=== PATIENT | female | born 1965 | race Caucasian/White ===

== ENCOUNTER 2020-10-02 16:16 | Outpatient (REF) | payer OTHER, SELFPAY ==
[2020-10-02 18:07] LABS: Albumin Level 4.3 g/dL (3.5-5.0)
[2020-10-02 18:38] LABS: Free T4 (Free Thyroxine) 1.51 ng/dL (0.71-1.85); Thyroid Stimulating Hormone 0.17 uIU/mL (0.32-4.0)
[2020-10-03 20:22] LABS: Calcium (PTHI) 9.1 mg/dL (8.6-10.4); PTHI 39 pg/mL (14-64)
== END 2020-10-02 16:17 | disposition home or self-care (01) ==
LOC: HO.LAB 16:16
PROVIDERS: PCP Physician Assistant; Visit Provider Internal Medicine
DX: E03.9 Hypothyroidism, unspecified (principal); E21.0 Primary hyperparathyroidism; M85.80 Other specified disorders of bone density and structure, unspecified site; E55.9 Vitamin D deficiency, unspecified
CPT/HCPCS: 82040; 82306; 83970; 84439; 84443

== ENCOUNTER 2020-11-22 15:14 | Outpatient (REF) | payer OTHER, SELFPAY ==
[2020-11-22 16:24] LABS: Free T4 (Free Thyroxine) 1.45 ng/dL (0.71-1.85); Thyroid Stimulating Hormone 0.24 uIU/mL (0.32-4.0)
== END 2020-11-22 15:15 | disposition home or self-care (01) ==
LOC: HO.LAB 15:14
PROVIDERS: PCP Physician Assistant; Visit Provider Internal Medicine
DX: E03.9 Hypothyroidism, unspecified (principal)
CPT/HCPCS: 36415; 84439; 84443

== ENCOUNTER → 2020-11-23 11:42 | Outpatient (BNVA) | payer OTHER, SELFPAY | PROVIDERS: PCP Physician Assistant; Visit Provider Internal Medicine ==

== ENCOUNTER 2021-01-22 14:47 | Outpatient (REF) | payer OTHER, SELFPAY ==
[2021-01-22 15:40] LABS: Albumin Level 4.1 g/dL (3.5-5.0); Calcium 8.8 mg/dL (8.4-10.2)
[2021-01-22 16:12] LABS: Free T4 (Free Thyroxine) 1.14 ng/dL (0.71-1.85); Thyroid Stimulating Hormone 1.31 uIU/mL (0.32-4.0); Vitamin D 25-OH Total 30.4 ng/mL (>30)
[2021-01-23 13:22] LABS: PTHI 40 pg/mL (14-64)
== END 2021-01-22 14:48 | disposition home or self-care (01) ==
LOC: HO.LAB 14:47
PROVIDERS: PCP Physician Assistant; Visit Provider Internal Medicine
DX: E03.9 Hypothyroidism, unspecified (principal); E55.9 Vitamin D deficiency, unspecified
CPT/HCPCS: 36415; 82040; 82306; 82310; 83970; 84439; 84443

== ENCOUNTER 2021-01-23 12:39 | Outpatient (REF) | payer OTHER, SELFPAY ==
--- NOTE | ~2021-01-23 | XR_ITS ---
EXAMINATION: XR CHEST CLINICAL INFORMATION: Cough COMPARISON: Chest radiographs 11/16/2019, 01/30/2017 TECHNIQUE: 2 views of the chest were obtained. FINDINGS: The lungs are clear and there is no vascular congestion, airspace consolidation or groundglass opacity. The costophrenic sulci are clear. The heart is normal in size and the hilar and mediastinal contours are unremarkable. There is no acute bony abnormality. XR/XR chest 2V IMPRESSION: Unremarkable examination.
== END 2021-01-23 12:40 | disposition home or self-care (01) ==
LOC: HO.XRAY 12:39
PROVIDERS: PCP Physician Assistant; Visit Provider Internal Medicine Pulmonary Disease
DX: R05 Cough (principal)
CPT/HCPCS: 71046

== ENCOUNTER 2021-03-27 14:32 | Outpatient (REF) | payer OTHER, SELFPAY ==
[2021-03-27 15:43] LABS: Albumin Level 4.3 g/dL (3.5-5.0); Calcium 9.1 mg/dL (8.4-10.2)
[2021-03-27 16:12] LABS: Free T4 (Free Thyroxine) 1.03 ng/dL (0.71-1.85); Thyroid Stimulating Hormone 3.26 uIU/mL (0.32-4.0); Vitamin D 25-OH Total 27.4 ng/mL (>30)
[2021-03-28 14:27] LABS: Calcium (PTHI) 8.8 mg/dL (8.6-10.4); PTHI 38 pg/mL (14-64)
== END 2021-03-27 14:33 | disposition home or self-care (01) ==
LOC: HO.LAB 14:32
PROVIDERS: PCP Physician Assistant; Visit Provider Internal Medicine
DX: E55.9 Vitamin D deficiency, unspecified (principal); E03.9 Hypothyroidism, unspecified; Z86.39 Personal history of other endocrine, nutritional and metabolic disease
CPT/HCPCS: 36415; 82040; 82306; 82310; 83970; 84439; 84443

== ENCOUNTER → 2021-03-29 11:24 | Outpatient (BNVA) | payer OTHER, SELFPAY | PROVIDERS: PCP Physician Assistant; Visit Provider Internal Medicine | DX: E03.9 Hypothyroidism, unspecified (principal); Z86.39 Personal history of other endocrine, nutritional and metabolic disease; E55.9 Vitamin D deficiency, unspecified ==

== ENCOUNTER 2021-05-21 16:54 | Outpatient (REF) | payer OTHER, SELFPAY ==
[2021-05-21 17:48] LABS: MANUAL DIFF FLAG NO
[2021-05-21 17:59] LABS: Basophils Percent Auto 0.6 % (0-2); Eosinophils Absolute Auto 0.2 X10*3/uL (0.0-0.4); Eosinophils Percent Auto 4.4 % (0-4); Hematocrit 38.7 % (37-47); Hemoglobin 13.5 g/dl (12.0-16.0); Imm Gran Abs Auto 0.02 X10*3/uL (0.00-0.03); Imm Gran Pct Auto 0.4 % (0.0-0.4); Lymphocytes Absolute Auto 1.5 X10*3/uL (1.2-4.9); Lymphocytes Percent Auto 32.6 % (20-40); Mean Corpuscular HGB Conc 34.9 g/dl (31.0-35.0); Mean Corpuscular Hemoglobin 31.3 pg (27.0-33.0); Mean Corpuscular Volume 89.6 fL (80-98); Mean Platelet Volume 9.7 fL (9.4-12.3); Monocytes Absolute Auto 0.5 X10*3/uL (0.1-1.2); Monocytes Percent Auto 9.5 % (2-11); Neutrophils Absolute Auto 2.5 X10*3/uL (2.0-8.3); Neutrophils Percent Auto 52.5 % (45-73); Platelet Count 194 X10*3/uL (160-400); Red Blood Count 4.32 X10*6/uL (4.20-5.50); Red Cell Distribution Width 12.6 % (11.0-16.0); White Blood Count 4.7 X10*3/uL (4.8-10.8)
[2021-05-21 18:19] LABS: Alanine Aminotransferase 23 U/L (0-31); Albumin Level 4.3 g/dL (3.5-5.0); Alkaline Phosphatase 76 U/L (39-117); Anion Gap 11 (12-20); Aspartate Amino Transferase 22 U/L (5-31); Bilirubin Total 0.7 mg/dL (0.0-1.0); Blood Urea Nitrogen 14 mg/dL (9-16); Carbon Dioxide 25 mmol/L (22-29); Chloride 108 mmol/L (96-108); Estimated Glomerular Filt Rate > 60; Glucose Random 87 mg/dL (60-115); Potassium 3.8 mmol/L (3.3-5.1); Sodium 140 mmol/L (135-145)
[2021-05-21 18:39] LABS: Free T4 (Free Thyroxine) 1.26 ng/dL (0.71-1.85); Thyroid Stimulating Hormone 0.99 uIU/mL (0.32-4.0)
[2021-05-22 23:51] LABS: Follicle Stimulating Hormone 57.2 mIU/mL; Lutenizing Hormone 34.5 mIU/mL
[2021-05-23 02:12] LABS: DHEA Sulfate 50 mcg/dL (8-188); Thyroid Peroxidase Antibodies 27 IU/mL (<9)
[2021-05-23 02:16] LABS: Cytomegalovirus Ab IgG <0.60 U/mL; Cytomegalovirus Ab IgM <30.00 AU/mL; EBV-VCA IgG Ab >750.00 U/mL; EBV-VCA IgM Ab <36.00 U/mL
[2021-05-23 18:51] LABS: Thyroglobulin <0.1 ng/mL; Thyroglobulin Antibodies 369 IU/mL (< or = 1)
[2021-05-24 21:32] LABS: Mycoplasma Pneumoniae - IgG <=0.90 (<=0.90); Mycoplasma Pneumoniae - IgM 112 U/mL (<770)
[2021-05-25 00:31] LABS: Magnesium, RBC 5.2 mg/dL (4.0-6.4)
[2021-05-25 02:21] LABS: Testosterone, Total 24 ng/dL (2-45)
[2021-05-26 01:47] LABS: Estradiol Free 0.25 pg/mL; Estradiol, Ultrasensitive 13 pg/mL
[2021-05-26 12:31] LABS: Triiodothyronine T3 Reverse 22 ng/dL (8-25)
[2021-05-26 17:36] LABS: Testosterone, Free 2.4 pg/mL (0.1-6.4); Testosterone, Total 21 ng/dL (2-45)
[2021-05-26 22:52] LABS: Progesterone <0.1 ng/mL
== END 2021-05-21 16:55 | disposition home or self-care (01) ==
LOC: HO.LAB 16:54
PROVIDERS: PCP Physician Assistant; Visit Provider Allergy & Immunology Allergy
DX: R53.83 Other fatigue (principal); N95.8 Other specified menopausal and perimenopausal disorders; E06.3 Autoimmune thyroiditis
CPT/HCPCS: 36415; 80053; 82627; 82670; 82681; 83001; 83002; 83735; 84144; 84402; 84403; 84432; 84439; 84443; 84481; 84482; 85025; 86376; 86644; 86645; 86664; 86665; 86738; 86790; 86800

== ENCOUNTER 2021-08-02 14:52 | Outpatient (REF) | payer OTHER, SELFPAY ==
--- NOTE | ~2021-08-02 | MM_ITS ---
EXAMINATION: BONE DENSITOMETRY CLINICAL INDICATION: Osteopenia. COMPARISON: Baseline BD dated 03/26/2018. TECHNIQUE: Using a [employer] DXA System (software version: 13.1) manufactured by [employer], dual-energy x-ray absorptiometry was performed of the lumbar spine and left hip. The images are of good technical quality. Summary results are attached. FINDINGS: AP SPINE L1-L4: Current: BMD 1.143 g/cm2, Z-score 0.0, T-score -0.3, normal, 0.9% decrease from baseline (<5% change is not significant). Baseline: BMD 1.153 g/cm2. LEFT FEMUR, NECK: Current: BMD 0.793 g/cm2, Z-score -1.1, T-score -1.8, osteopenia. Baseline: BMD 0.813 g/cm2. LEFT FEMUR, TOTAL: Current: BMD 0.819 g/cm2, Z-score -1.2, T-score -1.5, osteopenia, 0.2% decrease from baseline (<5% change is not significant). Baseline: BMD 0.821 g/cm2. IDENTIFIED RISK FACTORS: Secondary osteoporosis, history of fracture (adult), glucocorticoids (chronic), menopause, hysterectomy. HISTORY OF FRACTURE: Extremities. MEDICATIONS: Vitamin D. MM/XR DEXA axial skeleton IMPRESSION: 1. DIAGNOSIS: Osteopenia based on the lowest T-score value of -1.8 in the femoral neck applying World Health Organization criteria. 2. 10-YEAR FRACTURE RISK PREDICTION, FRAX: Major osteoporotic fracture (clinical spine, forearm, hip or shoulder) 20.3%. Hip fracture 2.5%. 3. Treatment Recommendations: NOF guidelines recommend consideration for treatment in postmenopausal women and men age 50 and older presenting with the following: -A hip or vertebral (clinical or morphometric) fracture. -T-score less than or equal to -2.5 at the femoral neck or spine after appropriate evaluation to exclude secondary causes. -Low bone mass at the hip or spine and a 10-year fracture probability by FRAX of greater than or equal to 3% for hip fracture or greater than or equal to 20% for major osteoporotic fracture based on the [place] adapted WHO algorithm. 4. Other Recommendations: All treatment decisions require clinical judgment and consideration of individual patient factors, including patient preferences, comorbidities, previous drug use, risk factors not captured in the FRAX model (e.g. frailty, falls, vitamin D deficiency, increased bone turnover, interval significant decline in bone density) and possible under or overestimation of fracture risk by FRAX. Additional medical evaluation for secondary cause of low bone mineral density may be appropriate. FUTURE SCAN RECOMMENDATION: People with diagnosed cases of osteoporosis or at high risk for fracture should have regular bone mineral density tests. For patients eligible for Medicare, routine testing is allowed once every 2 years. The testing frequency can be increased to one year for patients who have rapidly progressing disease, those who are receiving or discontinuing medical therapy to restore bone mass, or have additional risk factors.
--- NOTE | ~2021-08-02 | MM_ITS ---
EXAMINATION: MM SCREENING DIGITAL BREAST TOMOSYNTHESIS, BILATERAL CLINICAL INFORMATION: Screening. Asymptomatic. The lifetime risk of breast cancer based on the Tyrer-Cuzick Model is 14%. COMPARISON: Mammography: November 16, 2019 and studies dating back to January 05, 2015 TECHNIQUE: Digital breast tomosynthesis is performed in both the craniocaudal and mediolateral oblique views along with computer-aided detection (CAD). Synthesized 2D images are generated from the tomosynthesis. Additional exaggerated craniocaudal view of the left breast performed. FINDINGS: The breasts are heterogeneously dense, which may obscure small masses (ACR BI-RADS breast composition Category c). There are no significant masses, abnormal calcifications, or other abnormalities. MM/MM tomosynthesis screening BI IMPRESSION: There are no significant changes from prior study. ASSESSMENT: BI-RADS 1: Negative RECOMMENDATION: Routine annual mammography screening. This patient's information was entered into a reminder system with a target due date for their next mammogram.
== END 2021-08-02 14:53 | disposition home or self-care (01) ==
LOC: HO.MAMMO 14:52
PROVIDERS: Visit Provider Physician Assistant
DX: Z12.31 Encounter for screening mammogram for malignant neoplasm of breast (principal); Z13.820 Encounter for screening for osteoporosis; M85.80 Other specified disorders of bone density and structure, unspecified site; E27.49 Other adrenocortical insufficiency; Z78.0 Asymptomatic menopausal state; Z79.899 Other long term (current) drug therapy; Z98.890 Other specified postprocedural states
CPT/HCPCS: 77063; 77067; 77080

== ENCOUNTER → 2021-09-11 15:23 | Outpatient (BNV) | payer OTHER, SELFPAY | PROVIDERS: Visit Provider Internal Medicine Medical Oncology | DX: E53.8 Deficiency of other specified B group vitamins (principal); E55.9 Vitamin D deficiency, unspecified | CPT/HCPCS: 99213; 99214 ==

== ENCOUNTER 2022-01-18 15:48 | Outpatient (REF) | payer OTHER, SELFPAY ==
[2022-01-18 16:51] LABS: Free T4 (Free Thyroxine) 1.11 ng/dL (0.71-1.85); Thyroid Stimulating Hormone 2.38 uIU/mL (0.32-4.0)
== END 2022-01-18 15:49 | disposition home or self-care (01) ==
LOC: HO.LAB 15:48
PROVIDERS: PCP Physician Assistant; Visit Provider Allergy & Immunology Allergy
DX: E06.3 Autoimmune thyroiditis (principal)
CPT/HCPCS: 36415; 84439; 84443; 84481

== ENCOUNTER 2022-08-01 16:28 | Outpatient (REF) | payer OTHER, SELFPAY ==
[2022-08-01 16:40] LABS: MANUAL DIFF FLAG NO
[2022-08-01 16:48] LABS: Basophils Percent Auto 0.8 % (0-2); Eosinophils Absolute Auto 0.1 X10*3/uL (0.0-0.4); Eosinophils Percent Auto 2.4 % (0-4); Hematocrit 41.3 % (37.0-47.0); Hemoglobin 14.5 g/dl (12.0-16.0); Imm Gran Abs Auto 0.03 X10*3/uL (0.00-0.03); Imm Gran Pct Auto 0.6 % (0.0-0.4); Lymphocytes Absolute Auto 1.5 X10*3/uL (1.2-4.9); Mean Corpuscular HGB Conc 35.1 g/dl (31.0-35.0); Mean Corpuscular Hemoglobin 31.5 pg (27.0-33.0); Mean Corpuscular Volume 89.6 fL (80.0-98.0); Mean Platelet Volume 9.7 fL (9.4-12.3); Monocytes Absolute Auto 0.5 X10*3/uL (0.1-1.2); Monocytes Percent Auto 9.6 % (2-11); Neutrophils Absolute Auto 2.8 x10*3/uL (2.0-8.3); Neutrophils Percent Auto 56.6 % (45-73); Platelet Count 188 X10*3/uL (160-400); Red Blood Count 4.61 X10*6/uL (4.20-5.50); Red Cell Distribution Width 12.4 % (11.0-16.0)
[2022-08-01 18:04] LABS: Alanine Aminotransferase 29 U/L (0-31); Albumin Level 4.3 g/dL (3.5-5.0); Alkaline Phosphatase 96 U/L (39-117); Anion Gap 15 (12-20); Aspartate Amino Transferase 26 U/L (5-31); Bilirubin Total 0.4 mg/dL (0.0-1.0); Blood Urea Nitrogen 12 mg/dL (9-16); Calcium 9.2 mg/dL (8.4-10.2); Carbon Dioxide 26 mmol/L (22-29); Chloride 105 mmol/L (96-108); Estimated Glomerular Filt Rate > 60; Glucose Random 93 mg/dL (60-115); Iron 79 mcg/dL (30-160); Percent Iron Saturation 25 % (15-50); Potassium 4.3 mmol/L (3.3-5.1); Sodium 142 mmol/L (135-145); Total Iron Binding Capacity 314 mcg/dL (228-428); Total Protein 7.3 g/dL (6.5-8.0); Unsaturated Iron Binding 235 ug/dL
[2022-08-01 18:26] LABS: Ferritin 282 ng/mL (10-250)
[2022-08-01 18:36] LABS: Folate 9.6 ng/mL (> or = 4.0); Vitamin B12 385 pg/mL (200-900)
== END 2022-08-01 16:29 | disposition home or self-care (01) ==
LOC: HO.LAB 16:28
PROVIDERS: Visit Provider Internal Medicine Medical Oncology
DX: E03.9 Hypothyroidism, unspecified (principal); E53.8 Deficiency of other specified B group vitamins
CPT/HCPCS: 36415; 80053; 82607; 82728; 82746; 83540; 85025

== ENCOUNTER 2022-08-30 13:53 | Outpatient (REF) | payer OTHER, SELFPAY ==
[2022-08-30 14:39] LABS: MANUAL DIFF FLAG NO
[2022-08-30 15:55] LABS: Basophils Percent Auto 0.9 % (0-2); Eosinophils Absolute Auto 0.1 X10*3/uL (0.0-0.4); Eosinophils Percent Auto 2.5 % (0-4); Hemoglobin 14.2 g/dl (12.0-16.0); Imm Gran Abs Auto 0.03 X10*3/uL (0.00-0.03); Imm Gran Pct Auto 0.7 % (0.0-0.4); Lymphocytes Absolute Auto 1.2 X10*3/uL (1.2-4.9); Lymphocytes Percent Auto 26.6 % (20-40); Mean Corpuscular HGB Conc 34.6 g/dl (31.0-35.0); Mean Corpuscular Hemoglobin 30.7 pg (27.0-33.0); Mean Corpuscular Volume 88.7 fL (80.0-98.0); Mean Platelet Volume 9.8 fL (9.4-12.3); Monocytes Absolute Auto 0.4 X10*3/uL (0.1-1.2); Monocytes Percent Auto 7.8 % (2-11); Neutrophils Absolute Auto 2.8 x10*3/uL (2.0-8.3); Neutrophils Percent Auto 61.5 % (45-73); Platelet Count 203 X10*3/uL (160-400); Red Blood Count 4.62 X10*6/uL (4.20-5.50); Red Cell Distribution Width 12.5 % (11.0-16.0); White Blood Count 4.5 X10*3/uL (4.8-10.8)
[2022-09-02 14:55] LABS: Immunoglobulin G Subclass 1 776 mg/dL (382-929); Immunoglobulin G Subclass 2 324 mg/dL (241-700); Immunoglobulin G Subclass 3 20 mg/dL (22-178); Immunoglobulin G Subclass 4 35.4 mg/dL (4-86); Immunoglobulin G Total 1283 mg/dL (600-1640)
[2022-09-02 17:32] LABS: Immunoglobulin A 174 mg/dL (47-310); Immunoglobulin M 157 mg/dL (50-300)
[2022-09-02 22:56] LABS: Immunoglobulin E 25 kU/L (<OR=114)
[2022-09-03 13:12] LABS: Triiodothyronine T3 Reverse 16 ng/dL (8-25)
[2022-09-03 16:25] LABS: Iodine, Serum/Plasma 86 mcg/L (52-109)
== END 2022-08-30 13:54 | disposition home or self-care (01) ==
LOC: HO.LAB 13:53
PROVIDERS: PCP Physician Assistant; Visit Provider Allergy & Immunology Allergy
DX: D72.819 Decreased white blood cell count, unspecified (principal); E06.3 Autoimmune thyroiditis
CPT/HCPCS: 82784; 82785; 83789; 84482; 85025

== ENCOUNTER 2022-09-26 15:58 | Outpatient (REF) | payer OTHER, SELFPAY ==
[2022-09-26 16:55] LABS: C Reactive Protein 1.03 mg/dL (< or = 0.50); Rheumatoid Factor < 13.0 IU/mL (<15.0)
[2022-09-26 17:22] LABS: Erythrocyte Sedimentation Rate 7 MM/HR (0-20)
[2022-10-02 16:13] LABS: Anti DNA DS Antibody 3 IU/mL
[2022-10-03 11:58] LABS: Anti Nuclear Antibody Screen POSITIVE (NEGATIVE)
== END 2022-09-26 15:59 | disposition home or self-care (01) ==
LOC: HO.LAB 15:58
PROVIDERS: Visit Provider Allergy & Immunology Allergy
DX: M15.8 Other polyosteoarthritis (principal)
CPT/HCPCS: 36415; 84550; 85652; 86038; 86039; 86140; 86225; 86431

== ENCOUNTER 2022-10-24 14:49 | Outpatient (REF) | payer OTHER, SELFPAY ==
[2022-10-24 15:46] LABS: Free T4 (Free Thyroxine) 2.05 ng/dL (0.71-1.85)
[2022-10-31 14:53] LABS: Triiodothyronine T3 Reverse 19 ng/dL (8-25)
== END 2022-10-24 14:50 | disposition home or self-care (01) ==
LOC: HO.LAB 14:49
PROVIDERS: PCP Physician Assistant; Visit Provider Allergy & Immunology Allergy
DX: E06.3 Autoimmune thyroiditis (principal)
CPT/HCPCS: 36415; 84439; 84481; 84482

== ENCOUNTER 2023-03-18 13:50 | Outpatient (REF) | payer OTHER, SELFPAY ==
[2023-03-18 14:07] LABS: MANUAL DIFF FLAG NO
[2023-03-18 15:34] LABS: Basophils Percent Auto 0.7 % (0-2); Eosinophils Absolute Auto 0.1 X10*3/uL (0.0-0.4); Eosinophils Percent Auto 1.8 % (0-4); Hematocrit 44.1 % (37.0-47.0); Imm Gran Abs Auto 0.03 X10*3/uL (0.00-0.03); Imm Gran Pct Auto 0.5 % (0.0-0.4); Lymphocytes Absolute Auto 1.3 X10*3/uL (1.2-4.9); Lymphocytes Percent Auto 22.7 % (20-40); Mean Corpuscular Hemoglobin 30.5 pg (27.0-33.0); Mean Corpuscular Volume 89.6 fL (80.0-98.0); Mean Platelet Volume 10.5 fL (9.4-12.3); Monocytes Absolute Auto 0.6 X10*3/uL (0.1-1.2); Monocytes Percent Auto 10.1 % (2-11); Neutrophils Absolute Auto 3.6 x10*3/uL (2.0-8.3); Neutrophils Percent Auto 64.2 % (45-73); Platelet Count 154 X10*3/uL (160-400); Red Blood Count 4.92 X10*6/uL (4.20-5.50); Red Cell Distribution Width 12.7 % (11.0-16.0); White Blood Count 5.6 X10*3/uL (4.8-10.8)
[2023-03-18 16:16] LABS: Alanine Aminotransferase 27 U/L (0-31); Albumin Level 4.2 g/dL (3.5-5.0); Alkaline Phosphatase 88 U/L (39-117); Anion Gap 12 (12-20); Aspartate Amino Transferase 28 U/L (5-31); Bilirubin Total 0.8 mg/dL (0.0-1.0); Blood Urea Nitrogen 11 mg/dL (9-16); Calcium 9.1 mg/dL (8.4-10.2); Carbon Dioxide 27 mmol/L (22-29); Chloride 105 mmol/L (96-108); Estimated Glomerular Filt Rate > 60; Glucose Random 99 mg/dL (60-115); Potassium 3.8 mmol/L (3.3-5.1); Sodium 140 mmol/L (135-145); Total Protein 7.8 g/dL (6.5-8.0)
[2023-03-18 16:30] LABS: Thyroid Stimulating Hormone 1.55 uIU/mL (0.32-4.0)
== END 2023-03-18 13:51 | disposition home or self-care (01) ==
LOC: HO.LAB 13:50
PROVIDERS: PCP Physician Assistant; Visit Provider Internal Medicine Medical Oncology
DX: E53.8 Deficiency of other specified B group vitamins (principal); E03.9 Hypothyroidism, unspecified
CPT/HCPCS: 36415; 80053; 84443; 85025

== ENCOUNTER → 2023-04-11 08:31 | Outpatient (BNVA) | payer OTHER, SELFPAY | PROVIDERS: PCP Physician Assistant; Visit Provider Nurse Practitioner Family | DX: R07.89 Other chest pain (principal); R00.2 Palpitations | CPT/HCPCS: 93005 ==

== ENCOUNTER → 2023-05-20 09:43 | Outpatient (REF) | payer OTHER, SELFPAY ==
--- NOTE | 2023-05-20 09:46 | HM_ITS ---
Conclusion: 1. Patient was monitored for total period of 3 days 2. Baseline was normal sinus with average heart of 66 beats per minute 3. No significant pauses noted 4. Frequent PACs noted with total burden of 1.7% with 6 SVT event, longest lasting 5 beats and the fastest 176 beats per minute 5. Patient reported total of 8 symptoms all chest creasing correlating with sinus tachycardia with PACs MTDD
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
== END ==
LOC: HO.CARD 09:43
PROVIDERS: PCP Physician Assistant; Visit Provider Nurse Practitioner Family
DX: R07.89 Other chest pain (principal); R00.2 Palpitations
CPT/HCPCS: 93017; 93242

== ENCOUNTER → 2023-05-20 09:46 | Outpatient (BNV) | payer SELFPAY | PROVIDERS: PCP Physician Assistant; Visit Provider Nurse Practitioner | DX: I47.1 Supraventricular tachycardia (principal) | CPT/HCPCS: 93016; 93018; 93244 ==

== ENCOUNTER → 2023-05-28 15:20 | Outpatient (REF) | payer OTHER, SELFPAY ==
--- NOTE | 2023-05-28 15:23 | CA_ITS ---
Transthoracic Echocardiogram Patient (Last, First, Middle): Xochitl Haque, Gender: Female Date of : 1965 Age: 57 Procedure Date: 05/28/2023 Procedure Type: Transthoracic Echocardiogram Location: OP Height: 160.02 cm Weight: 85.28 kg BSA: 1.88 m2 Heart Rate: bpm BP: 110 / 70 mmHg Coke Drawer Hand: TO Referring MD: Stacey Velasco BIOMETRICS HEAD-C Symptoms: R00.2 - Palpitations Study Quality: Fair Conclusions: - The left ventricular systolic function is normal. The calculated ejection fraction is 63% by biplane method. - There is mild to moderate tricuspid valve regurgitation. Findings Left Ventricle Normal left ventricular cavity size. There is normal left ventricular wall thickness. The left ventricular systolic function is normal. The calculated ejection fraction is 63% by biplane method. There is no evidence of regional wall motion abnormalities. Diastolic function is normal for age. Right Ventricle Normal right ventricular cavity size and systolic function. Atria Both atria are normal in size. Aortic Valve There is a normal trileaflet aortic valve. There is no aortic valve stenosis. There is no aortic valve regurgitation. Mitral Valve The mitral valve appears normal. There is no mitral valve regurgitation. There is no mitral valve stenosis. Pulmonic Valve The pulmonic valve is likely normal. Tricuspid Valve There is mild to moderate tricuspid valve regurgitation. There is no evidence of pulmonary hypertension. Great Vessels The asc aorta is normal in size. Venous The inferior vena cava is normal in size and collapses greater than 50% with inspiration. Pericardium/Pleural There is no evidence of pericardial effusion. Prior Study Comparison No significant change compared to prior study dated: 11/30/2019. Measurements 2D Linear Measurements IVSd: 0.96 0.6-0.9/0.6-1.0 cm LVIDd: 4.52 3.9-5.3/4.2-5.9 cm LVIDd Index: 2.40 2.4-3.2/2.2-3.1 cm/m2 LVIDs: 3.13 2.0-3.6 cm LVPWd: 0.76 0.7-1.1 cm LA Diam: 3.70 2.7-3.8/3.0-4.0 cm LAIDs Index: 1.97 1.5-2.3 cm/m2 LV Mass: 156.04 67-162/88-224 g LV Mass Index: 83.00 43-95/49-115 g/m2 LVOT Diam: 2.10 3.0+(-)1.3 cm 2D Systolic Function EF 4C: 64.40 >55% EF 2C: 59.50 >55% EF BiP: 62.90 >55% Mitral Valve MV Pk E: 0.59 MV PK A: 0.67 MV Decel Time: 200.00 E/A: 0.90 E'Lateral: 8.38 E'Medial: 5.11 E/E' Med: 11.50 E/E' Lat: 7.00 PHT: 59.00 MVA PHT: 3.73 Decel [place]: 2.93 Aortic Valve AoV Pk Alex: 1.29 AoV Mn Alex: 0.87 AoV VTI: 0.27 AoV Pk Grad: 7.00 Aov Mn Grad: 3.00 SHAILESH Cont.VTI: 3.46 LVOT LVOT Pk Alex: 1.10 LVOT Mn Alex: 0.67 LVOT VTI: 0.27 LVOT Pk Grad: 5.00 LVOT Mn Grad: 2.00 LVOT Diam: 2.10 LVOT Area: 3.46 Diastolic Function MV Pk E: 0.59 MV Pk A: 0.67 E/A: 0.90 E'Medial: 5.11 E/E' Med: 11.50 E' Laterial: 8.38 E/E' Lat: 7.00 Right Ventricle TAPSE (mm): 26.30 TVS' Alex: 11.30 Tricuspid Valve TR Pk Alex: 2.48 TR Pk Grad: 25.00 RA Press: 3.00 RVSP: 28.00 Great Vessels Aorta Sinus of Valsalva: 3.40 2.0-3.[address] [place]: 2.44 1.7-3.4 cm Ao Asc: 3.20 2.1-3.4 cm Ao Arch: 3.20 Updated in Other Vendor System with Status of Final Bj Pimentel MD electronically signed on 05/29/2023 5:06:31 PM with status of Final
== END ==
LOC: HO.CARD 15:20
PROVIDERS: PCP Physician Assistant; Visit Provider Nurse Practitioner Family
DX: R07.89 Other chest pain (principal); R00.2 Palpitations
CPT/HCPCS: 93306

== ENCOUNTER → 2023-05-28 15:23 | Outpatient (BNV) | payer OTHER, SELFPAY | PROVIDERS: PCP Physician Assistant; Visit Provider Internal Medicine | DX: R00.2 Palpitations (principal) | CPT/HCPCS: 93306 ==

== ENCOUNTER 2023-06-06 09:51 | Outpatient (REF) | payer OTHER, SELFPAY ==
[2023-06-06 12:43] LABS: Free T4 (Free Thyroxine) 1.21 ng/dL (0.71-1.85); Thyroid Stimulating Hormone 0.74 uIU/mL (0.32-4.0)
[2023-06-08 01:19] LABS: Triiodothyronine T3 Free 3.3 pg/mL (2.3-4.2)
== END 2023-06-06 09:52 | disposition home or self-care (01) ==
LOC: HO.LAB 09:51
PROVIDERS: Absent Provider Allergy & Immunology Allergy; PCP Physician Assistant; Visit Provider Nurse Practitioner Family
DX: E06.3 Autoimmune thyroiditis (principal)
CPT/HCPCS: 36415; 84439; 84443; 84481

== ENCOUNTER 2023-06-06 09:51 | Outpatient (AMB) | payer SELFPAY ==
[2023-06-06 10:01] VITALS: BP 120/82; PULSE 57; BMI 32.9
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
== END 2023-06-06 10:57 | disposition home or self-care (01) ==
LOC: HO.HCS 09:51
PROVIDERS: PCP Physician Assistant; Visit Provider Nurse Practitioner Family
DX: R07.89 Other chest pain (principal); R00.2 Palpitations; R03.0 Elevated blood-pressure reading, without diagnosis of hypertension
CPT/HCPCS: 99213

== ENCOUNTER 2023-10-17 16:11 | Outpatient (REF) | payer OTHER, SELFPAY ==
[2023-10-17 16:20] LABS: MANUAL DIFF FLAG NO
[2023-10-17 17:22] LABS: Basophils Absolute Auto 0.1 X10*3/uL (0.0-0.2); Basophils Percent Auto 0.9 % (0-2); Eosinophils Absolute Auto 0.2 X10*3/uL (0.0-0.4); Hematocrit 40.4 % (37.0-47.0); Hemoglobin 13.8 g/dl (12.0-16.0); Imm Gran Abs Auto 0.02 X10*3/uL (0.00-0.03); Imm Gran Pct Auto 0.3 % (0.0-0.4); Lymphocytes Absolute Auto 1.5 X10*3/uL (1.2-4.9); Lymphocytes Percent Auto 25.6 % (20-40); Mean Corpuscular HGB Conc 34.2 g/dl (31.0-35.0); Mean Corpuscular Hemoglobin 30.9 pg (27.0-33.0); Mean Corpuscular Volume 90.4 fL (80.0-98.0); Mean Platelet Volume 9.7 fL (9.4-12.3); Monocytes Absolute Auto 0.6 X10*3/uL (0.1-1.2); Monocytes Percent Auto 10.4 % (2-11); Neutrophils Absolute Auto 3.4 x10*3/uL (2.0-8.3); Neutrophils Percent Auto 59.8 % (45-73); Platelet Count 177 X10*3/uL (160-400); Red Blood Count 4.47 X10*6/uL (4.20-5.50); Red Cell Distribution Width 12.6 % (11.0-16.0); White Blood Count 5.8 X10*3/uL (4.8-10.8)
[2023-10-17 18:35] LABS: Ferritin 238 ng/mL (10-250); Thyroid Stimulating Hormone 3.11 uIU/mL (0.32-4.0)
[2023-10-17 18:41] LABS: Alanine Aminotransferase 29 U/L (0-31); Alkaline Phosphatase 86 U/L (39-117); Anion Gap 10 (12-20); Aspartate Amino Transferase 27 U/L (5-31); Bilirubin Total 0.4 mg/dL (0.0-1.0); Blood Urea Nitrogen 13 mg/dL (9-16); Carbon Dioxide 27 mmol/L (22-29); Chloride 107 mmol/L (96-108); Estimated Glomerular Filt Rate > 60; Glucose Random 85 mg/dL (60-115); Potassium 3.4 mmol/L (3.3-5.1); Sodium 141 mmol/L (135-145); Total Protein 7.5 g/dL (6.5-8.0)
== END 2023-10-17 16:12 | disposition home or self-care (01) ==
LOC: HO.LAB 16:11
PROVIDERS: Visit Provider Internal Medicine Medical Oncology
DX: E03.9 Hypothyroidism, unspecified (principal); Z86.39 Personal history of other endocrine, nutritional and metabolic disease
CPT/HCPCS: 36415; 80053; 82728; 84443; 85025

== ENCOUNTER 2023-12-11 13:03 | Outpatient (REF) | payer OTHER, SELFPAY ==
[2023-12-11 13:22] LABS: MANUAL DIFF FLAG NO
[2023-12-11 14:27] LABS: Basophils Percent Auto 0.9 % (0-2); Eosinophils Absolute Auto 0.1 X10*3/uL (0.0-0.4); Eosinophils Percent Auto 2.6 % (0-4); Hematocrit 40.6 % (37.0-47.0); Hemoglobin 14.2 g/dl (12.0-16.0); Imm Gran Abs Auto 0.02 X10*3/uL (0.00-0.03); Imm Gran Pct Auto 0.4 % (0.0-0.4); Lymphocytes Absolute Auto 1.3 X10*3/uL (1.2-4.9); Mean Corpuscular Hemoglobin 30.9 pg (27.0-33.0); Mean Corpuscular Volume 88.5 fL (80.0-98.0); Mean Platelet Volume 9.9 fL (9.4-12.3); Monocytes Absolute Auto 0.6 X10*3/uL (0.1-1.2); Monocytes Percent Auto 12.8 % (2-11); Neutrophils Absolute Auto 2.7 x10*3/uL (2.0-8.3); Neutrophils Percent Auto 56.3 % (45-73); Platelet Count 168 X10*3/uL (160-400); Red Blood Count 4.59 X10*6/uL (4.20-5.50); Red Cell Distribution Width 12.2 % (11.0-16.0); White Blood Count 4.7 X10*3/uL (4.8-10.8)
[2023-12-11 15:19] LABS: Free T4 (Free Thyroxine) 1.11 ng/dL (0.71-1.85); Thyroid Stimulating Hormone 2.24 uIU/mL (0.32-4.0)
[2023-12-12 21:14] LABS: Triiodothyronine T3 Free 3.1 pg/mL (2.3-4.2)
[2023-12-13 10:49] LABS: Immunoglobulin E 15 kU/L (<OR=114)
[2023-12-15 07:43] LABS: Immunoglobulin A 160 mg/dL (47-310); Immunoglobulin G 1840 mg/dL (600-1640); Immunoglobulin M 143 mg/dL (50-300)
[2023-12-16 01:58] LABS: Iodine, Random Urine 53 mcg/L (34-523)
[2023-12-17 05:18] LABS: Triiodothyronine T3 Reverse 19 ng/dL (8-25)
== END 2023-12-11 13:04 | disposition home or self-care (01) ==
LOC: HO.LAB 13:03
PROVIDERS: PCP Physician Assistant; Visit Provider Allergy & Immunology Allergy
DX: L20.84 Intrinsic (allergic) eczema (principal); E06.3 Autoimmune thyroiditis
CPT/HCPCS: 36415; 82784; 82785; 83789; 84439; 84443; 84481; 84482; 85025

== ENCOUNTER 2024-06-08 12:58 | Outpatient (AMB) | payer OTHER, SELFPAY ==
[2024-06-08 13:01] VITALS: BP 122/60; PULSE 55; BMI 33.3
--- NOTE | 2024-06-08 13:01 | A.OFFVIS_ITS ---
Vital Signs 06/08/24 13:01 Height 5 ft 2 in Weight 182 lb 1.629 oz BMI 33.3 BP 122/60 Blood Pressure Location Lt brachial Position Sitting Pulse 55 Pulse Source Monitor Intake Visit Reasons: 1 year fu C Architect Required: No Allergies dextran sulfate [DEXTRAN SULFATE] Allergy (Severe, Verified 06/08/24 13:03) BRADYCARDIA mold [MOLD] Allergy (Severe, Verified 06/08/24 13:03) SWELLING doxycycline [DOXYCYCLINE] Allergy (Mild, Verified 06/08/24 13:03) RASH/FACIAL SWELLING acetaminophen [From VICODIN] Allergy (Unknown, Verified 06/08/24 13:03) UNKNOWN bee pollen [BEE STINGS] Allergy (Unknown, Verified 06/08/24 13:03) UNKNOWN coconut Allergy (Unknown, Verified 06/08/24 13:03) UNKNOWN hydromorphone [Dilaudid] Allergy (Unknown, Verified 06/08/24 13:03) Bradycardia penicillin V Allergy (Unknown, Verified 06/08/24 13:03) rash Penicillins [PENICILLINS] Allergy (Unknown, Verified 06/08/24 13:03) UNKNOWN pineapple [PINEAPPLE] Allergy (Unknown, Verified 06/08/24 13:03) UNKNOWN Sulfa (Sulfonamide Antibiotics) [SULFA(SULFONAMIDE ANTIBIOTICS)] Allergy (Unknown, Verified 06/08/24 13:03) SWELLING pepper (genus Capsicum) Allergy (Verified 06/08/24 13:03) Shortness of Breath ciprofloxacin [CIPROFLOXACIN] Adverse Reaction (Severe, Verified 06/08/24 13:03) FELT LIKE BLADDER WAS GONNA BURST OUT garlic [GARLIC] Adverse Reaction (Intermediate, Verified 06/08/24 13:03) FLU SYMPTOMS onion [ONION] Adverse Reaction (Mild, Verified 06/08/24 13:03) GI SYMPTOMS all fluroquinolones Allergy (Unknown, Uncoded 06/08/24 13:03) tendonitis Preeti Allergy (Unknown, Uncoded 06/08/24 13:03) Unknown avacado Allergy (Unknown, Uncoded 06/08/24 13:03) Unknown banana Allergy (Unknown, Uncoded 06/08/24 13:03) Unknown bee Allergy (Unknown, Uncoded 06/08/24 13:03) Unknown Clindamycin HCl Allergy (Unknown, Uncoded 06/08/24 13:03) Unknown coconut Allergy (Unknown, Uncoded 06/08/24 13:03) Unknown coconut pineapple mold Allergy (Unknown, Uncoded 06/08/24 13:03) Unknown Dextran 1 Allergy (Unknown, Uncoded 06/08/24 13:03) Unknown Dextran HM Allergy (Unknown, Uncoded 06/08/24 13:03) Unknown From DILAUDID Allergy (Unknown, Uncoded 06/08/24 13:03) UNKNOWN From VICODIN Allergy (Unknown, Uncoded 06/08/24 13:03) UNKNOWN Garlic onion Allergy (Unknown, Uncoded 06/08/24 13:03) Unknown Peanut butter Allergy (Unknown, Uncoded 06/08/24 13:03) Unknown pinnapple Allergy (Unknown, Uncoded 06/08/24 13:03) Unknown sulfa Allergy (Unknown, Uncoded 06/08/24 13:03) rash sulfite Allergy (Unknown, Uncoded 06/08/24 13:03) Unknown tape Allergy (Unknown, Uncoded 06/08/24 13:03) Unknown Medication List - Last Reconciled 06/08/24 by MADDISON CorreiaC albuterol sulfate 90 mcg/actuation 2 puffs PO QID PRN cyanocobalamin (vitamin B-12) 1,000 mcg IM QMONTH cyanocobalamin (vitamin B-12) 1,000 mcg IM QMONTH epinephrine 0.3 mg IM NEEDED PRN levothyroxine (Tirosint) HARRY, no substitutions. 137.5mcg daily loratadine (Claritin) 10 mg PO DAILY mometasone 50 mcg/actuation 2 sprays intranasal BID PRN HPI HPI 1 year fu: Details: Xochitl is a 58-year-old female with past medical history of hypothyroidism, hype rparathyroidism, heart palpitations/ PACs, chest discomfort with normal ETT who now presents for follow-up. Today she reports she had COVID back in April and was quite ill for over 1 week. She still feels some fatigue, shortness of breath and heart palpitations during physical activity. She does not feel that she has fully recovered as of yet. She has been getting some squeezing discomfort in her left chest region which occurs randomly and with physical activity. She denies PND, orthopnea, lightheadedness, presyncope, syncope, falls.. She does get mild lower leg edema at times. She has been trying to increase her physical activity. Currently tires easy which she feels is residual from COVID. Compliant with meds. [facility] Medical History Osteopenia Vitamin D deficiency History of hyperparathyroidism Hypothyroidism Surgical History History of surgery on arm History of partial hysterectomy History of parathyroid surgery Hx of appendectomy Hx of cholecystectomy Family History Father Atherosclerotic heart disease Paternal Grandmother Atherosclerotic heart disease Mother Asthma COPD (chronic obstructive pulmonary disease) Type 2 diabetes mellitus Fungal infection of lung Aspergillosis Social History Household Members: Family Housing: House Are you a primary career manager to a significant other at home: Yes Do you presently have visiting nurse or other home services: No Patient Tobacco Use Status: Never used Tobacco service: No Current occupational status: unemployed Review of Systems Const All systems reviewed & are unremarkable except as noted in HPI and below ENT Denies dizziness Card Reports chest pain, Reports chest pain at rest, Reports chest pain with activity, Denies rapid heart rate, Denies pedal edema, Denies edema, Denies leg edema, Denies lightheadedness, Denies palpitations, Reports dyspnea, Reports dyspnea on exertion and Denies orthopnea Resp Denies cough, Reports dyspnea and Reports dyspnea on exertion GI Denies hematochezia and Denies change in stool character Musc Denies abnormal gait, Denies limited range of motion, Denies muscle cramps, Denies muscle weakness, Denies numbness, Denies radiating pain into limb, Denies stiffness and Denies tingling Neuro Denies abnormal gait, Denies dizziness, Denies numbness and Denies tingling Endo Denies palpitations Physical Exam Vital Signs: Last Vital Signs Pulse 55 06/08/24 13:01 BP 122/60 06/08/24 13:01 BMI result Body Mass Index 33.3 Const General: cooperative, healthy appearing, comfortable and no acute distress Orientation/consciousness: patient oriented x3 Neck Neck: Yes normal visual inspection and Yes no JVD Resp Effort & Inspection: normal respiratory effort Auscultation: clear to auscultation bilaterally, no crackles, no rales, no rhonc hi and no wheezes Cardio Jugular venous distension: no JVD Rate: regular rate Rhythm: regular rhythm Heart sounds: S1 normal heart sound present, S2 normal heart sound present, no murmurs and no rubs Neuro General: patient oriented x3 Extrem General: Yes normal to inspection and No no pedal edema Psych Appearance: grossly normal Mental Status: mental status grossly normal Speech and movement: Normal speech and movement present Office Procedures EKG Details: Today, read by me, Sinus bradycardia, low voltage QRS, rate 55, QTc 411ms [id number], Complete Assessment & Plan Assessment & Plan (1) Chest discomfort: Code(s): R07.89 - Other chest pain Category: Medical Plan: Prior Reports of intermittent squeezing in her left chest region, nonexertional, mostly occurring at rest lasting a few seconds and resolving. Cardiac risk factor of family history. Echocardiogram was done on 05/28/2023 showing EF 63%, [id number] tricuspid regurgitation, no significant change from echo 11/2019. She does tell me she had a history of rheumatic fever as a child. Exercise stress test done 05/20/2023 showed exercise 7 minutes with no anginal symptoms and no EKG changes of ischemia. At this time she continues to report episodes of squeezing in her left chest region. Has happened with activity such as climbing stairs however has occurred at rest as well. She expresses concern due to her family history of father having fatal LA in his early 60s. Will further evaluate with a exercise nuclear stress test. If she has ongoing fatigue and shortness of breath at the time of the stress test and is unable to exercise then a pharmacological stress test can be done. Will plan on waiting a few weeks at her request. Signs and symptoms of angina reviewed. Emergency care if ever needed for symptoms. Plan to call her with results. Cardiology office visit 1 year, sooner if test warrants. (2) Palpitations: Code(s): R00.2 - Palpitations Category: Medical Plan: Prior reports of heart palpitations, feeling like rapid heartbeat. She reports having history of syncope in the past. Prior Holter a few years ago did show PACs. Patient had ongoing concerns about her palpitations. Holter monitor done 05/20/2023 for 3 days shows sinus rhythm with average heart rate 66, PACs 1.7% of time, 6 brief SVT episodes, longest 5 beats, her symptoms correlated with PACs and sinus tachycardia. At this time she describes having COVID with significant illness. She feels she is still recovering. She is noticing some rapid heartbeats during physical activity. Informed her this is not unusual after illness as her body continues to recover and her activity level improves. Reviewed benefits of good hydration, increasing physical activity as tolerated. (3) Family history of early CAD: Code(s): Z82.49 - Family history of ischemic heart disease and other diseases of the circulatory system Category: Medical Plan: As above Plan Time spent on chart review, documentation, interview and assessment Orders: Orders NM cardiolite stress test Today R00.2 - Palpitations, R07.89 - Other chest pain, Z82.49 - Family history of ischemic heart disease and other diseases of the circulatory system CA stress test 1 Month R07.89 - Other chest pain, Z82.49 - Family history of ischemic heart disease and other diseases of the circulatory system Coding Level of Care Code Est Pt Level 4 (72804) Diagnoses Chest discomfort R07.89 Palpitations R00.2 Family history of early CAD Z82.49 CPT Codes EKG - CPT: [id number], Complete ([id number]) Time Spent (min) 30
== END 2024-06-08 13:38 | disposition home or self-care (01) ==
PROVIDERS: PCP Physician Assistant; Visit Provider Nurse Practitioner Family
DX: R07.89 Other chest pain (principal); R00.2 Palpitations; Z82.49 Family history of ischemic heart disease and other diseases of the circulatory system
CPT/HCPCS: 93010; 99214

== ENCOUNTER → 2024-06-08 12:58 | Outpatient (BNVA) | payer OTHER, SELFPAY | PROVIDERS: PCP Physician Assistant; Visit Provider Nurse Practitioner Family | DX: R07.89 Other chest pain (principal); R00.2 Palpitations; Z82.49 Family history of ischemic heart disease and other diseases of the circulatory system | CPT/HCPCS: 93005 ==

== ENCOUNTER → 2024-07-26 08:20 | Outpatient (REF) | payer OTHER, SELFPAY ==
--- NOTE | ~2024-07-26 | NM_ITS ---
EXERCISE MYOCARDIAL PERFUSION STUDY INDICATION: Chest pain TECHNIQUE: The patient was brought in for an exercise perfusion study on 07/26/2024. Patient performed exercise as per Dylon protocol and was injected 20 mCi of sestamibi once target heart rate was achieved. Images were obtained using the SPECT gamma camera interlaced with the gating device. Images were obtained in supine position. Resting perfusion study was performed on 07/28/2024. Patient was administered 24 mCi of sestamibi intravenously at rest. Images were then obtained in supine position. Total DLP 137 mGy-cm. Images were processed with the software and compared side to side in short axis, horizontal long axis and vertical long axis views. FINDINGS: Raw aquisition reviewed. The stress perfusion study showed decreased tracer uptake in the distal part of the lateral wall and adjacent apex. With CT attenuation correction, there is improvement suggestive of soft tissue attenuation artifact. The gated study shows low normal LV systolic function with calculated LVEF of 53%. LV cavity is normal in size. The gated study shows normal wall thickening and contraction of segments. Resting study shows decreased tracer uptake in the mid to distal part of inferolateral wall. There is improvement with CT attenuation correction suggestive of diaphragmatic attenuation artifact. Gating at rest reveals normal wall motion with ejection fraction at 53%. The findings are consistent with reversible distal lateral/apical defect that could be from soft tissue attenuation artifact. NM/NM cardiolite stress test IMPRESSION: 1. Myocardial perfusion imaging study shows no evidence of ischemia or infarction. Probably normal myocardial perfusion. 2. Gated LVEF is 53% during stress and rest. 3. Transient ischemic dilatation not present. EKG component of the test reported separately. Electronically signed by: Bj Pimentel MD 07/29/2024 12:19 PM EDT
--- NOTE | 2024-07-26 08:23 | CA_ITS ---
Acquisition Time: 2024-07-26 08:29:17 Total Exercise Time: 00:06:00 Test Indications: chest pain Medications: Protocol: MAGGIE Max HR: 139 BPM 86% of Pred: 161 BPM Max BP: 164/064 mmHG Max Work Load: 7.0 METS Exercise stress test wioth exercise 6 min of Maggie protocol, achieving 86% MPHR, without anginal symptoms, with frequent PACs, short atrial runs, longest 4 beats, nonconducted PACs, occassional PVCs, with normotensive response to exercise, without EKG changes meeting criteria for ischemia. Nuclear images pending. Test reviewed with Dr Pimentel Referred By: Stacey Velasco Overread By: STACEY VELASCO
== END ==
LOC: HO.CARD 08:20
PROVIDERS: Visit Provider Nurse Practitioner Family
DX: R07.89 Other chest pain (principal); R00.2 Palpitations; Z82.49 Family history of ischemic heart disease and other diseases of the circulatory system
CPT/HCPCS: 78452; 93017; A9500; J0280; J2785

== ENCOUNTER → 2024-07-26 08:23 | Outpatient (BNV) | payer OTHER, SELFPAY | PROVIDERS: Visit Provider Nurse Practitioner Family | DX: I49.1 Atrial premature depolarization (principal); I49.3 Ventricular premature depolarization | CPT/HCPCS: 78452; 93016; 93018 ==

== ENCOUNTER 2025-04-25 08:30 | Outpatient (AMB) | payer OTHER, SELFPAY ==
--- OUTSIDE RECORDS SUMMARY | 2025-04-25 08:38 | XMS_ITS | Patient Health Record ---
Author Organization [facility] Address [address] [place], [place] [id number] Care Team Providers Care Editor & Co Founder Name Role Phone CiraMani Primary Care Provider Ramin Garcia [phone] Allergies Allergen (clinical drug ingredient) Drug/Non Drug Allergy documented on EMR Reaction Allergy Type Onset Date Status Penicillin (uncoded) rash Allergy Active Substance with sulfonamide structure and antibacterial mechanism of action (substance) Sulfa (uncoded) facial swelling Allergy Active Reason For Referral No Information Medications Medication SIG (Take, Route, Frequency, Duration) Notes Start Date End Date Status EpiPen 0.3 MG/0.3ML (1:1000) as directed Intramuscular PRN Active ProAir HFA 108 (90 Base) MCG/ACT 2 puffs Inhalation As Needed Every 4 Hours; Duration: 30 days Active Synthroid 100 MCG 1 tablet Mon-Sat, 1/ 2 tab Sun. Orally Once a day; Duration: 30 day(s) Active Pulmicort Flexhaler 180 MCG/ACT as directed Inhalation bid 06/21/2010 A ctive Claritin 10 MG 1 tablet Orally Once a day; Duration: 30 day(s) Active Fluticasone Propionate 50 MCG/ACT 2 sprays each nostril Once a day Active Cytomel 5 MCG 1 tablet Orally BID; Duration: 30 day(s) Active Protonix 40 MG 1 tablet Orally PRN 10/06/190010/1900 Active Saline 0.9 % as directed Nasally Once daily and PRN Active BPM Pseudo 6-45 MG 1 tablet as needed O rally every 12 hrs; Duration: 30 days 06/21/2010 Active Problems Problem Type SNOMED Code ICD Code Onset Dates Problem Status W/U Status Risk Notes Problem Hoarseness (33087553) Hoarseness (784.49) Active confirmed Problem Cough (36698602) Cough (786.2) Active confirmed Problem Extrinsic asthma without status asthmaticus (14008902) Extrinsic asthma NOS (493.00) Active confirmed Problem Allergic rhinitis due to unspecified cause (477.9) Active confirmed Plan Of Treatment No Information Insurance Providers Payer Name Payer Address Payer Phone Subscriber Number Group Number Insured Name Patient Relationship to Insured Coverage Start Date Coverage End Date [facility] [id number] [place] [phone] [id number] Xochitl Haque Self - patient is the insured Medical (General) History Medical History History ICD Code Asthma Allergic rhinitis Jamaal's thyroiditis L3/L4/L5/S1 disc herniations (trauma) Tibial plateau fracture Left arm/shoulder fracture Surgical History Surgery Date(Month/Year) s/p Cholecystectomy s/p Appendectomy s/p ORIF Tibial plateau fx repair s/p ORIR arm/shoulder fx repair
--- OUTSIDE RECORDS SUMMARY | 2025-04-25 08:38 | XMS_ITS | Encounter Summary ---
Author Organization [facility] Address [address] [place] [phone] Phone Care Team Providers Care Labor Economist Name Role Phone Eleanor Rolon MD Primary Care Provider Encounter Details Date Type Department Care Team (Late st Contact Info) Description 03/28/2023 Procedure [facility], Ct Scan - [address] [address] Social History Tobacco Use Types Packs/Day Years Used Date Smoking Tobacco: Never Smokeless Tobacco: Never Education Answer Date Recorded Are you interested in more education? Not on lalo e 01/31/2023 Are you concerned about learning? Not on file 01/31/2023 No 01/31/2023 No 01/31/2023 Digital Access Answer Date Recorded No 03/01/2023 No 03/01/2023 No 03/01/2023 Reliable internet access at home? Not on file 03/01/2023 Device with a working camera? Not on file Intimate Partner Violence Answer Date R ecorded Are you denied basic needs s uch as food, clothing, or medical care? No 03/28/2023 In the past 12 months have y ou been in a relationship with a person who hurts, threatens, or tries to control you? No 03/28/2023 Are you denied basic needs s uch as food, clothing, or medical care? No 03/28/2023 In the past 12 months have y ou been in a relationship with a person who hurts, threatens, or tries to control you? No 03/28/2023 Comments Unknown Sex and Gender Information Value Date Recorded Sex Assigned at Female 03/28/2023 11:48 AM EDT Legal Sex Female 9:42 PM EDT Gender Identity Female 03/28/2023 11:48 AM EDT Sexual Orientation Not on file documented as of this encounter Functional Status * Calculated C-SSRS Risk Score (Lifetime/Recent) Answer Date of Assessment Author No Risk Indicated 03/28/2023 11:47 AM EDT Autumn Switf RN * [place] Suicide Severity Rating Scale (Screener/Recent Self-Report) Question Answer Date of Assessment Author 1. Wish to be (Past 1 Month) No 023 11:47 AM EDT Autumn Swift RN 2. Non-Specific Active Suici aisha Thoughts (Past 1 Month) No 03/28/2023 11:47 AM EDT Autumn Swift RN documented as of this encounter Plan of Treatment Not on file documented as of this encounter Visit Diagnoses Not on filedocumented in this encounter Care Teams Labor Economist Relationship Specialty Start Date End Date Eleanor Rolon MD [address] [place] [phone] [email or web address] PCP - General Internal Medicine 12/30/17 documented as of this encounter Additional Source Comments The information contained in this document represents components of the legal health record. It is not the complete legal health record.[facility]
--- OUTSIDE RECORDS SUMMARY | 2025-04-25 08:38 | XMS_ITS | Data Portability ---
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 Nasal mucosa is no longer congested and there is no further purulent drainage. No sign of polyp. As she continues to have some pressure and congestion recommended CT sinus. She also has seasonal allergies but it has been more than 5 years since her last allergy test. Recommended updated testing. If significant allergy could consider immunotherapy. She takes mometasone and Zyrtec as needed. I recommended she take these daily to help relieve symptoms. Otologic exam is unremarkable. Audiometric testing shows stable mild low-frequency sensorineural hearing loss on the right side only. She has borderline candidate for amplification but as she is struggling I have recommended a hearing aid evaluation. Repeat testing every 1 to 2 years or sooner for acute changes in hearing. [email or web address] Not available 10/27/2024 15:56:21 01/18/2025 01/18/2025 59-year-old female presents for reevaluation. On examination she has thick nasal discharge with edema. Symptoms and exam are consistent with an acute sinus infection. She has several antibiotic allergies including sulfa and doxycycline but believes she can take penicillin. Will send amoxicillin for 10 days. She should continue nasal rinses. I do recommend she complete allergy testing as this is likely the root cause of her recurrent sinus infection. There does not seem to be any need for surgical intervention based on CT scan. She will schedule repeat allergy testing once allergy season has calm down and she can be off her antihistamine for an extended period of time. All questions were answered. Requesting updated EpiPen which was sent to pharmacy. [email or web address] Not available 01/18/2025 15:58:40 03/09/2025 03/09/2025 59-year-old female presents for reevaluation. On examination there is no further congestion or purulent discharge. May not need antibiotic given exam and improvement with Navage. Recommended she complete allergy testing as seasonal allergies are likely the root cause for her recurrent sinus infections and nasal congestion. Refill was sent for mometasone. Follow-up after allergy testing for review and further planning. [email or web address] Not available 03/09/2025 15:32:08 Plan of Treatment Reminders Order Date Submit Date Provider Last Modified By Organization Details Last Modified Time Details Appointments Test Results 15 2024 02:15P M TAMAR SARMIENTO PA-C Not available Not available Not available Lab None recorded. Referral None recorded. Procedures allergy testing, skin prick (PROC) 2024 025 [email or web address] Not available 03/31/2025 14:09:00 intraderm al allergy skin testing (PROC) 2024 025 [email or web address] Not available 03/31/2025 14:09:00 pulmonary function test procedure (PROC) 2024 025 [email or web address] Not available 03/31/2025 14:09:00 pulse oximetry (PROC) 2024 025 [email or web address] Not available 03/31/2025 14:09:00 allergy testing, skin prick (PROC) 2024 025 [email or web address] Not available 11/18/2024 08:54:05 intraderm al allergy skin testing (PROC) 2024 025 [email or web address] Not available 11/18/2024 08:54:05 pulmonary function test procedure (PROC) 2024 025 [email or web address] Not available 11/18/2024 08:54:05 pulse oximetry (PROC) 2024 025 [email or web address] Not available 11/18/2024 08:54:05 Surgeries None recorded. Imaging CT, sinuses, w/o contrast 2024 025 [email or web address] [facility], [address], [place], [address], 11/09/2024 16:12:46 Medication Orders amoxicill in 500 mg capsule 2024 025 [facility], [address] [place] [address], [address], 03/09/2025 14:45:37 epinephri ne 0.3 mg/0.3 mL injection , auto-inje ctor 2024 025 [facility], [address] [place] [address], [address], 01/18/2025 15:59:10 Patient TargetsNo targets recorded. Patient Instructions Encounter Date Encounter Id Patient Instructions Last Modified By Organization Details Last Modified Time 12/29/2024 [id number] Nursing Documentation for Allergy Testing: Ordering Provider Dr. Dougherty Weight:lbs: kg: PFT Yes With Bronchodilator no approval needed to proceed with allergy testing? Yes Dr. Oliveira ok'd testing YesHistory of Asthma:Yes Asthma Meds: Last used: yesterday Asthma exacerbated by: allergies,humidity ,heat, cold air, being sick Chance that : N/A Fear of needles: No Regular medications reviewed in Computer: Yes Medication allergies: Reviewed Antihistamine use: No Medications used: Food Allergies: garlic, onions, cocnut, nuts, peppers, pineapple, calamari Any foods make your mouth feeling itchy: Yes If yes: melon family History of severe reaction where had to go to ER? Yes If yes details: pineapple (closed throat) Type of heat in home: Baseboard Pets: Yes If yes: 3 dogs Smoker: Never If former smoker-how much / day for how long When quit years ago Smoking now-how much /day for how long Occupation/Social History: senior cyber security analyst Symptoms having: Congestion If other: post nasal drip, cough Frequency Year Round Spirometry Contraindications: Heart attack in the last 3 months: No Major surgery in last 3 months: No Detached retina(serious eye issues) in last 2 months: No Hospitilization in last month: No Proceed with PFT Yes approval needed: Yes Nursing Notes: Pt tolerated test well Yes Benadryl cream to test sites Yes Patient became syncopal-placed in supine position No Large reactions to MQT, reschedule IDT for a different date No Other: Written by: Traci Bach [email or web address] Not available 12/29/2024 15:42:56 Reason for Referral None Reported. Results Created Date Observation Date Name Description Value Unit Range Abnormal Flag Note LastModifiedBy Organization Detail LastModifiedTime 10/28/19 audio gram No observ ation record ed. BARCODE Not Available 2024 11:14:47 11/16/1911/15/2024 CT, sinus es, w/o contr ast No observ ation record ed. [email or web address] [facility] [address] [address], [place], [address], 11/17/2024 08:52:19 12/30/19 albina metry testi ng* No observ ation record ed. [email or web address] Not Available 2024 15:57:54 Result Notes None recorded. Problems Name Problem SNOMED Code Status Onset Date Resolution Date Notes Provider Name and Address Organization Details Recorded Time Dysfuncti on of eustachia n tube 72021505 Active 2013 Eustachia n tube dysfuncti on; CMS Risk: moderate risk CMS Treatment : new problem (to examiner) : no additiona l workup planned N ote: Date Diagnosed : 4 2:43 PM (381.81) Not Available [facility] 4 03:15:37 Disorder of pharynx 47280401 Active 2013 Vestibuli tis Nasal; CMS Risk: moderate risk CMS Treatment : new problem (to examiner) : no additiona l workup planned N ote: Date Diagnosed : 4 2:43 PM (478.20) Not Available [facility] 4 03:15:38 Cough 19297182 Active 2013 Cough; CMS Risk: moderate risk CMS Treatment : new problem (to examiner) : no additiona l workup planned N ote: Date Diagnosed : 4 2:43 PM (786.2) Not Available [facility] 4 03:15:37 Sensorine ural hearing loss of bilateral ears 120516641 Active 2013 Sensorine ural HL, bilateral ; Note: Date Diagnosed : 4 3:55 PM (389.18) Not Available [facility] 4 03:15:38 Allergic rhinitis 39626465 Active 2014 Allergic rhinitis: Due to other allergen; Note: Date Diagnosed : 11/08/2014 3:59 PM (477.8) Not Available [facility] 4 03:15:37 Bilateral tinnitus 08349687924 02 Active 2018 Tinnitus, bilateral ; Note: Date Diagnosed : 03/16/2019 4:28 PM (H93.13) Not Available [facility] 4 03:15:37 Sensorine ural hearing loss 04268966 Active 2018 Sensorine ural hearing loss, unilatera l, right ear, with unrestric christian hearing on the contralat eral side; Note: Date Diagnosed : 03/16/2019 4:28 PM (H90.41) Not Available [facility] 4 03:15:37 Localized eruption of skin 103192064 Active 2018 Rash and other nonspecif ic skin eruption; Note: Date Diagnosed : 03/16/2019 4:28 PM (R21) Not Available [facility] 4 03:15:38 Chronic sinusitis 78323553 Active 2023 DREW BARCENAS PA-C 100 [facility],[address], [place], [address] , [facility] 4 14:17:12 Nasal congestio n 82979127 Active 2024 DREW BARCENAS PA-C [facility],[address], [place], [address] , [facility] - [facility] 5 15:56:25 Acute sinusitis 72500385 Active 2024 DREW BARCENAS PA-C 100 [facility],[address] [place] [address], [facility] [place], [address] , [facility] - [facility] 15:56:29 Non-aller gic rhinitis 73043964962 1 Active 2024 DREW BARCENAS PA-C 100 [facility],[place] [address], [facility] [place], [address] , [facility] [place] 15:56:35 Seasonal allergic rhinitis 872676695 Active 2024 DREW BARCENAS PA-C [address] [place] [address],[address] [place] [address], [place], [address] , [facility] [place] 15:56:35 Problem Notes None recorded. Procedures Surgical History Date Name Laterality Status Provider Name and Address Organization Details Recorded Time 03/31/20 25 Allergy Testing-Full completed LULI ARCE [address] [place] [address],[address], [address], [facility] 03/31/2025 15:25:04 12/30/19 25 Allergy Testing Modified- Quantitative Testing (MQT) Only completed LULI ARCE [address] [place] [address],[address], [address], [facility] 12/29/2024 16:00:17 10/27/19 25 Comp Audio with Tymps - 82992 & 21136 completed LATESHA WILSON [address] [place] [address],[address], [address], [facility] 10/27/2024 15:46:42 Imaging Results None recorded. Procedure Notes None recorded. Medical Equipment None Reported. Allergies Allergen ID Allergen Name Allergen Category Reaction Reaction Severity Criticality Documentation Date Start Date Code Code System Note Provider Name and Address Organization Details Recorded Time 042686 Substance with sulfonami de structure and antibacte rial mechanism of action (substanc e) medicatio n other Not available Not available 02/17/2024 44293 9757 SNOMED React ion: unkno wn, unspe cifie d;; Not Available [facility] 4 01:25:06 141819 Product containin g penicilli n (product) medicatio n other Not available Not available 02/17/2024 41692 8001 SNOMED React ion: unkno wn, unspe cifie d;; Not Available [facility] 4 01:25:07 126960 ciproflox acin medicatio n Not available Not available Not available 10/27/2024 2551 RxNorm Lien nolan, [place] - [facility] 5 15:00:00 952618 oxycodone medicatio n vomiting mild Not available 12/29/2024 7804 RxNorm TRACI BACH, [address], [address] [place] [address] [facility] 5 15:43:42 Medications Name Sig Start Date Stop Date Status Note LastModified by Organization Details LastModified Time cyclobenz aprine 10 mg tablet TAKE 1 TABLET BY MOUTH AT BEDTIME NEEDED FOR MUSCLE SPASM 12/29 completed Not Available Not Available Not Available amoxicill in 500 mg capsule TAKE 1 CAPSULE BY MOUTH EVERY 8 HOURS FOR 10 DAYS 03/09 completed Not Available Not Available Not Available doxycycli ne hyclate 100 mg capsule TAKE 1 CAPSULE BY MOUTH TWICE DAILY FOR 10 DAYS 10/27 completed Not Available Not Available Not Available azithromy teofilo 250 mg tablet TAKE 2 TABLETS BY MOUTH ON DAY 1, AND THEN TAKE 1 TABLET BY MOUTH ONCE A DAY ON DAY 2 THROUGH DAY 5 12/29 completed Not Available Not Available Not Available Claritin 10 mg tablet 1 tablet every day by oral route. 2014 active Not Available Not Available Not Avai lable prednison e 20 mg tablet 09/27 completed Medicati on ID: [id number] Re ason: () Brand Name: predniso ne Send Method: E-Prescr ibed Sub s Allowed: subs OK Speci al Instruct ion: Take 3 tablets by mouth for 6 days, then 2 tablets for 2 days, then 1 table for 2 days Med icationG enericNa me: predniso ne Not Available Not Available Not Available prednison e 5 mg tablet TAKE 1 TABLET BY MOUTH ONCE DAILY FOR 7 DAYS 12/29 completed Not Available Not Available Not Available ciproflox acin 500 mg tablet 09/27 completed Medicati on ID: [id number] Re ason: () Brand Name: ciproflo xacin HCl Send Method: E-Prescr ibed Sub s Allowed: subs OK Speci al Instruct ion: take one PO bid X 10 days Med icationG enericNa me: ciproflo xacin HCl Not Available Not Available Not Available doxycycli ne monohydra te 100 mg tablet TAKE 1 TABLET BY MOUTH TWICE DAILY WITH FOOD 10/27 completed Not Available Not Available Not Available Cytomel 5 mcg tablet 09/24 completed Medicati on ID: [id number] Br and Name: Cytomel Send Method: E-Prescr ibed Sub s Allowed: subs OK Medic ationGen ericName : Cytomel Not Available Not Available Not Available Aleve 220 mg tablet 1 tablet every day by oral route. 2021 active Not Available Not Available Not Avai lable cyanocoba sunny (vit B-12) 1,000 mcg/mL injection solution INJECT 1 ML (CC) INTRAMUS CULARLY ONCE EVERY MONTH active Not Available Not Available No t Available mometason e 50 mcg/actua tion nasal spray USE 2 SPRAY(S) IN EACH NOSTRIL TWICE DAILY NEEDED FOR ALLERGY SYMPTOMS active Not Available Not Available No t Available Synthroid 112 mcg tablet 09/24 completed Medicati on ID: [id number] Br and Name: Synthroi d Send Method: E-Prescr ibed Sub s Allowed: subs OK Medic ationGen ericName : Synthroi d Not Available Not Available Not Available epinephri ne 0.3 mg/0.3 mL injection , auto-inje ctor INJECT CONTENTS OF 1 PEN NEEDED FOR ALLERGIC REACTION active Not Available Not Available No t Available albuterol sulfate HFA 90 mcg/actua tion aerosol inhaler INHALE 2 PUFFS BY MOUTH 4 TIMES DAILY NEEDED FOR SHORTNES S OF BREATH FOR WHEEZING active Not Available Not Available No t Available Bactroban Nasal 2 % ointment 1 a small amount into both nostrils 12/29 completed Medicati on ID: [id number] Du ration Value: 10 Prescri bed By Name: Carlyn Ramirez nd Name: Bactroba n Nasal Se nd Method: E-Prescr ibed Sub s Allowed: subs OK Medic ationGen ericName : Bactroba n Nasal Not Available Not Available Not Available Multivita min 50 Plus tablet Take by oral route. active Not Available Not Available No t Available Flovent HFA 110 mcg/actua tion aerosol inhaler 2 puff 09/24 completed Medicati on ID: [id number] Du ration Value: 90 Prescri bed By Name: Carlyn Ramirez nd Name: Flovent HFA Send Method: E-Prescr ibed Sub s Allowed: subs OK Medic ationGen ericName : Flovent HFA Not Available Not Available Not Available Tirosint 125 mcg capsule TAKE 1 CAPSULE BY MOUTH ONCE DAILY active Not Available Not Available No t Available Breo Ellipta 200 mcg-25 mcg/dose powder for inhalatio n INHALE 1 PUFF BY MOUTH ONCE DAILY active Not Available Not Available No t Available BinaxNOW COVID-19 Ag Self Test kit TEST DIRECTED TODAY 12/29 completed Not Available Not Available Not Available Paxlovid 300 mg (150 mg x 2)-100 mg tablets in a dose pack TAKE 3 TABLETS TOGETHER (TWO 150 MG NIRMATRE LVIR TABLETS AND ONE 100 MG RITONAVI R TABLET) BY MOUTH TWICE DAILY FOR 5 DAYS. 10/27 completed Not Available Not Available Not Available Vitals Date Recorded Body height Body weight Provider Name and Address Organization Details Last Updated DateTime 10/27/2024 157.48 cm 79435 g Lien Alvarez [place] [facility] 10/27/2024 14:59:55 Date Recorded Body height Oxygen saturation Oxygen saturation in Arterial blood by Pulse oximetry Heart rate Body mass index (BMI) Body weight Systolic And Diastolic Provider Name and Address Organization Details Last Updated DateTime 157.48 cm 98 % 98 % 59 /min 33.7 kg/m2 11593 g 125/81 mm[Hg] TRACI BACH, [facility] [address] [place], [address] [place]EE [place] - [facility] 14:44:46 Date Recorded Body height Body mass index (BMI) Body weight Provider Name and Address Organization Details Last Updated DateTime 01/18/2025 157.48 cm 33.7 kg/m2 48967 g Patricia Enio [facility] 01/18/2025 15:00:46 Date Recorded Body height Body mass index (BMI) Body weight Provider Name and Address Organization Details Last Updated DateTime 03/09/2025 158.75 cm 33.3 kg/m2 93696.59 g Daijamin Michael [facility] 03/09/2025 14:31:42 Social History None recorded. Functional Status None recorded. Mental Status None recorded. Family History Nothing Reported. Medical History Condition Response Allergies/Hayfever Y Heart Problems Y Anxiety N Tonsil Infections N Emphysema N Migraines N Thyroid Problems Y Glaucoma N Depression N COPD N Developmental Delay N Nasal or Sinus Problems Y Anemia Y Immune System Disorder N Anesthesia Complications Y Heart Attack (DC) N Other Skin Condition Y Diabetes N Rhinitis Y Bleeding Disorder N Food Allergy Y Arthritis Y Hearing Loss Y Hyperlipidemia N Cancer N Stroke N Dementia N Nasal polyps N Asthma Y Sleep Disorder N GERD/Reflux N High Cholesterol N Liver Disease N Headaches Y Fibromyalgia N Hypertension N Speech Delay N Kidney Disease N Gynecological HistoryNo gynecological history recorded. Obstetrics History GPAL:G 0 P 0 0 0 0 Past Encounters Encounter ID Performer Location Encounter Start Date Encounter Closed Date Diagnosis/Indication Diagnosis SNOMED-CT Code Diagnosis ICD10 Code Diagnosis Note [id number] DREW BARCENAS PA-C [facility] [address] [address] 09/27/2024 13:43:57 09/27/2024 14:12:26 Chronic sinusitis 13909299 J32.9 [id number] DREW BARCENAS PA-C [facility] [address] [address] 10/27/2024 14:53:54 10/27/2024 15:54:30 Sensorineural hearing loss 86723962 H90.41 Audiologic al evaluation results: Right ear: Mild low frequency SNHL rising to normal hearing with excellent word recognitio n. Left ear: Normal hearing with excellent word recognitio n. Tympanomet ry: Right Ear:Type A Left Ear:Type A Nasal congestion 8272355 0 R09.81 Acute sinusitis 58336365 J01.90 Allergic rhinitis 378628 04 J30.9 [id number] TRACI BACH [facility] 100 [facility] 100 [place] [address] 12/29/2024 14:30:27 12/29/2024 16:11:39 Allergic rhinitis 94295631 J30.9 [id number] DREW BARCENAS PA-C [facility] 100 [facility] [place] [address] 01/18/2025 14:45:11 01/18/2025 15:30:35 Allergic rhinitis 60154896 J30.9 Acute sinusitis 48488579 J01.90 [id number] DREW BARCENAS PA-C [facility] 100 [facility] [place] [address] 03/09/2025 14:28:05 03/09/2025 14:58:35 Allergic rhinitis 33553953 J30.9 [id number] LULI ARCE [facility] 100 [facility] 100 [place] [address] 03/31/2025 13:02:26 03/31/2025 15:26:31 Allergic rhinitis 41517811 J30.9 Health Concerns Section Related Observation LastModified by Organization Detai ls LastModified Time None Recorded Concern Status LastModified by Organization Details LastModified Time None Recorded Advance Directives Directive None Recorded Payers Insurance Date Sequence Insurance Name Policy Number Policy Jansen Covered Member ID Jansen Member ID Guarantor Name 03/31/2025 1 [facility] [place] [id number] Daren Diaz [id number] Xochitl Diaz Notes Date Note Type Note Provider Name and Address Organization Details Recorded Time 10/27/2024 text/html 59-year-old ronal johnson presents for reevaluation of sinus infection. She was prescribed doxycycline which she feels relieved the bulk of her symptoms. She does still have some congestion and runny nose but no longer has facial pain or pressure and the mucus has thinned out. Separately, she has a history of asymmetric hearing loss, right greater than left. MRI of the IAC was negative for retrocochlear pathology in 2019. She is struggling more with her hearing particularly watching the TV and speaking with her . DREW BARCENAS PA-C 100 [facility],[address], [address], [facility] 10/27/2024 15:57:32 01/18/2025 text/html 59-year-old ronal johnson presents for reevaluation. Previously evaluated for recurrent sinus infection. Currently believes she has a sinus infection. She has had facial pain and pressure with thick nasal discharge. Has also had increased congestion and low-grade fever. Symptoms have been present for more than 10 days. Previously had a CT scan of the sinus with mucosal thickening but patent OMU. Allergy testing was ordered but could not complete due to significant reaction. Continues to take antihistamine and montelukast daily. DREW BARCENAS PA-C 100 [facility],[address], [address], [facility] 01/18/2025 16:00:13 03/09/2025 text/html 59-year-old ronal johnson presents for reevaluation. Recently evaluated for sinusitis. CT scan was consistent with ethmoid sinusitis and some frothy secretions in the sphenoid sinus. She has several antibiotic allergies but was prescribed penicillin. She did not end up taking the penicillin as she was fearful of allergic reaction. She is however feeling somewhat better. She is using Navage and no longer having purulent discharge. Continues to have nasal congestion. Was using mometasone but ran out of refills. Was sent for allergy testing but testing could not be completed. She is interested in rescheduling. MAURICE GUERRIER MD 100 [facility],[place] [address], [place], [address], [facility] 03/10/2025 08:39:14 OBGyn Episode No OBEpisode recorded.
[2025-04-25 08:43] VITALS: BP 114/62; PULSE 56; BMI 33.9
--- NOTE | 2025-04-25 08:43 | MHC.OFFVIS ---
Vital Signs 04/25/25 08:43 Height 5 ft 2 in Weight 185 lb 10.067 oz BMI 33.9 BP 114/62 Blood Pressure Location Rt brachial Position Sitting Pulse 56 Pulse Source Monitor Intake Visit Reasons: Chest discomfort [place] Director Required: No Allergies dextran sulfate (DEXTRAN SULFATE) Allergy (Severe, Verified 04/25/25 08:46) BRADYCARDIA mold (MOLD) Allergy (Severe, Verified 04/25/25 08:46) SWELLING doxycycline (DOXYCYCLINE) Allergy (Mild, Verified 04/25/25 08:46) RASH/FACIAL SWELLING acetaminophen (From VICODIN) Allergy (Unknown, Verified 04/25/25 08:46) UNKNOWN bee pollen (BEE STINGS) Allergy (Unknown, Verified 04/25/25 08:46) UNKNOWN coconut Allergy (Unknown, Verified 04/25/25 08:46) UNKNOWN hydromorphone (Dilaudid) Allergy (Unknown, Verified 04/25/25 08:46) Bradycardia penicillin V Allergy (Unknown, Verified 04/25/25 08:46) rash Penicillins (PENICILLINS) Allergy (Unknown, Verified 04/25/25 08:46) UNKNOWN pineapple (PINEAPPLE) Allergy (Unknown, Verified 04/25/25 08:46) UNKNOWN Sulfa (Sulfonamide Antibiotics) (SULFA(SULFONAMIDE ANTIBIOTICS)) Allergy (Unknown, Verified 04/25/25 08:46) SWELLING pepper (genus Capsicum) Allergy (Verified 04/25/25 08:46) Shortness of Breath ciprofloxacin (CIPROFLOXACIN) Adverse Reaction (Severe, Verified 04/25/25 08:46) FELT LIKE BLADDER WAS GONNA BURST OUT garlic (GARLIC) Adverse Reaction (Intermediate, Verified 04/25/25 08:46) FLU SYMPTOMS onion (ONION) Adverse Reaction (Mild, Verified 04/25/25 08:46) GI SYMPTOMS all fluroquinolones Allergy (Unknown, Uncoded 04/25/25 08:46) tendonitis Preeti Allergy (Unknown, Uncoded 04/25/25 08:46) Unknown avacado Allergy (Unknown, Uncoded 04/25/25 08:46) Unknown banana Allergy (Unknown, Uncoded 04/25/25 08:46) Unknown bee Allergy (Unknown, Uncoded 04/25/25 08:46) Unknown Clindamycin HCl Allergy (Unknown, Uncoded 04/25/25 08:46) Unknown coconut Allergy (Unknown, Uncoded 04/25/25 08:46) Unknown coconut pineapple mold Allergy (Unknown, Uncoded 04/25/25 08:46) Unknown Dextran 1 Allergy (Unknown, Uncoded 04/25/25 08:46) Unknown Dextran HM Allergy (Unknown, Uncoded 04/25/25 08:46) Unknown From DILAUDID Allergy (Unknown, Uncoded 04/25/25 08:46) UNKNOWN From VICODIN Allergy (Unknown, Uncoded 04/25/25 08:46) UNKNOWN Garlic onion Allergy (Unknown, Uncoded 04/25/25 08:46) Unknown Peanut butter Allergy (Unknown, Uncoded 04/25/25 08:46) Unknown pinnapple Allergy (Unknown, Uncoded 04/25/25 08:46) Unknown sulfa Allergy (Unknown, Uncoded 04/25/25 08:46) rash sulfite Allergy (Unknown, Uncoded 04/25/25 08:46) Unknown tape Allergy (Unknown, Uncoded 04/25/25 08:46) Unknown Medication List - Last Reconciled 04/25/25 by Stacey Velasco [employer]-C albuterol sulfate 90 mcg/actuation 2 puffs PO QID PRN cyanocobalamin (vitamin B-12) 1,000 mcg IM QMONTH cyanocobalamin (vitamin B-12) 1,000 mcg IM QMONTH epinephrine 0.3 mg IM NEEDED PRN fluticasone furoate-vilanterol 50-25 mcg/dose (Breo Ellipta) inhalation levothyroxine (Tirosint) HARRY, no substitutions. 137.5mcg daily loratadine (Claritin) 10 mg PO DAILY mometasone 50 mcg/actuation 2 sprays intranasal BID PRN HPI HPI Chest discomfort: Details: Xochitl is a 59-year-old female with past medical history of hypothyroidism, hyperparathyroidism, heart palpitations/ PACs, chest discomfort with normal nuclear stress test who now presents for follow-up. Today she reports that she has been experiencing symptoms including increased shortness of breath that she does not feel is related to her asthma. She will get squeezing in her chest that can occur randomly at rest and with physical activity. When she lays down she feels squeezing in her throat. She has generalized weakness and malaise. She is concerned about her parathyroids and thyroid. She had a recent thyroid test which she tells me was elevated. 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 She still gets intermittent heart palpitations, no presyncope, syncope, falls. No PND, orthopnea or edema. She has remained physically active but tells me she is not sleeping well. [facility] Medical History Osteopenia Vitamin D deficiency History of hyperparathyroidism Hypothyroidism Surgical History History of surgery on arm History of partial hysterectomy History of parathyroid surgery Hx of appendectomy Hx of cholecystectomy Family History Father Atherosclerotic heart disease Paternal Grandmother Atherosclerotic heart disease Mother Asthma COPD (chronic obstructive pulmonary disease) Type 2 diabetes mellitus Fungal infection of lung Aspergillosis Social History Household Members: Family Housing: House Are you a primary intensive care unit nurse to a significant other at home: Yes Do you presently have visiting nurse or other home services: No Patient Tobacco Use Status: Never used Tobacco service: No Current occupational status: unemployed Review of Systems Const All systems reviewed & are unremarkable except as noted in HPI and below Reports malaise ENT Denies dizziness Card Reports chest pain, Reports chest pain at rest, Reports chest pain with activity, Denies rapid heart rate, Denies pedal edema, Denies edema, Denies leg edema, Denies lightheadedness, Denies palpitations, Reports dyspnea, Reports dyspnea on exertion and Denies orthopnea Resp Denies cough, Reports dyspnea and Reports dyspnea on exertion GI Denies hematochezia and Denies change in stool character Musc Denies abnormal gait, Denies limited range of motion, Denies muscle cramps, Denies muscle weakness, Denies numbness, Denies radiating pain into limb, Denies stiffness and Denies tingling Neuro Denies abnormal gait, Denies dizziness, Denies numbness and Denies tingling Endo Denies palpitations Physical Exam Vital Signs: Last Vital Signs Pulse 56 04/25/25 08:43 BP 114/62 04/25/25 08:43 BMI result Body Mass Index 33.9 Const General: cooperative, healthy appearing, comfortable and no acute distress Orientation/consciousness: patient oriented x3 Neck Neck: Yes normal visual inspection and Yes no JVD Resp Effort & Inspection: normal respiratory effort Auscultation: clear to auscultation bilaterally, no crackles, no rales, no rhonchi and no wheezes Cardio Jugular venous distension: no JVD Rate: regular rate Rhythm: regular rhythm Heart sounds: S1 normal heart sound present, S2 normal heart sound present, no murmurs and no rubs Neuro General: patient oriented x3 Extrem General: Yes normal to inspection and No no pedal edema Psych Appearance: grossly normal Mental Status: mental status grossly normal Speech and movement: Normal speech and movement present Office Procedures EKG Details: Today, read by me, sinus bradycardia, rate 56, Qtc 424ms [id number], Complete Assessment & Plan Assessment & Plan (1) Chest discomfort: Code(s): R07.89 - Other chest pain Category: Medical Plan: Prior Reports of intermittent squeezing in her left chest region, nonexertional. Cardiac risk factor of family history. Echocardiogram was done on 05/28/2023 showing EF 63%, [id number] tricuspid regurgitation, no significant change from echo 11/2019. Exercise stress test done 05/20/2023 showed exercise 7 minutes with no anginal symptoms and no EKG changes of ischemia. Nuclear stress test 07/26/2024 for ongoing symptom showed no infarct or ischemia. She is now reporting increasing shortness of breath and malaise recently. She continues to have squeezing in her chest that occurs randomly and squeezing in her throat when she lays down. She is concerned about cardiac involvement. EKG today showing normal sinus bradycardia, rate 56. Will check CTA of the coronary arteries to further evaluate for CAD. Signs and symptoms of angina reviewed with her. Cardiology follow-up 3 months, sooner if needed. (2) Palpitations: Code(s): R00.2 - Palpitations Category: Medical Plan: Prior reports of intermittent heart palpitations. Holter monitor done 05/20/2023 for 3 days shows sinus rhythm with average heart rate 66, PACs 1.7% of time, 6 brief SVT episodes, longest 5 beats, her symptoms correlated with PACs and sinus tachycardia. Currently reporting intermittent heart palpitations unchanged from prior. Will update her calcium and TSH due to concerns about parathyroid and thyroid disease. Reviewed benefits of good hydration, avoidance of caffeine, increasing physical activity as tolerated. (3) Family history of early CAD: Code(s): Z82.49 - Family history of ischemic heart disease and other diseases of the circulatory system Category: Medical Plan: As above Plan I discussed with the patient the need for a coronary CT scan to evaluate her coronary arteries, given her symptoms and previous normal stress tests. We talked about the importance of checking kidney function and calcium levels before the scan. I advised repeating the thyroid panel to monitor her thyroid function. We also reviewed her asthma management and the need to avoid triggers, as well as the importance of staying hydrate and avoiding excess caffiene Orders: Orders CT Cardiac Coronary Angio Today R00.2 - Palpitations, R07.89 - Other chest pain, Z82.49 - Family history of ischemic heart disease and other diseases of the circulatory system Basic Metabolic Panel Today R07.89 - Other chest pain Calcium Today R00.2 - Palpitations TSH reflex Free T4 Today R00.2 - Palpitations Patient Instructions: - Schedule a coronary CT scan as advised. - Complete blood work to check kidney function and calcium levels before the CT scan. - Repeat thyroid panel as discussed. - Continue asthma management with current medications and avoid known triggers. - Maintain hydration and avoid caffeine - Monitor blood pressure regularly. Patient was informed and verbally consented to the use of an ambient scribe for clinic note documentation during this visit. Visit time spent on chart review, interview, assessment, orders, documentation. Coding Level of Care Code Est Pt Level 4 (47932) Complex EM visit Add On G2211 Diagnoses Chest discomfort R07.89 Palpitations R00.2 Family history of early CAD Z82.49 CPT Codes EKG - CPT: 19294-[id number], Complete ([id number]) Time Spent (min) 30
== END 2025-04-25 09:33 | disposition home or self-care (01) ==
LOC: HO.HCS 08:30
PROVIDERS: Visit Provider Nurse Practitioner Family
DX: R07.89 Other chest pain (principal); R00.2 Palpitations; Z82.49 Family history of ischemic heart disease and other diseases of the circulatory system
CPT/HCPCS: 93010; 99214; G2211

== ENCOUNTER → 2025-04-25 08:30 | Outpatient (BNVA) | payer OTHER, SELFPAY | PROVIDERS: Visit Provider Nurse Practitioner Family | DX: R00.2 Palpitations (principal) | CPT/HCPCS: 93005 ==

== ENCOUNTER 2025-06-16 13:21 | Outpatient (AMB) | payer OTHER, SELFPAY ==
[2025-06-16 13:23] VITALS: BP 120/78; PULSE 61; O2SAT 97; BMI 34.4
--- NOTE | 2025-06-16 13:23 | A.OFFPC_ITS ---
Vital Signs 06/16/25 13:23 Height 5 ft 2 in Weight 188 lb BMI 34.4 BP 120/78 Blood Pressure Location Lt brachial Position Sitting Pulse 61 Pulse Oximetry (%) 97 Oxygen Delivery Method Room Air Intake Visit Reasons: establish care/ Request PE Pedicurist Required: No Accompanied by: Self / Same As Patient Allergies dextran sulfate (DEXTRAN SULFATE) Allergy (Severe, Verified 06/16/25 13:52) BRADYCARDIA mold (MOLD) Allergy (Severe, Verified 06/16/25 13:52) SWELLING doxycycline (DOXYCYCLINE) Allergy (Mild, Verified 06/16/25 13:52) RASH/FACIAL SWELLING acetaminophen (From VICODIN) Allergy (Unknown, Verified 06/16/25 13:52) UNKNOWN bee pollen (BEE STINGS) Allergy (Unknown, Verified 06/16/25 13:52) UNKNOWN coconut Allergy (Unknown, Verified 06/16/25 13:52) UNKNOWN hydromorphone (Dilaudid) Allergy (Unknown, Verified 06/16/25 13:52) Bradycardia penicillin V Allergy (Unknown, Verified 06/16/25 13:52) rash Penicillins (PENICILLINS) Allergy (Unknown, Verified 06/16/25 13:52) UNKNOWN pineapple (PINEAPPLE) Allergy (Unknown, Verified 06/16/25 13:52) UNKNOWN Sulfa (Sulfonamide Antibiotics) (SULFA(SULFONAMIDE ANTIBIOTICS)) Allergy (Unknown, Verified 06/16/25 13:52) SWELLING pepper (genus Capsicum) Allergy (Verified 06/16/25 13:52) Shortness of Breath ciprofloxacin (CIPROFLOXACIN) Adverse Reaction (Severe, Verified 06/16/25 13:52) FELT LIKE BLADDER WAS GONNA BURST OUT garlic (GARLIC) Adverse Reaction (Intermediate, Verified 06/16/25 13:52) FLU SYMPTOMS onion (ONION) Adverse Reaction (Mild, Verified 06/16/25 13:52) GI SYMPTOMS all fluroquinolones Allergy (Unknown, Uncoded 06/16/25 13:52) tendonitis Preeti Allergy (Unknown, Uncoded 06/16/25 13:52) Unknown avacado Allergy (Unknown, Uncoded 06/16/25 13:52) Unknown banana Allergy (Unknown, Uncoded 06/16/25 13:52) Unknown bee Allergy (Unknown, Uncoded 06/16/25 13:52) Unknown Clindamycin HCl Allergy (Unknown, Uncoded 06/16/25 13:52) Unknown coconut Allergy (Unknown, Uncoded 06/16/25 13:52) Unknown coconut pineapple mold Allergy (Unknown, Uncoded 06/16/25 13:52) Unknown Dextran 1 Allergy (Unknown, Uncoded 06/16/25 13:52) Unknown Dextran HM Allergy (Unknown, Uncoded 06/16/25 13:52) Unknown From DILAUDID Allergy (Unknown, Uncoded 06/16/25 13:52) UNKNOWN From VICODIN Allergy (Unknown, Uncoded 06/16/25 13:52) UNKNOWN Garlic onion Allergy (Unknown, Uncoded 06/16/25 13:52) Unknown Peanut butter Allergy (Unknown, Uncoded 06/16/25 13:52) Unknown pinnapple Allergy (Unknown, Uncoded 06/16/25 13:52) Unknown sulfa Allergy (Unknown, Uncoded 06/16/25 13:52) rash sulfite Allergy (Unknown, Uncoded 06/16/25 13:52) Unknown tape Allergy (Unknown, Uncoded 06/16/25 13:52) Unknown Medication List - Last Reconciled 06/16/25 by Zaida Mai PA-C albuterol sulfate 90 mcg/actuation 2 puffs PO QID PRN cyanocobalamin (vitamin B-12) 1,000 mcg IM QMONTH cyanocobalamin (vitamin B-12) 1,000 mcg IM QMONTH epinephrine 0.3 mg IM NEEDED PRN fluticasone furoate-vilanterol 50-25 mcg/dose (Breo Ellipta) inhalation levothyroxine (Tirosint) HARRY, no substitutions. 137.5mcg daily loratadine (Claritin) 10 mg PO DAILY mometasone 50 mcg/actuation 2 sprays intranasal BID PRN Tobacco use date assessed: 06/16/25 Dental Screening Dental Screen Date: 06/16/25 Did you have a dental visit in the last 12 months?: No Did you have a dental problem in the last 6 months where you did not have access to dental care?: No Was dental information given to patient?: Yes HPI establish care/ Request PE HPI Details 59-year-old female with past medical his tory of hypothyroidism, hyperparathyroidism, heart palpitations coming to the office with the 1st time. In review of the notes, patient was seen by Cardiology 04/2025 CTA was ordered and plan to follow up in 3 months. Patient tells us today she has been dealing with left facial swelling. She was seen by ear nose and throat and given a Z-Antoine and returned a week later with worsening swelling of the face. Determined to have salivary gland inflammation with stone in his scheduled for a CAT scan. She also has a CTA scheduled with Cardiology for 06/30/2025. She has no other concerns today. [facility] Medical History Osteopenia Vitamin D deficiency History of hyperparathyroidism Hypothyroidism Surgical History History of surgery on arm History of partial hysterectomy History of parathyroid surgery Hx of appendectomy Hx of cholecystectomy Family History Father Atherosclerotic heart disease Paternal Grandmother Atherosclerotic heart disease Mother Asthma COPD (chronic obstructive pulmonary disease) Type 2 diabetes mellitus Fungal infection of lung Aspergillosis Social History Household Members: Family Housing: House Are you a primary critical care unit nurse to a significant other at home: Yes Do you presently have visiting nurse or other home services: No Alcohol intake: never Patient Tobacco Use Status: Never used Tobacco e-Cigarette/Vaping Use: Never Used service: No Current occupational status: unemployed Hearing needs: No Vision needs: No Questionnaire PHQ-9 Over the last 2 weeks, how often have you been bothered by any of the following problems? 1. Little interest or pleasure in doing things: not at all 2. Feeling down, depressed, or hopeless: not at all 3. Trouble falling or staying asleep, or sleeping too much: not at all 4. Feeling tired or having little energy: several days 5. Poor appetite or overeating: not at all 6. Feeling bad about yourself - or that you are a failure or have let yourself or your family down: not at all 7. Trouble concentrating on things, such as reading the newspaper or watching television: not at all 8. Moving or speaking so slowly that other people could have noticed. Or the opposite - being so fidgety or restless that you have been moving around a lot more than usual: not at all 9. Thoughts that you would be better off or of hurting yourself in some way: not at all Total score: 1 Depression Screening Interpretation: Negative Depression Screening Done: Yes 79542 - PHQ-9 Billing: Yes Source: Developed by Drs. Raúl Sarkar, Xochitl Sosa, Eber Butt and colleagues, with an educational diann from [employer]. Thrive Questionnaire Date Thrive assessed: 06/09/25 I am a: Patient What is your living situation today?: I have a steady place to live Within the past 12 months, did the food you bought not last and you didn't have the money to get more?: Never true Within the past 12 months, did you worry whether your food would run out before you got money to buy more?: Never true Do you have trouble paying for medicines?: No Do you have trouble getting transportation to medical appointments?: No Do you have trouble paying your heating and electricity bill?: Yes Do you have trouble taking care of your child, family member or friend?: No Do you have trouble with day-to-day activities such as bathing, preparing meals, shopping, managing finances, etc.?: No Are you currently unemployed and looking for a job?: No Are you interested in more education?: No Please select the resources that you would like help with: Utilities and Care for elder or disabled Currently or been in a relationship where the following occur: No concerns reported THRIVE Score: 1 AUDIT C Alcohol Use Questionnaire (AUDIT-C) 1. How often do you have a drink containing alcohol?: Never 3. How often do you have six or more drinks on one occasion?: Never Total Score: 0 MORGAN-7 AMB Questionnaire MORGAN-7 Date MORGAN - 7 assessed: 06/16/25 Feeling nervous, anxious, or on edge: 0 = Not at all Not being able to stop or control worryin = Not at all Worrying too much about different things: 0 = Not at all Trouble relaxin = Not at all Being so restless that it is hard to sit still: 0 = Not at all Becoming easily annoyed or irritable: 0 = Not at all Feeling afraid as if something awful might happen: 0 = Not at all Total MORGAN-7 score (0-4 normal; 5-9 mild; 10-14 moderate; 15-21 severe): 0 Source: Developed by Drs. Raúl Sarkar, Xochitl Sosa, Eber Butt and colleagues, with an educational diann from [employer]. MORGAN-7 Assessment Billing MORGAN-7 Assessment Tool: MORGAN-7 Assessment 25393 Review of Systems Const Denies body aches, Denies chills, Denies fever(s), Denies headache(s) and Denies poor appetite Eyes Reports no additional complaints ENT Denies dizziness and Denies headache(s) Card Denies chest pain, Denies edema, Denies lightheadedness and Denies dyspnea Resp Denies dyspnea GI Denies abdominal pain, Denies nausea and Denies vomiting Reports no additional complaints Musc Reports no additional complaints and Denies abnormal gait Skin/Breast Reports system reviewed and no additional complaints, except as documented Neuro Denies abnormal gait, Denies dizziness and Denies headache(s) Psych Reports no additional complaints Physical exam (Primary Care) Vital Signs: Last Vital Signs Pulse 61 06/16/25 13:23 BP 120/78 06/16/25 13:23 Pulse Ox 97 06/16/25 13:23 Oxygen Delivery Method Room Air 06/16/25 13:23 BMI result Body Mass Index 34.4 Tobacco/Smoking Status: Tobacco use Status Tobacco use date assessed 06/16/25 06/16/25 13:36 Patient Tobacco Use Status Never used Tobacco 06/16/25 13:36 e-Cigarette/Vaping Use Never Used 06/16/25 13:34 PHQ-9: PHQ-9 Score PHQ-9: Total score 1 06/16/25 14:27 Depression Screening Interpretation: Negative Thrive Assessment: Date of Thrive Assessment Date Thrive assessed 06/09/25 06/16/25 13:36 Currently or been in a relationship where the following occur: No concerns reported Const General: cooperative, healthy appearing, comfortable and no acute distress Orientation/consciousness: patient oriented x3 HENMT Other: No facial swelling on exam today Head: Yes normocephalic Ears: hearing grossly normal bilaterally General nose exam: Normal external nose present Eyes General: appearance normal, both eyes and all related structures Conjunctivae: conjunctivae normal Neck Neck: Yes full ROM and Yes no lymphadenopathy Resp Effort & Inspection: normal respiratory effort Auscultation: clear to auscultation bilaterally, no crackles, no rales, no rhonchi and no wheezes Cardio Rate: regular rate Rhythm: regular rhythm Skin General skin exam: no rashes or lesions noted Neuro General: patient oriented x3 Gait exam (Neuro): Normal gait present Extrem General: Yes normal to inspection, Yes full ROM and No edema Psych Affect: normal affect Attitude: cooperative Insight: Good insight present (Psych) Judgement: Good judgement present (Psych) Coding Level of Care Code New Pt Level 3 (38930) Diagnoses Elevated blood pressure reading without diagnosis of hypertension R03.0 Palpitations R00.2 Hypothyroidism, unspecified type E03.9 Hypothyroidism type: unspecified History of hyperparathyroidism Z86.39 Cyanocobalamin deficiency E53.8 Osteopenia, unspecified location M85.80 Osteopenia location: unspecified Vitamin D deficiency E55.9 Additional Codes MORGAN-7 Assessment Billing - MORGAN-7 Assessment Tool: MORGAN-7 Assessment 36696 ([id number]) PHQ-9 - 90744 - PHQ-9 Billing: Yes ([id number]) Assessment & Plan Assessment & Plan (1) Elevated blood pressure reading without diagnosis of hypertension: Code(s): R03.0 - Elevated blood-pressure reading, without diagnosis of hypertension Category: Medical Plan: Avoid salt intake and encourage healthy diet and regular exercise. (2) Palpitations: Code(s): R00.2 - Palpitations Category: Medical Plan: She is currently following with Cardiology at this time and is scheduled for a CTA for further evaluation. (3) Hypothyroidism: Code(s): E03.9 - Hypothyroidism, unspecified Category: Medical Qualifiers: Hypothyroidism type: unspecified Qualified Code(s): E03.9 - Hypothyroidism, unspecified Plan: We will continue to monitor blood work and I did order for repeat thyroid labs. She will continue on Tirosint name brand of this of medication as it is a hypoallergenic tablet and she has multiple allergies. (4) History of hyperparathyroidism: Code(s): Z86.39 - Personal history of other endocrine, nutritional and metabolic disease Category: Medical Plan: Plan for ultrasound of the parathyroid and thyroid gland for yearly surveillance as advised by her last PCP. (5) Cyanocobalamin deficiency: Code(s): E53.8 - Deficiency of other specified B group vitamins Category: Medical Plan: Continue to follow with Dr. Gilmore at this time for supplementation. (6) Osteopenia: Code(s): M85.80 - Other specified disorders of bone density and structure, unspecified site Category: Medical Qualifiers: Osteopenia location: unspecified Qualified Code(s): M85.80 - Other specified disorders of bone density and structure, unspecified site Plan: Ordered for repeat bone density screening (7) Vitamin D deficiency: Code(s): E55.9 - Vitamin D deficiency, unspecified Category: Medical Plan: Ordered for repeat blood work and not currently on supplementation. Plan This note was constructed using voice recognition software. While every effort has been made to ensure accuracy and deckhand engineer, still areas may have been included sometimes these areas may affect the content or meeting of the given symptoms. Total time spent caring for the patient today was 30 minutes. This includes time spent before the visit reviewing the chart, time spent during the visit, and time spent after the visit and documentation. Orders: Orders Vitamin B12 and Folate Today E53.8 - Deficiency of other specified B group vitamins, Z13.21 - Encounter for screening for nutritional disorder US thyroid Today E03.9 - Hypothyroidism, unspecified, Z86.39 - Personal history of other endocrine, nutritional and metabolic disease MM tomosynthesis screening BI Today Z12.31 - Encounter for screening mammogram for malignant neoplasm of breast Comprehensive Met. Panel Today Z00.00 - Encounter for general adult medical examination without abnormal findings, Z13.1 - Encounter for screening for diabetes mellitus Free T4 (Free Thyroxine) Today E03.9 - Hypothyroidism, unspecified, Z00.00 - Encounter for general adult medical examination without abnormal findings XR DEXA axial skeleton Today M85.80 - Other specified disorders of bone density and structure, unspecified site, Z78.0 - Asymptomatic menopausal state Hemoglobin A1c Today Z13.1 - Encounter for screening for diabetes mellitus Lipid Panel Today Z13.220 - Encounter for screening for lipoid disorders Referrals Gastroenterology Referral Z12.11 - Encounter for screening for malignant neoplasm of colon Medications: Changed From levothyroxine (Tirosint) HARRY, no substitutions. 137.5mcg daily To Tirosint (levothyroxine) 125 mcg PO DAILY 90 caps 0RF NS
--- OUTSIDE RECORDS SUMMARY | 2025-06-16 17:20 | XMS_ITS | Clinical Summary ---
Author Organization [facility] Address [address] [place] [address] [place] [phone] Phone Care Team Providers Care Mushroom Growth Media Mixer Name Role Phone Eleanor Rolon MD Primary Care Provider Allergies Active Allergy Reactions Criticality Noted Date Comments Ciprofloxacin Other (See Comments) High 12/29/2017 Tendons feeling they were about to burst Dextran 1 Anaphylaxis High 12/29/2017 Hydromorphone Nausea and/or Vomiting High 12/29/2017 Also effects breathing Iodinated Contrast Media Hives,Rash Medium 01/24/2018 Pt suffered congestion, and filling of ears and sinuses. Omeprazole Musculoskeletal Pain Medium 12/29/2017 Penicillins Rash Low 12/29/2017 Sulfa (Sulfonamide Antibiotics) Hives 12/29/2017 Medications levothyroxine (TIROSINT) 88 mcg Cap 88 mcg daily. Active liothyronine (CYTOMEL) 5 MCG tablet Take 5 mcg by mouth 2 (two) times a day. Active loratadine (CLARITIN) 10 mg tablet Take 10 mg by mouth daily. Active lidocaine (LIDODERM) 5 % Place 1 patch onto the skin as needed. Remove & Discard patch within 12 hours or as directed by MD Active albuterol 90 mcg/actuation inhaler Inhale 2 puffs into the lungs every 6 (six) hours as needed for wheezing. Active albuterol (ACCUNEB) 0.63 mg/3 mL nebulizer solution Take 1 ampule by nebulization every 6 (six) hours as needed for wheezing. Active cholecalciferol 400 unit/drop oral dropsIndication s:hypoparathyro idism,vitamin D deficiency Take 5,000 Int'l Units by mouth. Indications: hypoparathyroidi sm, Vitamin D Deficiency Active cyanocobalamin (VIT B-12) 1000 MCG tabletIndicatio ns:Dr. Gilmore at [facility] Inject 100 mcg into the muscle every 30 (thirty) days. Indications: Dr. Gilmore at [facility] Active Social History Tobacco Use Types Packs/Day Years [...] AM EDT Sexual Orientation Not on file Last Filed Vital Signs Vital Sign Reading Time Taken Comments Blood Pressure 129/68 03/28/2023 11:47 AM EDT Pulse 75 03/28/2023 11:47 AM EDT Temperature 35.9 C (96.6 F) 03/28/2023 11:47 AM EDT Respiratory Rate 16 03/28/2023 11:47 AM EDT Oxygen Saturation 97% 03/28/2023 11:47 AM EDT Inhaled Oxygen Concentration - - Weight 81.6 kg (180 lb) 03/28/2023 11:47 AM EDT Height 157.5 cm (5' 2 ) 03/28/2023 11:47 AM EDT Body Mass Index 32.92 03/28/2023 11:47 AM EDT Plan of Treatment Health Maintenance Due Date Last Done Comments TSH LEVEL 1964 DEPRESSION SCREENING 1976 HEPATITIS C SCREENING 1982 HIV ONE-TIME SCREENING (18-65 YEARS) 1982 PAP SMEAR 1985 MAMMOGRAM 2004 COLOGUARD 2009 COLONOSCOPY 2009 COLORECTAL CANCER SCREENING 2009 FIT TEST 2009 FOBT 2009 SIGMOIDOSCOPY 2009 VIRTUAL COLONOSCOPY 2009 ZOSTER VACCINES (1 of 2) 2014 PNEUMOCOCCAL VACCINES (50+ years) (2 of 2 - PCV) 06/18/2017 06/18/2016 Adult Td,Tdap Booster 08/01/2022 08/01/2012 INFLUENZA VACCINE (#1) 2025 07/21/2018, 2015 COVID-19 VACCINE ( season) 2025 11/01/2021, 01/20/2021, 12/27/2020, Additional history exists SCREENING FOR DIABETES 02/06/2027 02/07/2024 LIPID PANEL 02/06/2029 02/07/2024 RSV VACCINE (1 - 1-dose 75+ series) 2039 SMOKING STATUS SCREENING (Once After 26 Yrs) Completed 12/29/2017 HEPATITIS A VACCINES Aged Out No long er eligible based on patient's age to complete this topic HIB VACCINES Aged Out No longer eligi ble based on patient's age to complete this topic MENINGOCOCCAL VACCINES (ACWY) Aged Out No longer eligible based on patient's age to complete this topic MENINGOCOCCAL VACCINES (B) Aged Out N o longer eligible based on patient's age to complete this topic Medical Devices Not on file Procedures Procedure Name Priority Date/Time Associated Diagnosis Comments LIPID PANEL Routine 02/07/2024 11:58 AM EDT Hypothyroidism, unspecified type from Last 3 Months or Most Recently Relevant to Health Maintenance Results * Lipid panel (02/07/2024 11:58 AM EDT) HDL 43 mg/dL [facility] Comment: Interpretation <40 mg/dL: Low HDL cholesterol (major risk factor for CHD) Greater than or equal to 60 mg/dL: High HDL cholesterol ( negative risk factor for CHD) HDL - cholesterol is affected by a number of factors, e.g. smoking, excerise, hormones, sex and age. CHOLESTEROL 154 0 - 240 mg/dL [facility] TRIGLYCERIDES 94 30 - 160 mg/dL [facility] LDL 92 50 - 129 mg/dL [facility] Comment: LDL levels in terms of risk for coronary heart disease: <100 mg/dL: Optimal 100-129 mg/dL: Near or above optimal 130-159 mg/dL: Borderline high 160-189 mg/dL: High >190 mg/dL: Very High CARDIAC RISK RATIO 3.6 3.3 - 4.4 C [facility] Blood 02/07/2024 11:5 8 AM EDT 02/07/2024 12:06 PM EDT us Brittney ANAND LAB BLOOD ORDERABLES Final Resu lt [facility] [address] [place] [address] from Last 3 Months or Most Recently Relevant to Health Maintenance [place] [address] HMO O O O HMO O INSURANCE Care Teams Mushroom Growth Media Mixer Relationship Specialty Start Date End Date Eleanor Rolon MD [address] [place] [address] [email or web address] PCP - General Internal Medicine 12/30/17 Additional Source Comments The information contained in this document represents components of the legal health record. It is not the complete legal health record.[facility]
--- OUTSIDE RECORDS SUMMARY | 2025-06-16 17:20 | XMS_ITS | Encounter Summary ---
Author Organization [facility] Address [address] [facility] [address] [place] [phone] Phone Care Team Providers Care Ballpoint Pen Assembly Machine Operator Name Role Phone Eleanor Rolon MD Primary Care Provider [phone] Encounter Details Date Type Department Care Team (Latest Contact Info) Description 06/18/2021 Transcribe Orders Virtual Department [address] [place] [address] Brittney James PA [address] [place] [address] [email or web address] Fever, unspecified fever cause (Primary Dx); Muscle ache Social History Tobacco Use Types Packs/Day Years Used Date Smoking Tobacco: Never Smokeless Tobacco: Never Comments Unknown Sex and Gender Information Value Date Recorded Sex Assigned at Female 03/28/2023 11:48 AM EDT Legal Sex Female 9:42 PM EDT Gender Identity Female 03/28/2023 11:48 AM EDT Sexual Orientation Not on file documented as of this encounter Plan of Treatment Not on file documented as of this encounter Results * COVID-19 PCR Order (06/20/2021 5:00 PM EDT) COVID Testing Status Specimen received in analyzing lab. Results should be available within 24 to 48 hrs. [facility] Symptomatic? YES [facility] Other (Nasal swab) 06/20/2021 5:00 PM EDT 06/20/2021 8:26 PM EDT us Brittney ANAND BODY FLUIDS AND STOOLS ORDERABL ES Final Result [address] [id number] [facility] [address] [place] [id number] documented in this encounter Visit Diagnoses Diagnosis Fever, unspecified fever cause- Primary Muscle ache Unspecified myalgia and myositis documented in this encounter Additional Health Concerns Infection Onset Date Last Indicated Resolved Time CoV-Risk 06/18/2021 06/20/2021 06/28/2021 1:23 AM EDT CoV-Exposed Comment:Recent close contact documented in the COVID-19 PCR/PRO order 01/31/2022 01/31/2022 02/11/2022 1:24 AM E DT CoV-Risk Comment:Per Ambulatory Triage Form 02/01/2022 02/01/202202/12 1:23 AM EDT documented as of this encounter Care Teams Ballpoint Pen Assembly Machine Operator Relationship Specialty Start Date End Date Eleanor Rolon MD [address] [place] [id number] PCP - General Internal Medicine 12/30/17 documented as of this encounter Additional Source Comments The information contained in this document represents components of the legal health record. It is not the complete legal health record.[facility]
--- OUTSIDE RECORDS SUMMARY | 2025-06-16 17:20 | XMS_ITS | Encounter Summary ---
Author Organization [facility] Address [address] [facility] [address] [place] [address] Phone Care Team Providers Care Paper Cup Handle Machine Operator Name Role Phone Eleanor Rolon MD Primary Care Provider Encounter Details Date Type Department Care Team (Late st Contact Info) Description 05/20/2019 Ancillary Orders [facility], X-Ray - [address] [address] Brittney James PA [address] [place] [address] [email or web address] Social History Tobacco Use Types Packs/Day Years [...] documented as of this encounter Results * XR LUMBOSACRAL SPINE 4 OR MORE VIEWS (05/20/2019 4:19 PM EDT) Anatomical Region Laterality Modality L-spine Radiographic Cramen ging 05/20/2019 5:59 PM EDT Impressions 05/20/2019 6:01 PM EDT Reactive bony changes from degenerative disc disease at L3-L4 and L5-S1. Normal alignment. POS - [id number] Narrative 05/20/2019 6:01 PM EDT XR LUMBOSACRAL SPINE 4 OR MORE VIEWS HISTORY: left buttocks pain, lbp left leg radiculopathy TECHNIQUE: 5 views lumbar spine: AP, lateral, lateral L5-S1 Spot, bilateral oblique views lumbar spine. COMPARISON: none FINDINGS: Lumbar vertebrae are normal in height and alignment. No compression fracture deformities. There is moderate degenerative disc space narrowing at L5-S1 with minimal endplate osteophytes. Mild disc space narrowing at L3-L4 with mild marginal osteophytes. Intervertebral disc spaces are preserved at the other levels. There are no pars defects. Facet joints within normal limits. As described on the hip study, sclerosis along the iliac aspects of both sacroiliac joints. Procedure Note Hanna Heaton MD - 05/20/2019 XR LUMBOSACRAL SPINE 4 OR MORE VIEWS HISTORY: left buttocks pain, lbp left leg radiculopathy TECHNIQUE: 5 views lumbar spine: AP, lateral, lateral L5-S1 Spot,bilateral oblique views lumbar spine. COMPARISON: none FINDINGS: Lumbar vertebrae are normal in height and alignment. No compressionfracture deformities. There is moderate degenerative disc space narrowing at L5-S1 with minimalendplate osteophytes. Mild disc space narrowing at L3-L4 with mildmarginal osteophytes. Intervertebral disc spaces are preserved at the other levels. There are no pars defects. Facet joints within normal limits. As described on the hip study, sclerosis along the iliac aspects of bothsacroiliac joints. IMPRESSION: Reactive bony changes from degenerative disc disease at L3-L4 and L5-S1.Normal alignment. POS - [id number] us Brittney ANAND IMG XR SPINE Final Result * XR HIP 2 VW LEFT PLUS PELVIS (05/20/2019 4:18 PM EDT) Anatomical Region Laterality Modality Hip Left Radiographic Carmen ging 05/20/2019 5:56 PM EDT Impressions 05/20/2019 5:59 PM EDT Mild hip degenerative arthrosis. Sclerotic changes along the iliac sides of the sacroiliac joints, unchanged compared with 12/30/2012. POS - [id number] Narrative 05/20/2019 5:59 PM EDT EXAM: XR HIP 2 VW LEFT PLUS PELVIS HISTORY: left buttocks pain, lbp left leg radiculopathy TECHNIQUE: AP view pelvis, 2 views Left hip. COMPARISON: 12/30/2012 KUB. FINDINGS: There is no acute fracture or dislocation. Normal alignment of the bones. There is mild hip degenerative joint space narrowing, with degenerative subchondral cyst in the acetabulum. No soft tissue abnormality. There is sclerosis along the iliac aspects of the sacroiliac joints, unchanged compared with 12/30/2012 KUB. Procedure Note Hanna Heaton MD - 05/20/2019 EXAM: XR HIP 2 VW LEFT PLUS PELVIS HISTORY: left buttocks pain, lbp left leg radiculopathy TECHNIQUE: AP view pelvis, 2 views Left hip. COMPARISON: 12/30/2012 KUB. FINDINGS: There is no acute fracture or dislocation. Normal alignment of thebones. There is mild hip degenerative joint space narrowing, with degenerativesubchondral cyst in the acetabulum. No soft tissue abnormality. There is sclerosis along the iliac aspects ofthe sacroiliac joints, unchanged compared with 12/30/2012 KUB. IMPRESSION: Mild hip degenerative arthrosis. Sclerotic changes along the iliac sides of the sacroiliac joints,unchanged compared with 12/30/2012. POS - [id number] Brittney ANAND IMRonald XR PELVIS Final Result documented in this encounter Visit Diagnoses Diagnosis Pain Generalized pain Pain Generalized pain Pain Generalized pain documented in this encounter Additional Health Concerns Infection Onset Date Last Indicated Resolved Time CoV-Risk 12/25/2020 12/26/2020 01/04/2021 1:24 AM EDT CoV-Risk 06/18/2021 06/20/2021 06/28/2021 1:23 AM EDT CoV-Exposed Comment:Recent close contact documented in the COVID-19 PCR/PRO order 01/31/2022 01/31/2022 02/11/2022 1:24 AM E DT CoV-Risk Comment:Per Ambulatory Triage Form 02/01/2022 02/01/202202/12 1:23 AM EDT documented as of this encounter Care Teams Paper Cup Handle Machine Operator Relationship Specialty Start Date End Date Eleanor Rolon MD [address] [place] [email or web address] PCP - General Internal Medicine 12/30/17 documented as of this encounter Additional Source Comments The information contained in this document represents components of the legal health record. It is not the complete legal health record.[facility]
--- OUTSIDE RECORDS SUMMARY | 2025-06-16 17:20 | XMS_ITS | Encounter Summary ---
Author Organization [facility] Address [address] [facility] [address] [place] [address] Phone Care Team Providers Care Product Safety Administrator Name Role Phone Eleanor Rolon MD Primary Care Provider Encounter Details Date Type Department Care Team (Latest Contact Info) Description 03/30/2019 Transcribe Orders Virtual Department [address] [place] [address] Joy Rodríguez PA-C [address], [address] [place] [address] [email or web address] Fatty liver (Primary Dx); Liver cyst Social History Tobacco Use Types Packs/Day Years [...] documented as of this encounter Visit Diagnoses Diagnosis Fatty liver- Primary Other chronic nonalcoholic liver disease Liver cyst Other specified disorders of liver documented in this encounter Additional Health Concerns Infection Onset Date Last Indicated Resolved Time CoV-Risk 12/25/2020 12/26/2020 01/04/2021 1:24 AM EDT CoV-Risk 06/18/2021 06/20/2021 06/28/2021 1:23 AM EDT CoV-Exposed Comment:Recent close contact documented in the COVID-19 PCR/PRO order 01/31/2022 01/31/2022 02/11/2022 1:24 AM E DT CoV-Risk Comment:Per Ambulatory Triage Form 02/01/2022 02/01/202202/12 1:23 AM EDT documented as of this encounter Care Teams Product Safety Administrator Relationship Specialty Start Date End Date Eleanor Rolon MD [address] [place] [address] [email or web address] PCP - General Internal Medicine 12/30/17 documented as of this encounter Additional Source Comments The information contained in this document represents components of the legal health record. It is not the complete legal health record.[facility]
--- OUTSIDE RECORDS SUMMARY | 2025-06-16 17:20 | XMS_ITS | Encounter Summary ---
Author Organization [facility] Address [address] [facility] [address] [place] [address] Phone Care Team Providers Care Slash Trimmer Name Role Phone Eleanor Rolon MD Primary Care Provider Encounter Details Date Type Department Care Team (Late st Contact Info) Description 12/30/2017 Procedure Pass [facility], Ct Scan - [address] [address] Social History Tobacco Use Types Packs/Day Years [...] Diagnoses Not on filedocumented in this encounter Additional Health Concerns Infection Onset Date Last Indicated Resolved Time CoV-Risk 12/25/2020 12/26/2020 01/04/2021 1:24 AM EDT CoV-Risk 06/18/2021 06/20/2021 06/28/2021 1:23 AM EDT CoV-Exposed Comment:Recent close contact documented in the COVID-19 PCR/PRO order 01/31/2022 01/31/2022 02/11/2022 1:24 AM E DT CoV-Risk Comment:Per Ambulatory Triage Form 02/01/2022 02/01/202202/12 1:23 AM EDT documented as of this encounter Care Teams Slash Trimmer Relationship Specialty Start Date End Date Eleanor Rolon MD [address] [place] [phone] [email or web address] PCP - General Internal Medicine 12/30/17 documented as of this encounter Additional Source Comments The information contained in this document represents components of the legal health record. It is not the complete legal health record.[facility]
--- OUTSIDE RECORDS SUMMARY | 2025-06-16 17:20 | XMS_ITS | Encounter Summary ---
Author Organization [facility] Address [address] [facility] [address] [place] [address] Phone Care Team Providers Care It Account Manager Name Role Phone Eleanor Rolon MD Primary Care Provider Encounter Details Date Type Department Care Team (Late st Contact Info) Description 01/31/2022 Transcribe Orders Virtual Department [address] [place] [address] Eleanor Rolon MD [address] [place] [address] [email or web address] Encounter for laboratory testing for COVID-19 virus (Primary Dx) Social History Tobacco Use Types Packs/Day Years [...] this encounter Results * COVID-19 PCR Order (02/01/2022 2:24 PM EDT) COVID Testing Status Specimen received in analyzing lab. Results should be available within 24 to 48 hrs. [facility] Symptomatic? NO [facility] Other 02/01/2022 2:24 PM EDT 02/01/2022 5:42 PM EDT Eleanor Rolon MD BODY FLUIDS AND STOOLS JACOB AMBROCIO Final Result [facility] [address] [place] [address] [facility] [address] [place] [phone] documented in this encounter Visit Diagnoses Diagnosis Encounter for laboratory testing for COVID-19 virus- Primary documented in this encounter Additional Health Concerns Infection Onset Date Last Indicated Resolved Time CoV-Exposed Comment:Recent close contact documented in the COVID-19 PCR/PRO order 01/31/2022 01/31/2022 02/11/2022 1:24 AM E DT CoV-Risk Comment:Per Ambulatory Triage Form 02/01/2022 02/01/202202/12 1:23 AM EDT documented as of this encounter Care Teams It Account Manager Relationship Specialty Start Date End Date Eleanor Rolon MD [address] [place] [address] [email or web address] PCP - General Internal Medicine 12/30/17 documented as of this encounter Additional Source Comments The information contained in this document represents components of the legal health record. It is not the complete legal health record.[facility]
--- OUTSIDE RECORDS SUMMARY | 2025-06-16 17:20 | XMS_ITS | Encounter Summary ---
Author Organization [facility] Address [address] [facility] [address] [place] [address] Phone Care Team Providers Care Pasting Machine Offbearer Name Role Phone Eleanor Rolon MD Primary Care Provider Encounter Details Date Type Department Care Team (Late st Contact Info) Description 06/16/2018 Procedure Pass [facility] Endoscopy Admitting Dept Virtual Department [address] [place] [address] Social History Tobacco Use Types Packs/Day Years [...] documented as of this encounter Care Teams Pasting Machine Offbearer Relationship Specialty Start Date End Date Eleanor Rolon MD [address] [place] [address] [email or web address] PCP - General Internal Medicine 12/30/17 documented as of this encounter Additional Source Comments The information contained in this document represents components of the legal health record. It is not the complete legal health record.[facility]
--- OUTSIDE RECORDS SUMMARY | 2025-06-16 17:20 | XMS_ITS | Encounter Summary ---
Author Organization [facility] Address [address] [facility] [address] [place] [address] Phone Care Team Providers Care Network Operations Lead Name Role Phone Eleanor Rolon MD Primary Care Provider [phone] Reason for Referral * MRI/CAT Scan - Closed Specialty Diagnoses / Procedures Referred By Contac t Referred To Contact Radiology Diagnoses Lesion of left lobe of liver Abnormal findings on imaging test Procedures MRI Abdomen MRI PELVIS (GI/) Brittney James PA Phone: tel: fax: [email or web address] Referral ID Status Reason Start Date Expiration Date Visits Re quested Visits Authorized [id number] Closed 01/12/2018 04/12/2018 1 1 Encounter Details Date Type Department Care Team (Late st Contact Info) Description 01/14/2018 Ancillary Orders [facility] External Provider Virtual Department [address] [place] [address] Brittney James PA [address] [place] [address] [email or web address] Lesion of left lobe of liver; Abnormal findings on imaging test Social History Tobacco Use Types Packs/Day Years [...] documented as of this encounter Results * MRI ABDOMEN (LIVER) WITH AND WITHOUT CONTRAST (01/24/2018 10:16 AM EDT) Anatomical Region Laterality Modality Abdomen Magnetic Resonan ce 01/24/2018 5:06 PM EDT Impressions 01/24/2018 7:29 PM EDT 1. The lesion described on CT in the medial left lobe of the liver appears to be a focal area of fatty sparing on a background of steatosis. Unless there is very strong clinical suspicion of malignancy I do not believe this warrants any further investigation. 2. The lesion in the lateral left lobe is a simple cyst. 3. No evidence of mass, hernia or other explanation of right flank palpable abnormality. 4. No significant upper abdominal pathology is apparent. POS [id number] Edited by: Brandie Mao on 01/24/2018 6:05 PM Narrative 01/24/2018 7:29 PM EDT TECHNIQUE: 1.5 Carlyn high-field MRI scanner. Axial T1 in and out of phase, T2, extended TE T2, multi-phase DWI, and T1 with fat suppression; coronal T2; followed by post-gadolinium multi-phase axial T1 FS series sequences were obtained through the liver. Compare to CT 01/09/2018. FINDINGS: The lesion described in the medial segment of the left lobe of the liver on the recent CT has not changed appreciably in size or shape. It measures about 2.1 x 2.3 cm axially on MRI. The lesion is slightly hyperintense to the rest of the liver on T1 FS pre- injection and becomes nearly isointense following gadolinium administration. The degree of enhancement parallels the enhancement of the rest of the liver and all phases such that this is almost certainly an island of normal liver due to focal fatty sparing. Focal fatty sparing is further supported by mild T2 hyperintensity compared to the rest of the liver on the [id number] chemical shift sequence. Finally, there is no abnormal diffusion compared to the rest of the liver. The 7 mm lesion in the anterior lateral segment of the left lobe of the liver is a simple cyst. No other liver lesions are identified. Spleen, pancreas, adrenals and kidneys all unremarkable. Cholecystectomy. No biliary dilatation. No obvious choledocholithiasis. No adenopathy, ascites or pleural effusion. No masses or hernia are apparent in the abdominal wall. Procedure Note Joao Upton MD - 01/24/2018 TECHNIQUE: 1.5 Carlyn high-field MRI scanner. Axial T1 in and out of phase, T2, extended TE T2, multi-phase DWI, and T1with fat suppression; coronal T2; followed by post-gadolinium multi-phaseaxial T1 FS series sequences were obtained through the liver. Compare to CT 01/09/2018. FINDINGS: The lesion described in the medial segment of the left lobe of the liveron the recent CT has not changed appreciably in size or shape. Itmeasures about 2.1 x 2.3 cm axially on MRI. The lesion is slightly hyperintense to the rest of the liver on T1 FSpre- injection and becomes nearly isointense following gadoliniumadministration. The degree of enhancement parallels the enhancement ofthe rest of the liver and all phases such that this is almost certainly anisland of normal liver due to focal fatty sparing. Focal fatty sparing is further supported by mild T2 hyperintensitycompared to the rest of the liver on the [id number] chemical shiftsequence. Finally, there is no abnormal diffusion compared to the rest of theliver. The 7 mm lesion in the anterior lateral segment of the left lobe of theliver is a simple cyst. No other liver lesions are identified. Spleen, pancreas, adrenals and kidneys all unremarkable. Cholecystectomy. No biliary dilatation. No obviouscholedocholithiasis. No adenopathy, ascites or pleural effusion. No masses or hernia are apparent in the abdominal wall. IMPRESSION: 1. The lesion described on CT in the medial left lobe of the liver appearsto be a focal area of fatty sparing on a background of steatosis. Unlessthere is very strong clinical suspicion of malignancy I do not believethis warrants any further investigation. 2. The lesion in the lateral left lobe is a simple cyst. 3. No evidence of mass, hernia or other explanation of right flankpalpable abnormality. 4. No significant upper abdominal pathology is apparent. POS [id number] Edited by: Brandie Mao on 01/24/2018 6:05 PM Brittney ANAND IMG MR ABDOMEN Final Result documented in this encounter Visit Diagnoses Diagnosis Lesion of left lobe of liver Other specified disorders of liver Abnormal findings on imaging test Other nonspecific (abnormal) findings on radiological and other examinations of body structure Lesion of left lobe of liver Other specified disorders of liver Abnormal findings on imaging test Other nonspecific (abnormal) findings on radiological and other examinations of body structure documented in this encounter Additional Health Concerns Infection Onset Date Last Indicated Resolved Time CoV-Risk 12/25/2020 12/26/2020 01/04/2021 1:24 AM EDT CoV-Risk 06/18/2021 06/20/2021 06/28/2021 1:23 AM EDT CoV-Exposed Comment:Recent close contact documented in the COVID-19 PCR/PRO order 01/31/2022 01/31/2022 02/11/2022 1:24 AM E DT CoV-Risk Comment:Per Ambulatory Triage Form 02/01/2022 02/01/202202/12 1:23 AM EDT documented as of this encounter Care Teams Network Operations Lead Relationship Specialty Start Date End Date Eleanor Rolon MD [address] [place] [address] [email or web address] PCP - General Internal Medicine 12/30/17 documented as of this encounter Additional Source Comments The information contained in this document represents components of the legal health record. It is not the complete legal health record.[facility]
--- OUTSIDE RECORDS SUMMARY | 2025-06-16 17:20 | XMS_ITS | Encounter Summary ---
Author Organization [facility] Address [address] [facility] [address] [place] [address] Phone Care Team Providers Care Retort Load Expediter Name Role Phone Eleanor Rolon MD Primary Care Provider Encounter Details Date Type Department Care Team (Late st Contact Info) Description 03/28/2023 Procedure Pass [facility], Ct Scan - [address] [address] Social History Tobacco Use Types Packs/Day Years [...] Risk Indicated 03/28/2023 11:47 AM EDT Autumn Swift RN * [place] Suicide Severity Rating Scale (Screener/Recent Self-Report) Question [...] on filedocumented in this encounter Care Teams Retort Load Expediter Relationship Specialty Start Date End Date Eleanor Rolon MD [address] [place] [address] [email or web address] PCP - General Internal Medicine 12/30/17 documented as of this encounter Additional Source Comments The information contained in this document represents components of the legal health record. It is not the complete legal health record.[facility]
--- OUTSIDE RECORDS SUMMARY | 2025-06-16 17:20 | XMS_ITS | Patient Health Record ---
Author Organization [facility] Address [address] [place], [place] [address] Care Team Providers Care Upholstery Mechanic Name Role Phone CiraMani Primary Care Provider Ramin Garcia [phone] Allergies Allergen (clinical drug ingredient) Drug/Non Drug [...] Status W/U Status Risk Notes Problem Hoarseness (67899496) Hoarseness (784.49) Active confirmed Problem Cough (79813217) Cough (786.2) Active confirmed Problem Extrinsic asthma without status asthmaticus (97924836) Extrinsic asthma NOS (493.00) Active confirmed Problem Allergic rhinitis (51757718) Allergic rhinitis due to unspecified cause (477.9) Active confirmed Plan Of Treatment No Information Insurance Providers Payer Name Payer Address Payer Phone Subscriber Number Group Number Insured Name Patient Relationship to Insured Coverage Start Date Coverage End Date [facility] [address] [place] [phone] [id number] Xochitl Haque Self - patient is the insured Medical (General) History Medical History History ICD Code Asthma Allergic rhinitis Jamaal's thyroiditis L3/L4/L5/S1 disc herniations (trauma) Tibial plateau fracture Left arm/shoulder fracture Surgical History Surgery Date(Month/Year) s/p Cholecystectomy s/p Appendectomy s/p ORIF Tibial plateau fx repair s/p ORIR arm/shoulder fx repair
--- OUTSIDE RECORDS SUMMARY | 2025-06-16 17:20 | XMS_ITS | Encounter Summary ---
Author Organization [facility] Address [address] [facility] [address] [place] [phone] Phone Care Team Providers Care Electrical Lineman Name Role Phone Eleanor Rolon MD Primary Care Provider Encounter Details Date Type Department Care Team (Latest Contact Info) Description 04/16/2018 Transcribe Orders [facility] Laboratory [address] [address] Joy Rodríguez PA-C [address] [place] [address] [email or web address] Fatty liver (Primary Dx) Social History Tobacco Use Types [...] documented as of this encounter Results * (ABNORMAL) Comprehensive metabolic panel (04/16/2018 10:18 AM EDT) SODIUM 139 133 - 146 mmol/L [facility] POTASSIUM 4.2 3.3 - 5.1 mmol/L [facility] CHLORIDE 99 96 - 108 mmol/L [facility] CO2 27 21 - 35 mmol/L [facility] BUN 12 6 - 19 mg/dL [facility] CREATININE 0.60 0.5 - 1.5 mg/dL [facility] GLUCOSE 106(H) 70 - 99 mg/dL [facility] ALBUMIN 4.3 3.9 - 4.8 g/dL [facility] TOTAL PROTEIN 7.6 6.5 - 8.0 g/dL [facility] CALCIUM 9.6 8.4 - 10.3 mg/dL [facility] ALKALINE PHOSPHATASE 83 39 - 117 U/L [facility] TOTAL BILIRUBIN 0.6 0.0 - 1.2 mg/dL [facility] AST 21 0 - 37 U/L [facility] ALT 23 0 - 40 U/L [facility] GLOBULIN 3.3 1 - 4.8 g/dL [facility] EGFR 104 >59 mL/min/1.7 3m2 [facility] Comment:If patient is black, multiply result by 1.159. Estimated glomerular filtration rate calculated using the CKD-EPI equation. ANION GAP 17 10 - 20 mmol/L [facility] Blood 04/16/2018 10:1 8 AM EDT 04/16/2018 10:48 AM EDT us Joy Rodríguez PA-C LAB BLOOD ORDERABLES Final Resu lt Performing Organization Address City/State/[facility] Co de Phone Number [facility] [address] [place] [address] * (ABNORMAL) CBC (04/16/2018 10:18 AM EDT) WBC 7.60 3.40 - 11.20 K/uL [facility] RBC 4.88(H) 3.80 - 4.80 M/uL [facility] HGB 15.0 12.0 - 15.0 g/dL [facility] HCT 43.1 36.0 - 46.0 % [facility] PLT 258 130 - 400 K/uL [facility] MCV 88.3 79.0 - 98.0 fL [facility] MCH 30.7 27.0 - 34.8 pg [facility] MCHC 34.8 31.5 - 36.0 g/dL [facility] RDW 12.1 10.8 - 14.6 % [facility] MPV 10.0 9.4 - 12.4 fl [facility] NRBC 0.00 /100 WBCs [facility] ABSOLUTE NRBC 0.00 K/uL [facility] Blood 04/16/2018 10:1 8 AM EDT 04/16/2018 10:48 AM EDT us Joy Rodríguez PA-C LAB BLOOD ORDERABLES Final Resu lt [facility] [address] [place] [address] documented in this encounter Visit Diagnoses Diagnosis Fatty liver- Primary Other chronic nonalcoholic liver disease documented in this encounter Additional Health Concerns Infection Onset Date Last Indicated Resolved Time CoV-Risk 12/25/2020 12/26/2020 01/04/2021 1:24 AM EDT CoV-Risk 06/18/2021 06/20/2021 06/28/2021 1:23 AM EDT CoV-Exposed Comment:Recent close contact documented in the COVID-19 PCR/PRO order 01/31/2022 01/31/2022 02/11/2022 1:24 AM E DT CoV-Risk Comment:Per Ambulatory Triage Form 02/01/2022 02/01/202202/12 1:23 AM EDT documented as of this encounter Care Teams Electrical Lineman Relationship Specialty Start Date End Date Eleanor Rolon MD [address] [place] [phone] [email or web address] PCP - General Internal Medicine 12/30/17 documented as of this encounter Additional Source Comments The information contained in this document represents components of the legal health record. It is not the complete legal health record.[facility]
--- OUTSIDE RECORDS SUMMARY | 2025-06-16 17:20 | XMS_ITS | Encounter Summary ---
Author Organization [facility] Address [address] [facility] [address] [place] [address] Phone Care Team Providers Care Maintenance Chief Name Role Phone Eleanor Rolon MD Primary Care Provider Encounter Details Date Type Department Care Team (Latest Contact Info) Description 06/13/2021 Transcribe Orders Virtual Department [address] [place] [address] Brittney Jmaes PA [address] [place] [address] [email or web address] Right flank pain (Primary Dx); Leg mass, left Social History Tobacco Use Types Packs/Day Years [...] as of this encounter Visit Diagnoses Diagnosis Right flank pain- Primary Abdominal pain, unspecified site Leg mass, left documented in this encounter Additional Health Concerns Infection Onset Date Last Indicated Resolved Time CoV-Risk 06/18/2021 06/20/2021 06/28/2021 1:23 AM EDT CoV-Exposed Comment:Recent close contact documented in the COVID-19 PCR/PRO order 01/31/2022 01/31/2022 02/11/2022 1:24 AM E DT CoV-Risk Comment:Per Ambulatory Triage Form 02/01/2022 02/01/202202/12 1:23 AM EDT documented as of this encounter Care Teams Maintenance Chief Relationship Specialty Start Date End Date Eleanor Rolon MD [address] [place] [phone] [email or web address] PCP - General Internal Medicine 12/30/17 documented as of this encounter Additional Source Comments The information contained in this document represents components of the legal health record. It is not the complete legal health record.[facility]
--- OUTSIDE RECORDS SUMMARY | 2025-06-16 17:20 | XMS_ITS | Encounter Summary ---
Author Organization [facility] Address [address] [facility] [address] [place] [phone] Phone Care Team Providers Care Textile Machine Operator Name Role Phone Eleanor Rolon MD Primary Care Provider Encounter Details Date Type Department Care Team (Late st Contact Info) Description 01/14/2018 Procedure Pass [facility], [address] [address] Social History Tobacco Use Types Packs/Day Years [...] documented as of this encounter Care Teams Textile Machine Operator Relationship Specialty Start Date End Date Eleanor Rolon MD [address] [place] [phone] [email or web address] PCP - General Internal Medicine 12/30/17 documented as of this encounter Additional Source Comments The information contained in this document represents components of the legal health record. It is not the complete legal health record.[facility]
--- OUTSIDE RECORDS SUMMARY | 2025-06-16 17:20 | XMS_ITS | Encounter Summary ---
Author Organization [facility] Address [address] [facility] [address] [place] [address] Phone Care Team Providers Care Electric Deicer Assembler Name Role Phone Eleanor Rolon MD Primary Care Provider Encounter Details Date Type Department Care Team (Latest Contact Info) Description 02/18/2022 Transcribe Orders Virtual Department 30 [place] [address] Brittney James PA [address] [place] [address] [email or web address] Low back pain, unspecified back pain laterality, unspecified chronicity, unspecified whether sciatica present (Primary Dx) Social History Tobacco Use Types [...] XR LUMBOSACRAL SPINE 4 OR MORE VIEWS (02/21/2022 12:30 PM EDT) Anatomical Region Laterality Modality L-spine Computed Radiogr aphy 02/21/2022 12:3 5 PM EDT Impressions 02/21/2022 12:38 PM EDT Chronic findings as above overall stable from 2019 when allowing for minimal progression of degenerative disc disease at the lumbosacral junction. POS - [id number] Narrative 02/21/2022 12:38 PM EDT COMPARISON: 05/20/2019 FINDINGS: Frontal, lateral, coned lateral, and oblique views were obtained revealing minimal progression of chronic advanced degenerative disc changes at the lumbosacral junction with stable degenerative disc change present at the L3-4 level. Remaining discs are unchanged in height. No fracture, subluxation, or other acute bony abnormality identified. There is stable mild lower lumbar degenerative facet arthropathy. No spondylolysis. Stable prominent chronic chronic sclerosis again seen along the iliac aspects of both sacroiliac joints without discrete marginal erosions or progressive spurring noted. Procedure Note Franklin Lares MD - 02/21/2022 COMPARISON: 05/20/2019 FINDINGS: Frontal, lateral, coned lateral, and oblique views were obtained revealingminimal progression of chronic advanced degenerative disc changes at thelumbosacral junction with stable degenerative disc change present at theL3-4 level. Remaining discs are unchanged in height. No fracture,subluxation, or other acute bony abnormality identified. There is stablemild lower lumbar degenerative facet arthropathy. No spondylolysis. Stableprominent chronic chronic sclerosis again seen along the iliac aspects ofboth sacroiliac joints without discrete marginal erosions or progressivespurring noted. IMPRESSION: Chronic findings as above overall stable from 2019 when allowing forminimal progression of degenerative disc disease at the lumbosacraljunction. POS - [id number] Brittney ANAND IMG XR SPINE Final Result documented in this encounter Visit Diagnoses Diagnosis Low back pain, unspecified back pain laterality, unspecified chronicity, unspecified whether sciatica present- Primary Low back pain, unspecified back pain laterality, unspecified chronicity, unspecified whether sciatica present documented in this encounter Care Teams Electric Deicer Assembler Relationship Specialty Start Date End Date Eleanor Rolon MD [address] [place] [phone] [email or web address] PCP - General Internal Medicine 12/30/17 documented as of this encounter Additional Source Comments The information contained in this document represents components of the legal health record. It is not the complete legal health record.[facility]
--- OUTSIDE RECORDS SUMMARY | 2025-06-16 17:21 | XMS_ITS | Encounter Summary ---
Author Organization [facility] Address [address] [facility] [address] [place] [address] Phone Care Team Providers Care Thermostat Machine Tender Name Role Phone Eleanor Rolon MD Primary Care Provider Encounter Details Date Type Department Care Team (Late st Contact Info) Description 07/30/2019 Ancillary Orders [facility], X-Ray - [address] [address] Brittney James PA [address] [place] [address] [email or web address] Cough Social History Tobacco Use Types Packs/Day Years [...] as of this encounter Results * XR CHEST PA AND LATERAL 2 VIEWS (07/30/2019 1:10 PM EDT) Anatomical Region Laterality Modality Chest Radiographic Carmen ging 07/30/2019 1:13 PM EDT Impressions 07/30/2019 1:15 PM EDT No acute pulmonary process or explanation for cough is seen. S/S: R/O PNEUMONIA. Cough POS - [id number] Narrative 07/30/2019 1:15 PM EDT COMPARISON: None FINDINGS: PA and lateral imaging of the chest is obtained. The heart size is normal. The lung pino are clear. No pneumothorax or pleural fluid is evident. The aortic contour is unremarkable. There are minimal degenerative changes in the thoracic spine. The patient has had prior left humerus surgery. Procedure Note Praneeth Moeller MD - 07/30/2019 COMPARISON: None FINDINGS: PA and lateral imaging of the chest is obtained. The heart size is normal. The lung pino are clear. No pneumothorax or pleural fluid is evident. The aortic contour is unremarkable. There are minimal degenerative changes in the thoracic spine. The patient has had prior left humerus surgery. IMPRESSION: No acute pulmonary process or explanation for cough is seen. S/S: R/O PNEUMONIA. Cough POS - [id number] Brittney ANAND IMG XR CHEST Final Result documented in this encounter Visit Diagnoses Diagnosis Cough Cough documented in this encounter Additional Health Concerns Infection Onset Date Last Indicated Resolved Time CoV-Risk 12/25/2020 12/26/2020 01/04/2021 1:24 AM EDT CoV-Risk 06/18/2021 06/20/2021 06/28/2021 1:23 AM EDT CoV-Exposed Comment:Recent close contact documented in the COVID-19 PCR/PRO order 01/31/2022 01/31/2022 02/11/2022 1:24 AM E DT CoV-Risk Comment:Per Ambulatory Triage Form 02/01/2022 02/01/202202/12 1:23 AM EDT documented as of this encounter Care Teams Thermostat Machine Tender Relationship Specialty Start Date End Date Eleanor Rolon MD [address] [place] [phone] [email or web address] PCP - General Internal Medicine 12/30/17 documented as of this encounter Additional Source Comments The information contained in this document represents components of the legal health record. It is not the complete legal health record.[facility]
--- OUTSIDE RECORDS SUMMARY | 2025-06-16 17:21 | XMS_ITS | Encounter Summary ---
Author Organization [facility] Address [address] [facility] [address] [place] [address] Phone Care Team Providers Care Riveting Machine Operator Automatic Name Role Phone Eleanor Rolon MD Primary Care Provider Encounter Details Date Type Department Care Team (Latest Contact Info) Description 05/31/2020 Transcribe Orders Virtual Department [address] [place] [address] Brittney James PA [address] [place] [address] [email or web address] Mass on back (Primary Dx) Social History Tobacco Use Types [...] documented as of this encounter Results * US Upper Back (06/08/2020 5:41 PM EDT) Anatomical Region Laterality Modality Chest Ultrasound 06/08/2020 5:48 PM EDT Impressions 06/08/2020 5:51 PM EDT No sonographic correlate to the palpable abnormality as delineated by the patient. If there is clinical suspicion of a sonographically occult lipoma and imaging documentation is felt to be clinically warranted follow-up CT or MR could be considered. POS - [id number] Narrative 06/08/2020 5:51 PM EDT COMPARISON: None FINDINGS: Sonographic evaluation of the palpable abnormality as delineated by the patient in the right medial back was performed. No discrete mass, cyst, or abnormal acoustic shadowing were identified. No distortion of fascial planes detected. Comparison evaluation on the left reveals no significant asymmetry. Procedure Note Franklin Lares MD - 06/08/2020 COMPARISON: None FINDINGS: Sonographic evaluation of the palpable abnormality as delineated by thepatient in the right medial back was performed. No discrete mass, cyst, orabnormal acoustic shadowing were identified. No distortion of fascialplanes detected. Comparison evaluation on the left reveals no significantasymmetry. IMPRESSION: No sonographic correlate to the palpable abnormality as delineated by thepatient. If there is clinical suspicion of a sonographically occult lipomaand imaging documentation is felt to be clinically warranted follow-up CTor MR could be considered. POS - [id number] us Brittney ANAND IMG US CHEST Final Result documented in this encounter Visit Diagnoses Diagnosis Mass on back- Primary Localized superficial swelling, mass, or lump Mass on back Localized superficial swelling, mass, or lump documented in this encounter Additional Health Concerns Infection Onset Date Last Indicated Resolved Time CoV-Risk 12/25/2020 12/26/2020 01/04/2021 1:24 AM EDT CoV-Risk 06/18/2021 06/20/2021 06/28/2021 1:23 AM EDT CoV-Exposed Comment:Recent close contact documented in the COVID-19 PCR/PRO order 01/31/2022 01/31/2022 02/11/2022 1:24 AM E DT CoV-Risk Comment:Per Ambulatory Triage Form 02/01/2022 02/01/202202/12 1:23 AM EDT documented as of this encounter Care Teams Riveting Machine Operator Automatic Relationship Specialty Start Date End Date Eleanor Rolon MD [address] [place], [place] [phone] [email or web address] PCP - General Internal Medicine 12/30/17 documented as of this encounter Additional Source Comments The information contained in this document represents components of the legal health record. It is not the complete legal health record.[facility]
--- OUTSIDE RECORDS SUMMARY | 2025-06-16 17:21 | XMS_ITS | Encounter Summary ---
Author Organization [facility] Address [address] [employer] [facility] [address] [place] [phone] Phone Care Team Providers Care Train Planner Name Role Phone Eleanor Rolon MD Primary Care Provider Encounter Details Date Type Department Care Team (Latest Contact Info) Description 12/25/2020 Transcribe Orders Virtual Department [address] [place] [address] Brittney James PA [address] [place] [address] [email or web address] Fever, unspecified fever cause (Primary Dx); SOB (shortness of breath) Social History Tobacco Use Types Packs/Day Years [...] this encounter Results * COVID-19 PCR Order (12/26/2020 7:40 AM EDT) COVID Testing Status Specimen received in analyzing lab. Results should be available within 24 to 48 hrs. [facility] Symptomatic? YES [facility] 12/26/2020 7:40 AM EDT 12/26/2020 7:07 PM EDT us Brittney ANAND BODY FLUIDS AND STOOLS ORDERABL ES Final Result [address] [address] [facility] [address] [place] [phone] documented in this encounter Visit Diagnoses Diagnosis Fever, unspecified fever cause- Primary SOB (shortness of breath) Shortness of breath documented in this encounter Additional Health Concerns Infection Onset Date Last Indicated Resolved Time CoV-Risk 12/25/2020 12/26/2020 01/04/2021 1:24 AM EDT CoV-Risk 06/18/2021 06/20/2021 06/28/2021 1:23 AM EDT CoV-Exposed Comment:Recent close contact documented in the COVID-19 PCR/PRO order 01/31/2022 01/31/2022 02/11/2022 1:24 AM E DT CoV-Risk Comment:Per Ambulatory Triage Form 02/01/2022 02/01/202202/12 1:23 AM EDT documented as of this encounter Care Teams Train Planner Relationship Specialty Start Date End Date Eleanor Rolon MD [address] [place] [phone] [email or web address] PCP - General Internal Medicine 12/30/17 documented as of this encounter Additional Source Comments The information contained in this document represents components of the legal health record. It is not the complete legal health record.[facility]
== END 2025-06-16 14:36 | disposition home or self-care (01) ==
LOC: HO.HMCH 13:22
DX: R03.0 Elevated blood-pressure reading, without diagnosis of hypertension (principal); R00.2 Palpitations; E03.9 Hypothyroidism, unspecified; Z86.39 Personal history of other endocrine, nutritional and metabolic disease; E53.8 Deficiency of other specified B group vitamins; M85.80 Other specified disorders of bone density and structure, unspecified site; E55.9 Vitamin D deficiency, unspecified

== ENCOUNTER → 2025-06-16 13:21 | Outpatient (BNVA) | payer OTHER, SELFPAY | DX: R03.0 Elevated blood-pressure reading, without diagnosis of hypertension (principal); R00.2 Palpitations; E03.9 Hypothyroidism, unspecified; E53.8 Deficiency of other specified B group vitamins; M85.80 Other specified disorders of bone density and structure, unspecified site; E55.9 Vitamin D deficiency, unspecified; Z86.39 Personal history of other endocrine, nutritional and metabolic disease; Z13.31 Encounter for screening for depression; Z13.39 Encounter for screening examination for other mental health and behavioral disorders | CPT/HCPCS: 96127 ==

== ENCOUNTER 2025-07-26 08:37 | Outpatient (AMB) | payer OTHER, SELFPAY ==
[2025-07-26 08:52] VITALS: BP 124/62; PULSE 65; BMI 34.4
--- NOTE | 2025-07-26 08:52 | MHC.OFFVIS ---
Vital Signs 07/26/25 08:52 Height 5 ft 2 in Weight 188 lb 4.396 oz BMI 34.4 BP 124/62 Blood Pressure Location Lt brachial Position Sitting Pulse 65 Pulse Source Pulse Oximeter Intake Visit Reasons: 3 mth f/up cta Sales Developer Required: No Allergies dextran sulfate (DEXTRAN SULFATE) Allergy (Severe, Verified 07/26/25 08:56) BRADYCARDIA mold (MOLD) Allergy (Severe, Verified 07/26/25 08:56) SWELLING clove Allergy (Intermediate, Verified 07/26/25 08:57) Swelling doxycycline (DOXYCYCLINE) Allergy (Mild, Verified 07/26/25 08:56) RASH/FACIAL SWELLING acetaminophen (From VICODIN) Allergy (Unknown, Verified 07/26/25 08:56) UNKNOWN bee pollen (BEE STINGS) Allergy (Unknown, Verified 07/26/25 08:56) UNKNOWN coconut Allergy (Unknown, Verified 07/26/25 08:56) UNKNOWN hydromorphone (Dilaudid) Allergy (Unknown, Verified 07/26/25 08:56) Bradycardia penicillin V Allergy (Unknown, Verified 07/26/25 08:56) rash Penicillins (PENICILLINS) Allergy (Unknown, Verified 07/26/25 08:56) UNKNOWN pineapple (PINEAPPLE) Allergy (Unknown, Verified 07/26/25 08:56) UNKNOWN Sulfa (Sulfonamide Antibiotics) (SULFA(SULFONAMIDE ANTIBIOTICS)) Allergy (Unknown, Verified 07/26/25 08:56) SWELLING pepper (genus Capsicum) Allergy (Verified 07/26/25 08:56) Shortness of Breath ciprofloxacin (CIPROFLOXACIN) Adverse Reaction (Severe, Verified 07/26/25 08:56) FELT LIKE BLADDER WAS GONNA BURST OUT garlic (GARLIC) Adverse Reaction (Intermediate, Verified 07/26/25 08:56) FLU SYMPTOMS onion (ONION) Adverse Reaction (Mild, Verified 07/26/25 08:56) GI SYMPTOMS all fluroquinolones Allergy (Unknown, Uncoded 07/26/25 08:56) tendonitis Preeti Allergy (Unknown, Uncoded 07/26/25 08:56) Unknown avacado Allergy (Unknown, Uncoded 07/26/25 08:56) Unknown banana Allergy (Unknown, Uncoded 07/26/25 08:56) Unknown bee Allergy (Unknown, Uncoded 07/26/25 08:56) Unknown Clindamycin HCl Allergy (Unknown, Uncoded 07/26/25 08:56) Unknown coconut Allergy (Unknown, Uncoded 07/26/25 08:56) Unknown coconut pineapple mold Allergy (Unknown, Uncoded 07/26/25 08:56) Unknown Dextran 1 Allergy (Unknown, Uncoded 07/26/25 08:56) Unknown Dextran HM Allergy (Unknown, Uncoded 07/26/25 08:56) Unknown From DILAUDID Allergy (Unknown, Uncoded 07/26/25 08:56) UNKNOWN From VICODIN Allergy (Unknown, Uncoded 07/26/25 08:56) UNKNOWN Garlic onion Allergy (Unknown, Uncoded 07/26/25 08:56) Unknown Peanut butter Allergy (Unknown, Uncoded 07/26/25 08:56) Unknown pinnapple Allergy (Unknown, Uncoded 07/26/25 08:56) Unknown sulfa Allergy (Unknown, Uncoded 07/26/25 08:56) rash sulfite Allergy (Unknown, Uncoded 07/26/25 08:56) Unknown tape Allergy (Unknown, Uncoded 07/26/25 08:56) Unknown HPI HPI 3 mth f/up cta: Details: Xochitl is a 59-year-old female with past medical history of hypothyroidism, hyperparathyroidism, heart palpitations/ PACs, chest discomfort with normal nuclear stress test who recently had a CTA of the coronary arteries and now presents for follow-up. Today she reports that she still gets shortness of breath with exertion that she does not feel is her asthma. She believes that her asthma is controlled however still still has issues with nasal congestion and head stuffiness. She will get squeezing in her chest that can occur randomly at rest and with physical activity which is not new or changing. At times when she lays down she feels squeezing in her throat. She has issues with generalized weakness and malaise. She still gets occasional intermittent heart palpitations, no presyncope, syncope, falls. No PND, orthopnea or edema. She tries to remain physically active. Takes meds as directed. [facility] Medical History Osteopenia Vitamin D deficiency History of hyperparathyroidism Hypothyroidism Surgical History History of surgery on arm History of partial hysterectomy History of parathyroid surgery Hx of appendectomy Hx of cholecystectomy Family History Father Atherosclerotic heart disease Paternal Grandmother Atherosclerotic heart disease Mother Asthma COPD (chronic obstructive pulmonary disease) Type 2 diabetes mellitus Fungal infection of lung Aspergillosis Social History Household Members: Family Housing: House Are you a primary acute care clinical nurse specialist to a significant other at home: Yes Do you presently have visiting nurse or other home services: No Alcohol intake: never Patient Tobacco Use Status: Never used Tobacco e-Cigarette/Vaping Use: Never Used service: No Current occupational status: unemployed Hearing needs: No Vision needs: No Review of Systems Const All systems reviewed & are unremarkable except as noted in HPI and below ENT Denies dizziness Card Denies chest pain, Denies chest pain at rest, Denies chest pain with activity, Reports rapid heart rate, Denies pedal edema, Denies edema, Denies leg edema, Denies lightheadedness, Denies palpitations, Denies dyspnea, Reports dyspnea on exertion and Denies orthopnea Resp Denies cough, Denies dyspnea and Reports dyspnea on exertion GI Denies hematochezia and Denies change in stool character Musc Denies abnormal gait, Denies limited range of motion, Denies muscle cramps, Denies muscle weakness, Denies numbness, Denies radiating pain into limb, Denies stiffness and Denies tingling Neuro Denies abnormal gait, Denies dizziness, Denies numbness and Denies tingling Endo Denies palpitations Physical Exam Vital Signs: Last Vital Signs Pulse 65 07/26/25 08:52 BP 124/62 07/26/25 08:52 BMI result Body Mass Index 34.4 Const General: cooperative, healthy appearing, comfortable and no acute distress Orientation/consciousness: patient oriented x3 Neck Neck: Yes normal visual inspection and Yes no JVD Resp Effort & Inspection: normal respiratory effort Auscultation: clear to auscultation bilaterally, no crackles, no rales, no rhonchi and no wheezes Cardio Jugular venous distension: no JVD Rate: regular rate Rhythm: regular rhythm Heart sounds: S1 normal heart sound present, S2 normal heart sound present, no murmurs and no rubs Neuro General: patient oriented x3 Extrem General: Yes normal to inspection and No no pedal edema Psych Appearance: grossly normal Mental Status: mental status grossly normal Speech and movement: Normal speech and movement present Assessment & Plan Assessment & Plan (1) Chest discomfort: Code(s): R07.89 - Other chest pain Category: Medical Plan: Reports of intermittent squeezing in her left chest region, nonexertional. Cardiac risk factor of family history. Echocardiogram was done on 05/28/2023 showing EF 63%, [id number] tricuspid regurgitation, no significant change from echo 11/2019. Exercise stress test done 05/20/2023 showed exercise 7 minutes with no anginal symptoms and no EKG changes of ischemia. Nuclear stress test 07/26/2024 for ongoing symptom showed no infarct or ischemia. On last visit she reported increasing shortness of breath and malaise. A CTA of the coronary arteries was done on 06/30/2025 showing no significant coronary artery disease. Copy of the results given to her. Informed her that her symptoms are noncardiac in nature. (2) Palpitations: Code(s): R00.2 - Palpitations Category: Medical Plan: Reports of brief intermittent heart palpitations. Holter monitor done 05/20/2023 for 3 days shows sinus rhythm with average heart rate 66, PACs 1.7% of time, 6 brief SVT episodes, longest 5 beats, her symptoms correlated with PACs and sinus tachycardia. Not requiring med management. Thyroid levels normal. Reviewed benefits of good hydration, avoidance of caffeine, increasing physical activity as tolerated. Cardiology follow-up 1 year, sooner if needed. (3) Family history of early CAD: Code(s): Z82.49 - Family history of ischemic heart disease and other diseases of the circulatory system Category: Medical Plan: As above Plan I discussed with the patient that her chest discomfort is non-cardiac, as confirmed by the cardiac CT scan showing no coronary artery disease. We talked about managing her heart palpitations by avoiding caffeine and staying physically active. For her asthma, I recommended continuing her current medication regimen and consulting with an religious activities director for further management. Patient Instructions: - Continue physical activity and monitor chest discomfort. - Avoid caffeine to manage heart palpitations. - Use asthma medications as prescribed Patient was informed and verbally consented to the use of an ambient scribe for clinic note documentation during this visit. Visit time spent on chart review, interview, assessment, orders, documentation. Coding Level of Care Code Est Pt Level 3 (43476) Complex EM visit Add On G2211 Diagnoses Chest discomfort R07.89 Palpitations R00.2 Family history of early CAD Z82.49 Time Spent (min) 24
--- OUTSIDE RECORDS SUMMARY | 2025-07-26 08:56 | XMS_ITS | Clinical Summary ---
Author Organization [facility] Address [address] [employer] [facility] [address] [place] [address] Phone Care Team Providers Care Solid Waste Division Supervisor Name Role Phone Eleanor Rolon MD Primary [...] B-12) 1000 MCG tabletIndicatio ns:Dr. Gilmore at [facility] Inject 100 mcg into the muscle every 30 (thirty) days. Indications: Dr. Gilmore at [facility] Active Social History Tobacco Use Types Packs/Day [...] (02/07/2024 11:58 AM EDT) HDL 43 mg/dL [facility] Comment: Interpretation <40 mg/dL: Low HDL cholesterol (major risk factor for CHD) Greater than or equal to 60 mg/dL: High HDL cholesterol ( negative risk factor for CHD) HDL - cholesterol is affected by a number of factors, e.g. smoking, excerise, hormones, sex and age. CHOLESTEROL 154 0 - 240 mg/dL [facility] TRIGLYCERIDES 94 30 - 160 mg/dL [facility] LDL 92 50 - 129 mg/dL [facility] Comment: LDL levels in terms of risk for coronary heart disease: <100 mg/dL: Optimal 100-129 mg/dL: Near or above optimal 130-159 mg/dL: Borderline high 160-189 mg/dL: High >190 mg/dL: Very High CARDIAC RISK RATIO 3.6 3.3 - 4.4 [facility] Blood 02/07/2024 11:5 8 AM EDT 02/07/2024 12:06 PM EDT us Brittney ANAND LAB BLOOD ORDERABLES Final Resu lt [facility] [address] [place] [address] from Last 3 Months or Most Recently Relevant to Health Maintenance Insurance [place] [address] HMO O O O HMO O INSURANCE Care Teams Solid Waste Division Supervisor Relationship Specialty Start Date End Date Eleanor Rolon MD [address] [place] [address] [email or web address] PCP - General Internal Medicine 12/30/17 Additional Source Comments The information contained in this document represents components of the legal health record. It is not the complete legal health record.[facility]
--- OUTSIDE RECORDS SUMMARY | 2025-07-26 08:56 | XMS_ITS | Encounter Summary ---
Author Organization [facility] Address [address] [facility] [address] [place] [address] Phone Care Team Providers Care Regional Engagement Consultant Name Role Phone Eleanor Rolon MD Primary Care Provider [phone] Encounter Details Date Type Department Care Team (Late st Contact Info) Description 06/16/2018 Procedure Pass [facility] Endoscopy Admitting Dept Virtual Department [address] [place] [address] Social History Tobacco Use Types Packs/Day Years [...] documented as of this encounter Care Teams Regional Engagement Consultant Relationship Specialty Start Date End Date Eleanor Rolon MD [address] [place] [address] [email or web address] PCP - General Internal Medicine 12/30/17 documented as of this encounter Additional Source Comments The information contained in this document represents components of the legal health record. It is not the complete legal health record.[facility]
--- OUTSIDE RECORDS SUMMARY | 2025-07-26 08:56 | XMS_ITS | Encounter Summary ---
Author Organization [facility] Address [address] [facility] [address] [place] [address] Phone Care Team Providers Care Social Worker Health Services Name Role Phone Eleanor Rolon MD Primary Care Provider [phone] Encounter Details Date Type Department Care Team (Latest Contact Info) Description 03/30/2019 Transcribe Orders Virtual Department [address] [place] [address] Joy Rodríguez PA-C [address], [address] [place] [address] [email or web address] Fatty liver (Primary Dx); Liver cyst Social [...] documented as of this encounter Care Teams Social Worker Health Services Relationship Specialty Start Date End Date Eleanor Rolon MD [address] [place] [address] [email or web address] PCP - General Internal Medicine 12/30/17 documented as of this encounter Additional Source Comments The information contained in this document represents components of the legal health record. It is not the complete legal health record.[facility]
--- OUTSIDE RECORDS SUMMARY | 2025-07-26 08:56 | XMS_ITS | Encounter Summary ---
Author Organization [facility] Address [address] [facility] [address] [place] [address] Phone Care Team Providers Care Community Health Specialist Name Role Phone Eleanor Rolon MD Primary Care Provider Encounter Details Date Type Department Care Team (Latest Contact Info) Description 06/18/2021 Transcribe Orders Virtual Department [address] [place] [address] Brittney James PA [address] [place] [address] [email or web address] Fever, unspecified fever cause (Primary Dx); Muscle [...] be available within 24 to 48 hrs. [facility] Symptomatic? YES [facility] Other (Nasal swab) 06/20/2021 5:00 PM EDT 06/20/2021 8:26 PM EDT us Brittney ANAND BODY FLUIDS AND STOOLS ORDERABL ES Final Result [address] [address] [facility] [address] [place] [phone] documented in this encounter Visit Diagnoses Diagnosis [...] documented as of this encounter Care Teams Community Health Specialist Relationship Specialty Start Date End Date Eleanor Rolon MD [address] [place] [address] [email or web address] PCP - General Internal Medicine 12/30/17 documented as of this encounter Additional Source Comments The information contained in this document represents components of the legal health record. It is not the complete legal health record.[facility]
--- OUTSIDE RECORDS SUMMARY | 2025-07-26 08:56 | XMS_ITS | Encounter Summary ---
Author Organization [facility] Address [address] [facility] [address] [place] [address] Phone Care Team Providers Care Corporate Tax Manager Name Role Phone Eleanor Rolon MD Primary Care Provider [phone] Encounter Details Date Type Department Care Team (Latest Contact Info) Description 06/13/2021 Transcribe Orders Virtual Department [address] [place] [address] Brittney James PA [address] [place] [address] [email or web address] Right flank pain (Primary Dx); Leg mass, [...] documented as of this encounter Care Teams Corporate Tax Manager Relationship Specialty Start Date End Date Eleanor Rolon MD [address] [place] [address] [email or web address] PCP - General Internal Medicine 12/30/17 documented as of this encounter Additional Source Comments The information contained in this document represents components of the legal health record. It is not the complete legal health record.[facility]
--- OUTSIDE RECORDS SUMMARY | 2025-07-26 08:56 | XMS_ITS | Encounter Summary ---
Author Organization [facility] Address [address] [facility] [address] [place] [address] Phone Care Team Providers Care Clay Roaster Name Role Phone Eleanor Rolon MD Primary Care Provider [phone] Encounter Details Date Type Department Care Team (Late st Contact Info) Description 05/20/2019 Ancillary Orders [facility], X-Ray - [address] [address] Brittnye James PA [address] [place] [address] [email or web address] Social History Tobacco Use Types Packs/Day [...] EDT) Anatomical Region Laterality Modality L-spine Radiographic Carmen ging 05/20/2019 5:59 PM EDT Impressions 05/20/2019 6:01 PM EDT Reactive bony changes from degenerative disc disease at L3-L4 and L5-S1. Normal alignment. POS - [id number] Narrative 05/20/2019 6:01 PM EDT XR LUMBOSACRAL [...] at L3-L4 and L5-S1.Normal alignment. POS - [id number] us Brittney ANAND IMG XR SPINE Final Result * XR HIP 2 VW LEFT PLUS PELVIS (05/20/2019 4:18 PM EDT) Anatomical Region Laterality Modality Hip Left Radiographic Carmen ging 05/20/2019 5:56 PM EDT Impressions 05/20/2019 5:59 PM EDT Mild hip degenerative arthrosis. Sclerotic changes along the iliac sides of the sacroiliac joints, unchanged compared with 12/30/2012. POS - [id number] Narrative 05/20/2019 5:59 PM EDT EXAM: XR [...] sacroiliac joints,unchanged compared with 12/30/2012. POS - [id number] Brittney ANAND IMRonald XR PELVIS Final Result [...] documented as of this encounter Care Teams Clay Roaster Relationship Specialty Start Date End Date Eleanor Rolon MD [address] [place] [address] [email or web address] PCP - General Internal Medicine 12/30/17 documented as of this encounter Additional Source Comments The information contained in this document represents components of the legal health record. It is not the complete legal health record.[facility]
--- OUTSIDE RECORDS SUMMARY | 2025-07-26 08:56 | XMS_ITS | Encounter Summary ---
Author Organization [facility] Address [address] [facility] [address] [place] [address] Phone Care Team Providers Care School Psychological Examiner Name Role Phone Eleanor Rolon MD Primary Care Provider Encounter Details Date Type Department Care Team (Latest Contact Info) Description 02/18/2022 Transcribe Orders Virtual Department [address] [place] [address] Brittney James PA [address] [place] [address] [email or web address] Low back pain, unspecified back pain laterality, [...] disease at the lumbosacral junction. POS - [id number] Narrative 02/21/2022 12:38 PM EDT COMPARISON: 05/20/2019 [...] disc disease at the lumbosacraljunction. POS - [id number] Brittney ANAND IMG XR SPINE Final Result documented in this encounter Visit Diagnoses Diagnosis Low back pain, unspecified back pain laterality, unspecified chronicity, unspecified whether sciatica present- Primary Low back pain, unspecified back pain laterality, unspecified chronicity, unspecified whether sciatica present documented in this encounter Care Teams School Psychological Examiner Relationship Specialty Start Date End Date Eleanor Rolon MD [address] [place] [address] [email or web address] PCP - General Internal Medicine 12/30/17 documented as of this encounter Additional Source Comments The information contained in this document represents components of the legal health record. It is not the complete legal health record.[facility]
--- OUTSIDE RECORDS SUMMARY | 2025-07-26 08:56 | XMS_ITS | Encounter Summary ---
Author Organization [facility] Address [address] [facility] [address] [place] [address] Phone Care Team Providers Care Catering Cook Name Role Phone Eleanor Rolon MD Primary Care Provider Encounter Details Date Type Department Care Team (Late st Contact Info) Description 01/14/2018 Procedure Pass [facility], [address] [address] Social History Tobacco Use Types Packs/Day Years [...] documented as of this encounter Care Teams Catering Cook Relationship Specialty Start Date End Date Eleanor Rolon MD [address] [place] [address] [email or web address] PCP - General Internal Medicine 12/30/17 documented as of this encounter Additional Source Comments The information contained in this document represents components of the legal health record. It is not the complete legal health record.[facility]
--- OUTSIDE RECORDS SUMMARY | 2025-07-26 08:56 | XMS_ITS | Encounter Summary ---
Author Organization [facility] Address [address] [facility] [address] [place] [address] Phone Care Team Providers Care Banking Specialist Name Role Phone Eleanor Rolon MD Primary Care Provider Encounter Details Date Type Department Care Team (Late st Contact Info) Description 12/30/2017 Procedure Pass [facility], Ct Scan - [address] [address] Social History Tobacco Use Types Packs/Day Years [...] documented as of this encounter Care Teams Banking Specialist Relationship Specialty Start Date End Date Eleanor Rolon MD [address] [place] [phone] [email or web address] PCP - General Internal Medicine 12/30/17 documented as of this encounter Additional Source Comments The information contained in this document represents components of the legal health record. It is not the complete legal health record.[facility]
--- OUTSIDE RECORDS SUMMARY | 2025-07-26 08:56 | XMS_ITS | Encounter Summary ---
Author Organization [facility] Address [address] [facility] [address] [place] [address] Phone Care Team Providers Care Offset Pressman Name Role Phone Eleanor Rolon MD Primary Care Provider Encounter Details Date Type Department Care Team (Latest Contact Info) Description 04/16/2018 Transcribe Orders [facility] Laboratory [address] [address] Joy Rodríguez PA-C [address] [place] [address] [email or web address] Fatty liver (Primary Dx) [...] EDT) SODIUM 139 133 - 146 mmol/L [facility] POTASSIUM 4.2 3.3 - 5.1 mmol/L [facility] CHLORIDE 99 96 - 108 mmol/L [facility] CO2 27 21 - 35 mmol/L [facility] BUN 12 6 - 19 mg/dL [facility] CREATININE 0.60 0.5 - 1.5 mg/dL [facility] GLUCOSE 106(H) 70 - 99 mg/dL [facility] ALBUMIN 4.3 3.9 - 4.8 g/dL [facility] TOTAL PROTEIN 7.6 6.5 - 8.0 g/dL [facility] CALCIUM 9.6 8.4 - 10.3 mg/dL [facility] ALKALINE PHOSPHATASE 83 39 - 117 U/L [facility] TOTAL BILIRUBIN 0.6 0.0 - 1.2 mg/dL [facility] AST 21 0 - 37 U/L [facility] ALT 23 0 - 40 U/L [facility] GLOBULIN 3.3 1 - 4.8 g/dL [facility] EGFR 104 >59 mL/min/1.7 3m2 [facility] Comment:If patient is black, multiply result by 1.159. Estimated glomerular filtration rate calculated using the CKD-EPI equation. ANION GAP 17 10 - 20 mmol/L [facility] Blood 04/16/2018 10:1 8 AM EDT 04/16/2018 10:48 AM EDT us Joy Rodríguez PA-C LAB BLOOD ORDERABLES Final Resu lt Performing Organization Address City/State/[facility] Co de Phone Number [facility] [address] [place] [address] * (ABNORMAL) CBC (04/16/2018 10:18 AM EDT) WBC 7.60 3.40 - 11.20 K/uL [facility] RBC 4.88(H) 3.80 - 4.80 M/uL [facility] HGB 15.0 12.0 - 15.0 g/dL [facility] HCT 43.1 36.0 - 46.0 % [facility] PLT 258 130 - 400 K/uL [facility] MCV 88.3 79.0 - 98.0 fL [facility] MCH 30.7 27.0 - 34.8 pg [facility] MCHC 34.8 31.5 - 36.0 g/dL [facility] RDW 12.1 10.8 - 14.6 % [facility] MPV 10.0 9.4 - 12.4 fl [facility] NRBC 0.00 /100 WBCs [facility] ABSOLUTE NRBC 0.00 K/uL [facility] Blood 04/16/2018 10:1 8 AM EDT 04/16/2018 10:48 AM EDT us Joy Rodríguez PA-C LAB BLOOD ORDERABLES Final Resu lt [facility] [address] [place] [address] documented in this encounter Visit Diagnoses Diagnosis [...] documented as of this encounter Care Teams Offset Pressman Relationship Specialty Start Date End Date Eleanor Rolon MD [address] [place] [address] [email or web address] PCP - General Internal Medicine 12/30/17 documented as of this encounter Additional Source Comments The information contained in this document represents components of the legal health record. It is not the complete legal health record.[facility]
--- OUTSIDE RECORDS SUMMARY | 2025-07-26 08:56 | XMS_ITS | Patient Health Record ---
Author Organization [facility] Address [address] [place], [place] [id number] Care Team Providers Care Housekeeping Lead Name Role Phone Cira Mani Primary Care Provider Ramin Garcia [phone] Allergies Allergen (clinical drug ingredient) Drug/Non Drug Allergy documented on EMR Reaction Allergy Type Onset Date Status Penicillin (uncoded) rash Allergy Active Substance with sulfonamide structure and antibacterial mechanism of action (substance) Sulfa (uncoded) facial swelling Allergy Active Reason For Referral No Information Medications Medication SIG (Take, Route, Frequency, Duration) Notes Start Date End Date Status EpiPen 0.3 MG/0.3ML (1:1000) Device as directed Intramuscular PRN Active ProAir HFA 108 (90 Base) MCG/ACT Aerosol Solution 2 puffs Inhalation As Needed Every 4 Hours; Duration: 30 days Active Synthroid 100 MCG Tablet 1 tablet , 1/2 tab Sun. Orally Once a day; Duration: 30 day(s) Active Pulmicort Flexhaler 180 MCG/ACT Aerosol Powder Breath Activated as directed Inhalation bid 06/21/2010 Active Claritin 10 MG Tablet 1 tablet Orally On ce a day; Duration: 30 day(s) Active Fluticasone Propionate 50 MCG/ACT Suspension 2 sprays each nostril Once a day Active Cytomel 5 MCG Tablet 1 tablet Orally BID ; Duration: 30 day(s) Active Protonix 40 MG Tablet Delayed Release 1 tablet Orally PRN Activ e Saline 0.9 % Solution as directed Nasall y Once daily and PRN Active BPM Pseudo 6-45 MG Tablet Extended Release 12 Hour 1 tablet as needed Orally every 12 hrs; Duration: 30 days 06/21/2010 Active Social History Social History Additional Details Category Social Info Options Details Social History 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 exposure: None Alcohol: Rare Recreational drug use: None Exercise: No structured ex ercise regimen Marital status Children None Problems Problem Type SNOMED Code ICD Code Onset Dates Problem Status W/U Status Risk Notes Problem Hoarseness (69179135) Hoarseness (784.49) Active confirmed Problem Cough (40815362) Cough (786.2) Active confirmed Problem Extrinsic asthma without status asthmaticus (18437955) Extrinsic asthma NOS (493.00) Active confirmed Problem Allergic rhinitis (02307486) Allergic rhinitis due to unspecified cause (477.9) Active confirmed Plan Of Treatment No Information Insurance Providers Payer Name Payer Address Payer Phone Subscriber Number Group Number Insured Name Patient Relationship to Insured Coverage Start Date Coverage End Date [facility] [address] [place] [phone] [id number] Xochitl Haque Self - patient is the insured Medical (General) History Medical History History ICD Code Asthma Allergic rhinitis Jamaal's thyroiditis L3/L4/L5/S1 disc herniations (trauma) Tibial plateau fracture Left arm/shoulder fracture Surgical History Surgery Date(Month/Year) s/p Cholecystectomy s/p Appendectomy s/p ORIF Tibial plateau fx repair s/p ORIR arm/shoulder fx repair
--- OUTSIDE RECORDS SUMMARY | 2025-07-26 08:56 | XMS_ITS | Encounter Summary ---
Author Organization [facility] Address [address] [facility] [address] [place] [address] Phone Care Team Providers Care Store Merchandiser Name Role Phone Eleanor Rolon MD Primary Care Provider Encounter Details Date Type Department Care Team (Late st Contact Info) Description 07/30/2019 Ancillary Orders [facility], X-Ray - [address] [address] Brittney James PA [address] [place] [address] [email or web address] Cough Social History Tobacco Use Types Packs/Day [...] documented as of this encounter Care Teams Store Merchandiser Relationship Specialty Start Date End Date Eleanor Rolon MD [address] [place] [phone] [email or web address] PCP - General Internal Medicine 12/30/17 documented as of this encounter Additional Source Comments The information contained in this document represents components of the legal health record. It is not the complete legal health record.[facility]
--- OUTSIDE RECORDS SUMMARY | 2025-07-26 08:56 | XMS_ITS | Encounter Summary ---
Author Organization [facility] Address [address] [facility] [address] [place] [address] Phone Care Team Providers Care Watch Case Polisher Name Role Phone Eleanor Rolon MD Primary Care Provider [phone] Encounter Details Date Type Department Care Team (Late st Contact Info) Description 01/31/2022 Transcribe Orders Virtual Department [address] [place] [address] Eleanor Rolon MD [address] [place] [address] [email or web address] Encounter for laboratory testing for COVID-19 virus [...] be available within 24 to 48 hrs. [facility] Symptomatic? NO [facility] Other 02/01/2022 2:24 PM EDT 02/01/2022 5:42 PM EDT Eleanor Rolon MD BODY FLUIDS AND STOOLS JACOB AMBROCIO Final Result [facility] [address] [place] [address] [facility] [address] [place] [address] documented in this encounter Visit Diagnoses Diagnosis Encounter for laboratory testing for COVID-19 virus- Primary documented in this encounter Additional Health Concerns Infection Onset Date Last Indicated Resolved Time CoV-Exposed Comment:Recent close contact documented in the COVID-19 PCR/PRO order 01/31/2022 01/31/2022 02/11/2022 1:24 AM E DT CoV-Risk Comment:Per Ambulatory Triage Form 02/01/2022 02/01/202202/12 1:23 AM EDT documented as of this encounter Care Teams Watch Case Polisher Relationship Specialty Start Date End Date Eleanor Rolon MD [address] [place] [address] [email or web address] PCP - General Internal Medicine 12/30/17 documented as of this encounter Additional Source Comments The information contained in this document represents components of the legal health record. It is not the complete legal health record.[facility]
--- OUTSIDE RECORDS SUMMARY | 2025-07-26 08:56 | XMS_ITS | Encounter Summary ---
Author Organization [facility] Address [address] [facility] [address] [place] [address] Phone Care Team Providers Care Metal Pickling Equipment Operator Name Role Phone Eleanor Rolon MD Primary Care Provider Encounter Details Date Type Department Care Team (Late st Contact Info) Description 03/28/2023 Procedure Pass [facility], Ct Scan - [address] [address] Social History Tobacco Use Types Packs/Day Years [...] 11:47 AM EDT Autumn Swift RN * [place] Suicide Severity Rating Scale (Screener/Recent Self-Report) Question [...] on filedocumented in this encounter Care Teams Metal Pickling Equipment Operator Relationship Specialty Start Date End Date Eleanor Rolon MD [address] [place] [phone] [email or web address] PCP - General Internal Medicine 12/30/17 documented as of this encounter Additional Source Comments The information contained in this document represents components of the legal health record. It is not the complete legal health record.[facility]
--- OUTSIDE RECORDS SUMMARY | 2025-07-26 08:57 | XMS_ITS | Encounter Summary ---
Author Organization [facility] Address [address] [facility] [address] [place] [address] Phone Care Team Providers Care Continuous Improvement Intern Name Role Phone Eleanor Rolon MD Primary Care Provider Encounter Details Date Type Department Care Team (Latest Contact Info) Description 05/31/2020 Transcribe Orders Virtual Department [address] [place] [address] Brittney James PA [address] [place] [address] [email or web address] back (Primary Dx) Social History [...] documented as of this encounter Care Teams Continuous Improvement Intern Relationship Specialty Start Date End Date Eleanor Rolon MD [address] [place], [place] [phone] [email or web address] PCP - General Internal Medicine 12/30/17 documented as of this encounter Additional Source Comments The information contained in this document represents components of the legal health record. It is not the complete legal health record.[facility]
--- OUTSIDE RECORDS SUMMARY | 2025-07-26 08:57 | XMS_ITS | Encounter Summary ---
Author Organization [facility] Address [address] [facility] [address] [place] [address] Phone Care Team Providers Care Medical Office Worker Name Role Phone Eleanor Rolon MD Primary Care Provider [phone] Encounter Details Date Type Department Care Team (Latest Contact Info) Description 12/25/2020 Transcribe Orders Virtual Department [address] [place] [address] Brittney James PA [address] [place] [address] [email or web address] Fever, unspecified fever cause (Primary Dx); SOB [...] be available within 24 to 48 hrs. [facility] Symptomatic? YES [facility] 12/26/2020 7:40 AM EDT 12/26/2020 7:07 PM EDT us Brittney ANAND BODY FLUIDS AND STOOLS ORDERABL ES Final Result [address] [address] [facility] [address] [place] [address] documented in this encounter Visit Diagnoses Diagnosis [...] documented as of this encounter Care Teams Medical Office Worker Relationship Specialty Start Date End Date Eleanor Rolon MD [address] [place] [address] [email or web address] PCP - General Internal Medicine 12/30/17 documented as of this encounter Additional Source Comments The information contained in this document represents components of the legal health record. It is not the complete legal health record.[facility]
== END 2025-07-26 09:28 | disposition home or self-care (01) ==
PROVIDERS: Visit Provider Nurse Practitioner Family
DX: R07.89 Other chest pain (principal); R00.2 Palpitations; Z82.49 Family history of ischemic heart disease and other diseases of the circulatory system
CPT/HCPCS: 99213; G2211

== ENCOUNTER 2025-08-11 08:33 | Outpatient (REF) | payer OTHER, SELFPAY ==
--- NOTE | ~2025-08-11 | US_ITS ---
EXAMINATION: US THYROID HISTORY: E03.9 - Hypothyroidism, unspecified TECHNIQUE: Real-time grayscale ultrasound imaging was performed and images were reviewed. COMPARISON: Comparison is made with the prior examination dated 02/08/2019. FINDINGS: SIZE: The right thyroid lobe measures 2.7 x 0.8 x 0.9 cm. The left thyroid lobe measures 1.8 x 1.0 x 0.5 cm. The isthmus measures 1 mm. FLOW: Flow to the gland is normal. ECHOGENICITY: The echotexture of the gland is heterogeneous. NODULES: No nodules are identified. US/US thyroid IMPRESSION: Atrophic heterogeneous thyroid gland without evidence of nodules. ACR TI-RADS Guidelines TR1 (0 points): Benign. No follow-up or biopsy required TR2 (2 points): Not Suspicious. No biopsy or follow up indicated TR3 (3 points): Mildly Suspicious. FNA if >= 2.5 cm, Follow if >= 1.5 cm TR4 (4-6 points): Moderately Suspicious. FNA if >= 1.5 cm, Follow if >= 1.0 cm TR5 (>=7 points): Highly Suspicious. FNA if >= 1.0 cm, Follow if >= 0.5 cm Electronically signed by: Raúl Joshi MD 08/11/2025 09:34 AM [facility]
--- OUTSIDE RECORDS SUMMARY | 2025-08-11 09:00 | XMS_ITS | Encounter Summary ---
Author Organization [facility] Address [address] [facility] [address] [place] [address] Phone Care Team Providers Care Bake Room Worker Name Role Phone Eleanor Rolon MD Primary Care Provider Encounter Details Date Type Department Care Team (Late st Contact Info) Description 03/28/2023 Procedure Pass [facility], Ct Scan - [address] [address] Social History Tobacco Use Types Packs/Day Years [...] 11:47 AM EDT Autumn Swift RN * [place] Suicide Severity Rating Scale (Screener/Recent Self-Report) Question [...] on filedocumented in this encounter Care Teams Bake Room Worker Relationship Specialty Start Date End Date Eleanor Rolon MD [address] [place] [address] [email or web address] PCP - General Internal Medicine 12/30/17 documented as of this encounter Additional Source Comments The information contained in this document represents components of the legal health record. It is not the complete legal health record.[facility]
--- OUTSIDE RECORDS SUMMARY | 2025-08-11 09:00 | XMS_ITS | Encounter Summary ---
Author Organization [facility] Address [address] [facility] [address] [place] [address] Phone Care Team Providers Care R D Internship Name Role Phone Eleanor Rolon MD Primary Care Provider [phone] Encounter Details Date Type Department Care Team (Late st Contact Info) Description 01/14/2018 Procedure Pass [facility], [address] [address] Social History Tobacco Use Types Packs/Day Years [...] documented as of this encounter Care Teams R D Internship Relationship Specialty Start Date End Date Eleanor Rolon MD [address] [place] [phone] [email or web address] PCP - General Internal Medicine 12/30/17 documented as of this encounter Additional Source Comments The information contained in this document represents components of the legal health record. It is not the complete legal health record.[facility]
--- OUTSIDE RECORDS SUMMARY | 2025-08-11 09:00 | XMS_ITS | Data Portability ---
Author Organization [place] - [facility] [address] Address [address] [place] [address] Assessment No assessment recorded. Plan of Treatment Reminders Order Date Submit Date Provider Last Modified By Organization Details Last Modified Time Details Appointments None recorded. Lab None recorded. Referral None recorded. Procedures None recorded. Surgeries None recorded. Imaging None recorded. Medication Orders doxycycline hyclate 100 mg capsule 2023 024 [facility], [address] [place] [address], [address], 18:11:46 Patient TargetsNo targets recorded. Patient Instructions Encounter Date Encounter Id Patient Instructions Last Modified By Organization Details Last Modified Time 04/03/2024 [id number] Acute Sinusitis: Care Instructions Not available 04/03/2024 18:11:38 Acute Sinusitis: Care Instructions Not available 04/03/2024 18:11:38 Reason for Referral None Reported. 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 Medical Equipment None Reported. Allergies Allergen ID Allergen Name Allergen Category Reaction Reaction Severity Criticality Documentation Date Start Date Code Code System Note Provider Name and Address Organization Details Recorded Time 058417 dextran sulfate Not available anaphylax is Not available Not available 04/03/2024 34046 RxNorm Cecy Marietta null, [place] - [facility] 17:49:32 883623 ciproflox acin medicatio n Not available Not available Not available 04/03/2024 2551 RxNorm Cecy Marietta null, [place] - [facility] 4 17:50:04 888134 Augmentin medicatio n Not available Not available Not available 04/03/2024 53157 2 RxNorm Cecy Marietta null, [place] - [facility] 4 17:50:21 969294 Substance with sulfonami de structure and antibacte rial mechanism of action (substanc e) medicatio n Not available Not available Not available 04/03/2024 69494 8003 SNOMED Cecy Marietta null, [place] - [facility] 4 17:50:30 222705 tree nut food Not available Not available Not available 04/03/2024 Cecy Marietta null, [place] - [facility] 4 17:50:46 948736 pepper extract Not available Not available Not available Not available 04/03/2024 49118 85 RxNorm Cecy Marietta null, [place] - [facility] 4 17:50:54 220187 coconut extract food,medi cation Not available Not available Not available 04/03/2024 11931 48 RxNorm Cecy Marietta null, [place] - [facility] 4 17:51:04 101130 pineapple extract food Not available Not available Not available 04/03/2024 60450 74 RxNorm Cecy Marietta null, [place] - [facility] 17:51:17 Medications Name Sig Start Date Stop Date Status Note LastModified by Organization Details LastModified Time cyclobenzap rine 10 mg tablet TAKE 1 TABLET BY MOUTH AT BEDTIME NEEDED FOR MUSCLE SPASM active Not Available Not Available No t Available doxycycline hyclate 100 mg capsule Take 1 capsule twice a day by oral route for 10 days. active Not Available Not Available No t Available doxycycline monohydrate 100 mg tablet TAKE 1 TABLET BY MOUTH TWICE DAILY WITH FOOD 04/03 completed Not Available Not Available Not Available oxycodone-a cetaminophe n 5 mg-325 mg tablet TAKE 1 TABLET BY MOUTH EVERY 6 HOURS NEEDED FOR PAIN 04/03 completed Not Available Not Available Not Available cyanocobala min (vit B-12) 1,000 mcg/mL injection solution INJECT 1 ML (CC) INTRAMUSC ULARLY ONCE EVERY MONTH active Not Available Not Available No t Available mometasone 50 mcg/actuati on nasal spray USE 2 SPRAY(S) IN EACH NOSTRIL TWICE DAILY NEEDED ALLERGY SYMPTOMS active Not Available Not Available No t Available albuterol sulfate HFA 90 mcg/actuati on aerosol inhaler INHALE 2 PUFFS BY MOUTH 4 TIMES DAILY NEEDED FOR SHORTNESS OF BREATH OR WHEEZING active Not Available Not Available No t Available Aleve active Not Available Not Availa ble Not Available Claritin active Not Available Not Avai lable Not Available Tirosint 125 mcg capsule TAKE 1 CAPSULE BY MOUTH ONCE DAILY active Not Available Not Available No t Available Breo Ellipta 100 mcg-25 mcg/dose powder for inhalation Inhale 1 puff every day by inhalatio n route. active Not Available Not Available No t Available fluticasone furoate 200 mcg-vilante rol 25 mcg/dose inhalation powder INHALE 1 PUFF BY MOUTH ONCE DAILY 04/03 completed Not Available Not Available Not Available BinaxNOW COVID-19 Ag Self Test kit TEST DIRECTED TODAY active Not Available Not Available No t Available Vitals Date Recorded Body height Body mass index (BMI) Body weight Oxygen saturation Oxygen saturation in Arterial blood by Pulse oximetry Heart rate Respiratory rate Body temperature Systolic And Diastolic Provider Name and Address Organization Details Last Updated DateTime 4 158.75 cm 33.3 kg/m2 05949.5 9 g 97 % 97 % 66 /min 16 /min 97.5 [degF] 117/75 mm[Hg] Cecy Marietta [place] - [facility] 17:55:31 Social History Question Answer Notes LastModified by Organizat ion Details LastModified Time Tobacco Smoking Status Never Smoker Cecy Marietta null, [place] - [facility] 04/03/2024 17:55:08 Have You Had A Flu Shot This Season? Yes Information not available 04/03/2024 Have You Recently Traveled Abroad? No Information not available 04/03/2024 Sex: Unknown Functional Status Question Answer Note LastModified by Organization D etails LastModified Time What is your level of alcohol consumption? None Information not available 04/03/2024 Mental Status None recorded. Family History Relationship Description Onset Age of this Age Resolved Age Notes LastModified by Organization Details LastModified Time Father No current problems or disability Not available 04/03 17:53:38 Mother No current problems or disability Not available 04/03 17:53:38 Medical History No medical history recorded. Gynecological HistoryNo gynecological history recorded. Obstetrics History GPAL:G 0 P 0 0 0 0 Past Encounters Encounter ID Performer Location Encounter Start Date Encounter Closed Date Diagnosis/Indication Diagnosis SNOMED-CT Code Diagnosis ICD10 Code Diagnosis IMO Codes Diagnosis Note [id number] [address] [facility] [place] [address] 02/17/2018 15:29:20 02/17/2018 17:26:23 [id number] [address] [place] [address] 01/07/2019 10:00:52 01/07/2019 11:08:49 [id number] [address] [address] [address] [facility] [place] [address] 05/04/2019 14:56:12 05/04/2019 15:48:39 [id number] [address] [facility] [place] [address] 11/15/2017 17:00:46 11/15/2017 17:39:08 [id number] [address] [facility] [place] [address] 10/20/2017 18:10:20 10/20/2017 19:40:27 [id number] [address] [place] [address] 10/19/2018 11:43:32 10/19/2018 13:42:47 [id number] [address] [place] [address] 08/02/2018 16:56:23 08/02/2018 19:22:54 [id number] [address] [facility] [address] 10/15/2018 11:20:05 10/15/2018 13:20:36 [id number] [address] [facility] [place] [address] 12/02/2018 14:38:35 12/02/2018 16:50:42 [id number] [address] [facility] [place] [address] 03/17/2019 19:07:09 03/17/2019 19:27:44 [id number] [address] [facility] [place] [address] 07/14/2019 13:40:32 07/14/2019 14:46:52 [id number] [address] [facility] [place] [address] 11/28/2019 19:37:16 11/29/2019 08:24:40 [id number] [place] [address] [place] [address] 04/03/2024 17:09:21 04/03/2024 18:13:50 Acute sinusitis 80894735 J01.90 Health Concerns Section Related Observation LastModified by Organization Detai ls LastModified Time None Recorded Concern Status LastModified by Organization Details LastModified Time None Recorded Advance Directives Directive None Recorded Payers Insurance Date Sequence Insurance Name Policy Number Policy Jansen Covered Member ID Jansen Member ID Guarantor Name 04/03/2024 1 [facility] [id number] 1 Xochitl Diaz [id number] Xochitl Noe Notes Date Note Type Note Provider Name and Address Organization Details Recorded Time 04/03/2024 text/html Sinus Complaints UCReported by PatientHPIFor location, patient reportspain behind the eyes __,facial pain, andsinus pressure. For associated symptoms, patient reportsnasal discharge from __ nostrils,post nasal drip, andear fullness. Lani Hanna MD [address] [place], [address], [place] - [facility] 04/03/2024 18:12:47 OBGyn Episode No OBEpisode recorded.
--- OUTSIDE RECORDS SUMMARY | 2025-08-11 09:00 | XMS_ITS | Encounter Summary ---
Author Organization [facility] Address [address] [facility] [address] [place] [address] Phone Care Team Providers Care Crime Lab Technician Name Role Phone Eleanor Rolon MD Primary Care Provider Encounter Details Date Type Department Care Team (Latest Contact Info) Description 06/18/2021 Transcribe Orders Virtual Department [address] [place] [address] Brittney James PA [address] [place] [address] [email or web address] Fever, unspecified fever cause (Primary Dx); [...] be available within 24 to 48 hrs. [facility] Symptomatic? YES [facility] Other (Nasal swab) 06/20/2021 5:00 PM EDT 06/20/2021 8:26 PM EDT us Brittney [facility] GENERAL ORDERABLES Final Re sult [facility] [address] [place] [address] [facility] [address] [place] [phone] documented in this encounter Visit Diagnoses Diagnosis [...] documented as of this encounter Care Teams Crime Lab Technician Relationship Specialty Start Date End Date Eleanor Rolon MD [address] [place] [address] [email or web address] PCP - General Internal Medicine 12/30/17 documented as of this encounter Additional Source Comments The information contained in this document represents components of the legal health record. It is not the complete legal health record.[facility]
--- OUTSIDE RECORDS SUMMARY | 2025-08-11 09:00 | XMS_ITS | Continuity of Care Document ---
Author Organization [place] - [facility], [facility] Address [address] [place] [address] Care Team Providers Care Events Administrative Assistant Name Role Phone DARIELA MCCANN Primary Care Provider Assessment Encounter Date Assessment Date Assessment LastModified by Organization Details LastModified Time 06/15/2025 06/15/2025 59-year-old female presents for reevaluation of parotitis. On examination there is slight swelling over the left parotid gland but no significant erythema. Clear saliva expressed from Stensen's duct. As she continues to have slight fever recommended another course of azithromycin. Reviewed that this is not the first-line choice for parotitis but she has several antibiotic sensitivities including Augmentin and clindamycin. She will call for reevaluation if anything worsens. Recommended a CT scan of the neck to evaluate for stone. All questions were answered. [email or web address] Not available 06/15/2025 15:56:48 Plan of Treatment Reminders Order Date Submit Date Provider Last Modified By Organization Details Last Modified Time Details Appointments None recorded. Lab None recorded. Referral None recorded. Procedures None recorded. Surgeries None recorded. Imaging CT, neck, soft tissue, w/ contrast 2024 025 [email or web address] [facility] [place], [address] [facility] [address], [place], [address], 10:53:04 Medication Orders azithromyci n 250 mg tablet 2024 025 [facility], [address] [place], [address], 5 15:58:28 Patient TargetsNo targets recorded. Patient InstructionsNo instructions recorded. Reason for Referral None Reported. Problems Name Problem SNOMED Code Status Onset Date Resolution Date Notes Provider Name and Address Organization Details Recorded Time Dysfuncti on of eustachia n tube 32243991 Active 2013 Eustachia n tube dysfuncti on; CMS Risk: moderate risk CMS Treatment : new problem (to examiner) : no additiona l workup planned N ote: Date Diagnosed : 4 2:43 PM (381.81) Not Available [facility] 4 03:15:37 Disorder of pharynx 01760697 Active 2013 Vestibuli tis Nasal; CMS Risk: moderate risk CMS Treatment : new problem (to examiner) : no additiona l workup planned N ote: Date Diagnosed : 4 2:43 PM (478.20) Not Available [facility] 4 03:15:38 Cough 36027532 Active 2013 Cough; CMS Risk: moderate risk CMS Treatment : new problem (to examiner) : no additiona l workup planned N ote: Date Diagnosed : 4 2:43 PM (786.2) Not Available [facility] 4 03:15:37 Sensorine ural hearing loss of bilateral ears 978403348 Active 2013 Sensorine ural HL, bilateral ; Note: Date Diagnosed : 4 3:55 PM (389.18) Not Available [facility] 4 03:15:38 Allergic rhinitis 88435935 Active 2014 Allergic rhinitis: Due to other allergen; Note: Date Diagnosed : 11/08/2014 3:59 PM (477.8) Not Available [facility] 4 03:15:37 Bilateral tinnitus 77593241366 02 Active 2018 Tinnitus, bilateral ; Note: Date Diagnosed : 03/16/2019 4:28 PM (H93.13) Not Available [facility] 4 03:15:37 Sensorine ural hearing loss 05160479 Active 2018 Sensorine ural hearing loss, unilatera l, right ear, with unrestric christian hearing on the contralat eral side; Note: Date Diagnosed : 03/16/2019 4:28 PM (H90.41) Not Available [facility] 4 03:15:37 Localized eruption of skin 679459531 Active 2018 Rash and other nonspecif ic skin eruption; Note: Date Diagnosed : 03/16/2019 4:28 PM (R21) Not Available [facility] 4 03:15:38 Chronic sinusitis 13583639 Active 2023 DREW BARCENAS PA-C [address], [place], [place], [address] , [place] - [facility] 4 14:17:12 Nasal congestio n 99279816 Active 2024 DREW BARCENAS PA-C [address], [place], [place], [address] , [place] - [facility] 5 15:56:25 Acute sinusitis 65188609 Active 2024 DREW BARCENAS PA-C [address], [place], [place], [address] , [place] - [facility] 5 15:56:29 Non-aller gic rhinitis 28395586521 1 Active 2024 DREW BARCENAS PA-C [address], [place], [place], [address] , [place] - [facility] 5 15:56:35 Seasonal allergic rhinitis 837498381 Active 2024 DREW BARCENAS PA-C [address], [place], [place], [address] , [place] - [facility] 5 15:56:35 Acute sialoaden itis 864726794 Active 2024 TAMAR SARMIENTO PA-C [address], [place], [address] , [place] - [facility] 5 14:07:04 Problem Notes None recorded. Procedures Surgical History Date Name Laterality Status Provider Name and Address Organization Details Recorded Time 03/31/20 Allergy Testing-Full completed LULI ARCE [address] [facility],[address], [address], [facility] 03/31/2025 15:25:04 12/30/19 25 Allergy Testing Modified- Quantitative Testing (MQT) Only completed [facility]AN [facility] [address] [facility],[address], [address], [facility] 12/29/2024 16:00:17 10/27/19 25 Comp Audio with Tymps - 19583 & 51421 completed SHIMA [facility] [address] [facility],[address], [address], [facility] 10/27/2024 15:46:42 Imaging Results None recorded. Procedure Notes None recorded. Medical Equipment None Reported. Allergies Allergen ID Allergen Name Allergen Category Reaction Reaction Severity Criticality Documentation Date Start Date Code Code System Note Provider Name and Address Organization Details Recorded Time 161802 Substance with sulfonami de structure and antibacte rial mechanism of action (substanc e) medicatio n other Not available Not available 02/17/2024 90993 8003 SNOMED React ion: unkno wn, unspe cifie d;; Not Available [facility] 4 01:25:06 616243 Product containin g penicilli n (product) medicatio n other Not available Not available 02/17/2024 78430 8001 SNOMED React ion: unkno wn, unspe cifie d;; Not Available [facility] 4 01:25:07 437985 ciproflox acin medicatio n Not available Not available Not available 10/27/2024 2551 [facility] 5 15:00:00 086306 oxycodone medicatio n vomiting mild Not available 12/29/2024 7804 RxNorm LULI ARCE [address] [facility] [place],[facility] [address], [place], [address], [place] - [facility] 5 15:43:42 403883 peanut allergeni c extract food,medi cation Not available Not available Not available 06/15/2025 86830 8 RxNorm Patricia Steen null, [place] - [facility] 15:41:44 822123 garlic preparati on food,medi cation vomiting severe Not available 06/15/2025 36981 7 RxNorm Patricia Steen null, [place] - [facility] 15:41:44 648247 onion extract food,medi cation nausea moderate Not available 06/15/2025 84416 69 RxNorm Patricia Steen null, [place] - [facility] 15:41:44 097066 pineapple extract food vomiting moderate Not available 06/15/2025 17502 74 RxNorm Patricia Steen null[place] - [facility] 15:41:44 427512 clove preparati on food Not available Not available Not available 06/15/2025 15438 95 RxNorm Patricia Steen null, [place] - [facility] 15:41:44 600130 black pepper preparati on food Not available Not available Not available 06/15/2025 98267 4 RxNorm Patricia Steen null, [place] - [facility] 5 15:41:44 091701 james pepper food Not available Not available Not available 06/15/2025 Patricia Steen null, [place] - [facility] 5 15:41:44 587768 cayenne pepper fruits food Not available Not available Not available 06/15/2025 Patricia Steen null, [place] - [facility] 5 15:41:44 468861 pepper extract Not available Not available Not available Not available 06/15/2025 71202 85 RxNorm Patricia Steen null, [place] - [facility] 5 15:41:44 359903 nut - unspecifi ed food Not available Not available Not available 06/15/2025 Patricia Steen null, [place] - [facility] 15:41:44 797379 coconut extract food,medi cation facial swelling moderate Not available 06/15/2025 85709 48 RxNorm Patricia Wileyliam nolan [place] - [facility] 15:41:44 616276 iron-dext ran complex medicatio n anaphylax is severe Not available 06/15/2025 5992 RxNorm Patriciaalexandr nolan [place] - [facility] 15:42:15 376375 peanut oil food,medi cation respirato ry distress moderate Not available 06/15/2025 05347 RxNorm Patricia nolan [place] - [facility] 15:42:15 Medications Name Sig Start Date Stop Date Status Note LastModified by Organization Details LastModified Time cyclobenz aprine 10 mg tablet active Not Available Not Available No t Available amoxicill in 500 mg capsule TAKE 1 CAPSULE BY MOUTH EVERY 8 HOURS FOR 10 DAYS 03/09 completed Not Available Not Available Not Available doxycycli ne hyclate 100 mg capsule TAKE 1 CAPSULE BY MOUTH TWICE DAILY FOR 10 DAYS 10/27 completed Not Available Not Available Not Available azithromy teofilo 250 mg tablet TAKE 2 TABLETS (500 MG) BY ORAL ROUTE ONCE DAILY FOR 1 DAY THEN 1 TABLET (250 MG) BY ORAL ROUTE ONCE DAILY FOR 4 DAYS 2024 active Not Available Not Available Not Avai lable Claritin 10 mg tablet 1 tablet every day by oral route. 2014 active Not Available Not Available Not Avai lable prednison e 20 mg tablet 09/27 completed Medicati on ID: [id number] Re ason: () Brand Name: predniso ne [...] mg tablet 09/27 completed Medicati on ID: [id number] Re ason: () Brand Name: ciproflo xacin [...] Available Not Available Cytomel 5 mcg tablet 10/23 completed Not Available Not Available Not Available Aleve [...] No t Available Synthroid 112 mcg tablet 10/23 completed Not Available Not Available Not Available albuterol sulfate HFA 90 mcg/actua tion aerosol inhaler INHALE 2 PUFFS BY MOUTH 4 TIMES DAILY NEEDED FOR SHORTNES S OF BREATH FOR WHEEZING active Not Available Not Available No t Available Bactroban Nasal 2 % ointment 1 a small amount into both nostrils 12/29 completed Medicati on ID: [id number] Du ration Value: 10 Prescri bed By Name: Carlyn Ramirez nd Name: Bactroba n Nasal Se nd Method: E-Prescr ibed Sub s Allowed: subs OK Medic ationGen ericName : Bactroba n Nasal Not Available Not Available Not Available Multivita min 50 Plus tablet Take by oral route. active Not Available Not Available No t Available Flovent HFA 110 mcg/actua tion aerosol inhaler 10/23 completed Not Available Not Available Not Available Tirosint 125 mcg capsule TAKE 1 CAPSULE BY MOUTH ONCE DAILY active Not Available Not Available No t Available EpiPen 2-Antoine 0.3 mg/0.3 mL injection , auto-inje ctor Take 1 auto as needed by injectio n route for 1 day, for anaphyla xis. 06/11 completed Not Available Not Available Not Available Breo Ellipta 200 mcg-25 mcg/dose powder for inhalatio n INHALE 1 PUFF BY MOUTH ONCE DAILY active Not Available Not Available No t Available BinaxNOW COVID-19 Ag Self Test kit active Not Available Not Available Not Available Paxlovid [...] and Address Organization Details Last Updated DateTime 06/15/2025 158.75 cm 33.3 kg/m2 89194.59 g Patricia Steen [place] - [facility] 06/15/2025 15:41:22 Social History None recorded. Functional Status None recorded. Mental Status None recorded. Family History Nothing Reported. Medical History Condition Response Allergies/Hayfever Y Heart Problems Y Anxiety N Tonsil Infections N Emphysema N Migraines N Thyroid Problems Y Developmental Delay N COPD N Depression N Glaucoma N Nasal or Sinus Problems Y Anemia Y Immune System Disorder N Anesthesia Complications Y Heart Attack (SD) N Other Skin Condition Y Diabetes N Rhinitis Y Bleeding Disorder N Food Allergy Y Arthritis Y Hearing Loss Y Hyperlipidemia N Cancer N Eczema Y Stroke N Dementia N Nasal polyps N [...] ICD10 Code Diagnosis IMO Codes Diagnosis Note [id number] TAMAR SARMIENTO PA-C [facility] [address] [address] 06/03/2025 14:17:08 06/03/2025 15:05:46 Allergic rhinitis 81313304 J30.89 [id number] TAMAR SARMIENTO PA-C [facility] of [address] [place] [address] 06/08/2025 13:37:04 06/08/2025 13:58:35 Acute sialoadenitis 063259169 K11.21 3740145 [id number] DREW BARCENAS PA-C [facility] [address] [place] [address] 06/15/2025 15:35:03 06/15/2025 15:53:47 Acute sialoadenitis 118468358 K11.21 [id number] Health Concerns Section Related Observation LastModified by Organization Detai ls LastModified Time None Recorded Concern Status LastModified by Organization Details LastModified Time None Recorded Payers Encounter Date Sequence Insurance Name Policy Number Policy Jansen Covered Member ID Jansen Member ID Guarantor Name 06/15/2025 1 [facility] [id number] Daren Diaz [id number] Xochitl Diaz Notes Date Note Type Note Provider Name and Address Organization Details Recorded Time 06/15/2025 text/html ROS as noted in the HPI 59-year-old female presents for reevaluation of parotitis. She did better after azithromycin but states she had return of symptoms yesterday with fever and facial swelling. She employed massage and warm compress and has been using sour candies. During massage she had a andres of foul and bloody tasting discharge within her mouth and has been doing better since then. THOMAS MARK MD [address] [place] [address], [place], [address], [facility] - [facility] 06/15/2025 17:37:37 OBGyn Episode No OBEpisode recorded.
--- OUTSIDE RECORDS SUMMARY | 2025-08-11 09:00 | XMS_ITS | Encounter Summary ---
Author Organization [facility] Address [address] [facility] [address] [place] [phone] Phone Care Team Providers Care Corrections Unit Supervisor Name Role Phone Eleanor Rolon MD Primary Care Provider Encounter Details Date Type Department Care Team (Latest Contact Info) Description 06/13/2021 Transcribe Orders Virtual Department [address] [place] [address] Brittney James PA [address] [place] [address] [email or web address] Right flank pain (Primary Dx); Leg mass, [...] documented as of this encounter Care Teams Corrections Unit Supervisor Relationship Specialty Start Date End Date Eleanor Rolon MD [address] [place] [phone] [email or web address] PCP - General Internal Medicine 12/30/17 documented as of this encounter Additional Source Comments The information contained in this document represents components of the legal health record. It is not the complete legal health record.[facility]
--- OUTSIDE RECORDS SUMMARY | 2025-08-11 09:00 | XMS_ITS | Encounter Summary ---
Author Organization [facility] Address [address] [facility] [address] [place] [address] Phone Care Team Providers Care Street Engineer Name Role Phone Eleanor Rolon MD Primary Care Provider [phone] Encounter Details Date Type Department Care Team (Late st Contact Info) Description 01/31/2022 Transcribe Orders Virtual Department [address] [place] [phone] Eleanro Rolon MD [address] [place] [address] [email or web address] Encounter for laboratory testing for COVID-19 virus [...] be available within 24 to 48 hrs. [facility] Symptomatic? NO [facility] Other 02/01/2022 2:24 PM EDT 02/01/2022 5:42 PM EDT us Eleanor Rolon MD LAB GENERAL ORDERABLES Kimmy [email or web address] Result [facility] [address] [place] [address] [facility] [address] [place] [phone] documented in this encounter Visit Diagnoses Diagnosis Encounter for laboratory testing for COVID-19 virus- Primary documented in this encounter Additional Health Concerns Infection Onset Date Last Indicated Resolved Time CoV-Exposed Comment:Recent close contact documented in the COVID-19 PCR/PRO order 01/31/2022 01/31/2022 02/11/2022 1:24 AM E DT CoV-Risk Comment:Per Ambulatory Triage Form 02/01/2022 02/01/202202/12 1:23 AM EDT documented as of this encounter Care Teams Street Engineer Relationship Specialty Start Date End Date Eleanor Rolon MD [address] [place] [address] [email or web address] PCP - General Internal Medicine 12/30/17 documented as of this encounter Additional Source Comments The information contained in this document represents components of the legal health record. It is not the complete legal health record.[facility]
--- OUTSIDE RECORDS SUMMARY | 2025-08-11 09:00 | XMS_ITS | Data Portability ---
Author Organization [place] [facility], Allergy Address [address] [address] Care Team Providers Care Workers Compensation Coordinator Name Role Phone DARIELA MCCANN Primary Care Provider Assessment Encounter Date Assessment Date Assessment LastModified by Organization Details LastModified Time 03/09/2025 03/09/2025 59-year-old female presents for reevaluation. [...] further planning. [email or web address] Not available 03/09/2025 15:32:08 06/03/2025 06/03/2025 The patient has significant allergies. We discussed lifestyle modifications, medical therapy versus immunotherapy. The patient is an excellent candidate for immunotherapy with either SCIT vs SLIT. This is at least a 3-5 year commitment and symptoms are not expected to improve quickly. Partial treatment will not result in success of therapy. They will need to followup every 6 months to determine their compliance and success. They are interested in proceeding with immunotherapy and will contact our office to schedule. I have prescribed an epi pen and instructed them to bring it with them the first day of their therapy to be certain that they are comfortable with its use. While they are in therapy they may continue to use antihistamine allergy medications as well as topical nasal sprays to help manage their symptoms. mat Not available 06/03/2025 15:02:57 06/08/2025 06/08/2025 59-year-old female with allergic rhinitis and Davidson's presents for evaluation of left-sided facial swelling for one day. Exam reveals mildly enlarged left parotid gland. Oral mucosa with adequate salivary flow. No obvious salivary duct stone. No history of sjogrens disease or immunodeficiency . Recommend good oral hydration, avoidance of alcohol-based mouthwashes, use of sour sialogogues, and warm compresses 10-15 minutes TID followed by firm fddg-cv-rklrd palpation to increase salivary production. Recommend alternating between tylenol and ibuprofen for pain management. Patient will contact me via the portal with lack of improvement or development of new or worsening symptoms. [email or web address] Not available 06/08/2025 16:40:08 06/15/2025 06/15/2025 59-year-old female presents for reevaluation [...] evaluate for stone. All questions were answered. [email or web address] Not available 06/15/2025 15:56:48 Plan of Treatment Reminders Order Date Submit Date Provider Last Modified By Organization Details Last Modified Time Details Appointments None recorded. Lab None recorded. Referral None recorded. Procedures allergen immunothera py; multiple injections (PROC) 2024 025 [email or web address] Not available 5 08:39:02 allergy testing, skin prick (PROC) 2024 025 [email or web address] Not available 5 14:09:00 intradermal allergy skin testing (PROC) 2024 025 skorzec Not available 5 14:09:00 pulmonary function test procedure (PROC) 2024 025 sk[facility]ec Not available 5 14:09:00 pulse oximetry (PROC) 2024 025 skorzec Not available 5 14:09:00 Surgeries None recorded. Imaging CT, neck, soft tissue, w/ contrast 2024 025 [id number] [facility], [address] [facility] [address], [place], [address], 5 10:53:04 Medication Orders azithromyci n 250 mg tablet 2024 025 [facility], [address] [place] [address], [address], 5 15:58:28 EpiPen 2-Antoine 0.3 mg/0.3 mL injection, auto-inject or 2024 025 [facility], [address] [place] [address], [address], 5 05:01:42 Patient TargetsNo targets recorded. Patient InstructionsNo instructions recorded. Reason for Referral None Reported. Problems Name Problem SNOMED Code Status Onset Date Resolution Date Notes Provider Name and Address Organization Details Recorded Time Dysfuncti on of eustachia n tube 97935384 Active 2013 Eustachia n tube dysfuncti on; CMS Risk: moderate risk CMS Treatment : new problem (to examiner) : no additiona l workup planned N ote: Date Diagnosed : 4 2:43 PM (381.81) Not Available [facility] 4 03:15:37 Disorder of pharynx 32279942 Active 2013 Vestibuli tis Nasal; CMS Risk: moderate risk CMS Treatment : new problem (to examiner) : no additiona l workup planned N ote: Date Diagnosed : 4 2:43 PM (478.20) Not Available [facility] 4 03:15:38 Cough 14352494 Active 2013 Cough; CMS Risk: moderate risk CMS Treatment : new problem (to examiner) : no additiona l workup planned N ote: Date Diagnosed : 4 2:43 PM (786.2) Not Available [facility] 4 03:15:37 Sensorine ural hearing loss of bilateral ears 867466482 Active 2013 Sensorine ural HL, bilateral ; Note: Date Diagnosed : 4 3:55 PM (389.18) Not Available [facility] 4 03:15:38 Allergic rhinitis 26621517 Active 2014 Allergic rhinitis: Due to other allergen; Note: Date Diagnosed : 11/08/2014 3:59 PM (477.8) Not Available [facility] 4 03:15:37 Bilateral tinnitus 18535297214 02 Active 2018 Tinnitus, bilateral ; Note: Date Diagnosed : 03/16/2019 4:28 PM (H93.13) Not Available [facility] 4 03:15:37 Sensorine ural hearing loss 46453708 Active 2018 Sensorine ural hearing loss, unilatera l, right ear, with unrestric christian hearing on the contralat eral side; Note: Date Diagnosed : 03/16/2019 4:28 PM (H90.41) Not Available [facility] 4 03:15:37 Localized eruption of skin 553721669 Active 2018 Rash and other nonspecif ic skin eruption; Note: Date Diagnosed : 03/16/2019 4:28 PM (R21) Not Available [facility] 4 03:15:38 Chronic sinusitis 46552629 Active 2023 DREW BARCENAS PA-C [address] [facility],[place] [address], [place], [address] , [facility] - [facility] 4 14:17:12 Nasal congestio n 37083763 Active 2024 DREW BARCENAS PA-C [facility] [place], [place], [address] , [place] [facility] 5 15:56:25 Acute sinusitis 73965662 Active 2024 DREW BARCENAS PA-C [address] [facility], [place], [address] , [facility] - [facility] 5 15:56:29 Non-aller gic rhinitis 23362290959 1 Active 2024 DREW BARCENAS PA-C [address] [facility],[place] [address], [place], [address] , [facility] 15:56:35 Seasonal allergic rhinitis 198283114 Active 2024 DREW BARCENAS PA-C [address] [facility],[place] [address], [facility] [place], [address] , [facility] 15:56:35 Acute sialoaden itis 034039477 Active 2024 TAMAR SARMIENTO PA-C [address] [place] [address],[place] [address], [place], [address] , [facility] [place] 14:07:04 Problem Notes None recorded. Procedures Surgical History Date Name Laterality Status Provider Name and Address Organization Details Recorded Time 03/31/20 25 Allergy Testing-Full completed LULI ARCE [address] [place] [address],[address], [address], [facility] 03/31/2025 15:25:04 12/30/19 25 Allergy Testing Modified- Quantitative Testing (MQT) Only completed LULI ARCE [address] [place] [address],[address], [address], [facility] 12/29/2024 16:00:17 10/27/19 25 Comp Audio with Tymps - 74204 & 08736 completed LATESHA WILSON [address] [facility],[place] [address], [place], [address], [facility] 10/27/2024 15:46:42 Imaging Results None recorded. Procedure Notes None recorded. Medical Equipment None Reported. Allergies Allergen ID Allergen Name Allergen Category Reaction Reaction Severity Criticality Documentation Date Start Date Code Code System Note Provider Name and Address Organization Details Recorded Time 168434 Substance with sulfonami de structure and antibacte rial mechanism of action (substanc e) medicatio n other Not available Not available 02/17/2024 19625 1833 SNOMED React ion: unkno wn, unspe cifie d;; Not Available [facility] 4 01:25:06 330964 Product containin g penicilli n (product) medicatio n other Not available Not available 02/17/2024 98868 8001 SNOMED React ion: unkno wn, unspe cifie d;; Not Available [facility] 4 01:25:07 774934 ciproflox acin medicatio n Not available Not available Not available 10/27/2024 2551 RxNorm Lien Alvarez null, [place] - [facility] [place] 5 15:00:00 815622 oxycodone medicatio n vomiting mild Not available 12/29/2024 7804 RxNorm TUAN BACH, [place] [address], [place], [address] [place] [address] - [facility] [place] 5 15:43:42 926660 peanut allergeni c extract food,medi cation Not available Not available Not available 06/15/2025 15780 8 RxNorm Patricia Steen null, [place] - [facility] [place] 15:41:44 294616 garlic preparati on food,medi cation vomiting severe Not available 06/15/2025 08785 7 RxNorm Patricia Steen null, [place] [facility] [place] 5 15:41:44 405470 onion extract food,medi cation nausea moderate Not available 06/15/2025 51890 69 RxNorm Patricia Steen null, [place] [facility] [place] 5 15:41:44 120156 pineapple extract food vomiting moderate Not available 06/15/2025 44926 74 RxNorm Patricia Steen null, [place] [facility] [place] 5 15:41:44 601726 clove preparati on food Not available Not available Not available 06/15/2025 64031 95 RxNorm Patricia Steen null, [place] - [facility] [place] 5 15:41:44 956671 black pepper preparati on food Not available Not available Not available 06/15/2025 94640 4 RxNorm Patricia Steen null, [place] - [facility] [place] 15:41:44 228937 james pepper food Not available Not available Not available 06/15/2025 Patricia nolan, [place] - [facility] [place] 15:41:44 846534 cayenne pepper fruits food Not available Not available Not available 06/15/2025 Patricia nolan, [place] - [facility] [place] 15:41:44 921858 pepper extract Not available Not available Not available Not available 06/15/2025 15289 85 RxNorm Patricia nolan, [place] - [facility] [place] 15:41:44 113431 nut - unspecifi ed food Not available Not available Not available 06/15/2025 Patricia nolan, [place] - [facility] [place] 15:41:44 468771 coconut extract food,medi cation facial swelling moderate Not available 06/15/2025 76670 48 RxNorm Patricia nolan, [place] - [facility] [place] 15:41:44 468482 iron-dext ran complex medicatio n anaphylax is severe Not available 06/15/2025 5992 RxNorm Patricia nolan, [place] - [facility] [place] 15:42:15 336191 peanut oil food,medi cation respirato ry distress moderate Not available 06/15/2025 99280 RxNorm Patricia nolan, [place] - [facility] [place] 15:42:15 Medications Name Sig Start Date Stop [...] mg tablet 09/27 completed Medicati on ID: [id number] Re ason: () Brand Name: predniso ne [...] mg tablet 09/27 completed Medicati on ID: [id number] Re ason: () Brand Name: ciproflo xacin [...] both nostrils 12/29 completed Medicati on ID: [id number] Du ration Value: 10 Prescri bed By Name: Adrián Garcia M.D. Bra [place] Name: Guillermo n Nasal Se nd Method: E-Prescr ibed [...] Updated DateTime 03/09/2025 158.75 cm 33.3 kg/m2 25315.59 g Daija Michael [place] [facility] 03/09/2025 14:31:42 Date Recorded Body height Body mass index (BMI) Body weight Provider Name and Address Organization Details Last Updated DateTime 06/03/2025 158.75 cm 33.3 kg/m2 30219.59 g Patricia Steen [facility] 06/03/2025 14:47:43 Date Recorded Body height Body mass index (BMI) Body weight Provider Name and Address Organization Details Last Updated DateTime 06/08/2025 158.75 cm 33.3 kg/m2 98580.59 g Suzy Ovallevaldez [facility] 06/08/2025 13:42:38 Date Recorded Body height Body mass index (BMI) Body weight Provider Name and Address Organization Details Last Updated DateTime 06/15/2025 158.75 cm 33.3 kg/m2 85118.59 g Patriciaalexandr Steen [facility] 06/15/2025 15:41:22 Social History None recorded. Functional [...] Disorder N Anesthesia Complications Y Heart Attack (CT) N Other Skin Condition Y Diabetes N [...] ICD10 Code Diagnosis IMO Codes Diagnosis Note [id number] DREW BARCENAS PA-C [facility] [address] [address] 09/27/2024 13:43:57 09/27/2024 14:12:26 Chronic sinusitis 63573656 J32.9 [id number] DREW BARCENAS PA-C [facility] [address] [address] 10/27/2024 14:53:54 10/27/2024 15:54:30 Sensorineural hearing loss 84132735 H90.41 Audiologic al evaluation results: Right ear: Mild low frequency SNHL rising to normal hearing with excellent word recognitio n. Left ear: Normal hearing with excellent word recognitio n. Tympanomet ry: Right Ear:Type A Left Ear:Type A Nasal congestion 8146912 0 R09.81 Acute sinusitis 41602176 J01.90 Allergic rhinitis 317491 04 J30.9 [id number] TUAN BACH [facility] [address] [place] [address] 12/29/2024 14:30:27 12/29/2024 16:11:39 Allergic rhinitis 44089019 J30.9 [id number] DREW BARCENAS PA-C [facility] [address] [facility] [place] [address] 01/18/2025 14:45:11 01/18/2025 15:30:35 Allergic rhinitis 03938963 J30.9 Acute sinusitis 85189239 J01.90 [id number] DREW BARCENAS PA-C [facility] 100 [facility] [place] [address] 03/09/2025 14:28:05 03/09/2025 14:58:35 Allergic rhinitis 39090101 J30.9 [id number] TUAN BACH [facility] [address] [place] [address], [place] [address] 03/31/2025 13:02:26 03/31/2025 15:26:31 Allergic rhinitis 10401139 J30.9 [id number] TAMAR SARMIENTO PA-C [facility] [address] [place] [address] 06/03/2025 14:17:08 06/03/2025 15:05:46 Allergic rhinitis 91855433 J30.89 [id number] TAMAR SARMIENTO PA-C [facility] 100 [facility] [place] [address] 06/08/2025 13:37:04 06/08/2025 13:58:35 Acute sialoadenitis 911278631 K11.21 9376466 [id number] DREW BARCENAS PA-C [facility] [address] [facility] [place] [address] 06/15/2025 15:35:03 06/15/2025 15:53:47 Acute sialoadenitis 994683934 K11.21 [id number] Health Concerns Section Related Observation LastModified by Organization Detai ls LastModified Time None Recorded Concern Status LastModified by Organization Details LastModified Time None Recorded Advance Directives Directive None Recorded Payers Insurance Date Sequence Insurance Name Policy Number Policy Jansen Covered Member ID Jansen Member ID Guarantor Name 07/06/2025 1 [facility] [place] [id number] Daren Diaz [id number] Xochitl Olivares Graciakayce Joe Notes Date Note Type Note Provider Name and Address Organization Details Recorded Time 03/09/2025 text/html 59-year-old female presents for reevaluation. Recently evaluated for sinusitis. [...] is interested in rescheduling. MAURICE GUERRIER MD [address] [place] [address],[address], [address], [facility] - [facility] 03/10/2025 08:39:14 06/03/2025 text/html ROS as noted in the [facility] 59yo female presents for allergy testing results. Patient with moderate sensitivities to weeds, molds, grasses, and dog. She reports chronic nasal congestion despite daily Claritin. She uses saline lavage as needed. history of recurrent sinusitis, complicated by antibiotic sensitivities. She is followed by pulmonology for asthma, which she reports is well-controlled. History of parathyroid tumor, davidson's THOMAS MARK MD [address] [facility],[place] [address], [place], [address], [facility] 06/05/2025 10:12:17 06/08/2025 text/html ROS as noted in the HPI 59-year-old female with allergic rhinitis presents for evaluation of left-sided facial swelling. This started overnight, with associated pain. No history of salivary duct stones or infections. Feels she may be coming down with a cold, although this is her baseline. Patient endorses allergies to penicillins, sulfa, doxycycline, and clindamycin. She azithromycin in the past. History of parathyroid tumor, davidson's LYDIA SINGH MD [address] [place] [address],[address], [address], [facility] - [facility] 06/08/2025 17:14:55 06/15/2025 text/html ROS as noted in the [...] doing better since then. THOMAS MARK MD [address] [place] [address],[address], [address], [facility] - [facility] 06/15/2025 17:37:37 OBGyn Episode No OBEpisode recorded.
--- OUTSIDE RECORDS SUMMARY | 2025-08-11 09:00 | XMS_ITS | Patient Health Record ---
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) Extrinsic asthma NOS (493.00) Active confirmed Problem Allergic rhinitis (64509534) Allergic rhinitis due to unspecified cause (477.9) Active confirmed Plan Of Treatment No Information Insurance Providers Payer Name Payer Address Payer Phone Subscriber Number Group Number Insured Name Patient Relationship to Insured Coverage Start Date Coverage End Date [facility] [address] [place] [address] [id number] Xochitl Haque Self - patient is the insured Medical (General) History Medical History History ICD Code Asthma Allergic rhinitis Jamaal's thyroiditis L3/L4/L5/S1 disc herniations (trauma) Tibial plateau fracture Left arm/shoulder fracture Surgical History Surgery Date(Month/Year) s/p Cholecystectomy s/p Appendectomy s/p ORIF Tibial plateau fx repair s/p ORIR arm/shoulder fx repair
--- OUTSIDE RECORDS SUMMARY | 2025-08-11 09:00 | XMS_ITS | Encounter Summary ---
Author Organization [facility] Address [address] [facility] [address] [place] [address] Phone Care Team Providers Care Clarification Operator Name Role Phone Eleanor Rolon MD Primary Care Provider Encounter Details Date Type Department Care Team (Late st Contact Info) Description 12/30/2017 Procedure Pass [facility] [place], Ct Scan - [address] [address] Social History Tobacco Use Types Packs/Day Years [...] documented as of this encounter Care Teams Clarification Operator Relationship Specialty Start Date End Date Elaenor Rolon MD [address] [place] [address] [email or web address] PCP - General Internal Medicine 12/30/17 documented as of this encounter Additional Source Comments The information contained in this document represents components of the legal health record. It is not the complete legal health record.[facility]
--- OUTSIDE RECORDS SUMMARY | 2025-08-11 09:00 | XMS_ITS | Clinical Summary ---
Author Organization [facility] Address [address] [facility] [address] [place] [address] Phone Care Team Providers Care Freight And Passenger Agent Name Role Phone Eleanor Rolon MD Primary [...] B-12) 1000 MCG tabletIndicatio ns:[place] [facility] [place]ject 100 mcg into the muscle every 30 (thirty) days. Indications: [place] [facility] [place] [facility] [place] Active Social History Tobacco Use Types Packs/Day [...] (02/07/2024 11:58 AM EDT) HDL 43 mg/dL [facility] Comment: Interpretation <40 mg/dL: Low HDL cholesterol (major risk factor for CHD) Greater than or equal to 60 mg/dL: High HDL cholesterol ( negative risk factor for CHD) HDL - cholesterol is affected by a number of factors, e.g. smoking, excerise, hormones, sex and age. CHOLESTEROL 154 0 - 240 mg/dL [facility] TRIGLYCERIDES 94 30 - 160 mg/dL [facility] LDL 92 50 - 129 mg/dL [facility] Comment: LDL levels in terms of risk for coronary heart disease: <100 mg/dL: Optimal 100-129 mg/dL: Near or above optimal 130-159 mg/dL: Borderline high 160-189 mg/dL: High >190 mg/dL: Very High CARDIAC RISK RATIO 3.6 3.3 - 4.4 [facility] Blood 02/07/2024 11:5 8 AM EDT 02/07/2024 12:06 PM EDT us Brittney ANAND LAB BLOOD BKR ORDERABLES Final Result [facility] [address] [place], [place] [phone] from Last 3 Months or Most Recently Relevant to Health Maintenance [place] [address] [place] [address] HMO O O O HMO O INSURANCE Care Teams Freight And Passenger Agent Relationship Specialty Start Date End Date Eleanor Rolon MD [address] [place] [address] [email or web address] PCP - General Internal Medicine 12/30/17 Additional Source Comments The information contained in this document represents components of the legal health record. It is not the complete legal health record.[facility]
--- OUTSIDE RECORDS SUMMARY | 2025-08-11 09:00 | XMS_ITS | Encounter Summary ---
Author Organization [facility] Address [address] [address] Phone Care Team Providers Care Privacy Compliance Manager Name Role Phone Eleanor Rolon MD Primary Care Provider [phone] Reason for Referral * MRI/CAT Scan - Closed Specialty Diagnoses / Procedures Referred By Contac t Referred To Contact Radiology Diagnoses Lesion of left lobe of liver Abnormal findings on imaging test Procedures MRI Abdomen MRI PELVIS (GI/) Brittney James PA Phone: tel: fax: [email or web address] Referral ID Status Reason Start Date Expiration Date Visits Re quested Visits Authorized [id number] Closed 01/12/2018 04/12/2018 1 1 Encounter Details Date Type Department Care Team (Late st Contact Info) Description 01/14/2018 Ancillary Orders [facility] External Provider Virtual Department [address] [place] [address] Brittney James PA [address] [place] [address] [email or web address] Lesion of left lobe of liver; Abnormal [...] significant upper abdominal pathology is apparent. POS [id number] Edited by: Brandie Mao on 01/24/2018 6:05 [...] the rest of the liver on the lqf-hz-erbow chemical shift sequence. Finally, there is no [...] the rest of the liver on the dlz-rg-dwipd chemical shiftsequence. Finally, there is no abnormal [...] significant upper abdominal pathology is apparent. POS [id number] Edited by: Brandie Mao on 01/24/2018 6:05 [...] documented as of this encounter Care Teams Privacy Compliance Manager Relationship Specialty Start Date End Date Eleanor Rolon MD [address] [place] [address] [email or web address] PCP - General Internal Medicine 12/30/17 documented as of this encounter Additional Source Comments The information contained in this document represents components of the legal health record. It is not the complete legal health record.[facility]
--- OUTSIDE RECORDS SUMMARY | 2025-08-11 09:00 | XMS_ITS | Encounter Summary ---
Author Organization [facility] Address 399 [facility] [address] [place] [address] Phone Care Team Providers Care Keeler Polygraph Operator Name Role Phone Eleanor Rolon MD Primary Care Provider Encounter Details Date Type Department Care Team (Latest Contact Info) Description 04/16/2018 Transcribe Orders [facility] Phleb Jazmín [address] [place] [address] Joy Rodríguez PA-C [address] [place] [address] [email or web address] Fatty liver (Primary Dx) Social History Tobacco [...] EDT) SODIUM 139 133 - 146 mmol/L [facility] POTASSIUM 4.2 3.3 - 5.1 mmol/L [facility] CHLORIDE 99 96 - 108 mmol/L [facility] CO2 27 21 - 35 mmol/L [facility] BUN 12 6 - 19 mg/dL [facility] CREATININE 0.60 0.5 - 1.5 mg/dL [facility] GLUCOSE 106(H) 70 - 99 mg/dL [facility] ALBUMIN 4.3 3.9 - 4.8 g/dL [facility] TOTAL PROTEIN 7.6 6.5 - 8.0 g/dL [facility] CALCIUM 9.6 8.4 - 10.3 mg/dL [facility] ALKALINE PHOSPHATASE 83 39 - 117 U/L [facility] TOTAL BILIRUBIN 0.6 0.0 - 1.2 mg/dL [facility] AST 21 0 - 37 U/L [facility] ALT 23 0 - 40 U/L [facility] GLOBULIN 3.3 1 - 4.8 g/dL [facility] EGFR 104 >59 mL/min/1.7 3m2 [facility] Comment:If patient is black, multiply result by 1.159. Estimated glomerular filtration rate calculated using the CKD-EPI equation. ANION GAP 17 10 - 20 mmol/L [facility] Blood 04/16/2018 10:1 8 AM EDT 04/16/2018 10:48 AM EDT us Joy Rodríguez PA-C LAB BLOOD BKR ORDERABLES Final Result [address] [address] * (ABNORMAL) CBC (04/16/2018 10:18 AM EDT) WBC 7.60 3.40 - 11.20 K/uL [facility] RBC 4.88(H) 3.80 - 4.80 M/uL [facility] HGB 15.0 12.0 - 15.0 g/dL [facility] HCT 43.1 36.0 - 46.0 % [facility] PLT 258 130 - 400 K/uL [facility] MCV 88.3 79.0 - 98.0 fL [facility] MCH 30.7 27.0 - 34.8 pg [facility] MCHC 34.8 31.5 - 36.0 g/dL [facility] RDW 12.1 10.8 - 14.6 % [facility] MPV 10.0 9.4 - 12.4 fl [facility] NRBC 0.00 /100 WBCs [facility] ABSOLUTE NRBC 0.00 K/uL [facility] Blood 04/16/2018 10:1 8 AM EDT 04/16/2018 10:48 AM EDT us Joy Rodríguez PA-C LAB BLOOD BKR ORDERABLES Final Result [facility] [address] [place] [address] documented in this encounter Visit Diagnoses Diagnosis [...] documented as of this encounter Care Teams Keeler Polygraph Operator Relationship Specialty Start Date End Date Eleanor Rolon MD [address] [place] [address] [email or web address] PCP - General Internal Medicine 12/30/17 documented as of this encounter Additional Source Comments The information contained in this document represents components of the legal health record. It is not the complete legal health record.[facility]
--- OUTSIDE RECORDS SUMMARY | 2025-08-11 09:01 | XMS_ITS | Encounter Summary ---
Author Organization [facility] Address 399 [employer] [facility] [address] [place] [address] Phone Care Team Providers Care High School Director Name Role Phone Eleanor Rolon MD Primary Care Provider Encounter Details Date Type Department Care Team (Latest Contact Info) Description 03/30/2019 Transcribe Orders Virtual Department [address] [place] [address] Joy Rodríguez PA-C [address], [address] [place] [address] [email or web address] Fatty liver (Primary Dx); Liver cyst Social [...] documented as of this encounter Care Teams High School Director Relationship Specialty Start Date End Date Eleanor Rolon MD [address] [place] [address] [email or web address] PCP - General Internal Medicine 12/30/17 documented as of this encounter Additional Source Comments The information contained in this document represents components of the legal health record. It is not the complete legal health record.[facility]
--- OUTSIDE RECORDS SUMMARY | 2025-08-11 09:01 | XMS_ITS | Continuity of Care Document ---
Author Organization [place] [facility], [facility] Address [address] [place] [address] Care Team Providers Care Crew Boat Operator Name Role Phone DARIELA MCCANN Primary Care Provider Assessment Encounter Date Assessment Date Assessment LastModified by Organization Details LastModified Time 06/08/2025 06/08/2025 59-year-old female with allergic rhinitis and Davidson's presents for evaluation of left-sided facial swelling for one day. Exam reveals mildly enlarged left parotid gland. Oral mucosa with adequate salivary flow. No obvious salivary duct stone. No history of sjogrens disease or immunodeficien cy. Recommend good oral hydration, avoidance of alcohol-based mouthwashes, use of sour sialogogues, and warm compresses 10-15 minutes TID followed by firm pwwn-cm-qqmbf palpation to increase salivary production. Recommend alternating between tylenol and ibuprofen for pain management. Patient will contact me via the portal with lack of improvement or development of new or worsening symptoms. [email or web address] Not available 06/08/2025 16:40:08 Plan of Treatment Reminders Order Date Submit Date Provider Last Modified By Organization Details Last Modified Time Details Appointments None record ed. Lab None record ed. Referral None record ed. Procedures None record ed. Surgeries None record ed. Imaging None record ed. Medication Orders None record ed. Patient TargetsNo targets recorded. Patient InstructionsNo instructions recorded. Reason for Referral None Reported. Problems Name Problem SNOMED Code Status Onset Date Resolution Date Notes Provider Name and Address Organization Details Recorded Time Dysfuncti on of eustachia n tube 58560191 Active 2013 Eustachia n tube dysfuncti on; CMS Risk: moderate risk CMS Treatment : new problem (to examiner) : no additiona l workup planned N ote: Date Diagnosed : 4 2:43 PM (381.81) Not Available [facility] 4 03:15:37 Disorder of pharynx 36174056 Active 2013 Vestibuli tis Nasal; CMS Risk: moderate risk CMS Treatment : new problem (to examiner) : no additiona l workup planned N ote: Date Diagnosed : 4 2:43 PM (478.20) Not Available [facility] 4 03:15:38 Cough 93795069 Active 2013 Cough; CMS Risk: moderate risk CMS Treatment : new problem (to examiner) : no additiona l workup planned N ote: Date Diagnosed : 4 2:43 PM (786.2) Not Available [facility] 4 03:15:37 Sensorine ural hearing loss of bilateral ears 878358256 Active 2013 Sensorine ural HL, bilateral ; Note: Date Diagnosed : 4 3:55 PM (389.18) Not Available [facility] 4 03:15:38 Allergic rhinitis 76725167 Active 2014 Allergic rhinitis: Due to other allergen; Note: Date Diagnosed : 11/08/2014 3:59 PM (477.8) Not Available [facility] 4 03:15:37 Bilateral tinnitus 55550253306 02 Active 2018 Tinnitus, bilateral ; Note: Date Diagnosed : 03/16/2019 4:28 PM (H93.13) Not Available [facility] 4 03:15:37 Sensorine ural hearing loss 62664920 Active 2018 Sensorine ural hearing loss, unilatera l, right ear, with unrestric christian hearing on the contralat eral side; Note: Date Diagnosed : 03/16/2019 4:28 PM (H90.41) Not Available [facility] 4 03:15:37 Localized eruption of skin 959792192 Active 2018 Rash and other nonspecif ic skin eruption; Note: Date Diagnosed : 03/16/2019 4:28 PM (R21) Not Available [facility] 4 03:15:38 Chronic sinusitis 27436718 Active 2023 DREW BARCENAS PA-C [address] [facility], [place], [address] , [facility] 4 14:17:12 Nasal congestio n 36057110 Active 2024 DREW BARCENAS PA-C [address], [place], [address] , [facility] - [facility] 5 15:56:25 Acute sinusitis 84615734 Active 2024 DREW BARCENAS PA-C [address],[place] [facility], [place], [address] , [facility] - [facility] 5 15:56:29 Non-aller gic rhinitis 45362224763 1 Active 2024 DREW BARCENAS PA-C [address],[place] [facility], [facility] [place], [address] , [facility] - [facility] 5 15:56:35 Seasonal allergic rhinitis 109774706 Active 2024 DREW BARCENAS PA-C [address],[place] [facility], [facility] [place], [address] , [facility] - [facility] 5 15:56:35 Acute sialoaden itis 050944629 Active 2024 TAMAR SARMIENTO PA-C [address],[place] [facility], [place], [address] , [facility] - [facility] 5 14:07:04 Problem Notes None recorded. Procedures Surgical History Date Name Laterality Status Provider Name and Address Organization Details Recorded Time 03/31/20 25 Allergy Testing-Full completed LULI ARCE [address], [place], [address], [facility] - [facility] 03/31/2025 15:25:04 12/30/19 25 Allergy Testing Modified- Quantitative Testing (MQT) Only completed LULI ARCE 100 [facility] [address], [place], [address], [facility] - [facility] 12/29/2024 16:00:17 10/27/19 25 Comp Audio with Tymps - 11103 & 28948 completed SHIMAKATHIE JULIEN [facility] 100 [facility], [place], [address], [facility] - [facility] 10/27/2024 15:46:42 Imaging Results None recorded. Procedure Notes None recorded. Medical Equipment None Reported. Allergies Allergen ID Allergen Name Allergen Category Reaction Reaction Severity Criticality Documentation Date Start Date Code Code System Note Provider Name and Address Organization Details Recorded Time 014302 Substance with sulfonami de structure and antibacte rial mechanism of action (substanc e) medicatio n other Not available Not available 02/17/2024 54740 8003 SNOMED React ion: unkno wn, unspe cifie d;; Not Available [facility] 4 01:25:06 049766 Product containin g penicilli n (product) medicatio n other Not available Not available 02/17/2024 36593 8001 SNOMED React ion: unkno wn, unspe cifie d;; Not Available [facility] 4 01:25:07 247059 ciproflox acin medicatio n Not available Not available Not available 10/27/2024 2551 RxNorm Lien nolan [place] - [facility] 5 15:00:00 393229 oxycodone medicatio n vomiting mild Not available 12/29/2024 7804 RxNorm TUAN BACH, [facility] [address] [facility], [address], [place], [address], [facility] - [facility] 5 15:43:42 364320 peanut allergeni c extract food,medi cation Not available Not available Not available 06/15/2025 40538 8 RxNorm Patricia nolan [place] - [facility] 5 15:41:44 740670 garlic preparati on food,medi cation vomiting severe Not available 06/15/2025 22946 7 RxNorm Patricia Steen null, [place] - [facility] 5 15:41:44 211866 onion extract food,medi cation nausea moderate Not available 06/15/2025 69780 69 RxNorm Patricia Steen null, [place] - [facility] 5 15:41:44 481600 pineapple extract food vomiting moderate Not available 06/15/2025 38643 74 RxNorm Patricia Steen null, [place] - [facility] 15:41:44 864000 clove preparati on food Not available Not available Not available 06/15/2025 55289 95 RxNorm Patricia Steen null, [place] - [facility] 15:41:44 320730 black pepper preparati on food Not available Not available Not available 06/15/2025 42402 4 RxNorm Patricia Steen null, [place] - [facility] 5 15:41:44 668893 james pepper food Not available Not available Not available 06/15/2025 Patricia Steen null, [place] - [facility] 5 15:41:44 520440 cayenne pepper fruits food Not available Not available Not available 06/15/2025 Patricia Steen null, [place] - [facility] 5 15:41:44 384021 pepper extract Not available Not available Not available Not available 06/15/2025 42141 85 RxNorm Patricia Steen null, [place] - [facility] 5 15:41:44 544412 nut - unspecifi ed food Not available Not available Not available 06/15/2025 Patricia Steen null, [place] - [facility] 5 15:41:44 529375 coconut extract food,medi cation facial swelling moderate Not available 06/15/2025 17741 48 RxNorm Patricia Steen null, [place] - [facility] 5 15:41:44 793846 iron-dext ran complex medicatio n anaphylax is severe Not available 06/15/2025 5992 RxNorm Patricia Steen ZEE nolan - [facility] 15:42:15 837413 peanut oil food,medi cation respirato ry distress moderate Not available 06/15/2025 09654 RxNorm Patricia nolanEZE - [facility] 15:42:15 Medications Name Sig Start Date Stop [...] mg tablet 09/27 completed Medicati on ID: [id number] Re ason: () Brand Name: predniso ne [...] mg tablet 09/27 completed Medicati on ID: 88457 Re ason: () Brand Name: ciproflo xacin [...] both nostrils 12/29 completed Medicati on ID: 02200 Du ration Value: 10 Prescri bed By [...] Updated DateTime 06/08/2025 158.75 cm 33.3 kg/m2 92687.59 g Suzy Pedroza [facility] 06/08/2025 13:42:38 Social History None recorded. Functional Status None recorded. Mental Status None recorded. Family History Nothing Reported. Medical History Condition Response Allergies/Hayfever Y Heart Problems Y Anxiety N Tonsil Infections N Emphysema N Migraines N Thyroid Problems Y Developmental Delay N COPD N Depression N Glaucoma N Nasal or Sinus Problems Y Anemia Y Immune System Disorder N Anesthesia Complications Y Heart Attack ([place]) N Other Skin Condition Y Diabetes N [...] ICD10 Code Diagnosis IMO Codes Diagnosis Note [id number] TAMAR SARMIENTO PA-C [facility] [address] [place] [address] 06/03/2025 14:17:08 06/03/2025 15:05:46 Allergic rhinitis 57444778 J30.89 [id number] TAMAR SARMIENTO PA-C [facility] [address] [place] [address] 06/08/2025 13:37:04 06/08/2025 13:58:35 Acute sialoadenitis 440575753 K11.21 6386459 Health Concerns Section Related Observation LastModified by Organization Detai ls LastModified Time None Recorded Concern Status LastModified by Organization Details LastModified Time None Recorded Payers Encounter Date Sequence Insurance Name Policy Number Policy Jansen Covered Member ID Jansen Member ID Guarantor Name 06/08/2025 1 [facility] ([facility] [place]) [id number] 1 Daren Cramer Joe [id number] Xochitl Diaz Notes Date Note Type Note Provider Name and Address Organization Details Recorded Time 06/08/2025 text/html ROS as noted in the [...] of parathyroid tumor, davidson's LYDIA SINGH MD [address] [place] [address], [phone], [facility] - [facility] 06/08/2025 17:14:55 OBGyn Episode No OBEpisode recorded.
--- OUTSIDE RECORDS SUMMARY | 2025-08-11 09:01 | XMS_ITS | Encounter Summary ---
Author Organization [facility] Address 399 [facility] [address] [place] [address] Phone Care Team Providers Care Concrete Polisher Name Role Phone Eleanor Rolon MD Primary Care Provider Encounter Details Date Type Department Care Team (Latest Contact Info) Description 02/18/2022 Transcribe Orders Virtual Department 30 [place] [address] Brittney James PA [address] [place] [address] [email or web address] Low back pain, unspecified back pain laterality, [...] disease at the lumbosacral junction. POS - [id number] Narrative 02/21/2022 12:38 PM EDT COMPARISON: 05/20/2019 [...] disc disease at the lumbosacraljunction. POS - [id number] Brittney ANAND IMG XR SPINE Final Result documented in this encounter Visit Diagnoses Diagnosis Low back pain, unspecified back pain laterality, unspecified chronicity, unspecified whether sciatica present- Primary Low back pain, unspecified back pain laterality, unspecified chronicity, unspecified whether sciatica present documented in this encounter Care Teams Concrete Polisher Relationship Specialty Start Date End Date Eleanor Rolon MD [address] [place] [address] (work) [email or web address] PCP - General Internal Medicine 12/30/17 documented as of this encounter Additional Source Comments The information contained in this document represents components of the legal health record. It is not the complete legal health record.[facility]
--- OUTSIDE RECORDS SUMMARY | 2025-08-11 09:01 | XMS_ITS | Encounter Summary ---
Author Organization [facility] Address [address] [facility] [address] [place] [address] Phone Care Team Providers Care Solar Designer/Installer Name Role Phone Eleanor Rolon MD Primary Care Provider Encounter Details Date Type Department Care Team (Late st Contact Info) Description 07/30/2019 Ancillary Orders [facility], X-Ray - [address] [address] Brittney James PA [address] [place] [address] [email or web address] Social History Tobacco Use Types Packs/Day [...] documented as of this encounter Care Teams Solar Designer/Installer Relationship Specialty Start Date End Date Eleanor Rolon MD [address] [place] [email or web address] PCP - General Internal Medicine 12/30/17 documented as of this encounter Additional Source Comments The information contained in this document represents components of the legal health record. It is not the complete legal health record.[facility]
--- OUTSIDE RECORDS SUMMARY | 2025-08-11 09:01 | XMS_ITS | Encounter Summary ---
Author Organization [facility] Address 399 [facility] [address] [place] [address] Phone Care Team Providers Care Tooth Cutter Spur Name Role Phone Eleanor Rolon MD Primary Care Provider Encounter Details Date Type Department Care Team (Latest Contact Info) Description 05/31/2020 Transcribe Orders Virtual Department 30 [place] [address] Brittney James PA [address] [place] [address] [email or web address] [place] on back (Primary Dx) Social History [...] documented as of this encounter Care Teams Tooth Cutter Spur Relationship Specialty Start Date End Date Eleanor Rolon MD [address] [place] [address] [email or web address] PCP - General Internal Medicine 12/30/17 documented as of this encounter Additional Source Comments The information contained in this document represents components of the legal health record. It is not the complete legal health record.[facility]
--- OUTSIDE RECORDS SUMMARY | 2025-08-11 09:01 | XMS_ITS | Encounter Summary ---
Author Organization [facility] Address 399 [facility] [address] [place] [address] Phone Care Team Providers Care Facility Administrator Name Role Phone Eleanor Rolon MD Primary Care Provider Encounter Details Date Type Department Care Team (Late st Contact Info) Description 06/16/2018 Procedure Pass [facility] Endoscopy Admitting Dept Virtual Department 30 [place] [address] Social History Tobacco Use Types Packs/Day Years [...] documented as of this encounter Care Teams Facility Administrator Relationship Specialty Start Date End Date Eleanor Rolon MD [address] [place] [phone] [email or web address] PCP - General Internal Medicine 12/30/17 documented as of this encounter Additional Source Comments The information contained in this document represents components of the legal health record. It is not the complete legal health record.[facility]
--- OUTSIDE RECORDS SUMMARY | 2025-08-11 09:01 | XMS_ITS | Continuity of Care Document ---
Author Organization [place] - [facility], [facility] Address [address] [place] [address] Care Team Providers Care Buckle Inspector Name Role Phone DARIELA MCCANN Primary Care Provider Assessment Encounter Date Assessment Date Assessment LastModified by Organization Details LastModified Time 06/03/2025 06/03/2025 The patient has significant allergies. [...] nasal sprays to help manage their symptoms. [email or web address] Not available 06/03/2025 15:02:57 Plan of Treatment Reminders Order Date Submit Date Provider Last Modified By Organization Details Last Modified Time Details Appointments None recorded. Lab None recorded. Referral None recorded. Procedures allergen immunothera py; multiple injections (PROC) 2024 025 [email or web address] Not available 08:39:02 Surgeries None recorded. Imaging None recorded. Medication Orders EpiPen 2-Antoine 0.3 mg/0.3 mL injection, auto-inject or 2024 025 [facility], [address] [place] [address], [address], 5 05:01:42 Patient TargetsNo targets recorded. Patient InstructionsNo instructions recorded. Reason for Referral None Reported. Problems Name Problem SNOMED Code Status Onset Date Resolution Date Notes Provider Name and Address Organization Details Recorded Time Dysfuncti on of eustachia n tube 78151237 Active 2013 Eustachia n tube dysfuncti on; CMS Risk: moderate risk CMS Treatment : new problem (to examiner) : no additiona l workup planned N ote: Date Diagnosed : 4 2:43 PM (381.81) Not Available [facility] 4 03:15:37 Disorder of pharynx 81445958 Active 2013 Vestibuli tis Nasal; CMS Risk: moderate risk CMS Treatment : new problem (to examiner) : no additiona l workup planned N ote: Date Diagnosed : 4 2:43 PM (478.20) Not Available [facility] 4 03:15:38 Cough 11685569 Active 2013 Cough; CMS Risk: moderate risk CMS Treatment : new problem (to examiner) : no additiona l workup planned N ote: Date Diagnosed : 4 2:43 PM (786.2) Not Available [facility] 4 03:15:37 Sensorine ural hearing loss of bilateral ears 778727847 Active 2013 Sensorine ural HL, bilateral ; Note: Date Diagnosed : 4 3:55 PM (389.18) Not Available [facility] 4 03:15:38 Allergic rhinitis 51559922 Active 2014 Allergic rhinitis: Due to other allergen; Note: Date Diagnosed : 11/08/2014 3:59 PM (477.8) Not Available [facility] 4 03:15:37 Bilateral tinnitus 59795082183 02 Active 2018 Tinnitus, bilateral ; Note: Date Diagnosed : 03/16/2019 4:28 PM (H93.13) Not Available [facility] 4 03:15:37 Sensorine ural hearing loss 67802944 Active 2018 Sensorine ural hearing loss, unilatera l, right ear, with unrestric christian hearing on the contralat eral side; Note: Date Diagnosed : 03/16/2019 4:28 PM (H90.41) Not Available [facility] 4 03:15:37 Localized eruption of skin 149413435 Active 2018 Rash and other nonspecif ic skin eruption; Note: Date Diagnosed : 03/16/2019 4:28 PM (R21) Not Available [facility] 4 03:15:38 Chronic sinusitis 20347598 Active 2023 DREW BARCENAS PA-C [address], [place], [address] , [facility] - [facility] 4 14:17:12 Nasal congestio n 64244181 Active 2024 DREW BARCENAS PA-C [address] [employer] [place],[address] [facility], [place], [address] , [facility] - [facility] [place] 5 15:56:25 Acute sinusitis 77701309 Active 2024 RDEW BARCENAS PA-C [address] [employer] [place],[address] [facility], [place], [address] , [facility] - [facility] [place] 5 15:56:29 Non-aller gic rhinitis 84190294952 1 Active 2024 DREW ABRCENAS PA-C [address] [employer] [place],[address] [facility], [place], [address] , [facility] - [facility] [place] 5 15:56:35 Seasonal allergic rhinitis 853589949 Active 2024 DREW BARCENAS PA-C [address], [place], [address] , [facility] - [facility] [place] 5 15:56:35 Acute sialoaden itis 720445017 Active 2024 TAMAR SARMIENTO PA-C [address] [employer] [place],[address], [place], [address] , [place] - [facility] [place] 5 14:07:04 Problem Notes None recorded. Procedures Surgical History Date Name Laterality Status Provider Name and Address Organization Details Recorded Time 03/31/20 25 Allergy Testing-Full completed [facility]I [facility]CE [address] [facility] [place],[address], [address], [facility] 03/31/2025 15:25:04 12/30/19 25 Allergy Testing Modified- Quantitative Testing (MQT) Only completed LULI ARCE 100 [facility],[address], [address], [facility] - [facility] 12/29/2024 16:00:17 10/27/19 25 Comp Audio with Tymps - 46214 & 58639 completed SHIMA JULIEN, [facility] [address] [facility],[place] [address], [place], [address], [facility] 10/27/2024 15:46:42 Imaging Results None recorded. Procedure Notes None recorded. Medical Equipment None Reported. Allergies Allergen ID Allergen Name Allergen Category Reaction Reaction Severity Criticality Documentation Date Start Date Code Code System Note Provider Name and Address Organization Details Recorded Time 815942 Substance with sulfonami de structure and antibacte rial mechanism of action (substanc e) medicatio n other Not available Not available 02/17/2024 54005 8003 SNOMED React ion: unkno wn, unspe cifie d;; Not Available [facility] 4 01:25:06 377342 Product containin g penicilli n (product) medicatio n other Not available Not available 02/17/2024 88262 8001 SNOMED React ion: unkno wn, unspe cifie d;; Not Available [facility] 4 01:25:07 213666 ciproflox acin medicatio n Not available Not available Not available 10/27/2024 2551 RxNorm Lien nolan, [facility] 5 15:00:00 014578 oxycodone medicatio n vomiting mild Not available 12/29/2024 7804 RxNorm LULI ARCE [facility] [address], [place], [address], [place] - [facility] [place] 5 15:43:42 152111 peanut allergeni c extract food,medi cation Not available Not available Not available 06/15/2025 64006 8 RxNorm Patricia Steen null, [place] - [facility] [place] 15:41:44 157229 garlic preparati on food,medi cation vomiting severe Not available 06/15/2025 70549 7 RxNorm Patricia Steen null, [place] - [facility] [place] 15:41:44 870699 onion extract food,medi cation nausea moderate Not available 06/15/2025 14219 69 RxNorm Patricia Steen null, [place] - [facility] [place] 15:41:44 051498 pineapple extract food vomiting moderate Not available 06/15/2025 82809 74 RxNorm Patricia Steen null, [place] - [facility] [place] 15:41:44 225332 clove preparati on food Not available Not available Not available 06/15/2025 61661 95 RxNorm Patricia Steen null, [place] - [facility] [place] 15:41:44 809160 black pepper preparati on food Not available Not available Not available 06/15/2025 00549 4 RxNorm Patricia Steen null, [place] - [facility] [place] 15:41:44 866566 james pepper food Not available Not available Not available 06/15/2025 Patricia Steen null, [place] - [facility] [place] 5 15:41:44 002797 cayenne pepper fruits food Not available Not available Not available 06/15/2025 Patricia Steen null, [place] - [facility] [place] 5 15:41:44 190214 pepper extract Not available Not available Not available Not available 06/15/2025 83814 85 RxNorm Patricia Steen null, [place] - [facility] [place] 5 15:41:44 183143 nut - unspecifi ed food Not available Not available Not available 06/15/2025 Patricia nolan, [place] - [facility] [place] 15:41:44 400833 coconut extract food,medi cation facial swelling moderate Not available 06/15/2025 18304 48 RxNorm Patricia nolan, [place] - [facility] [place] 15:41:44 279809 iron-dext ran complex medicatio n anaphylax is severe Not available 06/15/2025 5992 RxNorm Patricia Steen null, [place] - [facility] [place] 15:42:15 883825 peanut oil food,medi cation respirato ry distress moderate Not available 06/15/2025 70305 RxNorm Patricia nolan, [place] - [facility] [place] 15:42:15 Medications Name Sig Start Date Stop [...] mg tablet 09/27 completed Medicati on ID: [id number] Re ason: () Brand Name: predniso ne [...] mg tablet 09/27 completed Medicati on ID: [id number] Re ason: () Brand Name: ciproflo xacin [...] both nostrils 12/29 completed Medicati on ID: [id number] Du ration Value: 10 Prescri bed By [...] Updated DateTime 06/03/2025 158.75 cm 33.3 kg/m2 21616.59 g Patricia Steen [place] - [facility] 06/03/2025 14:47:43 Social History None recorded. Functional Status None recorded. Mental Status None recorded. Family History Nothing Reported. Medical History Condition Response Allergies/Hayfever Y Heart Problems Y Anxiety N Tonsil Infections N Emphysema N Migraines N Thyroid Problems Y Glaucoma N Depression N COPD N Developmental Delay N Nasal or Sinus Problems Y Anemia Y Immune System Disorder N Anesthesia Complications Y Heart Attack (CA) N Other Skin Condition Y Diabetes N Rhinitis Y Bleeding Disorder N Food Allergy Y Arthritis Y Hearing Loss Y Hyperlipidemia N Cancer N Eczema Y Stroke N Dementia N Nasal polyps N Asthma Y High Cholesterol N Sleep Disorder N GERD/Reflux N Liver Disease N Headaches Y Fibromyalgia N Hypertension N Speech Delay N Kidney Disease N Gynecological HistoryNo gynecological history recorded. Obstetrics History GPAL:G 0 P 0 0 0 0 Past Encounters Encounter ID Performer Location Encounter Start Date Encounter Closed Date Diagnosis/Indication Diagnosis SNOMED-CT Code Diagnosis ICD10 Code Diagnosis IMO Codes Diagnosis Note [id number] TAMAR SARMIENTO PA-C [facility] [address] [address] 06/03/2025 14:17:08 06/03/2025 15:05:46 Allergic rhinitis [id number] J30.89 Health Concerns Section Related Observation LastModified by Organization Detai ls LastModified Time None Recorded Concern Status LastModified by Organization Details LastModified Time None Recorded Payers Encounter Date Sequence Insurance Name Policy Number Policy Jansen Covered Member ID Jansen Member ID Guarantor Name 06/03/2025 1 [facility] [id number] 1 Daren Diaz [id number] Xochitl Olivares Yfniman Leyvabes Notes Date Note Type Note Provider Name and Address Organization Details Recorded Time 06/03/2025 text/html ROS as noted in the HPI 59yo female presents for allergy testing results. Patient with moderate sensitivities to weeds, molds, grasses, and dog. She reports chronic nasal congestion despite daily Claritin. She uses saline lavage as needed. history of recurrent sinusitis, complicated by antibiotic sensitivities. She is followed by pulmonology for asthma, which she reports is well-controlled. History of parathyroid tumor, davidson's THOMAS MARK MD [address] [place] [address], [phone], [facility] - [facility] 06/05/2025 10:12:17 OBGyn Episode No OBEpisode recorded.
--- OUTSIDE RECORDS SUMMARY | 2025-08-11 09:01 | XMS_ITS | Encounter Summary ---
Author Organization [facility] Address [address] [facility] [address] [place] [address] Phone Care Team Providers Care Instructor Of Nursing Name Role Phone Eleanor Rolon MD Primary Care Provider Encounter Details Date Type Department Care Team (Late st Contact Info) Description 05/20/2019 Ancillary Orders [facility], X-Ray - [address] [address] Brittney James PA [address] [place] [address] [email or web address] Social History Tobacco Use Types Packs/Day [...] L3-L4 and L5-S1. Normal alignment. POS - [id number] Narrative 05/20/2019 6:01 PM EDT XR LUMBOSACRAL [...] at L3-L4 and L5-S1.Normal alignment. POS - [id number] us Brittney ANAND IMG XR SPINE Final Result * XR HIP 2 VW LEFT PLUS PELVIS (05/20/2019 4:18 PM EDT) Anatomical Region Laterality Modality Hip Left Radiographic Carmen ging 05/20/2019 5:56 PM EDT Impressions 05/20/2019 5:59 PM EDT Mild hip degenerative arthrosis. Sclerotic changes along the iliac sides of the sacroiliac joints, unchanged compared with 12/30/2012. POS - [id number] Narrative 05/20/2019 5:59 PM EDT EXAM: XR [...] sacroiliac joints,unchanged compared with 12/30/2012. POS - [id number] Brittney ANAND IMG XR PELVIS Final Result documented in this [...] documented as of this encounter Care Teams Instructor Of Nursing Relationship Specialty Start Date End Date Eleanor Rolon MD [address] [place] [address] [email or web address] PCP - General Internal Medicine 12/30/17 documented as of this encounter Additional Source Comments The information contained in this document represents components of the legal health record. It is not the complete legal health record.[facility]
--- OUTSIDE RECORDS SUMMARY | 2025-08-11 09:02 | XMS_ITS | Encounter Summary ---
Author Organization [facility] Address [address] [facility] [address] [place] [address] Phone Care Team Providers Care Air Analysis Technician Name Role Phone Eleanor Rolon MD Primary Care Provider Encounter Details Date Type Department Care Team (Latest Contact Info) Description 12/25/2020 Transcribe Orders Virtual Department [address] [place] [address] Brittney James PA [address] [place] [address] [email or web address] Fever, unspecified fever cause (Primary Dx); SOB [...] be available within 24 to 48 hrs. [facility] Symptomatic? YES [facility] 12/26/2020 7:40 AM EDT 12/26/2020 7:07 PM EDT us Brittney ANAND LAB GENERAL ORDERABLES Final Re sult [facility] [address] [place] [address] [facility] [address] [place] [phone] documented in this encounter Visit Diagnoses Diagnosis [...] documented as of this encounter Care Teams Air Analysis Technician Relationship Specialty Start Date End Date Eleanor Rolon MD [address] [place] [address] [email or web address] PCP - General Internal Medicine 12/30/17 documented as of this encounter Additional Source Comments The information contained in this document represents components of the legal health record. It is not the complete legal health record.[facility]
[2025-08-11 10:33] LABS: Alanine Aminotransferase 46 U/L (0-31); Albumin Level 4.3 g/dL (3.5-5.0); Alkaline Phosphatase 83 U/L (39-117); Anion Gap 9 (12-20); Aspartate Amino Transferase 43 U/L (5-31); Blood Urea Nitrogen 14 mg/dL (9-16); Calcium 9.1 mg/dL (8.4-10.2); Carbon Dioxide 27 mmol/L (22-29); Chloride 107 mmol/L (96-108); Estimated Glomerular Filt Rate > 60; Potassium 3.9 mmol/L (3.3-5.1); Sodium 139 mmol/L (135-145); Total Protein 8.1 g/dL (6.5-8.0)
[2025-08-11 10:52] LABS: Free T4 (Free Thyroxine) 1.18 ng/dL (0.71-1.85)
[2025-08-11 11:09] LABS: Folate 10.2 ng/mL (> or = 4.0); Vitamin B12 1460 pg/mL (200-900)
== END 2025-08-11 08:34 | disposition home or self-care (01) ==
LOC: HO.US 08:33
DX: E03.9 Hypothyroidism, unspecified (principal); Z86.39 Personal history of other endocrine, nutritional and metabolic disease; E53.8 Deficiency of other specified B group vitamins; Z13.21 Encounter for screening for nutritional disorder; Z13.1 Encounter for screening for diabetes mellitus; Z00.00 Encounter for general adult medical examination without abnormal findings
CPT/HCPCS: 36415; 76536; 80053; 82607; 82746; 83036; 84439

== ENCOUNTER → 2025-08-11 08:36 | Outpatient (BNV) | payer OTHER, SELFPAY | PROVIDERS: Visit Provider Radiology Diagnostic Radiology | DX: E03.9 Hypothyroidism, unspecified (principal) | CPT/HCPCS: 76536 ==

== ENCOUNTER 2025-08-30 08:26 | Outpatient (REF) | payer OTHER, SELFPAY ==
--- NOTE | ~2025-08-30 | MM_ITS ---
EXAMINATION: MM SCREENING DIGITAL BREAST TOMOSYNTHESIS, BILATERAL CLINICAL INFORMATION: Screening. Asymptomatic. COMPARISON: Comparison made to multiple prior, most recent August 02, 2021, and most remote January 05, 2015. TECHNIQUE: Digital breast tomosynthesis is performed in mediolateral oblique and craniocaudal views along with computer-aided detection (CAD). Synthesized 2D images are generated from the tomosynthesis. FINDINGS: BREAST COMPOSITION: The breasts are heterogeneously dense, which may obscure small masses. BILATERAL BREASTS: No significant masses, suspicious calcifications or other abnormalities are seen in either breast. MM/MM tomosynthesis screening BI IMPRESSION: BILATERAL BREASTS: Negative, no mammographic evidence of malignancy. Normal interval follow-up is recommended in 12 months. ASSESSMENT: BI-RADS: Category 1: Negative RECOMMENDATION: Routine annual mammography screening. FOLLOW-UP: 1 year F/U This examination should not preclude the clinical evaluation of a suspicious palpable abnormality. This patient's information was entered into a reminder system with a target due date for their next mammogram. Electronically signed by: Erica Tang MD 08/30/2025 06:57 PM EST
--- NOTE | ~2025-08-30 | MM_ITS ---
EXAMINATION: DXA BONE DENSITY AXIAL HISTORY: Z78.0 - Asymptomatic menopausal state TECHNIQUE: [place] Dual energy absorptiometry (DEXA) of the lumbar spine, total left hip, and femoral neck was performed. COMPARISON: Comparison is made with the prior examination dated 08/02/2021. FINDINGS: The bone mineral density of the lumbar spine is 1.160 g/cm2, corresponding to a T-score of -0.2, and a Z-score of 0.5. This is indicative of normal bone mineral density. This represents a BMD change of 1.5% compared to the prior exam. This is not statistically significant. The bone mineral density of the left total hip is 0.840 g/cm2, corresponding to a T-score of -1.3, and a Z-score of -0.8. This is indicative of osteopenia. This represents a BMD change of 2.6% compared to the prior exam. This is not statistically significant. The bone mineral density of the left femoral neck is 0.851 g/cm2, corresponding to a T-score of -1.3, and a Z-score of -0.5. This is indicative of osteopenia. This represents a BMD change of 7.3% compared to the prior exam. FRACTURE RISK: The FRAX index suggests a ten year probability of major osteoporotic fracture of 19.8%, and of hip fracture 1.8%. MM/XR DEXA axial skeleton IMPRESSION: Based on bone mineral density, and according to World Health Organization (WHO) criteria, the diagnosis is consistent with osteopenia. Statistically, 68% of repeat scans fall within 1 SD (+/- 0.010 g/cm2 for AP spine L1-L4) and 1 SD (+/- 0.012 g/cm2 for femur total) FRAX is a trademark of the [employer] Met[employer], a World Health Organization (WHO) Collaborating Center. Electronically signed by: Raúl Joshi MD 08/30/2025 09:40 AM [facility] [place]
--- OUTSIDE RECORDS SUMMARY | 2025-08-30 08:43 | XMS_ITS | Encounter Summary ---
Author Organization [facility] Address [address] [facility] [address] [place] [phone] Phone Care Team Providers Care Landscape Painter Name Role Phone Eleanor Rolon MD Primary Care Provider Encounter Details Date Type Department Care Team (Latest Contact Info) Description 04/16/2018 Transcribe Orders [facility] [address] [place] [address] Joy Rodríguez PA-C [address] [place] [address] [email or web address] Fatty liver (Primary Dx) Social History Tobacco [...] EDT) SODIUM 139 133 - 146 mmol/L [facility] POTASSIUM 4.2 3.3 - 5.1 mmol/L [facility] CHLORIDE 99 96 - 108 mmol/L [facility] CO2 27 21 - 35 mmol/L [facility] BUN 12 6 - 19 mg/dL [facility] CREATININE 0.60 0.5 - 1.5 mg/dL [facility] GLUCOSE 106(H) 70 - 99 mg/dL [facility] ALBUMIN 4.3 3.9 - 4.8 g/dL [facility] TOTAL PROTEIN 7.6 6.5 - 8.0 g/dL [facility] CALCIUM 9.6 8.4 - 10.3 mg/dL [facility] ALKALINE PHOSPHATASE 83 39 - 117 U/L [facility] TOTAL BILIRUBIN 0.6 0.0 - 1.2 mg/dL [facility] AST 21 0 - 37 U/L [facility] ALT 23 0 - 40 U/L [facility] GLOBULIN 3.3 1 - 4.8 g/dL [facility] EGFR 104 >59 mL/min/1.7 3m2 [facility] Comment:If patient is black, multiply result by 1.159. Estimated glomerular filtration rate calculated using the CKD-EPI equation. ANION GAP 17 10 - 20 mmol/L [facility] Blood 04/16/2018 10:1 8 AM EDT 04/16/2018 10:48 AM EDT us Joy Rodríguez PA-C LAB BLOOD BKR ORDERABLES Final Result [address] [address] * (ABNORMAL) CBC (04/16/2018 10:18 AM EDT) WBC 7.60 3.40 - 11.20 K/uL [facility] RBC 4.88(H) 3.80 - 4.80 M/uL [facility] HGB 15.0 12.0 - 15.0 g/dL [facility] HCT 43.1 36.0 - 46.0 % [facility] PLT 258 130 - 400 K/uL [facility] MCV 88.3 79.0 - 98.0 fL [facility] MCH 30.7 27.0 - 34.8 pg [facility] MCHC 34.8 31.5 - 36.0 g/dL [facility] RDW 12.1 10.8 - 14.6 % [facility] MPV 10.0 9.4 - 12.4 fl [facility] NRBC 0.00 /100 WBCs [facility] ABSOLUTE NRBC 0.00 K/uL [facility] Blood 04/16/2018 10:1 8 AM EDT 04/16/2018 10:48 AM EDT us Joy Rodríguez PA-C LAB BLOOD BKR ORDERABLES Final Result [facility] [address] [place] [address] documented in this encounter Visit Diagnoses Diagnosis [...] documented as of this encounter Care Teams Landscape Painter Relationship Specialty Start Date End Date Eleanor Rolon MD [address] [place] [address] [email or web address] PCP - General Internal Medicine 12/30/17 documented as of this encounter Additional Source Comments The information contained in this document represents components of the legal health record. It is not the complete legal health record.[facility]
--- OUTSIDE RECORDS SUMMARY | 2025-08-30 08:43 | XMS_ITS | Encounter Summary ---
Author Organization [facility] Address [address] [facility] [address] [place] [address] Phone Care Team Providers Care Finish Repair Worker Name Role Phone Eleanor Rolon MD Primary Care Provider [phone] Encounter Details Date Type Department Care Team (Latest Contact Info) Description 02/18/2022 Transcribe Orders Virtual Department [address] [place] [address] Brittney James PA [address] [place] [address] [email or web address] Low back pain, unspecified back pain laterality, [...] disease at the lumbosacral junction. POS - [id number] Narrative 02/21/2022 12:38 PM EDT COMPARISON: 05/20/2019 [...] disc disease at the lumbosacraljunction. POS - [id number] Brittney ANAND IMG XR SPINE Final Result documented in this encounter Visit Diagnoses Diagnosis Low back pain, unspecified back pain laterality, unspecified chronicity, unspecified whether sciatica present- Primary Low back pain, unspecified back pain laterality, unspecified chronicity, unspecified whether sciatica present documented in this encounter Care Teams Finish Repair Worker Relationship Specialty Start Date End Date Eleanor Rolon MD [address] [place] [phone] [email or web address] PCP - General Internal Medicine 12/30/17 documented as of this encounter Additional Source Comments The information contained in this document represents components of the legal health record. It is not the complete legal health record.[facility]
--- OUTSIDE RECORDS SUMMARY | 2025-08-30 08:43 | XMS_ITS | Continuity of Care Document ---
Author Organization [place] - [facility], [facility] Address [address] [place] [address] Care Team Providers Care Shoe Patternmaker Name Role Phone DARIELA MCCANN Primary Care Provider [phone] Assessment Encounter Date Assessment Date Assessment LastModified [...] compresses 10-15 minutes TID followed by firm eoaw-cu-osnnn palpation to increase salivary production. Recommend alternating between tylenol and ibuprofen for pain management. Patient will contact me via the portal with lack of improvement or development of new or worsening symptoms. [email or web address] Not available 06/08/2025 16:40:08 Plan of Treatment Reminders Order Date Submit Date Provider Last Modified By Organization Details Last Modified Time Details Appointments Establish ed 15 2024 02:15P M DREW BARCENAS PA-C Not available Not available Not available Lab None recorded. Referral None recorded. Procedures None recorded. Surgeries None recorded. Imaging None recorded. Medication Orders None recorded. Patient TargetsNo targets recorded. Patient InstructionsNo instructions recorded. Reason for Referral None Reported. Problems Name Problem SNOMED Code Status Onset Date Resolution Date Notes Provider Name and Address Organization Details Recorded Time Dysfuncti on of eustachia n tube 20033577 Active 2013 Eustachia n tube dysfuncti on; CMS Risk: moderate risk CMS Treatment : new problem (to examiner) : no additiona l workup planned N ote: Date Diagnosed : 4 2:43 PM (381.81) Not Available [facility] 4 03:15:37 Disorder of pharynx 70420844 Active 2013 Vestibuli tis Nasal; CMS Risk: moderate risk CMS Treatment : new problem (to examiner) : no additiona l workup planned N ote: Date Diagnosed : 4 2:43 PM (478.20) Not Available [facility] 4 03:15:38 Cough 17906493 Active 2013 Cough; CMS Risk: moderate risk CMS Treatment : new problem (to examiner) : no additiona l workup planned N ote: Date Diagnosed : 4 2:43 PM (786.2) Not Available [facility] 4 03:15:37 Sensorine ural hearing loss of bilateral ears 960074680 Active 2013 Sensorine ural HL, bilateral ; Note: Date Diagnosed : 4 3:55 PM (389.18) Not Available [facility] 4 03:15:38 Allergic rhinitis 66477014 Active 2014 Allergic rhinitis: Due to other allergen; Note: Date Diagnosed : 11/08/2014 3:59 PM (477.8) Not Available [facility] 4 03:15:37 Bilateral tinnitus 69833158596 02 Active 2018 Tinnitus, bilateral ; Note: Date Diagnosed : 03/16/2019 4:28 PM (H93.13) Not Available [facility] 4 03:15:37 Sensorine ural hearing loss 00078981 Active 2018 Sensorine ural hearing loss, unilatera l, right ear, with unrestric christian hearing on the contralat eral side; Note: Date Diagnosed : 03/16/2019 4:28 PM (H90.41) Not Available [facility] 4 03:15:37 Localized eruption of skin 838237292 Active 2018 Rash and other nonspecif ic skin eruption; Note: Date Diagnosed : 03/16/2019 4:28 PM (R21) Not Available [facility] 4 03:15:38 Chronic sinusitis 89267479 Active 2023 DREW BARCENAS PA-C [address], [place], [address] , [facility] - [facility] 4 14:17:12 Nasal congestio n 07468411 Active 2024 DREW BARCENAS PA-C [address], [place], [address] , [facility] - [facility] 5 15:56:25 Acute sinusitis 87354315 Active 2024 DREW BARCENAS PA-C [address], [place], [address] , [place] - [facility] 5 15:56:29 Non-aller gic rhinitis 36231737285 1 Active 2024 DREW BARCENAS PA-C [address], [facility] [place], [address] , [place] - [facility] 5 15:56:35 Seasonal allergic rhinitis 180604471 Active 2024 DREW BARCENAS PA-C [address], [place], [address] , [facility] - [facility] 5 15:56:35 Acute sialoaden itis 303082134 Active 2024 TAMAR SARMIENTO PA-C [address], [place], [address] , [facility] - [facility] 5 14:07:04 Problem Notes None recorded. Procedures Surgical History Date Name Laterality Status Provider Name and Address Organization Details Recorded Time 03/31/20 Allergy Testing-Full completed LULI ARCE [address], [place], [address], [facility] - [facility] 03/31/2025 15:25:04 03/26/20 25 Allergy Testing Modified- Quantitative Testing (MQT) Only completed TUAN BACH, RMA [address] [facility] [address], [place], [address], [facility] - [facility] 12/29/2024 16:00:17 10/27/19 25 Comp Audio with Tymps - 32162 & 21336 completed SHIMA JULIEN [facility] [address] [facility] [address], [place], [address], [facility] - [facility] 10/27/2024 15:46:42 Imaging Results None recorded. Procedure Notes None recorded. Medical Equipment None Reported. Allergies Allergen ID Allergen Name Allergen Category Reaction Reaction Severity Criticality Documentation Date Start Date Code Code System Note Provider Name and Address Organization Details Recorded Time 406759 Substance with sulfonami de structure and antibacte rial mechanism of action (substanc e) medicatio n other Not available Not available 02/17/2024 33205 8003 SNOMED React ion: unkno wn, unspe cifie d;; Not Available [facility] 4 01:25:06 965513 Product containin g penicilli n (product) medicatio n other Not available Not available 02/17/2024 40273 8001 SNOMED React ion: unkno wn, unspe cifie d;; Not Available [facility] 4 01:25:07 265577 ciproflox acin medicatio n Not available Not available Not available 10/27/2024 2551 RxNorm Lien nolan [place] - [facility] 5 15:00:00 124847 oxycodone medicatio n vomiting mild Not available 12/29/2024 7804 RxNorm TUAN BACH RMA [address] [facility] [place] [address], [place], [address], [facility] - [facility] 5 15:43:42 733099 peanut allergeni c extract food,medi cation Not available Not available Not available 06/15/2025 15793 8 RxNorm Patricia nolan [place] - [facility] 5 15:41:44 190649 garlic preparati on food,medi cation vomiting severe Not available 06/15/2025 73729 7 RxNorm Patricia Steen null, [place] - [facility] 5 15:41:44 829648 onion extract food,medi cation nausea moderate Not available 06/15/2025 72281 69 RxNorm Patricia Steen null, [place] - [facility] 15:41:44 655569 pineapple extract food vomiting moderate Not available 06/15/2025 56160 74 RxNorm Patricia Steen null, [place] - [facility] 15:41:44 296288 clove preparati on food Not available Not available Not available 06/15/2025 60418 95 RxNorm Patricia Steen null, [place] - [facility] 15:41:44 735621 black pepper preparati on food Not available Not available Not available 06/15/2025 52285 4 RxNorm Patricia Steen null, [place] - [facility] 5 15:41:44 844679 james pepper food Not available Not available Not available 06/15/2025 Patricia Steen null, [place] - [facility] 5 15:41:44 374834 cayenne pepper fruits food Not available Not available Not available 06/15/2025 Patricia Steen null, [place] - [facility] 5 15:41:44 383648 pepper extract Not available Not available Not available Not available 06/15/2025 45954 85 RxNorm Patricia Steen null, [place] - [facility] 5 15:41:44 459849 nut - unspecifi ed food Not available Not available Not available 06/15/2025 Patricia Steen null, [place] - [facility] 5 15:41:44 276539 coconut extract food,medi cation facial swelling moderate Not available 06/15/2025 34024 48 RxNorm Patricia Steen null, [place] - [facility] 5 15:41:44 456355 iron-dext ran complex medicatio n anaphylax is severe Not available 06/15/2025 5992 RxNorm Patricia Steen ZEE nolan - [facility] 5 15:42:15 363842 peanut oil food,medi cation respirato ry distress moderate Not available 06/15/2025 31574 RxNorm Patricia Wileyliam nolan, [place] - [facility] 5 15:42:15 341399 Dextran (substanc e) medicatio n Not available Not available Not available 08/24/2025 40267 0007 SNOMED Not Available valerie - External Data Service - prod 5 17:33:20 542452 hydromorp meredith medicatio n Not available Not available Not available 08/24/2025 3423 RxNorm Not Available [facility] [employer] - prod 5 17:33:20 724726 fexofenad ine medicatio n Not available Not available Not available 08/24/2025 28892 RxNorm Not Available valerie - External Data Service - prod 5 17:33:20 818390 acetamino phen / hydrocodo ne medicatio n Not available Not available Not available 08/24/2025 45989 2 RxNorm Not Available valerie - External Data [employer] - prod 5 17:33:20 542681 esomepraz ole Not available Not available Not available unabletoasse ss 08/24/2025 11113 2 RxNorm Not Available valerie - External Data Service - prod 5 17:33:20 675985 dextran sulfate Not available anaphylax is Not available Not available 08/24/2025 48548 RxNorm Not Available valerie - External Data [employer] - prod 5 17:35:15 739948 Augmentin medicatio n Not available Not available Not available 08/24/2025 33612 2 RxNorm Not Available [facility] [employer] - prod 5 17:35:15 276526 dextran 1 medicatio n anaphylax is Not available [facility] 08/24/20252017 43014 5 RxNorm Not Available valerie - External Data Service - prod 17:40:04 465165 Iodinated contrast media (substanc e) medicatio n hives rash Not available Not available [facility] 08/24/20252017 57778 2004 SNOMED Pt suffe red conge stion , and filli ng of ears and sinus es. Not Available [facility] External Data Service - prod 17:40:04 195344 omeprazol e medicatio n Not available Not available [facility] 08/24/20252017 7646 RxNorm unrec ogniz ed react ion (text : Corrina carreno letal Pain, code: [id number]) (from exter nal sourc e) Not Available [facility] External Data Service - [facility] 17:40:04 Medications Name Sig Start Date Stop Date [...] mg tablet 09/27 completed Medicati on ID: [id number] Re ason: () Brand Name: predniso ne [...] mg tablet 09/27 [place]: [id number] Re ason: () Brand Name: ciproflo xacin [...] both nostrils 12/29 completed Medicati on ID: [id number] Du ration Value: 10 Prescri bed By [...] Updated DateTime 06/08/2025 158.75 cm 33.3 kg/m2 70950.59 g Suzy Pedroza [place] - [facility] 06/08/2025 13:42:38 Social History None recorded. Functional Status None recorded. Mental Status None recorded. Family History Nothing Reported. Medical History Condition Response Allergies/Hayfever Y Heart Problems Y Anxiety N Tonsil Infections N Emphysema N Migraines N Thyroid Problems Y Depression N COPD N Developmental Delay N Glaucoma N Nasal or Sinus Problems Y Anemia Y Immune System Disorder N Anesthesia Complications Y Heart Attack (NH) N Other Skin Condition Y Diabetes N Rhinitis Y Bleeding Disorder N Food Allergy Y Hearing Loss Y Arthritis Y Hyperlipidemia N Eczema Y Cancer N Stroke N Dementia N Nasal polyps N Asthma Y Sleep Disorder N High Cholesterol N GERD/Reflux N Liver Disease N Headaches Y Fibromyalgia N Hypertension N Speech Delay N Kidney Disease N Gynecological HistoryNo gynecological history recorded. Obstetrics History GPAL:G 0 P 0 0 0 0 Past Encounters Encounter ID Performer Location Encounter Start Date Encounter Closed Date Diagnosis/Indication Diagnosis SNOMED-CT Code Diagnosis ICD10 Code Diagnosis IMO Codes Diagnosis Note [id number] TAMAR SARMIENTO PA-C [facility] [address] [address] 06/03/2025 14:17:08 06/03/2025 15:05:46 Allergic rhinitis 44907927 J30.89 [id number] TAMAR SARMIENTO PA-C [facility] [address] [place] [address] 06/08/2025 13:37:04 06/08/2025 13:58:35 Acute sialoadenitis 092858692 K11.21 6055588 Health Concerns Section Related Observation LastModified by Organization Detai ls LastModified Time None Recorded Concern Status LastModified by Organization Details LastModified Time None Recorded Payers Encounter Date Sequence Insurance Name Policy Number Policy Jansen Covered Member ID Jansen Member ID Guarantor Name 06/08/2025 1 [facility] [id number] 1 Daren Cramer Joe [id number] Xochitl Diaz Notes Date Note Type Note [...] of parathyroid tumor, davidson's LYDIA SINGH MD [address], [address], [facility] - [facility] 06/08/2025 17:14:55 OBGyn Episode No OBEpisode recorded.
--- OUTSIDE RECORDS SUMMARY | 2025-08-30 08:43 | XMS_ITS | Encounter Summary ---
Author Organization [facility] Address [address] [facility] [address] [place] [address] Phone Care Team Providers Care Development Architect Name Role Phone Eleanor Rolon MD Primary Care Provider Encounter Details Date Type Department Care Team (Latest Contact Info) Description 03/30/2019 Transcribe Orders Virtual Department [address] [place] [address] Joy Rodríguez PA-C [address], [address] [place] [address] [email or web address] Fatty liver (Primary Dx); Liver cyst Social [...] documented as of this encounter Care Teams Development Architect Relationship Specialty Start Date End Date Eleanor Rolon MD [address] [place] [address] [email or web address] PCP - General Internal Medicine 12/30/17 documented as of this encounter Additional Source Comments The information contained in this document represents components of the legal health record. It is not the complete legal health record.[facility]
--- OUTSIDE RECORDS SUMMARY | 2025-08-30 08:43 | XMS_ITS | Continuity of Care Document ---
Author Organization [place] - [facility], [facility] Address [address] [place] [address] Care Team Providers Care On Call Pharmacy Technician Name Role Phone DARIELA MCCANN Primary Care [...] evaluate for stone. All questions were answered. [email or web address] Not available 06/15/2025 15:56:48 Plan of Treatment Reminders Order Date Submit Date Provider Last Modified By Organization Details Last Modified Time Details Appointments Establish ed 15 2024 02:15P Carlitos BARCENAS PA-C Not available Not available Not available Lab None recorded. Referral None recorded. Procedures None recorded. Surgeries None recorded. Imaging CT, neck, soft tissue, w/ contrast 2024 025 [email or web address] [facility], [address] [facility], [address], [place], [address], 07/14/2025 10:53:04 Medication Orders azithromy teofilo 250 mg tablet [address] [place] [address] Pharm[address] 2[facility], [address] [place] [address], [address], 06/15/2025 15:58:28 Patient TargetsNo targets recorded. Patient InstructionsNo instructions recorded. Reason for Referral None Reported. Problems Name Problem SNOMED Code Status Onset Date Resolution Date Notes Provider Name and Address Organization Details Recorded Time Dysfuncti on of eustachia n tube 54744820 Active 2013 Eustachia n tube dysfuncti on; CMS Risk: moderate risk CMS Treatment : new problem (to examiner) : no additiona l workup planned N ote: Date Diagnosed : 4 2:43 PM (381.81) Not Available [facility] 4 03:15:37 Disorder of pharynx 23454373 Active 2013 Vestibuli tis Nasal; CMS Risk: moderate risk CMS Treatment : new problem (to examiner) : no additiona l workup planned N ote: Date Diagnosed : 4 2:43 PM (478.20) Not Available [facility] 4 03:15:38 Cough 29229285 Active 2013 Cough; CMS Risk: moderate risk CMS Treatment : new problem (to examiner) : no additiona l workup planned N ote: Date Diagnosed : 4 2:43 PM (786.2) Not Available [facility] 4 03:15:37 Sensorine ural hearing loss of bilateral ears 220624095 Active 2013 Sensorine ural HL, bilateral ; Note: Date Diagnosed : 4 3:55 PM (389.18) Not Available [facility] 4 03:15:38 Allergic rhinitis 68078657 Active 2014 Allergic rhinitis: Due to other allergen; Note: Date Diagnosed : 11/08/2014 3:59 PM (477.8) Not Available [facility] 4 03:15:37 Bilateral tinnitus 00679596969 02 Active 2018 Tinnitus, bilateral ; Note: Date Diagnosed : 03/16/2019 4:28 PM (H93.13) Not Available [facility] 4 03:15:37 Sensorine ural hearing loss 92379642 Active 2018 Sensorine ural hearing loss, unilatera l, right ear, with unrestric christian hearing on the contralat eral side; Note: Date Diagnosed : 03/16/2019 4:28 PM (H90.41) Not Available [facility] 4 03:15:37 Localized eruption of skin 744546997 Active 2018 Rash and other nonspecif ic skin eruption; Note: Date Diagnosed : 03/16/2019 4:28 PM (R21) Not Available [facility] 4 03:15:38 Chronic sinusitis 38454308 Active 2023 DREW BARCENAS PA-C [address], [place], [address] , [facility] - [facility] 4 14:17:12 Nasal congestio n 97834510 Active 2024 DREW BARCENAS PA-C [address] [place],[address] [facility], [place], [address] , [facility] - [facility] [place] 5 15:56:25 Acute sinusitis 30652937 Active 2024 DREW BARCENAS PA-C [address] [place],[address] [facility], [place], [address] , [facility] - [facility] [place] 5 15:56:29 Non-aller gic rhinitis 47024526600 1 Active 2024 DREW BARCENAS PA-C [address] [facility] [place],[address], [place], [address] , [facility] - [facility] [place] 5 15:56:35 Seasonal allergic rhinitis 982261214 Active 2024 DREW BARCENAS PA-C [address], [place], [address] , [facility] - [facility] [place] 5 15:56:35 Acute sialoaden itis 879920346 Active 2024 TAMAR SARMIENTO PA-C [address], [place], [address] , [place] [facility] 5 14:07:04 Problem Notes None recorded. Procedures Surgical History Date Name Laterality Status Provider Name and Address Organization Details Recorded Time 03/31/20 25 Allergy Testing-Full completed LULI ARCE [address] [facility] [place],[address], [address], [facility] - [facility] 03/31/2025 15:25:04 12/30/19 25 Allergy Testing Modified- Quantitative Testing (MQT) Only completed LULI ARCE [address] [facility],[address], [place], [address], [facility] - [facility] 12/29/2024 16:00:17 10/27/19 25 Comp Audio with Tymps - 80019 & 57046 completed SHIMA JULIEN [facility] [address] [facility],[address] [address], [place], [address], [facility] 10/27/2024 15:46:42 Imaging Results None recorded. Procedure Notes None recorded. Medical Equipment None Reported. Allergies Allergen ID Allergen Name Allergen Category Reaction Reaction Severity Criticality Documentation Date Start Date Code Code System Note Provider Name and Address Organization Details Recorded Time 620012 Substance with sulfonami de structure and antibacte rial mechanism of action (substanc e) medicatio n other Not available Not available 02/17/2024 87658 8003 SNOMED React ion: unkno wn, unspe cifie d;; Not Available [facility] 4 01:25:06 112861 Product containin g penicilli n (product) medicatio n other Not available Not available 02/17/2024 76447 8001 SNOMED React ion: unkno wn, unspe cifie d;; Not Available [facility] 4 01:25:07 641906 ciproflox acin medicatio n Not available Not available Not available 10/27/2024 2551 RxNorm Lien nolan, [facility] 5 15:00:00 153508 oxycodone medicatio n vomiting mild Not available 12/29/2024 7804 RxNorm LULI ARCE [address] [place] [address], [address] , [place] - [facility] [place] 5 15:43:42 316653 peanut allergeni c extract food,medi cation Not available Not available Not available 06/15/2025 09944 8 RxNorm Patricia Steen null, [place] - [facility] [place] 15:41:44 739691 garlic preparati on food,medi cation vomiting severe Not available 06/15/2025 16726 7 RxNorm Patricia Steen null, [place] [facility] [place] 15:41:44 847147 onion extract food,medi cation nausea moderate Not available 06/15/2025 21212 69 RxNorm Patricia Steen null, [place] [facility] [place] 15:41:44 454138 pineapple extract food vomiting moderate Not available 06/15/2025 07643 74 RxNorm Patricia Steen null, [place] [facility] [place] 15:41:44 307567 clove preparati on food Not available Not available Not available 06/15/2025 82385 95 RxNorm Patricia Steen null, [place] [facility] [place] 15:41:44 640066 black pepper preparati on food Not available Not available Not available 06/15/2025 52048 4 RxNorm Patricia Steen null, [place] [facility] [place] 5 15:41:44 966080 james pepper food Not available Not available Not available 06/15/2025 Patricia Steen null, [place] [facility] [place] 5 15:41:44 286902 cayenne pepper fruits food Not available Not available Not available 06/15/2025 Patricia Steen null, [place] [facility] [place] 5 15:41:44 726815 pepper extract Not available Not available Not available Not available 06/15/2025 90705 85 RxNorm Patricia Steen null, [place] [facility] [place] 5 15:41:44 730000 nut - unspecifi ed food Not available Not available Not available 06/15/2025 Patricia Steen null, [place] [facility] [place] 5 15:41:44 606675 coconut extract food,medi cation facial swelling moderate Not available 06/15/2025 91107 48 RxNorm Patricia Steen null, [place] [facility] [place] 15:41:44 826721 iron-dext ran complex medicatio n anaphylax is severe Not available 06/15/2025 5992 RxNorm Patricia Wileyos null, [place] [facility] [place] 5 15:42:15 972182 peanut oil food,medi cation respirato ry distress moderate Not available 06/15/2025 34941 RxNorm Patricia Steen null, [place] [facility] 5 15:42:15 395082 Dextran (substanc e) medicatio n Not available Not available Not available 08/24/2025 48870 0007 SNOMED Not Available valerie - External Data Service - prod 5 17:33:20 707108 hydromorp meredith medicatio n Not available Not available Not available 08/24/2025 3423 RxNorm Not Available valerie - External Data Service - prod 5 17:33:20 471432 fexofenad ine medicatio n Not available Not available Not available 08/24/2025 15649 RxNorm Not Available valerie - External Data Service - prod 5 17:33:20 619993 acetamino phen / hydrocodo ne medicatio n Not available Not available Not available 08/24/2025 29207 2 RxNorm Not Available valerie - External Data Service - prod 5 17:33:20 273206 esomepraz ole Not available Not available Not available unabletoasse ss 08/24/2025 14887 2 RxNorm Not Available valerie - External Data Service - prod 5 17:33:20 400968 dextran sulfate Not available anaphylax is Not available Not available 08/24/2025 72056 RxNorm Not Available valerie - External Data Service - prod 17:35:15 309398 Augmentin medicatio n Not available Not available Not available 08/24/2025 29089 2 RxNorm Not Available valerie - External Data Service - prod 17:35:15 707458 dextran 1 medicatio n anaphylax is Not available [facility] 08/24/20252017 03904 5 RxNorm Not Available valerie - External Data Service - prod 17:40:04 378117 Iodinated contrast media (substanc e) medicatio n hives rash Not available Not available [facility] 08/24/20252017 36662 2004 SNOMED Pt suffe red conge stion , and filli ng of ears and sinus es. Not Available valerie - External Data Service - prod 17:40:04 120671 omeprazol e medicatio n Not available Not available [facility] 08/24/20252017 7646 RxNorm unrec ogniz ed react ion (text : Laurau jovannike letal Pain, code: 85124 9000) (from exter nal sourc e) Not Available [facility] External Data Service - [facility] 17:40:04 Medications Name Sig Start Date [...] mg tablet 09/27 completed Medicati on ID: [id number] Re ason: () Brand Name: predniso ne [...] mg tablet 09/27 completed Medicati on ID: 88377 Re ason: () Brand Name: ciproflo xacin [...] both nostrils 12/29 completed Medicati on ID: 06280 Du ration Value: 10 Prescri bed By [...] Updated DateTime 06/15/2025 158.75 cm 33.3 kg/m2 19694.59 g Patricia Steen [place] - [facility] 06/15/2025 15:41:22 Social History None recorded. [...] Disorder N Anesthesia Complications Y Heart Attack (OK) N Other Skin Condition Y Diabetes N [...] ICD10 Code Diagnosis IMO Codes Diagnosis Note [id number] TAMAR SARMIENTO PA-C [facility] [address] [place] [address] 06/03/2025 14:17:08 06/03/2025 15:05:46 Allergic rhinitis 87455779 J30.89 63328 TAMAR SARMIENTO PA-C [facility] [address] [place] [address] 06/08/2025 13:37:04 06/08/2025 13:58:35 Acute sialoadenitis 457587240 K11.21 2622197 34990 DREW BARCENAS PA-C [facility] [address] [place] [address] 06/15/2025 15:35:03 06/15/2025 15:53:47 Acute sialoadenitis 549553331 K11.21 7065241 Health Concerns Section Related Observation LastModified by Organization Detai ls LastModified Time None Recorded Concern Status LastModified by Organization Details LastModified Time None Recorded Payers Encounter Date Sequence Insurance Name Policy Number Policy Jansen Covered Member ID Jansen Member ID Guarantor Name 06/15/2025 1 [facility] [id number] 1 Daren Diaz [id number] Xochitl Diaz Notes Date Note Type Note [...] doing better since then. THOMAS MARK MD [address] [place] [address], [place], [address], [facility] - [facility] 06/15/2025 17:37:37 OBGyn Episode No OBEpisode recorded.
--- OUTSIDE RECORDS SUMMARY | 2025-08-30 08:43 | XMS_ITS | Encounter Summary ---
Author Organization [facility] Address [address] [facility] [address] [place] [address] Phone Care Team Providers Care Batch Analyst Name Role Phone Eleanor Rolon MD Primary Care Provider Encounter Details Date Type Department Care Team (Late st Contact Info) Description 06/16/2018 Procedure Pass [facility] Endoscopy Admitting Dept Virtual Department [address] [place] [address] Social History Tobacco Use Types Packs/Day Years [...] documented as of this encounter Care Teams Batch Analyst Relationship Specialty Start Date End Date Eleanor Rolon MD [address] [place] [address] [email or web address] PCP - General Internal Medicine 12/30/17 documented as of this encounter Additional Source Comments The information contained in this document represents components of the legal health record. It is not the complete legal health record.[facility]
--- OUTSIDE RECORDS SUMMARY | 2025-08-30 08:43 | XMS_ITS | Encounter Summary ---
Author Organization [facility] Address [address] [facility] [address] [place] [address] Phone Care Team Providers Care Director Of Planning Name Role Phone Eleanor Rolon MD Primary Care Provider Encounter Details Date Type Department Care Team (Late st Contact Info) Description 01/14/2018 Procedure Pass [facility], [address] [address] Social History Tobacco Use Types Packs/Day Years [...] documented as of this encounter Care Teams Director Of Planning Relationship Specialty Start Date End Date Eleanor Rolon MD [address] [place] [address] [email or web address] PCP - General Internal Medicine 12/30/17 documented as of this encounter Additional Source Comments The information contained in this document represents components of the legal health record. It is not the complete legal health record.[facility]
--- OUTSIDE RECORDS SUMMARY | 2025-08-30 08:43 | XMS_ITS | Encounter Summary ---
Author Organization [facility] Address [address] [facility] [address] [place] [address] Phone Care Team Providers Care Steel Molder Name Role Phone Eleanor Rolon MD Primary Care Provider Encounter Details Date Type Department Care Team (Late st Contact Info) Description 01/31/2022 Transcribe Orders Virtual Department [address] [place] [address] Eleanor Rolon MD [address] [place] [phone] [email or web address] Encounter for laboratory testing for COVID-19 virus [...] [facility] Symptomatic? NO [facility] Other 02/01/2022 2:24 PM EDT 02/01/2022 5:42 PM EDT us Eleanor Rolon MD LAB GENERAL ORDERABLES Kimmy [email or web address] Result [facility] [address] [place] [address] [facility] [address] [place] [address] documented in this encounter Visit Diagnoses Diagnosis Encounter for laboratory testing for COVID-19 virus- Primary documented in this encounter Additional Health Concerns Infection Onset Date Last Indicated Resolved Time CoV-Exposed Comment:Recent close contact documented in the COVID-19 PCR/PRO order 01/31/2022 01/31/2022 02/11/2022 1:24 AM E DT CoV-Risk Comment:Per Ambulatory Triage Form 02/01/2022 02/01/202202/12 1:23 AM EDT documented as of this encounter Care Teams Steel Molder Relationship Specialty Start Date End Date Eleanor Rolon MD [address] [place] [address] [email or web address] PCP - General Internal Medicine 12/30/17 documented as of this encounter Additional Source Comments The information contained in this document represents components of the legal health record. It is not the complete legal health record.[facility]
--- OUTSIDE RECORDS SUMMARY | 2025-08-30 08:43 | XMS_ITS | Encounter Summary ---
Author Organization [facility] Address [address] [facility] [address] [place] [address] Phone Care Team Providers Care Server Systems Administrator Name Role Phone Eleanor Rolon MD Primary Care Provider Encounter Details Date Type Department Care Team (Late st Contact Info) Description 03/28/2023 Procedure Pass [facility], Ct Scan - [address] [address] Social History Tobacco Use Types Packs/Day Years [...] 11:47 AM EDT Autumn Swift RN * Lambert Suicide Severity Rating Scale (Screener/Recent Self-Report) Question [...] on filedocumented in this encounter Care Teams Server Systems Administrator Relationship Specialty Start Date End Date Eleanor Rolon MD [address] [place] [phone] [email or web address] PCP - General Internal Medicine 12/30/17 documented as of this encounter Additional Source Comments The information contained in this document represents components of the legal health record. It is not the complete legal health record.[facility]
--- OUTSIDE RECORDS SUMMARY | 2025-08-30 08:43 | XMS_ITS | Encounter Summary ---
Author Organization [facility] Address [address] [facility] [address] [place] [address] Phone Care Team Providers Care Technical Services Coordinator Name Role Phone Eleanor Rolon MD Primary Care Provider [phone] Reason for Referral * MRI/CAT Scan - Closed Specialty Diagnoses / Procedures Referred By Contac t Referred To Contact Radiology Diagnoses Lesion of left lobe of liver Abnormal findings on imaging test Procedures MRI Abdomen MRI PELVIS (GI/) Brittney James PA Phone: tel: fax: [email or web address] Referral ID Status Reason Start Date Expiration Date Visits Re quested Visits Authorized [id number] Closed 01/12/2018 04/12/2018 1 1 Encounter Details Date Type Department Care Team (Late st Contact Info) Description 01/14/2018 Ancillary Orders [facility] External Provider Virtual Department [address] [place] [address] Brittney James PA [address] [place] [address] [email or web address] Lesion of left lobe of liver; Abnormal [...] significant upper abdominal pathology is apparent. POS [id number] Edited by: Brandie Mao on 01/24/2018 6:05 [...] the rest of the liver on the kdl-kc-jfpar chemical shift sequence. Finally, there is no [...] the rest of the liver on the uto-se-sstoz chemical shiftsequence. Finally, there is no abnormal [...] significant upper abdominal pathology is apparent. POS [id number] Edited by: Brandie Mao on 01/24/2018 6:05 [...] documented as of this encounter Care Teams Technical Services Coordinator Relationship Specialty Start Date End Date Eleanor Rolon MD [address] [place] [phone] [email or web address] PCP - General Internal Medicine 12/30/17 documented as of this encounter Additional Source Comments The information contained in this document represents components of the legal health record. It is not the complete legal health record.[facility]
--- OUTSIDE RECORDS SUMMARY | 2025-08-30 08:43 | XMS_ITS | Data Portability ---
Author Organization [place] - [facility] [address] Address [address] [place] [address] Assessment No assessment recorded. Plan of Treatment Reminders Order Date Submit Date Provider Last Modified By Organization Details Last Modified Time Details Appointments None recorded. Lab None recorded. Referral None recorded. Procedures None recorded. Surgeries None recorded. Imaging None recorded. Medication Orders doxycycline hyclate 100 mg capsule [address] [facility], [address] [place] [address], [address], 18:11:46 Patient TargetsNo targets recorded. Patient Instructions Encounter Date Encounter Id Patient Instructions Last Modified By Organization Details Last Modified Time 04/03/2024 [id number] Acute Sinusitis: Care Instructions Not available 04/03/2024 18:11:38 Acute Sinusitis: Care Instructions Not available 04/03/2024 18:11:38 Reason for Referral None Reported. 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 Medical Equipment None Reported. Allergies Allergen ID Allergen Name Allergen Category Reaction Reaction Severity Criticality Documentation Date Start Date Code Code System Note Provider Name and Address Organization Details Recorded Time 254831 dextran sulfate Not available anaphylax is Not available Not available 04/03/2024 65487 RxNorm Cecy [place] null, [place] - [facility] 17:49:32 354851 ciproflox acin medicatio n Not available Not available Not available 04/03/2024 2551 RxNorm Cecy [place] null, [place] - [facility] 4 17:50:04 778402 Augmentin medicatio n Not available Not available Not available 04/03/2024 81347 2 RxNorm Cecy [place] null, [place] - [facility] 4 17:50:21 670266 Substance with sulfonami de structure and antibacte rial mechanism of action (substanc e) medicatio n Not available Not available Not available 04/03/2024 85046 8003 SNOMED Cecy [place] null, [place] - [facility] 4 17:50:30 237880 tree nut food Not available Not available Not available 04/03/2024 Cecy [place] null, [place] - [facility] 4 17:50:46 043133 pepper extract Not available Not available Not available Not available 04/03/2024 52684 85 RxNorm Cecy [place] null, [place] - [facility] 4 17:50:54 022073 coconut extract food,medi cation Not available Not available Not available 04/03/2024 90343 48 RxNorm Cecy [place] null, [place] - [facility] 4 17:51:04 070338 pineapple extract food Not available Not available Not available 04/03/2024 52743 74 RxNorm Cecy [place] null, [place] - [facility] 4 17:51:17 [...] mass index (BMI) Body weight Oxygen saturation Heart rate Respiratory rate Body temperature Systolic And Diastolic Provider Name and Address Organization Details Last Updated DateTime 4 158.75 cm 33.3 kg/m2 78464.5 9 g 97 % 66 /min 16 /min 97.5 [degF] 117/75 mm[Hg] Cecy [place] - [facility] 4 17:55:31 Social History Question Answer Notes LastModified by Organizat ion Details LastModified Time Tobacco Smoking Status Never Smoker Cecy [place] null, [place] - [facility] 04/03/2024 17:55:08 [...] ICD10 Code Diagnosis IMO Codes Diagnosis Note [id number] [address] [place] [address] 02/17/2018 15:29:20 02/17/2018 17:26:23 [id number] [address] [place] [address] 01/07/2019 10:00:52 01/07/2019 11:08:49 [id number] [address] [address] [address] [place] [address] 05/04/2019 14:56:12 05/04/2019 15:48:39 [id number] [address] [place] [address] 11/15/2017 17:00:46 11/15/2017 17:39:08 [id number] [address] [place] [address] 10/20/2017 18:10:20 10/20/2017 19:40:27 [id number] [address] [place] [address] 10/19/2018 11:43:32 10/19/2018 13:42:47 [id number] [address] [place] [address] 08/02/2018 16:56:23 08/02/2018 19:22:54 [id number] [address] [place] [address] 10/15/2018 11:20:05 10/15/2018 13:20:36 [id number] [address] [place] [address] 12/02/2018 14:38:35 12/02/2018 16:50:42 [id number] [address] [place] [address] 03/17/2019 19:07:09 03/17/2019 19:27:44 [id number] [address] [place] [address] 07/14/2019 13:40:32 07/14/2019 14:46:52 [id number] [address] [place] [address] 11/28/2019 19:37:16 11/29/2019 08:24:40 [id number] [place] [address] [place] [address] 04/03/2024 17:09:21 04/03/2024 18:13:50 Acute sinusitis 71101779 J01.90 Health Concerns Section Related Observation LastModified by Organization Detai ls LastModified Time None Recorded Concern Status LastModified by Organization Details LastModified Time None Recorded Advance Directives Directive None Recorded Payers Insurance Date Sequence Insurance Name Policy Number Policy Jansen Covered Member ID Jansen Member ID Guarantor Name 04/03/[address] [place] [address] [id number] Xochitl Diaz [id number] Xochitl Noe Notes Date Note Type Note Provider Name and Address Organization Details Recorded Time 04/03/2024 text/html Sinus Complaints UCReported by PatientHPIFor location, patient reportspain behind the eyes __,facial pain, andsinus pressure. For associated symptoms, patient reportsnasal discharge from __ nostrils,post nasal drip, andear fullness. Lani Hanna MD [address] [facility] [place], [address], [place] - [facility] 04/03/2024 18:12:47 OBGyn Episode No OBEpisode recorded.
--- OUTSIDE RECORDS SUMMARY | 2025-08-30 08:43 | XMS_ITS | Encounter Summary ---
Author Organization [facility] Address [address] [facility] [address] [place] [address] Phone Care Team Providers Care Operations Representative Name Role Phone Eleanor Rolon MD Primary Care Provider [phone] Encounter Details Date Type Department Care Team (Late st Contact Info) Description 07/30/2019 Ancillary Orders [facility], X-Ray - [address] [address] Brittney James PA [address] [place] [address] [email or web address] Social History Tobacco Use Types Packs/Day [...] documented as of this encounter Care Teams Operations Representative Relationship Specialty Start Date End Date Eleanor Rolon MD [address] [place] [address] [email or web address] PCP - General Internal Medicine 12/30/17 documented as of this encounter Additional Source Comments The information contained in this document represents components of the legal health record. It is not the complete legal health record.[facility]
--- OUTSIDE RECORDS SUMMARY | 2025-08-30 08:43 | XMS_ITS | Continuity of Care Document ---
Author Organization [place] - [facility], [facility] Address [address] [place] [address] Care Team Providers Care Prompt Care Rn Name Role Phone DARIELA MCCANN Primary Care Provider [phone] Assessment Encounter Date Assessment Date Assessment LastModified [...] None recorded. Referral None recorded. Procedures allergen immunothe rapy; multiple injection s (PROC) 2024 025 [email or web address] Not available 06/17/2025 08:39:02 Surgeries None recorded. Imaging None recorded. Medication Orders EpiPen 2-Antoine 0.3 mg/0.3 mL injection , auto-inje ctor 2024 025 [facility], [address] [place] [address], [place], [address], 06/11/2025 05:01:42 Patient TargetsNo targets recorded. Patient InstructionsNo instructions recorded. Reason for Referral None Reported. Problems Name Problem SNOMED Code Status Onset Date Resolution Date Notes Provider Name and Address Organization Details Recorded Time Dysfuncti on of eustachia n tube 75623230 Active 2013 Eustachia n tube dysfuncti on; CMS Risk: moderate risk CMS Treatment : new problem (to examiner) : no additiona l workup planned N ote: Date Diagnosed : 4 2:43 PM (381.81) Not Available [facility] 4 03:15:37 Disorder of pharynx 54452384 Active 2013 Vestibuli tis Nasal; CMS Risk: moderate risk CMS Treatment : new problem (to examiner) : no additiona l workup planned N ote: Date Diagnosed : 4 2:43 PM (478.20) Not Available [facility] 4 03:15:38 Cough 19499906 Active 2013 Cough; CMS Risk: moderate risk CMS Treatment : new problem (to examiner) : no additiona l workup planned N ote: Date Diagnosed : 4 2:43 PM (786.2) Not Available [facility] 4 03:15:37 Sensorine ural hearing loss of bilateral ears 007338922 Active 2013 Sensorine ural HL, bilateral ; Note: Date Diagnosed : 4 3:55 PM (389.18) Not Available [facility] 4 03:15:38 Allergic rhinitis 56903833 Active 2014 Allergic rhinitis: Due to other allergen; Note: Date Diagnosed : 11/08/2014 3:59 PM (477.8) Not Available [facility] 4 03:15:37 Bilateral tinnitus 01382542914 02 Active 2018 Tinnitus, bilateral ; Note: Date Diagnosed : 03/16/2019 4:28 PM (H93.13) Not Available [facility] 4 03:15:37 Sensorine ural hearing loss 76027741 Active 2018 Sensorine ural hearing loss, unilatera l, right ear, with unrestric christian hearing on the contralat eral side; Note: Date Diagnosed : 03/16/2019 4:28 PM (H90.41) Not Available [facility] 4 03:15:37 Localized eruption of skin 605327141 Active 2018 Rash and other nonspecif ic skin eruption; Note: Date Diagnosed : 03/16/2019 4:28 PM (R21) Not Available [facility] 4 03:15:38 Chronic sinusitis 03765569 Active 2023 DREW BARCENAS PA-C [address] [facility] [place],[address], [place], [address] , [facility] - [facility] 4 14:17:12 Nasal congestio n 78532549 Active 2024 DREW BARCENAS PA-C [address] [facility],[address], [place], [address] , [facility] - [facility] 5 15:56:25 Acute sinusitis 88684607 Active 2024 DREW BARCENAS PA-C [address] [facility],[address] [facility], [place], [address] , [facility] - [facility] 5 15:56:29 Non-aller gic rhinitis 80657842407 1 Active 2024 DREW BARCENAS PA-C [address] [facility],[address], [place], [address] , [facility] - [facility] 5 15:56:35 Seasonal allergic rhinitis 912465613 Active 2024 DREW BARCENAS PA-C [address] [facility],[address], [place], [address] , [facility] - [facility] 5 15:56:35 Acute sialoaden itis 334965292 Active 2024 TAMAR SARMIENTO PA-C [address] [facility],[place] [address], [place], [address] , [facility] 14:07:04 Problem Notes None recorded. Procedures Surgical History Date Name Laterality Status Provider Name and Address Organization Details Recorded Time 03/31/20 Allergy Testing-Full completed TUAN BACH [facility] [address] [facility],[place] [address], [place], [address], [facility] 03/31/2025 15:25:04 12/30/19 25 Allergy Testing Modified- Quantitative Testing (MQT) Only completed TUAN BACH [facility] [address] [facility],[place] [address], [place], [address], [facility] 12/29/2024 16:00:17 10/27/19 25 Comp Audio with Tymps - 46831 & 35518 completed SHIMA JULIEN [facility] [address] [facility],[place] [address], [place], [address], [facility] 10/27/2024 15:46:42 Imaging Results None recorded. Procedure Notes None recorded. Medical Equipment None Reported. Allergies Allergen ID Allergen Name Allergen Category Reaction Reaction Severity Criticality Documentation Date Start Date Code Code System Note Provider Name and Address Organization Details Recorded Time 476678 Substance with sulfonami de structure and antibacte rial mechanism of action (substanc e) medicatio n other Not available Not available 02/17/2024 60306 8003 SNOMED React ion: unkno wn, unspe cifie d;; Not Available [facility] 4 01:25:06 234166 Product containin g penicilli n (product) medicatio n other Not available Not available 02/17/2024 22972 8001 SNOMED React ion: unkno wn, unspe cifie d;; Not Available [facility] 4 01:25:07 624992 ciproflox acin medicatio n Not available Not available Not available 10/27/2024 2551 [facility] 5 15:00:00 805620 oxycodone medicatio n vomiting mild Not available 12/29/2024 7804 RxNorm TUAN BACH, A [address] [facility],[place] [address], [place], [address] [facility] [place] - [facility] 15:43:42 420616 peanut allergeni c extract food,medi cation Not available Not available Not available 06/15/2025 66512 8 RxNorm Patricia Steen null, [place] - [facility] 15:41:44 163960 garlic preparati on food,medi cation vomiting severe Not available 06/15/2025 27865 7 RxNorm Patricia Ste[place] null, [place] - [facility] 15:41:44 749233 onion extract food,medi cation nausea moderate Not available 06/15/2025 33990 69 RxNorm Patricia Ste[place] null, [place] - [facility] 15:41:44 165338 pineapple extract food vomiting moderate Not available 06/15/2025 69646 74 RxNorm Patricia Ste[place] null, [place] - [facility] 15:41:44 484288 clove preparati on food Not available Not available Not available 06/15/2025 39758 95 RxNorm Patricia Steen null, [place] - [facility] 15:41:44 806455 black pepper preparati on food Not available Not available Not available 06/15/2025 79592 4 RxNorm Patricia Steen null, [place] - [facility] 15:41:44 274622 james pepper food Not available Not available Not available 06/15/2025 Patricia Steen null, [place] - [facility] 15:41:44 693214 cayenne pepper fruits food Not available Not available Not available 06/15/2025 Patricia Steen null, [place] - [facility] 5 15:41:44 607473 pepper extract Not available Not available Not available Not available 06/15/2025 35500 85 RxNorm Patricia Steen null, [place] - [facility] 5 15:41:44 445834 nut - unspecifi ed food Not available Not available Not available 06/15/2025 Patricia nolan, [place] - [facility] 5 15:41:44 079086 coconut extract food,medi cation facial swelling moderate Not available 06/15/2025 50800 48 RxNorm Patricia nolan, [place] - [facility] 15:41:44 733051 iron-dext ran complex medicatio n anaphylax is severe Not available 06/15/2025 5992 RxNorm Patricia nolan, [place] - [facility] 15:42:15 926815 peanut oil food,medi cation respirato ry distress moderate Not available 06/15/2025 32188 RxNorm Patricia nolan, [place] - [facility] 5 15:42:15 062307 Dextran (substanc e) medicatio n Not available Not available Not available 08/24/2025 27790 0007 SNOMED Not Available valerie - External Data [employer] - prod 5 17:33:20 698193 hydromorp meredith medicatio n Not available Not available Not available 08/24/2025 3423 RxNorm Not Available valerie - [employer] Data [employer] - prod 5 17:33:20 754059 fexofenad ine medicatio n Not available Not available Not available 08/24/2025 30413 RxNorm Not Available valerie - [employer] - prod 5 17:33:20 525738 acetamino phen / hydrocodo ne medicatio n Not available Not available Not available 08/24/2025 88877 2 RxNorm Not Available valerie - [employer] - prod 5 17:33:20 809345 esomepraz ole Not available Not available Not available unabletoasse ss 08/24/2025 67470 2 RxNorm Not Available valerie - [employer] - prod 5 17:33:20 916255 dextran sulfate Not available anaphylax is Not available Not available 08/24/2025 34319 RxNorm Not Available valerie - [employer] - prod 5 17:35:15 400996 Augmentin medicatio n Not available Not available Not available 08/24/2025 69247 2 RxNorm Not Available [facility] External Data Service - prod 17:35:15 326577 dextran 1 medicatio n anaphylax is Not available [facility] 08/24/20252017 74779 5 RxNorm Not Available valerie - External Data Service - [facility] 17:40:04 750889 Iodinated contrast media (substanc e) medicatio n hives rash Not available Not available [facility] 08/24/20252017 10179 2004 SNOMED Pt suffe red conge stion , and filli ng of ears and sinus es. Not Available valerie - External Data [facility] - [facility] 17:40:04 763021 omeprazol e medicatio n Not available Not available [facility] 08/24/20252017 7646 RxNorm unrec ogniz ed react ion (text : Corrina carreno letal Pain, code: [id number]) (from exter nal sourc e) Not Available [facility] External Data Service - [facility] 17:40:04 Medications Name Sig Start Date [...] mg tablet 09/27 completed Medicati on ID: [id number] Re ason: () Brand Name: predniso ne [...] mg tablet 09/27 [place]: [id number] Re ason: () Brand Name: ciproflo xacin [...] both nostrils 12/29 completed Medicati on ID: [id number] Du ration Value: 10 Prescri bed By [...] Updated DateTime 06/03/2025 158.75 cm 33.3 kg/m2 07588.59 g Patricia Steen [place] - [facility] 06/03/2025 14:47:43 Social History None recorded. Functional Status None recorded. Mental Status None recorded. Family History Nothing Reported. Medical History Condition Response Allergies/Hayfever Y Heart Problems Y Anxiety N Tonsil Infections N Emphysema N Migraines N Thyroid Problems Y Glaucoma N Developmental Delay N Depression N COPD N Nasal or Sinus Problems Y Anemia Y Immune System Disorder N Anesthesia Complications Y Heart Attack ([place]) N Other Skin Condition Y Diabetes N [...] ICD10 Code Diagnosis IMO Codes Diagnosis Note [id number] TAMAR SARMIENTO PA-C [facility] [address] [place] [address] 06/03/2025 14:17:08 06/03/2025 15:05:46 Allergic rhinitis 63237284 J30.89 Health Concerns Section Related Observation LastModified by Organization Detai ls LastModified Time None Recorded Concern Status LastModified by Organization Details LastModified Time None Recorded Payers Encounter Date Sequence Insurance Name Policy Number Policy Jansen Covered Member ID Jansen Member ID Guarantor Name 06/03/2025 1 [facility] [id number] 1 Daren Diaz [id number] Xochitl Diaz Notes Date Note Type Note [...] parathyroid tumor, [facility] THOMAS MARK MD [address], [address], [facility] - [facility] 06/05/2025 10:12:17 OBGyn Episode No OBEpisode recorded.
--- OUTSIDE RECORDS SUMMARY | 2025-08-30 08:43 | XMS_ITS | Clinical Summary ---
Author Organization [facility] Address [address] [facility] [address] [place] [address] Phone Care Team Providers Care Tire Repairer Name Role Phone Eleanor Rolon MD Primary Care Provider [phone] Allergies Active Allergy Reactions Criticality Noted Date [...] B-12) 1000 MCG tabletIndicatio ns:Dr. Gilmore at [facility] Inject 100 mcg into the muscle every 30 (thirty) days. Indications: Dr. Gilmore at [facility] [place] Active Social History Tobacco [...] 11:58 AM EDT) HDL 43 mg/dL [facility] Comment: Interpretation <40 mg/dL: Low HDL cholesterol (major risk factor for CHD) Greater than or equal to 60 mg/dL: High HDL cholesterol ( negative risk factor for CHD) HDL - cholesterol is affected by a number of factors, e.g. smoking, excerise, hormones, sex and age. CHOLESTEROL 154 0 - 240 mg/dL [facility] TRIGLYCERIDES 94 30 - 160 mg/dL [facility] LDL 92 50 - 129 mg/dL [facility] Comment: LDL levels in terms of risk for coronary heart disease: <100 mg/dL: Optimal 100-129 mg/dL: Near or above optimal 130-159 mg/dL: Borderline high 160-189 mg/dL: High >190 mg/dL: Very High CARDIAC RISK RATIO 3.6 3.3 - 4.4 C [facility] Blood 02/07/2024 11:5 8 AM EDT 02/07/2024 12:06 PM EDT us Brittney ANAND LAB BLOOD BKR ORDERABLES Final Result [facility] [address] [place], [place] [id number] from Last 3 Months or Most Recently Relevant to Health Maintenance [place] [address] [place] [address] HMO O O O HMO O INSURANCE Care Teams Tire Repairer Relationship Specialty Start Date End Date Eleanor Rolon MD [address] [place] [address] [email or web address] PCP - General Internal Medicine 12/30/17 Additional Source Comments The information contained in this document represents components of the legal health record. It is not the complete legal health record.[facility]
--- OUTSIDE RECORDS SUMMARY | 2025-08-30 08:43 | XMS_ITS | Encounter Summary ---
Author Organization [facility] Address [address] [facility] [address] [place] [address] Phone Care Team Providers Care Lighting Director Name Role Phone Eleanor Rolon MD Primary Care Provider Encounter Details Date Type Department Care Team (Late st Contact Info) Description 12/30/2017 Procedure [facility], Ct Scan - [address] [address] Social History Tobacco Use Types Packs/Day Years [...] documented as of this encounter Care Teams Lighting Director Relationship Specialty Start Date End Date Eleanor Rolon MD [address] [place] [address] [email or web address] PCP - General Internal Medicine 12/30/17 documented as of this encounter Additional Source Comments The information contained in this document represents components of the legal health record. It is not the complete legal health record.[facility]
--- OUTSIDE RECORDS SUMMARY | 2025-08-30 08:43 | XMS_ITS | Data Portability ---
Author Organization [place] - [facility], Allergy Address [address] [address] Care Team Providers Care Application Design Engineer Name Role Phone DARIELA MCCANN Primary Care [...] compresses 10-15 minutes TID followed by firm enbf-fr-kjixy palpation to increase salivary production. Recommend alternating [...] evaluate for stone. All questions were answered. Not available 06/15/2025 15:56:48 Plan of Treatment Reminders Order Date Submit Date Provider Last Modified By Organization Details Last Modified Time Details Appointments Establish ed 15 2024 02:15P Carlitos BARCENAS PA-C Not available Not available Not available Lab None recorded. Referral None recorded. Procedures allergen immunothe rapy; multiple injection s (PROC) 2024 025 [email or web address] Not available 06/17/2025 08:39:02 allergy testing, skin prick (PROC) 2024 025 [email or web address] Not available 03/31/2025 14:09:00 intraderm al allergy skin testing (PROC) 2024 025 [email or web address] Not available 03/31/2025 14:09:00 pulmonary function test procedure (PROC) 2024 025 [email or web address] Not available 03/31/2025 14:09:00 pulse oximetry (PROC) 2024 025 [email or web address] Not available 03/31/2025 14:09:00 Surgeries None recorded. Imaging CT, neck, soft tissue, w/ contrast 2024 025 [email or web address] [facility], [address], [address], [place], [address], 07/14/2025 10:53:04 Medication Orders azithromy teofilo 250 mg tablet 2024 025 [facility], [address] [place] [address], [address], 06/15/2025 15:58:28 EpiPen 2-Antoine 0.3 mg/0.3 mL injection , auto-inje ctor 2024 025 [facility], [address] [place] [address], [id number], 06/11/2025 05:01:42 Patient TargetsNo targets recorded. Patient InstructionsNo instructions recorded. Reason for Referral None Reported. Problems Name Problem SNOMED Code Status Onset Date Resolution Date Notes Provider Name and Address Organization Details Recorded Time Dysfuncti on of eustachia n tube 02746812 Active 2013 Eustachia n tube dysfuncti on; CMS Risk: moderate risk CMS Treatment : new problem (to examiner) : no additiona l workup planned N ote: Date Diagnosed : 4 2:43 PM (381.81) Not Available [facility] 4 03:15:37 Disorder of pharynx 23139993 Active 2013 Vestibuli tis Nasal; CMS Risk: moderate risk CMS Treatment : new problem (to examiner) : no additiona l workup planned N ote: Date Diagnosed : 4 2:43 PM (478.20) Not Available [facility] 4 03:15:38 Cough 01250872 Active 2013 Cough; CMS Risk: moderate risk CMS Treatment : new problem (to examiner) : no additiona l workup planned N ote: Date Diagnosed : 4 2:43 PM (786.2) Not Available [facility] 4 03:15:37 Sensorine ural hearing loss of bilateral ears 912288829 Active 2013 Sensorine ural HL, bilateral ; Note: Date Diagnosed : 4 3:55 PM (389.18) Not Available [facility] 4 03:15:38 Allergic rhinitis 62946971 Active 2014 Allergic rhinitis: Due to other allergen; Note: Date Diagnosed : 11/08/2014 3:59 PM (477.8) Not Available [facility] 4 03:15:37 Bilateral tinnitus 63045051496 02 Active 2018 Tinnitus, bilateral ; Note: Date Diagnosed : 03/16/2019 4:28 PM (H93.13) Not Available [facility] 4 03:15:37 Sensorine ural hearing loss 05829923 Active 2018 Sensorine ural hearing loss, unilatera l, right ear, with unrestric christian hearing on the contralat eral side; Note: Date Diagnosed : 03/16/2019 4:28 PM (H90.41) Not Available [facility] 4 03:15:37 Localized eruption of skin 553167618 Active 2018 Rash and other nonspecif ic skin eruption; Note: Date Diagnosed : 03/16/2019 4:28 PM (R21) Not Available [facility] 4 03:15:38 Chronic sinusitis 71278051 Active 2023 DREW BARCENAS PA-C 100 [facility],[place] [address], [place], [address] , [place] [facility] 4 14:17:12 Nasal congestio n 28717583 Active 2024 DREW BARCENAS PA-C [address] [place] [address],[place] [address] [place], [address] , [place] [facility] 5 15:56:25 Acute sinusitis 88663615 Active 2024 DREW BARCENAS PA-C 100 [facility],[place] [address], [address] , [facility] 5 15:56:29 Non-aller gic rhinitis 81829054220 1 Active 2024 DREW BARCENAS PA-C [facility] [address], [place], [address] , [facility] 5 15:56:35 Seasonal allergic rhinitis 873350367 Active 2024 DREW BARCENAS PA-C [facility] [place] [address], [place], [address] , [facility] 5 15:56:35 Acute sialoaden itis 202766658 Active 2024 TAMAR SARMIENTO PA-C [address] [place] [address],[place] [address], [place], [address] , [facility] 14:07:04 Problem Notes None recorded. Procedures Surgical History Date Name Laterality Status Provider Name and Address Organization Details Recorded Time 03/31/20 25 Allergy Testing-Full completed LULI ARCE 100 [facility],[address], [address], [facility] - [facility] 03/31/2025 15:25:04 12/30/19 25 Allergy Testing Modified- Quantitative Testing (MQT) Only completed LULI ARCE 100 [facility],[address], [address], [facility] - [facility] 12/29/2024 16:00:17 10/27/19 25 Comp Audio with Tymps - 90742 & 64012 completed LATESHA WILSON [address] [facility] [place] [address], [place], [address], [facility] - [facility] 10/27/2024 15:46:42 Imaging Results None recorded. Procedure Notes None recorded. Medical Equipment None Reported. Allergies Allergen ID Allergen Name Allergen Category Reaction Reaction Severity Criticality Documentation Date Start Date Code Code System Note Provider Name and Address Organization Details Recorded Time 975010 Substance with sulfonami de structure and antibacte rial mechanism of action (substanc e) medicatio n other Not available Not available 02/17/2024 15862 8003 SNOMED React ion: unkno wn, unspe cifie d;; Not Available [facility] 4 01:25:06 836811 Product containin g penicilli n (product) medicatio n other Not available Not available 02/17/2024 56288 8001 SNOMED React ion: unkno wn, unspe cifie d;; Not Available [facility] 4 01:25:07 696253 ciproflox acin medicatio n Not available Not available Not available 10/27/2024 2551 RxNorm Lien Alvarez null, [place] - [facility] 15:00:00 697955 oxycodone medicatio n vomiting mild Not available 12/29/2024 7804 RxNorm TUAN BACH, [facility] [address], [address] [facility] [place] [facility] 15:43:42 985217 peanut allergeni c extract food,medi cation Not available Not available Not available 06/15/2025 38004 8 RxNorm Patricia Steen null, [place] - [facility] 15:41:44 407624 garlic preparati on food,medi cation vomiting severe Not available 06/15/2025 90622 7 RxNorm Patricia Steen null, [place] - [facility] 15:41:44 317778 onion extract food,medi cation nausea moderate Not available 06/15/2025 37417 69 RxNorm Patricia Steen null, [place] - [facility] 5 15:41:44 650711 pineapple extract food vomiting moderate Not available 06/15/2025 47056 74 RxNorm Patricia Steen null, [place] - [facility] 5 15:41:44 068289 clove preparati on food Not available Not available Not available 06/15/2025 09087 95 RxNorm Patricia Steen null, [place] - [facility] 5 15:41:44 491772 black pepper preparati on food Not available Not available Not available 06/15/2025 73044 4 RxNorm Patricia nolan, [place] - [facility] 5 15:41:44 224956 james pepper food Not available Not available Not available 06/15/2025 Patricia Steen null, [place] - [facility] 5 15:41:44 167170 cayenne pepper fruits food Not available Not available Not available 06/15/2025 Patricia Steen null, [place] - [facility] 5 15:41:44 992044 pepper extract Not available Not available Not available Not available 06/15/2025 45171 85 RxNorm Patricia Steen null, [place] - [facility] 15:41:44 401214 nut - unspecifi ed food Not available Not available Not available 06/15/2025 Patricia nolan, [place] - [facility] 5 15:41:44 212461 coconut extract food,medi cation facial swelling moderate Not available 06/15/2025 74402 48 RxNorm Patricia nolan, [place] - [facility] 15:41:44 788782 iron-dext ran complex medicatio n anaphylax is severe Not available 06/15/2025 5992 RxNorm Patricia Steen null, [place] - [facility] 15:42:15 129360 peanut oil food,medi cation respirato ry distress moderate Not available 06/15/2025 51487 RxNorm Patricia Steen null, [place] - [facility] 5 15:42:15 874118 Dextran (substanc e) medicatio n Not available Not available Not available 08/24/2025 04464 0007 SNOMED Not Available valerie - External [employer] - prod 5 17:33:20 196682 hydromorp meredith medicatio n Not available Not available Not available 08/24/2025 3423 RxNorm Not Available valerie - External Data [employer] - prod 5 17:33:20 115754 fexofenad ine medicatio n Not available Not available Not available 08/24/2025 11745 RxNorm Not Available valerie - External Data [employer] - prod 5 17:33:20 876138 acetamino phen / hydrocodo ne medicatio n Not available Not available Not available 08/24/2025 21188 2 RxNorm Not Available valerie - External Data [employer] - [facility] 5 17:33:20 523542 esomepraz ole Not available Not available Not available unabletoasse ss 08/24/2025 97733 2 RxNorm Not Available valerie - [employer] - [facility] 5 17:33:20 222225 dextran sulfate Not available anaphylax is Not available Not available 08/24/2025 27770 RxNorm Not Available valerie - [employer] - [facility] 5 17:35:15 223641 Augmentin medicatio n Not available Not available Not available 08/24/2025 84628 2 RxNorm Not Available [facility] [employer] - [facility] 17:35:15 866911 dextran 1 medicatio n anaphylax is Not available high 08/24/20252017 06095 5 RxNorm Not Available valerie - [employer] - prod 17:40:04 374572 Iodinated contrast media (substanc e) medicatio n hives rash Not available Not available [facility] 08/24/20252017 16468 2004 SNOMED Pt suffe red conge stion , and filli ng of ears and sinus es. Not Available valerie - [employer] - prod 5 17:40:04 702972 omeprazol e medicatio n Not available Not available [facility] 08/24/20252017 7646 RxNorm unrec ogniz ed react ion (text : Laurau wai letal Pain, code: [id number] 9000) (from exter nal sourc e) Not Available valerie - External Data [employer] - prod 5 17:40:04 Medications Name Sig Start Date Stop [...] mg tablet 09/27 completed Medicati on ID: 37337 Re ason: () Brand Name: predniso ne [...] mg tablet 09/27 [place]: 09681 Re ason: () Brand Name: ciproflo xacin [...] both nostrils 12/29 completed Medicati on ID: 90618 Du ration Value: 10 Prescri bed By [...] Updated DateTime 03/09/2025 158.75 cm 33.3 kg/m2 99129.59 g Daija Michael [place] - [facility] 03/09/2025 14:31:42 Date Recorded Body height Body mass index (BMI) Body weight Provider Name and Address Organization Details Last Updated DateTime 06/03/2025 158.75 cm 33.3 kg/m2 98250.59 g Patricia Enio [place] - [facility] 06/03/2025 14:47:43 Date Recorded Body height Body mass index (BMI) Body weight Provider Name and Address Organization Details Last Updated DateTime 06/08/2025 158.75 cm 33.3 kg/m2 61676.59 g Suzy Mendosamin [place] - [facility] 06/08/2025 13:42:38 Date Recorded Body height Body mass index (BMI) Body weight Provider Name and Address Organization Details Last Updated DateTime 06/15/2025 158.75 cm 33.3 kg/m2 56924.59 g Patricia Steen [place] - [facility] 06/15/2025 15:41:22 Social History None recorded. [...] Disorder N Anesthesia Complications Y Heart Attack ([place]) N Other Skin Condition Y Diabetes N [...] ICD10 Code Diagnosis IMO Codes Diagnosis Note [id number] DREW BARCENAS PA-C [facility] [address] [address] 09/27/2024 13:43:57 09/27/2024 14:12:26 Chronic sinusitis 34483252 J32.9 [id number] DREW BARCENAS PA-C [facility] [address] [place] [address] 10/27/2024 14:53:54 10/27/2024 15:54:30 Sensorineural hearing loss 13339003 H90.41 Audiologic al evaluation results: Right ear: Mild low frequency SNHL rising to normal hearing with excellent word recognitio n. Left ear: Normal hearing with excellent word recognitio n. Tympanomet ry: Right Ear:Type A Left Ear:Type A Nasal congestion 7345247 0 R09.81 Acute sinusitis 71189684 J01.90 Allergic rhinitis 479006 04 J30.9 [id number] TUAN BACH [facility] [address] [place] [address] 12/29/2024 14:30:27 12/29/2024 16:11:39 Allergic rhinitis 86157940 J30.9 [id number] DREW BARCENAS PA-C [facility] [address] [address] 01/18/2025 14:45:11 01/18/2025 15:30:35 Allergic rhinitis 22709434 J30.9 Acute sinusitis 83385277 J01.90 [id number] DREW BARCENAS PA-C [facility] [address] [address] 03/09/2025 14:28:05 03/09/2025 14:58:35 Allergic rhinitis 26717290 J30.9 95871 TUAN BACH Min [address] [address] 03/31/2025 13:02:26 03/31/2025 15:26:31 Allergic rhinitis 00789300 J30.9 [id number] TAMAR SARMIENTO PA-C [facility] [address] [place] [address] 06/03/2025 14:17:08 06/03/2025 15:05:46 Allergic rhinitis 90586021 J30.89 01593 TAMAR SARMIENTO PA-C [facility] [address] [address] 06/08/2025 13:37:04 06/08/2025 13:58:35 Acute sialoadenitis 065989535 K11.21 1748136 [id number] DREW BARCENAS PA-C [facility] Monae 100 [facility] [place] [address] 06/15/2025 15:35:03 06/15/2025 15:53:47 Acute sialoadenitis 539710603 K11.21 9707582 Health Concerns Section Related Observation LastModified by Organization Detai ls LastModified Time None Recorded Concern Status LastModified by Organization Details LastModified Time None Recorded Advance Directives Directive None Recorded Payers Insurance Date Sequence Insurance Name Policy Number Policy Jansen Covered Member ID Jansen Member ID Guarantor Name 08/27/2025 1 [facility] [place] [id number] 1 Daren Diaz [id number] Xochitl Diaz Notes Date Note Type Note [...] is interested in rescheduling. MAURICE GUERRIER MD [address] [place] [address], [address], [facility] - [facility] 03/10/2025 08:39:14 06/03/2025 text/html ROS as [...] well-controlled. History of parathyroid tumor, davidson's THOMAS PLOSKY, MD 100 [facility],[address], [address], [place] - [facility] 06/05/2025 10:12:17 06/08/2025 text/html ROS as noted in the [facility] 59-year-old female with allergic rhinitis presents for evaluation of left-sided facial swelling. This started overnight, with associated pain. No history of salivary duct stones or infections. Feels she may be coming down with a cold, although this is her baseline. Patient endorses allergies to penicillins, sulfa, doxycycline, and clindamycin. She azithromycin in the past. History of parathyroid tumor, davidson's LYDIA SINGH MD 100 [facility],[address], [address], [facility] 06/08/2025 17:14:55 06/15/2025 text/html ROS as noted in the [facility] 59-year-old female presents for reevaluation of parotitis. She did better after azithromycin but states she had return of symptoms yesterday with fever and facial swelling. She employed massage and warm compress and has been using sour candies. During massage she had a andres of foul and bloody tasting discharge within her mouth and has been doing better since then. THOMAS MARK MD 100 [facility],[address], [address], [facility] - [facility] 06/15/2025 17:37:37 OBGyn Episode No OBEpisode recorded.
--- OUTSIDE RECORDS SUMMARY | 2025-08-30 08:43 | XMS_ITS | Encounter Summary ---
Author Organization [facility] Address [address] [employer] [facility] [address] [place] [address] Phone Care Team Providers Care Geodesist Name Role Phone Eleanor Rolon MD Primary Care Provider Encounter Details Date Type Department Care Team (Latest Contact Info) Description 06/13/2021 Transcribe Orders Virtual Department 30 [place] [address] Britntey James PA [address] [place] [address] [email or web address] Right flank pain (Primary Dx); Leg mass, [...] documented as of this encounter Care Teams Geodesist Relationship Specialty Start Date End Date Eleanor Rolon MD [address] [place] [address] [email or web address] PCP - General Internal Medicine 12/30/17 documented as of this encounter Additional Source Comments The information contained in this document represents components of the legal health record. It is not the complete legal health record.[facility]
--- OUTSIDE RECORDS SUMMARY | 2025-08-30 08:43 | XMS_ITS | Encounter Summary ---
Author Organization [facility] Address 399 [facility] [address] [place] [address] Phone Care Team Providers Care Infusion Pharmacist Name Role Phone Eleanor Rolon MD Primary Care Provider Encounter Details Date Type Department Care Team (Late st Contact Info) Description 05/20/2019 Ancillary Orders [facility], X-Ray - [address] [address] Brittney James PA [address] [place] [address] [email or web address] Social History Tobacco Use Types Packs/Day [...] L3-L4 and L5-S1. Normal alignment. POS - [id number] Narrative 05/20/2019 6:01 PM EDT XR LUMBOSACRAL [...] at L3-L4 and L5-S1.Normal alignment. POS - [id number] us Brittney ANAND IMG XR SPINE Final Result * XR HIP 2 VW LEFT PLUS PELVIS (05/20/2019 4:18 PM EDT) Anatomical Region Laterality Modality Hip Left Radiographic Carmen ging 05/20/2019 5:56 PM EDT Impressions 05/20/2019 5:59 PM EDT Mild hip degenerative arthrosis. Sclerotic changes along the iliac sides of the sacroiliac joints, unchanged compared with 12/30/2012. POS - [id number] Narrative 05/20/2019 5:59 PM EDT EXAM: XR [...] sacroiliac joints,unchanged compared with 12/30/2012. POS - [id number] Brittney ANAND IMG XR PELVIS Final Result [...] documented as of this encounter Care Teams Infusion Pharmacist Relationship Specialty Start Date End Date Eleanor Rolon MD [address] [place] [address] [email or web address] PCP - General Internal Medicine 12/30/17 documented as of this encounter Additional Source Comments The information contained in this document represents components of the legal health record. It is not the complete legal health record.[facility]
--- OUTSIDE RECORDS SUMMARY | 2025-08-30 08:43 | XMS_ITS | Encounter Summary ---
Author Organization [facility] Address 399 [facility] [address] [place] [address] Phone Care Team Providers Care Healthcare Social Worker Name Role Phone Eleanor Rolon MD Primary Care Provider [phone] Encounter Details Date Type Department Care Team (Latest Contact Info) Description 06/18/2021 Transcribe Orders Virtual Department 30 [place] [address] Brittney James PA [address] [place] [address] [email or web address] Fever, unspecified fever cause (Primary Dx); Muscle [...] be available within 24 to 48 hrs. [facility] Symptomatic? YES [facility] Other (Nasal swab) 06/20/2021 5:00 PM EDT 06/20/2021 8:26 PM EDT us Brittney ANAND LAB GENERAL ORDERABLES Final Re sult [facility] [address] [place] [address] [facility] [address] [place] [address] documented in this encounter Visit Diagnoses Diagnosis [...] documented as of this encounter Care Teams Healthcare Social Worker Relationship Specialty Start Date End Date Eleanor Rolon MD [address] [place] [address] [email or web address] PCP - General Internal Medicine 12/30/17 documented as of this encounter Additional Source Comments The information contained in this document represents components of the legal health record. It is not the complete legal health record.[facility]
--- OUTSIDE RECORDS SUMMARY | 2025-08-30 08:44 | XMS_ITS | Encounter Summary ---
Author Organization [facility] Address 399 [facility] [address] [place] [address] Phone Care Team Providers Care Rivet Tapping Machine Operator Name Role Phone Eleanor Rolon MD Primary Care Provider Encounter Details Date Type Department Care Team (Latest Contact Info) Description 05/31/2020 Transcribe Orders Virtual Department 30 [place] [address] Brittney James PA [address] [place] [address] [email or web address] Mass on back (Primary Dx) Social History [...] documented as of this encounter Care Teams Rivet Tapping Machine Operator Relationship Specialty Start Date End Date Eleanor Rolon MD [address] [place] [address] [email or web address] PCP - General Internal Medicine 12/30/17 documented as of this encounter Additional Source Comments The information contained in this document represents components of the legal health record. It is not the complete legal health record.[facility]
--- OUTSIDE RECORDS SUMMARY | 2025-08-30 08:44 | XMS_ITS | Encounter Summary ---
Author Organization [facility] Address [address] [facility] [address] [place] [address] Phone Care Team Providers Care Mastercam Programmer Name Role Phone Eleanor Rolon MD Primary Care Provider Encounter Details Date Type Department Care Team (Latest Contact Info) Description 12/25/2020 Transcribe Orders Virtual Department 30 [place] [address] Brittney James PA [address] [place] [address] [email or web address] Fever, unspecified fever cause (Primary Dx); SOB [...] be available within 24 to 48 hrs. [facility] Symptomatic? YES [facility] 12/26/2020 7:40 AM EDT 12/26/2020 7:07 PM EDT us Brittney ANAND LAB GENERAL ORDERABLES Final Re sult [facility] 30 [place] [address] [facility] [address] [place] [address] documented in this encounter Visit Diagnoses Diagnosis [...] documented as of this encounter Care Teams Mastercam Programmer Relationship Specialty Start Date End Date Eleanor Rolon MD [address] [place] [address] [email or web address] PCP - General Internal Medicine 12/30/17 documented as of this encounter Additional Source Comments The information contained in this document represents components of the legal health record. It is not the complete legal health record.[facility]
== END 2025-08-30 08:27 | disposition home or self-care (01) ==
LOC: HO.MAMMO 08:26
DX: Z12.31 Encounter for screening mammogram for malignant neoplasm of breast (principal); Z78.0 Asymptomatic menopausal state; M85.88 Other specified disorders of bone density and structure, other site
CPT/HCPCS: 77063; 77067; 77080

== ENCOUNTER → 2025-08-30 08:45 | Outpatient (BNV) | payer OTHER, SELFPAY | PROVIDERS: Visit Provider Radiology Diagnostic Radiology | DX: Z12.31 Encounter for screening mammogram for malignant neoplasm of breast (principal); E28.39 Other primary ovarian failure | CPT/HCPCS: 77063; 77067; 77080 ==

== ENCOUNTER 2025-09-19 09:08 | Outpatient (REF) | payer OTHER, SELFPAY ==
--- NOTE | ~2025-09-19 | US_ITS ---
CLINICAL HISTORY: R79.89 - Other specified abnormal findings of blood chemistry US abdomen limited. COMPARISON: None provided. Technique: Real time sonographic imaging, including color-flow imaging, was performed by the product promoter retail pet. Multiple insurance service representative static images were saved for review. FINDINGS: The visualized portions of the pancreas appear normal. The liver has mildly increased echogenicity. Simple hepatic cyst present within the left lobe of the liver measuring 1.0 x 0.9 x 1.2 cm. The main portal vein is antegrade. Liver, right lobe size: 18.5 cm, enlarged Cholecystectomy. Common bile duct: 6 mm, normal. Right kidney: Cortical medullary differentiation is maintained. No calculus or focal parenchymal abnormality identified. No hydronephrosis. Right kidney length: 10.3 cm No free intraperitoneal fluid identified. IMPRESSION: 1. Hepatomegaly with hepatic steatosis. This document has been electronically signed by: Julián Moody MD on 09/19/2025 16:25:21
[2025-09-19 10:27] LABS: MANUAL DIFF FLAG NO
[2025-09-19 10:46] LABS: Hematocrit 41.3 % (37.0-47.0); Hemoglobin 14.2 g/dl (12.0-16.0); Imm Gran Abs Auto 0.04 X10*3/uL (0.00-0.03); Imm Gran Pct Auto 0.9 % (0.0-0.4); Lymphocytes Absolute Auto 1.1 X10*3/uL (1.2-4.9); Mean Corpuscular HGB Conc 34.4 g/dl (31.0-35.0); Mean Corpuscular Hemoglobin 30.5 pg (27.0-33.0); Mean Corpuscular Volume 88.6 fL (80.0-98.0); NRBC Abs Auto 0.000 X10*3/uL (0.0-0.012); NRBC Pct Auto 0.0 /100WBC (0.0-0.2); Platelet Count 159 X10*3/uL (160-400); Red Blood Count 4.66 X10*6/uL (4.20-5.50); White Blood Count 4.4 X10*3/uL (4.8-10.8)
[2025-09-19 11:09] LABS: Alanine Aminotransferase 42 U/L (0-31); Albumin Level 4.4 g/dL (3.5-5.0); Alkaline Phosphatase 88 U/L (39-117); Anion Gap 11 (12-20); Aspartate Amino Transferase 46 U/L (5-31); Blood Urea Nitrogen 12 mg/dL (9-16); Calcium 9.3 mg/dL (8.4-10.2); Carbon Dioxide 27 mmol/L (22-29); Chloride 108 mmol/L (96-108); Cholesterol 140 mg/dL (<200); Estimated Glomerular Filt Rate > 60; HDL Cholesterol 38 mg/dL (>40); Potassium 5.1 mmol/L (3.3-5.1); Sodium 141 mmol/L (135-145); Total Protein 7.9 g/dL (6.5-8.0); Triglycerides 111 mg/dL (<150)
[2025-09-19 11:34] LABS: Ferritin 283 ng/mL (10-250)
== END 2025-09-19 09:09 | disposition home or self-care (01) ==
LOC: HO.US 09:08
PROVIDERS: Internal Medicine Medical Oncology
DX: Z13.220 Encounter for screening for lipoid disorders (principal); E53.8 Deficiency of other specified B group vitamins; R79.89 Other specified abnormal findings of blood chemistry
CPT/HCPCS: 36415; 76705; 80053; 80061; 82728; 85025

== ENCOUNTER → 2025-09-19 09:10 | Outpatient (BNV) | payer OTHER, SELFPAY | PROVIDERS: Visit Provider Radiology Diagnostic Radiology | DX: R16.0 Hepatomegaly, not elsewhere classified (principal); K76.0 Fatty (change of) liver, not elsewhere classified | CPT/HCPCS: 76705 ==

== ENCOUNTER 2025-09-28 14:57 | Outpatient (AMB) | payer OTHER, SELFPAY ==
--- OUTSIDE RECORDS SUMMARY | 2025-09-25 23:59 | XMS_ITS | Continuity of Care Document ---
Author Organization [facility] ter Address [address] [place] [id number] Care Team Providers Care Infrastructure Engineer Name Role Phone Zaida Pace Primary Care Physician Encounter 09/24/25 - 09/25/[address] [id number] Attending Physician: Not on Staff, Attending MD Referring Physician: Paula Monroy Encounter Type: [facility] Allergies, Adverse Reactions, Alerts Substance Criticality Severity Reaction Reaction Severity Status penicillin hives Active Onions nausea, heartburn,diarrhea Active sulfa drugs swelling face tongue lips Active dextrans severe bradicardia A ctive Adhesive Bandage large red w elts ekg electrodes-blister s, rash Active Dilaudid vomiting projectile Active Preeti tongue swells, facial swelling, asthma Active Vicodin decreased breathing out of focus Active Coconut Oil High criticality Moderate difficulty breathing Active Mold rash,itching,la bor ed breathing Active Nuts rash,itching,la bor ed breathing Active Peanuts facial swelling , tongue swells, asthma Active esomeprazole Unable to assess criticality Unknown difficulty breathing Active Other Food Allergy garlic- heartburn,diarrhea ,asthma swelling pineapple- difficu lty breathing Active Sulfite Allergy facial swelling,tongue swells Active Coconut Active Immunizations Given and Recorded Vaccine Date Status Refusal Reason SARS-CoV-2 (COVID-19) mRNA BNT-162b2 vac 01/20/21 Recorded SARS-CoV-2 (COVID-19) mRNA BNT-162b2 vac 12/27/20 Recorded Medications acetaminophen 325 mg oral tablet By Mouth, Every 4 hours, PRN Pain , Mild, If patient has not received Oxycodone/Acetaminophen (Percocet-5) in PACU, 0 Refills, Maintenance, 04/14/13 9:30:55 AM EDT, Tablet Start Date: 04/14/13 Status: Ordered Medication Dispense Status: Completed Total Allowed Fills: 1 Fills Dispensed: 0 Albuterol (Eqv-ProAir HFA) 90 mcg/inh inhalation aerosol See Instructions, INHALE 2 PUFFS BY MOUTH 4 TIMES DAILY NEEDED FOR SHORTNESS OF BREATH OR WHEEZING, # 9 Gm, 4 Refills, Maintenance, 04/07/25 3:47:00 PM EDT, [id number], 25, INHALE 2 PUFFSBY MOUTH 4 TIMES DAILY NEEDED FOR SHORTNESS OF BREATH OR WHEEZING, 157.4, cm, 04/07/25 15:22:00 EDT, Height, 83.4, kg, 08/14/23 10:16:00 EST, Dry Weight Start Date: 04/07/25 Status: Ordered Medication Dispense Status: Completed Quantity: 9.0 Unit: g Total Allowed Fills: 5 Fills Dispensed: 0 Aleve Back and Muscle Pain 220 mg oral tablet 1 tablet = 220 mg, By Mouth, Every 12 hours, PRN as needed for pain, # 40 tablet, 0 Refills, Maintenance, 08/13/23 1:26:00 PM EST, Tablet, Partial fill upon patient request if the prescription is for a schedule II opioid drug. Start Date: 08/13/23 Status: Ordered Medication Dispense Status: Completed Quantity: 40.0 Unit: tablet Total Allowed Fills: 1 Fills Dispensed: 0 Azithromycin 5 Day Dose Pack 250 mg oral tablet 1 pack/packet, By Mouth, Once, as directed on package labeling, # 6 tablet, 0 Refills, Soft Stop, 12/09/24 10:15:00 AM EST, Tablet, [id number], Partial fill upon patient request if the prescription is for a schedule II opioid drug., 157.4, cm, 12/09/24 9:33:00 EST, Height, 83.4, kg, 08/14/23 10:16:00 EST, Dry Weight Start Date: 12/09/24 Status: Ordered Medication Dispense Status: Completed Quantity: 6.0 Unit: tablet Total Allowed Fills: 1 Fills Dispensed: 0 Breo Ellipta 200 mcg-25 mcg/inh inhalation powder 1 puffs, Inhalation, Daily, j45.9, # 1 each, 10 Refills, Maintenance, 04/07/25 3:46:00 PM EDT, Powder, [facility], 1 puffs Inhalation Daily,Instr:j45.9, 157.4, cm, 04/07/25 15:22:00 EDT, Height, 83.4, kg, 08/14/23 10:16:00 EST, Dry Weight Start Date: 04/07/25 Status: Ordered Medication Dispense Status: Completed Quantity: 1.0 Unit: each Total Allowed Fills: 11 Fills Dispensed: 0 Claritin 10 mg oral tablet 1 tablet = 10 mg, By Mouth, Daily, 0 Refills, Maintenance, 03/12/13 9:50:20 AM EDT Start Date: 03/12/13 Status: Ordered Medication Dispense Status: Completed Total Allowed Fills: 1 Fills Dispensed: 0 EPINEPHrine 0.1 mg/mL injectable solution = 0.3 mg, Intramuscular, Once, # 1 applicator, 0 Refills, Soft Stop, 10/25/16 7:17:36 PM EST, Injection, [id number] Start Date: 10/25/16 Status: Ordered Medication Dispense Status: Completed Quantity: 1.0 Unit: applicator Total Allowed Fills: 1 Fills Dispensed: 0 Lidoderm 5% film 1 patch, Topically, Daily, PRN Pain , Severe, 0 Refills, Maintenance, 04/10/15 11:52:36 AM EDT Start Date: 04/10/15 Status: Ordered Medication Dispense Status: Completed Total Allowed Fills: 1 Fills Dispensed: 0 Nasonex 50 mcg/inh nasal spray 2 sprays = 100 mcg, Nares, Both, 2 times a day, PRN for allergy symptoms, j45.40, # 1 each, 10 Refills, Maintenance, 04/07/25 3:46:00 PM EDT, [place], [facility], 2 sprays Nares, Both 2 times a day,PRN:for allergy symptoms,Instr:j45.40, 157.4, cm, 04/07/25 15:22:00 EDT, Height, 83.4, kg, 06/28 10:16:00 EST, Dry Weight Start Date: 04/07/25 Status: Ordered Medication Dispense Status: Completed Quantity: 1.0 Unit: each Total Allowed Fills: 11 Fills Dispensed: 0 predniSONE 5 mg oral tablet 1 tablet = 5 mg, By Mouth, Daily, # 7 tablet, 0 Refills, Maintenance, 12/09/24 10:16:00 AM EST, Tablet, [facility], Partial fill upon patient request if the prescription is for a schedule IIopioid drug., 157.4, cm, 12/09/24 9:33:00 EST, Height, 83.4, kg, 08/14/23 10:16:00 EST, Dry Weight Start Date: 12/09/24 Stop Date: 12/16/24 Status: Ordered Medication Dispense Status: Completed Quantity: 7.0 Unit: tablet Total Allowed Fills: 1 Fills Dispensed: 0 Tirosint = 125 mcg, By Mouth, Daily, 0 Refills, Maintenance, 01/07/20 3:37:00 PM EDT Start Date: 01/07/20 Status: Ordered Medication Dispense Status: Completed Total Allowed Fills: 1 Fills Dispensed: 0 Vitamin B12 500 mcg/mL injectable solution = 50 mcg, Subcutaneous Injection, Every 30 days, 0 Refills, Maintenance, 08/13/23 1:30:00 PM EST, Partial fill upon patient request if the prescription is for a schedule II opioid drug. Start Date: 08/13/23 Status: Ordered Medication Dispense Status: Completed Total Allowed Fills: 1 Fills Dispensed: 0 Problem List Condition Confirmation Course Effective Dates Status Health St atus Informant Obese class I Confirmed Active Parathyroidectomy Confirmed Active Social History Social History Type Response Smoking Status Never smoker; Tobacc o user in household: No entered on: 04/25/15 Sex Sex Representation Female (finding) Patient Care team information Care Team Personnel Name: Silvano Rojas MD Position: S ELECTRO OPTICS ENGINEER MD Member Role: Lifetime ELECTRO OPTICS ENGINEER Physician Name: Zaida Pace Position: Reference Physician Member Role: PCP Address: [address] [place] [address] [address] [facility] [place] [address]- Telecom: Name: Elizabeth Coleman RN Position: STAN RN Member Role: Primary Care Nurse Care Team Related Persons Name: RAMON HYMAN Name: RAMON HYMAN Name: ROLANDO PEDRAZA Insurance Providers Guarantor name: [facility] Information #: 1 Payer: [facility] H[facility] Payer Identifier: LEMUEL Member Number: [id number] Group Number: [id number] Subscriber Identifier: NA Relationship to Subscriber: self Coverage Type: Commercial Managed Care - HMO Coverage Verification Date: LEMUEL Telecom: NA Address: NA
--- NOTE | 2025-09-28 15:01 | MHC.PC.OV ---
Vital Signs 09/28/25 15:03 09/28/25 15:25 Height 5 ft 2 in Weight 187 lb 2 oz BMI 34.2 BP 140/80 H 124/72 Blood Pressure Location Lt brachial Lt brachial Position Sitting Sitting Pulse 65 Pulse Source Pulse Oximeter Temp 96.9 F Temp Source Temporal Artery Scan Pulse Oximetry (%) 98 Oxygen Delivery Method Room Air Intake Visit Reasons: annual exam Intake Note: Patient is here today for a physical. Wire Stitcher Machine Required: No Node Js Developer: Not Required per policy Accompanied by: Self / Same As Patient Allergies dextran sulfate (DEXTRAN SULFATE) Allergy (Severe, Verified 09/28/25 15:03) BRADYCARDIA mold (MOLD) Allergy (Severe, Verified 09/28/25 15:03) SWELLING clove Allergy (Intermediate, Verified 09/28/25 15:03) Swelling doxycycline (DOXYCYCLINE) Allergy (Mild, Verified 09/28/25 15:03) RASH/FACIAL SWELLING acetaminophen (From VICODIN) Allergy (Unknown, Verified 09/28/25 15:03) UNKNOWN bee pollen (BEE STINGS) Allergy (Unknown, Verified 09/28/25 15:03) UNKNOWN coconut Allergy (Unknown, Verified 09/28/25 15:03) UNKNOWN hydromorphone (Dilaudid) Allergy (Unknown, Verified 09/28/25 15:03) Bradycardia penicillin V Allergy (Unknown, Verified 09/28/25 15:03) rash Penicillins (PENICILLINS) Allergy (Unknown, Verified 09/28/25 15:03) UNKNOWN pineapple (PINEAPPLE) Allergy (Unknown, Verified 09/28/25 15:03) UNKNOWN Sulfa (Sulfonamide Antibiotics) (SULFA(SULFONAMIDE ANTIBIOTICS)) Allergy (Unknown, Verified 09/28/25 15:03) SWELLING pepper (genus Capsicum) Allergy (Verified 09/28/25 15:03) Shortness of Breath ciprofloxacin (CIPROFLOXACIN) Adverse Reaction (Severe, Verified 09/28/25 15:03) FELT LIKE BLADDER WAS GONNA BURST OUT garlic (GARLIC) Adverse Reaction (Intermediate, Verified 09/28/25 15:03) FLU SYMPTOMS onion (ONION) Adverse Reaction (Mild, Verified 09/28/25 15:03) GI SYMPTOMS all fluroquinolones Allergy (Unknown, Uncoded 09/28/25 15:03) tendonitis Preeti Allergy (Unknown, Uncoded 09/28/25 15:03) Unknown avacado Allergy (Unknown, Uncoded 09/28/25 15:03) Unknown banana Allergy (Unknown, Uncoded 09/28/25 15:03) Unknown bee Allergy (Unknown, Uncoded 09/28/25 15:03) Unknown Clindamycin HCl Allergy (Unknown, Uncoded 09/28/25 15:03) Unknown coconut Allergy (Unknown, Uncoded 09/28/25 15:03) Unknown coconut pineapple mold Allergy (Unknown, Uncoded 09/28/25 15:03) Unknown Dextran 1 Allergy (Unknown, Uncoded 09/28/25 15:03) Unknown Dextran HM Allergy (Unknown, Uncoded 09/28/25 15:03) Unknown From DILAUDID Allergy (Unknown, Uncoded 09/28/25 15:03) UNKNOWN From VICODIN Allergy (Unknown, Uncoded 09/28/25 15:03) UNKNOWN Garlic onion Allergy (Unknown, Uncoded 09/28/25 15:03) Unknown Peanut butter Allergy (Unknown, Uncoded 09/28/25 15:03) Unknown pinnapple Allergy (Unknown, Uncoded 09/28/25 15:03) Unknown sulfa Allergy (Unknown, Uncoded 09/28/25 15:03) rash sulfite Allergy (Unknown, Uncoded 09/28/25 15:03) Unknown tape Allergy (Unknown, Uncoded 09/28/25 15:03) Unknown Medication List - Last Reconciled 09/28/25 by Zaida Mai PA-C albuterol sulfate 90 mcg/actuation 2 puffs PO QID PRN cyanocobalamin (vitamin B-12) 1,000 mcg IM QMONTH epinephrine 0.3 mg IM NEEDED PRN fluticasone furoate-vilanterol 50-25 mcg/dose (Breo Ellipta) inhalation loratadine (Claritin) 10 mg PO DAILY mometasone 50 mcg/actuation 2 sprays intranasal BID PRN Tirosint (levothyroxine) 125 mcg PO DAILY NS Tobacco use date assessed: 09/28/25 Dental Screening Dental Screen Date: 06/16/25 HPI annual exam HPI Details 60 year old female with with past medical history of hypothyroidism, osteopenia, vitamin d deficiency last seen 06/2025 coming in for annual exam. She was seen by cardio 07/2025 CTA showing no CAD and otherwise workup was negative follow up in one year. TD - FLU - had MRI done for recurrent salivary gland infections which showed - [facility] Pulm - family history of pancreatic cancer - intermittent fevers - mammo: 08/2025 DEXA: 08/2025 colonoscopy: reminded to r/s vaccines: Td given today PFSH Medical History Osteopenia Vitamin D deficiency History of hyperparathyroidism Hypothyroidism Surgical History History of surgery on arm History of partial hysterectomy History of parathyroid surgery Hx of appendectomy Hx of cholecystectomy Family History Father Atherosclerotic heart disease Paternal Grandmother Atherosclerotic heart disease Mother Asthma COPD (chronic obstructive pulmonary disease) Type 2 diabetes mellitus Fungal infection of lung Aspergillosis Social History Household Members: Family Housing: House Are you a primary medicare sales representative to a significant other at home: Yes Do you presently have visiting nurse or other home services: No Alcohol intake: never Patient Tobacco Use Status: Never used Tobacco e-Cigarette/Vaping Use: Never Used service: No Current occupational status: unemployed Hearing needs: No Vision needs: No Questionnaire Thrive Questionnaire Date Thrive assessed: 06/09/25 I am a: Patient What is your living situation today?: I have a steady place to live Within the past 12 months, did the food you bought not last and you didn't have the money to get more?: Never true Within the past 12 months, did you worry whether your food would run out before you got money to buy more?: Never true Do you have trouble paying for medicines?: No Do you have trouble getting transportation to medical appointments?: No Do you have trouble paying your heating and electricity bill?: Yes Do you have trouble taking care of your child, family member or friend?: No Do you have trouble with day-to-day activities such as bathing, preparing meals, shopping, managing finances, etc.?: No Are you currently unemployed and looking for a job?: No Are you interested in more education?: No Currently or been in a relationship where the following occur: No concerns reported THRIVE Score: 1 MORGAN-7 AMB Questionnaire MORGAN-7 Date MORGAN - 7 assessed: 06/16/25 Source: Developed by Drs. Raúl Sarkar, Xochitl Sosa, Eber Butt and colleagues, with an educational diann from [employer]. Review of Systems Const Denies body aches, Denies chills, Denies fever(s), Reports headache(s) and Denies poor appetite Eyes Reports no additional complaints ENT Denies dysphagia, Denies dizziness, Reports headache(s) and Denies odynophagia Card Denies chest pain, Denies syncope, Denies edema, Denies irregular heart rhythm, Denies lightheadedness, Denies dyspnea and Reports dyspnea on exertion Resp Denies cough, Denies dyspnea and Reports dyspnea on exertion GI Denies abdominal pain, Denies constipation, Denies dysphagia, Denies diarrhea, Denies nausea, Denies odynophagia and Denies vomiting Reports no additional complaints Musc Reports no additional complaints and Denies abnormal gait Skin/Breast Reports system reviewed and no additional complaints, except as documented Neuro Denies abnormal gait, Denies dizziness, Denies syncope and Reports headache(s) Psych Reports no additional complaints Physical exam (Primary Care) Vital Signs: Last Vital Signs Temp 96.9 F 09/28/25 15:03 Pulse 65 09/28/25 15:03 BP 124/72 09/28/25 15:25 Pulse Ox 98 09/28/25 15:03 Oxygen Delivery Method Room Air 09/28/25 15:03 BMI result Body Mass Index 34.2 Tobacco/Smoking Status: Tobacco use Status Tobacco use date assessed 09/28/25 09/28/25 15:09 Patient Tobacco Use Status Never used Tobacco 09/28/25 15:01 e-Cigarette/Vaping Use Never Used 09/28/25 15:01 Thrive Assessment: Date of Thrive Assessment Date Thrive assessed 06/09/25 09/28/25 15:01 Currently or been in a relationship where the following occur: No concerns reported Const General: cooperative, healthy appearing, comfortable and no acute distress Orientation/consciousness: patient oriented x3 HENMT Head: Yes normocephalic Ears: hearing grossly normal bilaterally, external ears normal, TM's normal bilaterally and EAC's normal General nose exam: Normal external nose present Face and sinus: Yes normal facial exam and Yes sinuses nontender Mouth: Normal oral and palatal mucosa present and tongue normal Throat: Yes posterior oropharynx normal Eyes General: appearance normal, both eyes and all related structures Conjunctivae: conjunctivae normal Pupils: Equal, round and reactive pupils present EOM: EOMs intact bilaterally and No Nystagmus present Neck Neck: Yes normal visual inspection, Yes full ROM and Yes no lymphadenopathy Chest Chest palpation & inspection: normal inspection of the chest Resp Effort & Inspection: normal respiratory effort Auscultation: clear to auscultation bilaterally, no crackles, no rales, no rhonchi, no wheezes and breath sounds present Cardio Rate: regular rate Rhythm: regular rhythm Peripheral pulses: radial pulses present and dorsalis pedis present GI Inspection: Yes normal to inspection and No Abdominal wall edema Palpation (GI): Soft to palpation, not firm and nontender Auscultation: normal bowel sounds Rectal Exam - Female: deferred General: Yes no CVA tenderness Back/Spine/Pelvis Back: no CVA tenderness Skin General skin exam: no rashes or lesions noted Neuro General: patient oriented x3 Cranial nerves: Yes Equal, round and reactive pupils present, Yes Midline tongue present, Yes Ability to bilaterally elevate shoulders present and No Nystagmus present Gait exam (Neuro): Normal gait present Extrem General: Yes normal to inspection, Yes full ROM, No no pedal edema and No edema Psych Speech and movement: Normal speech and movement present Affect: normal affect Insight: Good insight present (Psych) Judgement: Good judgement present (Psych) Immunizations Tenivac (PF) 5 Lf unit-2 Lf unit/0.5 mL intramuscular syringe Performing Provider: Zaida Mai PA-C Performing Location: [facility] [place] [facility] Administered by: Patricia Minor CMA on 09/28/25 15:40 Dose Route Admin Location Dispensed Lot Number Expiration Date [facility] Business Banking Manager 0.5 mL IM Left Deltoid 0.5 mL [id number] 12/04/26 [id number] [employer] Total Dispensed Waste 0.5 mL 0 % VIS Given Date VIS Provided VIS Publication Date 09/28/25 Single Vaccine 21 Eligibility Eligibility Date Funding Source [place] [facility] 09/28/25 Private Coding Level of Care Code Est Pt Prev Care 40-64y(80811) Diagnoses Annual physical exam Z00.00 Elevated blood pressure reading without diagnosis of hypertension R03.0 Palpitations R00.2 Hypothyroidism, unspecified type E03.9 Hypothyroidism type: unspecified History of hyperparathyroidism Z86.39 Cyanocobalamin deficiency E53.8 Osteopenia, unspecified location M85.80 Osteopenia location: unspecified Vitamin D deficiency E55.9 Hepatic steatosis K76.0 Chest discomfort R07.89 Joint pain M25.50 Adenitis, salivary, recurring K11.20 Bilateral hip pain M25.551; M25.552 Assessment & Plan Assessment & Plan (1) Annual physical exam: Code(s): Z00.00 - Encounter for general adult medical examination without abnormal findings Category: Medical (2) Elevated blood pressure reading without diagnosis of hypertension: Code(s): R03.0 - Elevated blood-pressure reading, without diagnosis of hypertension Category: Medical Plan: Avoid salt intake and encourage healthy diet and regular exercise. (3) Palpitations: Code(s): R00.2 - Palpitations Category: Medical Plan: Workup with cardiology was negative and advised to follow up as needed. (4) Hypothyroidism: Code(s): E03.9 - Hypothyroidism, unspecified Category: Medical Qualifiers: Hypothyroidism type: unspecified Qualified Code(s): E03.9 - Hypothyroidism, unspecified Plan: She will continue on Tirosint name brand of this of medication as it is a hypoallergenic tablet and she has multiple allergies. Last blood work WNL. (5) History of hyperparathyroidism: Comment: 08/2025 Code(s): Z86.39 - Personal history of other endocrine, nutritional and metabolic disease Category: Medical Plan: Continue with ultrasound of the parathyroid and thyroid gland for yearly surveillance as advised by her last PCP. Completed 08/2025. (6) Cyanocobalamin deficiency: Code(s): E53.8 - Deficiency of other specified B group vitamins Category: Medical Plan: Continue to follow with Dr. Gilmore at this time for supplementation. (7) Osteopenia: Code(s): M85.80 - Other specified disorders of bone density and structure, unspecified site Category: Medical Qualifiers: Osteopenia location: unspecified Qualified Code(s): M85.80 - Other specified disorders of bone density and structure, unspecified site Plan: Bone density screening showed osteopenia. (8) Vitamin D deficiency: Code(s): E55.9 - Vitamin D deficiency, unspecified Category: Medical Plan: Ordered for repeat blood work and not currently on supplementation. (9) Hepatic steatosis: Comment: [place] 09/2025 Code(s): K76.0 - Fatty (change of) liver, not elsewhere classified Category: Medical Plan: Healthy diet and regular exercise is encouraged. (10) Chest discomfort: Code(s): R07.89 - Other chest pain Category: Medical Plan: Workup has been negative and she will follow up with cardiology in one year. (11) Joint pain: Code(s): M25.50 - Pain in unspecified joint Category: Medical (12) Adenitis, salivary, recurring: Comment: MRI 09/2025 Chief Jailer Code(s): K11.20 - Sialoadenitis, unspecified Category: Medical (13) Bilateral hip pain: Code(s): M25.551 - Pain in right hip; M25.552 - Pain in left hip Category: Medical Plan: Offered pain management referral at this time which was declined and declined ortho referral. She will use lidocaine patches as needed. Plan This note was constructed using voice recognition software. While every effort has been made to ensure accuracy and plant machinist, still areas may have been included sometimes these areas may affect the content or meeting of the given symptoms. Total time spent caring for the patient today was 30 minutes. This includes time spent before the visit reviewing the chart, time spent during the visit, and time spent after the visit and documentation. Orders: Orders C Reactive Protein Today M25.50 - Pain in unspecified joint Erythrocyte Sedimentation Rate Today M25.50 - Pain in unspecified joint Vitamin A Today L65.9 - Nonscarring hair loss, unspecified Td Immunization Today Z23 - Encounter for immunization Vitamin D 25-OH Total Today Z13.21 - Encounter for screening for nutritional disorder Sjogren's Antibodies Today K11.20 - Sialoadenitis, unspecified, M25.50 - Pain in unspecified joint TSH reflex Free T4 Today E03.9 - Hypothyroidism, unspecified IRON PROFILE Today L65.9 - Nonscarring hair loss, unspecified Medications: New lidocaine 5% leave on most painful area for up to 12 hrs 1 patch topical DAILY 30 ea 0RF M25.50 - Pain in unspecified joint
--- OUTSIDE RECORDS SUMMARY | 2025-09-28 15:01 | XMS_ITS | Data Portability ---
Author Organization [place] - [facility], Allergy Address [address] [place] [address] Care Team Providers Care Tugboat Pilot Name Role Phone DARIELA MCCANN Primary Care [...] their symptoms. [email or web address] Not available 06/03/2025 15:02:57 06/08/2025 06/08/2025 59-year-old [...] compresses 10-15 minutes TID followed by firm ccpz-yp-impeh palpation to increase salivary production. Recommend alternating between tylenol and ibuprofen for pain management. Patient will contact me via the portal with lack of improvement or development of new or worsening symptoms. mat Not available 06/08/2025 16:40:08 06/15/2025 06/15/2025 59-year-old [...] evaluate for stone. All questions were answered. leonel Not available 06/15/2025 15:56:48 08/30/2025 08/30/2025 60-year-old female presents for reevaluation. Examination reveals no swelling or erythema over the parotid or submandibular glands. It is possible that stone extrusion has helped prevent her from having further infection. We discussed options today including observation versus obtaining alternate imaging such as an MRI as she does not have difficulty with MRI contrast. She would like to proceed with MRI and this will be ordered. Follow-up after for review and any further planning. leonel Not available 08/30/2025 14:31:20 Plan of Treatment Reminders Order Date Submit Date Provider Last Modified By Organization Details Last Modified Time Details Appointments None recorded. Lab None recorded. Referral None recorded. Procedures allergen immunothera py; multiple injections (PROC) 2024 025 [facility] Not available 08:39:02 Surgeries None recorded. Imaging MRI, neck, w/ contrast 2024 025 [email or web address] [facility] ([facility] [address], [place], [address], 5 13:34:51 CT, neck, soft tissue, w/ contrast 2024 025 [email or web address] [facility] [place], [address], [address], [place], [address], 10/09/202 5 10:53:04 Medication Orders azithromyci n 250 mg tablet 2024 025 [facility], [address] [place] [address], [address], 5 15:58:28 EpiPen 2-Antoine 0.3 mg/0.3 mL injection, auto-inject or 2024 025 [facility], [address] [place], [address], 5 05:01:42 Patient TargetsNo targets recorded. Patient InstructionsNo instructions recorded. Reason for Referral None Reported. Results Created Date Observation Date Name Description Value Unit Range Abnormal Flag Note LastModifiedBy Organization Detail LastModifiedTime 09/27/2009/24/2025 MRI, head + neck + orbit s, w/wo contr ast [facility] Access ion Number : [id number] [place] t Name: Xochitl Trujillo Record Number : [id number] Date of : 1964 Date of Exam: 2024 Referr ing Physic donna: Drew Hudson [facility] [address] [facility], [address] [facility], [place] [address] Exam: MR Orbits , Face, Neck (C-/C+ ) CPT 45048 Room Descri ption: [place] [facility] 1.5 MRI Orbit, Face,N jyoti W+W/O Contra st INDICA TION: Acute sialoa deniti s - Additi onal histor y per clinic al note: Recurr ent paroti tis. Extrus ion of severa l stones during last episod e. TECHNI QUE: Multip lanar, multis equenc e MRI of the neck was perfor med before and after the admini strati on of intrav enous contra st. 9 mL of Elucir em was admini stered intrav enousl y. COMPAR KJ: MRI cervic al spine 015. FINDIN GS: Visual ized intrac ranial struct ures and orbits : Normal . Visual ized parana nestor sinuse s and mastoi ds: Unrema rkable . Mucosa l surfac es: Mucosa l surfac es appear normal and symmet spencer, includ ing the pharyn x, larynx , and visual ized portio ns of the upper trache a and esopha norah. No nodula rity or hypere nhance ment is seen. Superf icial and deep neck spaces : Normal . Cervic al lymph nodes: Normal in size and morpho logy. Saliva ry glands : There are multip le puncta te foci of T2 prolon gation in bilate ral paroti d glands . No inflam matory change s or abnorm al enhanc ement is seen. Size and contou r of the paroti d glands is symmet spencer allowi ng for head tilt. There is no focal mass or fluid collec tion. No ductal dilata tion is seen. The subman dibula r glands are normal . Thyroi d gland: Normal MR appear ance. Vascul ar struct ures: Major cervic al flow voids are mainta ined. Upper chest: No signif icant abnorm ality of the visual ized lung apices and upper medias tinum. Bones: Marrow signal is preser sudhir. IMPRES RAFFI: 1. No eviden ce of acute inflam matory change , ductal dilata tion, fluid collec tion, or other acute findin gs involv ing the saliva ry glands . 2. Multip le puncta te T2 hyperi ntense foci in bilate ral paroti d glands , likely reflec ting microc ysts, with no solid mass or abnorm al enhanc ement. This can be seen as a sequel ae of chroni c inflam matory change . WSN: [id number] Orderi ng Physic donna: Drew Hudson onical ly Signed By: Constantin castaneda [facility] ([facility]) [address], [place], [address], 09/27/2025 16:19:39 Result Notes Documentation Provider Name and Address Organization Details Recorded Time Mri, Head + Neck + Orbits, W/wo Contrast : [facility] Accession Number: [id number] Patient Name: Xochitl Haque Date of : 1965 Date of Exam: 09-24-2025 Referring Physician: Drew Flores [facility] [address], [address] [place], [place] [address] Exam: MR Orbits, Face, Neck (C-/C+) CPT 19559 Room Description: [facility] 1.5 MRI Orbit,Face,Neck W+W/O Contrast INDICATION: Acute sialoadenitis - Additional history per clinical note: Recurrent parotitis. Extrusion of several stones during last episode. TECHNIQUE: Multiplanar, multisequence MRI of the neck was performed before and after the administration of intravenous contrast. 9 mL of Elucirem was administered intravenously. COMPARISON: MRI cervical spine 04/18/2015. FINDINGS: Visualized intracranial structures and orbits: Normal. Visualized paranasal sinuses and mastoids: Unremarkable. Mucosal surfaces: Mucosal surfaces appear normal and symmetric, including the pharynx, larynx, and visualized portions of the upper trachea and esophagus. No nodularity or hyperenhancement is seen. Superficial and deep neck spaces: Normal. Cervical lymph nodes: Normal in size and morphology. Salivary glands: There are multiple punctate foci of T2 prolongation in bilateral parotid glands. No inflammatory changes or abnormal enhancement is seen. Size and contour of the parotid glands is symmetric allowing for head tilt. There is no focal mass or fluid collection. No ductal dilatation is seen. The submandibular glands are normal. Thyroid gland: Normal MR appearance. Vascular structures: Major cervical flow voids are maintained. Upper chest: No significant abnormality of the visualized lung apices and upper mediastinum. Bones: Marrow signal is preserved. IMPRESSION: 1. No evidence of acute inflammatory change, ductal dilatation, fluid collection, or other acute findings involving the salivary glands. 2. Multiple punctate T2 hyperintense foci in bilateral parotid glands, likely reflecting microcysts, with no solid mass or abnormal enhancement. This can be seen as a sequelae of chronic inflammatory change. WSN: [id number] Ordering Physician: Drew Flores Electronically Signed By: Rosario FLORES PA-C [address] [facility] [address], [place], [address], [place] [facility] 09/27/2025 16:19:39 Problems Name Problem SNOMED Code Status Onset Date Resolution Date Notes Provider Name and Address Organization Details Recorded Time Dysfuncti on of eustachia n tube 62951574 Active 2013 Eustachia n tube dysfuncti on; CMS Risk: moderate risk CMS Treatment : new problem (to examiner) : no additiona l workup planned N ote: Date Diagnosed : 4 2:43 PM (381.81) Not Available [facility] 4 03:15:37 Disorder of pharynx 54564878 Active 2013 Vestibuli tis Nasal; CMS Risk: moderate risk CMS Treatment : new problem (to examiner) : no additiona l workup planned N ote: Date Diagnosed : 4 2:43 PM (478.20) Not Available [facility] 4 03:15:38 Cough 11468146 Active 2013 Cough; CMS Risk: moderate risk CMS Treatment : new problem (to examiner) : no additiona l workup planned N ote: Date Diagnosed : 4 2:43 PM (786.2) Not Available [facility] 4 03:15:37 Sensorine ural hearing loss of bilateral ears 863449655 Active 2013 Sensorine ural HL, bilateral ; Note: Date Diagnosed : 4 3:55 PM (389.18) Not Available [facility] 4 03:15:38 Allergic rhinitis 18671139 Active 2014 Allergic rhinitis: Due to other allergen; Note: Date Diagnosed : 11/08/2014 3:59 PM (477.8) Not Available [facility] 4 03:15:37 Bilateral tinnitus 92451965072 02 Active 2018 Tinnitus, bilateral ; Note: Date Diagnosed : 03/16/2019 4:28 PM (H93.13) Not Available [facility] 4 03:15:37 Sensorine ural hearing loss 84007102 Active 2018 Sensorine ural hearing loss, unilatera l, right ear, with unrestric christian hearing on the contralat eral side; Note: Date Diagnosed : 03/16/2019 4:28 PM (H90.41) Not Available [facility] 4 03:15:37 Localized eruption of skin 725116942 Active 2018 Rash and other nonspecif ic skin eruption; Note: Date Diagnosed : 03/16/2019 4:28 PM (R21) Not Available [facility] 4 03:15:38 Chronic sinusitis 70526858 Active 2023 DREW FLORES PA-C [address], [place], [address] , [facility] - [facility] [place] 4 14:17:12 Nasal congestio n 97977765 Active 2024 DREW FLORES PA-C [address], [place], [address] , [facility] - [facility] [place] 5 15:56:25 Acute sinusitis 99284454 Active 2024 DREW FLORES PA-C [address], [place], [address] , [facility] - [facility] [place] 5 15:56:29 Non-aller gic rhinitis 14315858941 1 Active 2024 DREW FLORES PA-C [address], [place], [place], [address] , [facility] - [facility] [place] 5 15:56:35 Seasonal allergic rhinitis 986591589 Active 2024 DREW FLORES PA-C [address], [place], [address] , [facility] - [facility] [place] 5 15:56:35 Acute sialoaden itis 394126350 Active 2024 TAMAR SARMIENTO PA-C [address], [place], [address] , [facility] - [facility] [place] 5 14:07:04 Problem Notes None recorded. Procedures Surgical History Date Name Laterality Status Provider Name and Address Organization Details Recorded Time 03/31/20 Allergy Testing-Full completed LULI ARCE [address], [place], [address], [facility] - [facility] 03/31/2025 15:25:04 12/30/19 25 Allergy Testing Modified- Quantitative Testing (MQT) Only completed LULI ARCE [address], [address], [facility] - [facility] 12/29/2024 16:00:17 10/27/19 25 Comp Audio with Tymps - 41535 & 92906 completed SH[facility]A [facility] [address] [facility],[address] [address], [place], [address], [facility] 10/27/2024 15:46:42 Imaging Results None recorded. Procedure Notes None recorded. Medical Equipment None Reported. Allergies Allergen ID Allergen Name Allergen Category Reaction Reaction Severity Criticality Documentation Date Start Date Code Code System Note Provider Name and Address Organization Details Recorded Time 983173 Substance with sulfonami de structure and antibacte rial mechanism of action (substanc e) medicatio n other Not available Not available 02/17/2024 54600 8003 SNOMED React ion: unkno wn, unspe cifie d;; Not Available [facility] 4 01:25:06 753083 Product containin g penicilli n (product) medicatio n other Not available Not available 02/17/2024 61204 8001 SNOMED React ion: unkno wn, unspe cifie d;; Not Available [facility] 4 01:25:07 779117 ciproflox acin medicatio n Not available Not available Not available 10/27/2024 2551 RxNorm Lien nolan [place] - [facility] 5 15:00:00 203649 oxycodone medicatio n vomiting mild Not available 12/29/2024 7804 RxNorm LULI ARCE [address], [address], [facility] 5 15:43:42 419994 peanut allergeni c extract food,medi cation Not available Not available Not available 06/15/2025 68485 8 RxNorm Patricia Steen null, [place] - [facility] [place] 5 15:41:44 966619 garlic preparati on food,medi cation vomiting severe Not available 06/15/2025 32260 7 RxNorm Patricia Steen null, [place] - [facility] [place] 5 15:41:44 503292 onion extract food,medi cation nausea moderate Not available 06/15/2025 76728 69 RxNorm Patricia Steen null, [place] - [facility] [place] 15:41:44 501193 pineapple extract food vomiting moderate Not available 06/15/2025 08291 74 RxNorm Patricia Steen null, [place] [facility] [place] 15:41:44 420499 clove preparati on food Not available Not available Not available 06/15/2025 64627 95 RxNorm Patricia Steen null, [place] [facility] [place] 15:41:44 986748 black pepper preparati on food Not available Not available Not available 06/15/2025 36242 4 RxNorm Patricia Steen null, [place] [facility] [place] 15:41:44 816253 james pepper food Not available Not available Not available 06/15/2025 Patricia Steen null, [place] - [facility] [place] 5 15:41:44 353675 cayenne pepper fruits food Not available Not available Not available 06/15/2025 Patricia Steen null, [place] - [facility] 5 15:41:44 357994 pepper extract Not available Not available Not available Not available 06/15/2025 88476 85 RxNorm Patricia Steen null, [place] [facility] 5 15:41:44 867740 nut - unspecifi ed food Not available Not available Not available 06/15/2025 Patricia Steen null, [place] - [facility] 5 15:41:44 092342 coconut extract food,medi cation facial swelling moderate Not available 06/15/2025 30066 48 RxNorm Patricia Steen null, [place] [facility] 5 15:41:44 928563 iron-dext ran complex medicatio n anaphylax is severe Not available 06/15/2025 5992 RxNorm Patricia nolan, [place] - [facility] 5 15:42:15 978340 peanut oil food,medi cation respirato ry distress moderate Not available 06/15/2025 70436 RxNorm Patricia nolan, [place] - [facility] 5 15:42:15 605316 Dextran (substanc e) medicatio n Not available Not available Not available 08/24/2025 29553 0007 SNOMED Not Available valerie - External Data Service - prod 5 17:33:20 529937 hydromorp meredith medicatio n Not available Not available Not available 08/24/2025 3423 RxNorm Not Available valerie - External Data Service - prod 5 17:33:20 974235 fexofenad ine medicatio n Not available Not available Not available 08/24/2025 35899 RxNorm Not Available valerie - External Data Service - prod 5 17:33:20 585036 acetamino phen / hydrocodo ne medicatio n Not available Not available Not available 08/24/2025 14425 2 RxNorm Not Available valerie - External Data Service - prod 5 17:33:20 548813 esomepraz ole Not available Not available Not available unabletoasse ss 08/24/2025 56860 2 RxNorm Not Available valerie - External Data Service - prod 5 17:33:20 985364 dextran sulfate Not available anaphylax is Not available Not available 08/24/2025 01124 RxNorm Not Available valerie - External Data Service - prod 5 17:35:15 226543 Augmentin medicatio n Not available Not available Not available 08/24/2025 23754 2 RxNorm Not Available valerie - External Data Service - prod 5 17:35:15 550776 dextran 1 medicatio n anaphylax is Not available high 08/24/20252017 10183 5 RxNorm Not Available valerie - External Data Service - prod 17:40:04 852905 Iodinated contrast media (substanc e) medicatio n hives rash Not available Not available [facility] 08/24/20252017 03481 2004 SNOMED Pt suffe red conge stion , and filli ng of ears and sinus es. Not Available val[facility] - External Data Service - prod 17:40:04 387530 omeprazol e medicatio n Not available Not available [facility] 08/24/20252017 7646 RxNorm unrec ogniz ed react ion (text : Corrina carreno letal Pain, code: [id number]) (from exter nal sourc e) Not Available [facility] External Data Service - prod 17:40:04 Medications Name Sig Start Date Stop Date Status Note LastModified by Organization Details LastModified Time cyclobenz aprine 10 mg tablet 08/30 completed Not Available Not Available Not Available [...] DAY ON DAY 2 THROUGH DAY 5 08/30 completed Not Available Not Available Not Available Claritin 10 mg tablet 1 tablet every day by oral route. 2014 active Not Available Not Available Not Avai lable prednison e 20 mg tablet 09/27 completed Medicati on ID: 03162 Re ason: () Brand Name: predniso ne [...] mg tablet 09/27 completed Medicati on ID: 17128 Re ason: () Brand Name: ciproflo xacin [...] Not Available Not Available No t Available triamcino lone acetonide 0.1 % topical ointment APPLY TOPICALL Y TO AFFECTED AREAS OF ECZEMA ON THE HANDS AND ARMS TWICE DAILY FOR 2 WEEKS, BREAK FOR ONE WEEK AND USE VASELINE , THEN REPEAT NEEDED FOR FLARES active Not Available Not Available No t [...] both nostrils 12/29 completed Medicati on ID: 05450 Du ration Value: 10 Prescri bed By [...] Available BinaxNOW COVID-19 Ag Self Test kit 08/30 completed Not Available Not Available Not Available [...] Updated DateTime 06/03/2025 158.75 cm 33.3 kg/m2 12043.59 g Patricia Steen [place] - [facility] 06/03/2025 14:47:43 Date Recorded Body height Body mass index (BMI) Body weight Provider Name and Address Organization Details Last Updated DateTime 06/08/2025 158.75 cm 33.3 kg/m2 73874.59 g Suzy Pedroza [place] - [facility] 06/08/2025 13:42:38 Date Recorded Body height Body mass index (BMI) Body weight Provider Name and Address Organization Details Last Updated DateTime 06/15/2025 158.75 cm 33.3 kg/m2 55184.59 g Patricia Steen [place] - [facility] 06/15/2025 15:41:22 Date Recorded Body height Body mass index (BMI) Body weight Provider Name and Address Organization Details Last Updated DateTime 08/30/2025 158.75 cm 33.1 kg/m2 29349 g Daija Kilpatrick [facility] 08/30/2025 14:24:05 Social History None recorded. Functional Status None recorded. Mental Status None recorded. Family History Nothing Reported. Medical History Condition Response Allergies/Hayfever Y Heart Problems Y Anxiety N Tonsil Infections N Emphysema N Migraines N Thyroid Problems Y COPD N Depression N Developmental Delay N Glaucoma N Nasal or Sinus Problems Y Anemia Y Immune System Disorder N Anesthesia Complications Y Heart Attack (ME) N Other Skin Condition Y Diabetes N [...] ICD10 Code Diagnosis IMO Codes Diagnosis Note [id number] DREW FLORES PA-C [facility] [address] [address] 09/27/2024 13:43:57 09/27/2024 14:12:26 Chronic sinusitis 11496652 J32.9 [id number] DREW FLORES PA-C [facility] [address] [address] 10/27/2024 14:53:54 10/27/2024 15:54:30 Sensorineural hearing loss 96637405 H90.41 Audiologic al evaluation results: Right ear: Mild low frequency SNHL rising to normal hearing with excellent word recognitio n. Left ear: Normal hearing with excellent word recognitio n. Tympanomet ry: Right Ear:Type A Left Ear:Type A Nasal congestion 8275755 0 R09.81 Acute sinusitis 05586075 J01.90 Allergic rhinitis 728459 04 J30.9 [id number] LULI ARCE [facility] [address] [place] [address] [address] 12/29/2024 14:30:27 12/29/2024 16:11:39 Allergic rhinitis 52757906 J30.9 [id number] DREW FLORES PA-C [facility] [address] [place] [address] 01/18/2025 14:45:11 01/18/2025 15:30:35 Allergic rhinitis 15373913 J30.9 Acute sinusitis 19065201 J01.90 [id number] DREW FLORES PA-C [facility] [address] [place] [address] 03/09/2025 14:28:05 03/09/2025 14:58:35 Allergic rhinitis 86543374 J30.9 [id number] TUAN BACH, [facility] 100 [facility] [address] [place] [address] 03/31/2025 13:02:26 03/31/2025 15:26:31 Allergic rhinitis 46750366 J30.9 [id number] TAMAR SARMIENTO PA-C [facility] [address] [place] [address] 06/03/2025 14:17:08 06/03/2025 15:05:46 Allergic rhinitis 52652922 J30.89 [id number] TAMAR SARMIENTO PA-C [facility] [address] [place] [address] 06/08/2025 13:37:04 06/08/2025 13:58:35 Acute sialoadenitis 110415699 K11.21 [id number] DREW FLORES PA-C [facility] [address] [place] [address] 06/15/2025 15:35:03 06/15/2025 15:53:47 Acute sialoadenitis 764813371 K11.21 7275548 [id number] DREW FLORES PA-C [facility] on [address] [facility] [place] [address] 08/30/2025 14:20:30 08/30/2025 14:28:38 Acute sialoadenitis 085117691 K11.21 2417726 Health Concerns Section Related Observation LastModified by Organization Detai ls LastModified Time None Recorded Concern Status LastModified by Organization Details LastModified Time None Recorded Advance Directives Directive None Recorded Payers Insurance Date Sequence Insurance Name Policy Number Policy Jansen Covered Member ID Jansen Member ID Guarantor Name 08/27/2025 1 [facility] [id number] Eliu Diaz [id number] Xochitl Diaz Notes Date Note Type Note Provider Name and Address Organization Details Recorded Time 06/03/2025 text/html ROS as noted in the [facility] 59yo female presents for allergy testing results. Patient with moderate sensitivities to weeds, molds, grasses, and dog. She reports chronic nasal congestion despite daily Claritin. She uses saline lavage as needed. history of recurrent sinusitis, complicated by antibiotic sensitivities. She is followed by pulmonology for asthma, which she reports is well-controlled. History of parathyroid tumor, davidson's THOMAS MARK MD 100 [facility],[address], [address], [facility] - [facility] 06/05/2025 10:12:17 06/08/2025 text/html ROS as noted in the [facility] 59-year-old female with allergic rhinitis presents for evaluation of left-sided facial swelling. This started overnight, with associated pain. No history of salivary duct stones or infections. Feels she may be coming down with a cold, although this is her baseline. Patient endorses allergies to penicillins, sulfa, doxycycline, and clindamycin. She azithromycin in the past. History of parathyroid tumor, davidson's LYDIA SINGH MD 100 [facility],[address], [address], [facility] - [facility] 06/08/2025 17:14:55 06/15/2025 text/html ROS as noted in the [facility] 59-year-old female presents for reevaluation of parotitis. She did better after azithromycin but states she had return of symptoms yesterday with fever and facial swelling. She employed massage and warm compress and has been using sour candies. During massage she had a andres of foul and bloody tasting discharge within her mouth and has been doing better since then. THOMAS MARK MD 100 [facility],[address], [address], [place] - [facility] 06/15/2025 17:37:37 08/30/2025 text/html ROS as noted in the HPI 60-year-old female presents for reevaluation of recurrent parotitis. Since her last visit she was diagnosed with another instance of parotitis and was given antibiotics. She was using warm compress and massage and during that time had extrusion of several stones. She has felt well since then. Did not have CT scan of the neck as previously recommended. Patient states that she is sensitive to contrast dye and had to have another CT scan for her heart. ROSA HERMOSILLO MD [address] [place] [address], [address], [place] - [facility] 08/30/2025 15:01:32 OBGyn Episode No OBEpisode recorded.
--- OUTSIDE RECORDS SUMMARY | 2025-09-28 15:01 | XMS_ITS | Encounter Summary ---
Author Organization [facility] Address [address] [facility] [address] [place] [address] Phone Care Team Providers Care Clinical Data Programmer Name Role Phone Eleanor Rolon MD Primary Care Provider [phone] Encounter Details Date Type Department Care Team (Late st Contact Info) Description 03/28/2023 Procedure Pass [facility], Ct Scan - [address] [address] Social History Tobacco Use Types Packs/Day Years [...] on filedocumented in this encounter Care Teams Clinical Data Programmer Relationship Specialty Start Date End Date Eleanor Rolon MD [address] [place] [phone] [email or web address] PCP - General Internal Medicine 12/30/17 documented as of this encounter Additional Source Comments The information contained in this document represents components of the legal health record. It is not the complete legal health record.[facility]
--- OUTSIDE RECORDS SUMMARY | 2025-09-28 15:01 | XMS_ITS | Patient Health Record ---
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 exposure: None Alcohol: Rare Recreational drug use: None Exercise: No structured ex ercise regimen Marital status Children None Problems Problem Type SNOMED Code ICD Code Onset Dates Problem Status W/U Status Risk Notes Problem Hoarseness (82756087) Hoarseness (784.49) Active confirmed Problem Cough (77946642) Cough (786.2) Active confirmed Problem Extrinsic asthma without status asthmaticus (58658242) Extrinsic asthma NOS (493.00) Active confirmed Problem Allergic rhinitis (11494974) Allergic rhinitis due to unspecified cause (477.9) Active confirmed Plan Of Treatment No Information Insurance Providers Payer Name Payer Address Payer Phone Subscriber Number Group Number Insured Name Patient Relationship to Insured Coverage Start Date Coverage End Date [facility] [address] [place] [phone] [id number] Xochitl Haque Self - patient is the insured Medical (General) History Medical History History ICD Code Asthma Allergic rhinitis Jamaal's thyroiditis L3/L4/L5/S1 disc herniations (trauma) Tibial plateau fracture Left arm/shoulder fracture Surgical History Surgery Date(Month/Year) s/p Cholecystectomy s/p Appendectomy s/p ORIF Tibial plateau fx repair s/p ORIR arm/shoulder fx repair
--- OUTSIDE RECORDS SUMMARY | 2025-09-28 15:01 | XMS_ITS | Data Portability ---
Author Organization [place] - [facility] [address] Address [address] [place] [address] Assessment No assessment recorded. Plan of Treatment Reminders Order Date Submit Date Provider Last Modified By Organization Details Last Modified Time Details Appointments None recorded. Lab None recorded. Referral None recorded. Procedures None recorded. Surgeries None recorded. Imaging None recorded. Medication Orders doxycycline hyclate 100 mg capsule 2023 024 [facility], [address] [place] [address], [address], 18:11:46 Patient TargetsNo targets recorded. Patient Instructions Encounter Date Encounter Id Patient Instructions Last Modified By Organization Details Last Modified Time 04/03/2024 [id number] Acute Sinusitis: Care Instructions Not available 04/03/2024 18:11:38 Acute Sinusitis: Care Instructions Not available 04/03/2024 18:11:38 Reason for Referral None Reported. Problems Name Problem SNOMED Code Status Onset Date Resolution Date Notes Provider Name and Address Organization Details Recorded Time Jamaal thyroiditis 23230832 Active [facility] null[place] [facility] 17:51:48 Problem Notes None recorded. Medical Equipment None Reported. Allergies Allergen ID Allergen Name Allergen Category Reaction Reaction Severity Criticality Documentation Date Start Date Code Code System Note Provider Name and Address Organization Details Recorded Time 729240 dextran sulfate Not available anaphylax is Not available Not available 04/03/2024 63498 RxNorm [facility] [place] [facility] 17:49:32 466436 ciproflox acin medicatio n Not available Not available Not available 04/03/2024 2551 RxNorm [facility] [place] [facility] 4 17:50:04 870596 Augmentin medicatio n Not available Not available Not available 04/03/2024 26521 2 RxNorm [facility] [place] [facility] 4 17:50:21 619743 Substance with sulfonami de structure and antibacte rial mechanism of action (substanc e) medicatio n Not available Not available Not available 04/03/2024 44990 8003 SNOMED [facility] [place] [facility] 4 17:50:30 351179 tree nut food Not available Not available Not available 04/03/2024 [facility] [place] [facility] 4 17:50:46 927728 pepper extract Not available Not available Not available Not available 04/03/2024 14141 85 RxNorm [facility] [place] [facility] 4 17:50:54 821970 coconut extract food,medi cation Not available Not available Not available 04/03/2024 01389 48 RxNorm [facility] [place] [facility] 4 17:51:04 293814 pineapple extract food Not available Not available Not available 04/03/2024 23403 74 RxNorm [facility] [place] [facility] 4 17:51:17 [...] Updated DateTime 4 158.75 cm 33.3 kg/m2 17090.5 9 g 97 % 66 /min 16 /min 97.5 [degF] 117/75 mm[Hg] [facility] [place] [facility] 4 17:55:31 Social History Question Answer Notes LastModified by Organizat ion Details LastModified Time Tobacco Smoking Status Never Smoker [facility] [place] [facility] 04/03/2024 17:55:08 [...] ICD10 Code Diagnosis IMO Codes Diagnosis Note [id number] [address] [place] [address] 02/17/2018 15:29:20 02/17/2018 17:26:23 [id number] [address] [place] [address] 01/07/2019 10:00:52 01/07/2019 11:08:49 [id number] [address] [address] [address] [place] [address] 05/04/2019 14:56:12 05/04/2019 15:48:39 [id number] [address] [place] [address] 11/15/2017 17:00:46 11/15/2017 17:39:08 [id number] [address] [place] [address] 10/20/2017 18:10:20 10/20/2017 19:40:27 [id number] [address] [place] [address] 10/19/2018 11:43:32 10/19/2018 13:42:47 [id number] [address] [place] [address] 08/02/2018 16:56:23 08/02/2018 19:22:54 [id number] [address] [place] [address] 10/15/2018 11:20:05 10/15/2018 13:20:36 [id number] [address] [place] [address] 12/02/2018 14:38:35 12/02/2018 16:50:42 [id number] [address] [place] [address] 03/17/2019 19:07:09 03/17/2019 19:27:44 [id number] [address] [place] [address] 07/14/2019 13:40:32 07/14/2019 14:46:52 [id number] [address] [place] [address] 11/28/2019 19:37:16 11/29/2019 08:24:40 [id number] [place] H[place] [address] [place] [address] 04/03/2024 17:09:21 04/03/2024 18:13:50 Acute sinusitis 95994303 J01.90 Health Concerns Section Related Observation LastModified by Organization Detai ls LastModified Time None Recorded Concern Status LastModified by Organization Details LastModified Time None Recorded Advance Directives Directive None Recorded Payers Insurance Date Sequence Insurance Name Policy Number Policy Jansen Covered Member ID Jansen Member ID Guarantor Name 04/03/[address] [place] [address] [id number] Xochitl Diaz [id number] Xochitl Noe Notes Date Note Type Note Provider Name and Address Organization Details Recorded Time 04/03/2024 text/html Sinus Complaints UCReported by PatientHPIFor location, patient reportspain behind the eyes __,facial pain, andsinus pressure. For associated symptoms, patient reportsnasal discharge from __ nostrils,post nasal drip, andear fullness. Lani Hanna MD [address] [facility] [place], [address], [place] [facility] 04/03/2024 18:12:47 OBGyn Episode No OBEpisode recorded.
--- OUTSIDE RECORDS SUMMARY | 2025-09-28 15:01 | XMS_ITS | Continuity of Care Document ---
Author Organization [place] - [facility], [facility] Address [address] [place] [address] Care Team Providers Care Filling Station Attendant Name Role Phone DARIELA MCCANN Primary Care Provider Assessment Encounter Date Assessment Date Assessment LastModified by Organization Details LastModified Time 08/30/2025 08/30/2025 60-year-old female presents for reevaluation. [...] Procedures None recorded. Surgeries None recorded. Imaging MRI, neck, w/ contrast 2024 025 [email or web address] [facility] ([facility]), [address] [facility], [place], [address], 13:34:51 Medication Orders None recorded. Patient TargetsNo targets recorded. Patient InstructionsNo instructions recorded. Reason for Referral None Reported. Results Created Date Observation Date Name Description Value Unit Range Abnormal Flag Note LastModifiedBy Organization Detail LastModifiedTime 12/23/20 25 09/24/2025 MRI, head + neck + orbit s, w/wo contr ast [facility] Access ion Number : [id number] Patien t Name: Xochitl Trujillo Record Number : [id number] Date of : 1964 Date of Exam: 2024 Referr ing Physic donna: Drew Hudson [facility] [place] [address], [address] [facility], [place] [address] Exam: MR Orbits , Face, Neck (C-/C+ ) CPT 05692 Room Descri ption: Idalia Siem Espr 1.5 MRI Orbit, Face,N jyoti [...] chroni c inflam matory change . WSN: [id number] Orderi ng Physic donna: Drew Hudson onical ly Signed By: Constantin soler[address] [facility] ([facility]) [address] [facility], [place], [address], 09/27/2025 16:19:39 Result Notes None recorded. Problems Name Problem SNOMED Code Status Onset Date Resolution Date Notes Provider Name and Address Organization Details Recorded Time Dysfuncti on of eustachia n tube 98853223 Active 2013 Eustachia n tube dysfuncti on; CMS Risk: moderate risk CMS Treatment : new problem (to examiner) : no additiona l workup planned N ote: Date Diagnosed : 4 2:43 PM (381.81) Not Available [facility] 4 03:15:37 Disorder of pharynx 81553406 Active 2013 Vestibuli tis Nasal; CMS Risk: moderate risk CMS Treatment : new problem (to examiner) : no additiona l workup planned N ote: Date Diagnosed : 4 2:43 PM (478.20) Not Available [facility] 4 03:15:38 Cough 58027294 Active 2013 Cough; CMS Risk: moderate risk CMS Treatment : new problem (to examiner) : no additiona l workup planned N ote: Date Diagnosed : 4 2:43 PM (786.2) Not Available [facility] 4 03:15:37 Sensorine ural hearing loss of bilateral ears 899024772 Active 2013 Sensorine ural HL, bilateral ; Note: Date Diagnosed : 4 3:55 PM (389.18) Not Available [facility] 4 03:15:38 Allergic rhinitis 19191202 Active 2014 Allergic rhinitis: Due to other allergen; Note: Date Diagnosed : 11/08/2014 3:59 PM (477.8) Not Available [facility] 4 03:15:37 Bilateral tinnitus 77217340328 02 Active 2018 Tinnitus, bilateral ; Note: Date Diagnosed : 03/16/2019 4:28 PM (H93.13) Not Available [facility] 4 03:15:37 Sensorine ural hearing loss 55880294 Active 2018 Sensorine ural hearing loss, unilatera l, right ear, with unrestric christian hearing on the contralat eral side; Note: Date Diagnosed : 03/16/2019 4:28 PM (H90.41) Not Available [facility] 4 03:15:37 Localized eruption of skin 389436287 Active 2018 Rash and other nonspecif ic skin eruption; Note: Date Diagnosed : 03/16/2019 4:28 PM (R21) Not Available [facility] 4 03:15:38 Chronic sinusitis 12539790 Active 2023 DREW BARCENAS PA-C [address] [facility],[place] [address], [place], [address] , [place] - [facility] 4 14:17:12 Nasal congestio n 78579811 Active 2024 DREW BARCENAS PA-C [address] [facility],[place] [address], [place], [address] , [place] [facility] 5 15:56:25 Acute sinusitis 17970306 Active 2024 DREW BARCENAS PA-C [address] [facility],[place] [address] [place], [address] , [place] - [facility] [place] 15:56:29 Non-aller gic rhinitis 58632548186 1 Active 2024 DREW BARCENAS PA-C [address] [facility],[place] [address], [place], [address] , [facility] [place] 5 15:56:35 Seasonal allergic rhinitis 861772486 Active 2024 DREW BARCENAS PA-C [address] [place] [address],[place] [address], [facility] [place], [address] , [facility] [place] 15:56:35 Acute sialoaden itis 807536986 Active 2024 TAMAR SARMIENTO PA-C [address] [place] [address],[place] [address], [place], [address] , [facility] [place] 14:07:04 Problem Notes None recorded. Procedures Surgical History Date Name Laterality Status Provider Name and Address Organization Details Recorded Time 03/31/20 25 Allergy Testing-Full completed LULI ARCE [address] [facility],[address], [address], [facility] 03/31/2025 15:25:04 12/30/19 25 Allergy Testing Modified- Quantitative Testing (MQT) Only completed LULI ARCE [address] [facility],[address], [address], [facility] 12/29/2024 16:00:17 10/27/19 25 Comp Audio with Tymps - 42919 & 50372 completed LATESHA WILSON [address] [facility],[place] [address], [place], [address], [facility] 10/27/2024 15:46:42 Imaging Results None recorded. Procedure Notes None recorded. Medical Equipment None Reported. Allergies Allergen ID Allergen Name Allergen Category Reaction Reaction Severity Criticality Documentation Date Start Date Code Code System Note Provider Name and Address Organization Details Recorded Time 469913 Substance with sulfonami de structure and antibacte rial mechanism of action (substanc e) medicatio n other Not available Not available 02/17/2024 56325 9570 SNOMED React ion: unkno wn, unspe cifie d;; Not Available [facility] 4 01:25:06 543580 Product containin g penicilli n (product) medicatio n other Not available Not available 02/17/2024 08909 8001 SNOMED React ion: unkno wn, unspe cifie d;; Not Available [facility] 4 01:25:07 196171 ciproflox acin medicatio n Not available Not available Not available 10/27/2024 2551 RxNorm Lien Alvarez null, [place] - [facility] [place] 5 15:00:00 859283 oxycodone medicatio n vomiting mild Not available 12/29/2024 7804 RxNorm TUAN BACH, [facility] [address], [address] [place] [address] - [facility] [place] 5 15:43:42 781010 peanut allergeni c extract food,medi cation Not available Not available Not available 06/15/2025 11333 8 RxNorm Patricia Ste[place] null, [place] - [facility] [place] 15:41:44 255016 garlic preparati on food,medi cation vomiting severe Not available 06/15/2025 34290 7 RxNorm Patricia Ste[place] null, [place] [facility] 5 15:41:44 887449 onion extract food,medi cation nausea moderate Not available 06/15/2025 70465 69 RxNorm Patricia Steen null, [place] - [facility] 5 15:41:44 413768 pineapple extract food vomiting moderate Not available 06/15/2025 61050 74 RxNorm Patricia Steen null, [place] - [facility] 5 15:41:44 353645 clove preparati on food Not available Not available Not available 06/15/2025 04154 95 RxNorm Patricia Steen null, [place] - [facility] [place] 5 15:41:44 421128 black pepper preparati on food Not available Not available Not available 06/15/2025 37160 4 RxNorm Patricia nolan, [place] - [facility] [place] 15:41:44 318227 james pepper food Not available Not available Not available 06/15/2025 Patricia nolan, [place] - [facility] [place] 15:41:44 060872 cayenne pepper fruits food Not available Not available Not available 06/15/2025 Patricia nolan, [place] - [facility] [place] 15:41:44 425668 pepper extract Not available Not available Not available Not available 06/15/2025 46599 85 RxNorm Patricia nolan, [place] - [facility] 15:41:44 204361 nut - unspecifi ed food Not available Not available Not available 06/15/2025 Patricia nolan, [place] - [facility] [place] 15:41:44 687667 coconut extract food,medi cation facial swelling moderate Not available 06/15/2025 62414 48 RxNorm Patricia nolan, [place] - [facility] 15:41:44 251870 iron-dext ran complex medicatio n anaphylax is severe Not available 06/15/2025 5992 RxNorm Patricia nolan, [place] - [facility] [place] [facility] 15:42:15 046661 peanut oil food,medi cation respirato ry distress moderate Not available 06/15/2025 78023 RxNorm Patricia nolan, [place] - [facility] 15:42:15 085890 Dextran (substanc e) medicatio n Not available Not available Not available 08/24/2025 25281 0007 SNOMED Not Available valerie - [employer] - prod 5 17:33:20 783344 hydromorp meredith medicatio n Not available Not available Not available 08/24/2025 3423 RxNorm Not Available valerie - External [employer] - prod 5 17:33:20 378047 fexofenad ine medicatio n Not available Not available Not available 08/24/2025 14526 RxNorm Not Available valerie - [employer] - prod 17:33:20 981543 acetamino phen / hydrocodo ne medicatio n Not available Not available Not available 08/24/2025 90673 2 RxNorm Not Available valerie - [employer] - prod 5 17:33:20 899604 esomepraz ole Not available Not available Not available unabletoasse ss 08/24/2025 66654 2 RxNorm Not Available valerie - [employer] - prod 17:33:20 856970 dextran sulfate Not available anaphylax is Not available Not available 08/24/2025 16305 RxNorm Not Available valerie - [employer] - prod 17:35:15 348891 Augmentin medicatio n Not available Not available Not available 08/24/2025 88434 2 RxNorm Not Available valerie - [employer] - prod 17:35:15 144909 dextran 1 medicatio n anaphylax is Not available high 08/24/20252017 59780 5 RxNorm Not Available valerie - [employer] - prod 17:40:04 747582 Iodinated contrast media (substanc e) medicatio n hives rash Not available Not available high 08/24/20252017 26298 2004 SNOMED Pt suffe red conge stion , and filli ng of ears and sinus es. Not Available valerie - [employer] - prod 17:40:04 303271 omeprazol e medicatio n Not available Not available high 08/24/20252017 7646 RxNorm unrec ogniz ed react ion (text : Laurau jovannike letal Pain, code: [id number]) (from exter nal sourc e) Not Available valerie [employer] - prod 5 17:40:04 Medications [...] mg tablet 09/27 completed Medicati on ID: [id number] Re ason: () Brand Name: predniso ne [...] mg tablet 09/27 [place]: 45724 Re ason: () Brand Name: ciproflo xacin [...] both nostrils 12/29 completed Medicati on ID: [id number] Du ration Value: 10 Prescri bed By [...] BY MOUTH TWICE DAILY FOR 5 DAYS. 01/22 /2025 completed Not Available Not Available Not Available Vitals Date Recorded Body height Body mass index (BMI) Body weight Provider Name and Address Organization Details Last Updated DateTime 08/30/2025 158.75 cm 33.1 kg/m2 83399 g Daija Stevens [facility] 08/30/2025 14:24:05 Social History None recorded. Functional [...] ICD10 Code Diagnosis IMO Codes Diagnosis Note 70440 DREW BARCENAS PA-C [facility] [address] [address] 08/30/2025 14:20:30 08/30/2025 14:28:38 Acute sialoadenitis 512153720 K11.21 3512170 Health Concerns Section Related Observation LastModified by Organization Detai ls LastModified Time None Recorded Concern Status LastModified by Organization Details LastModified Time None Recorded Payers Encounter Date Sequence Insurance Name Policy Number Policy Jansen Covered Member ID Jansen Member ID Guarantor Name 08/30/2025 1 [facility] [id number] 1 Daren Diaz [id number] Xochitl Diaz Notes Date Note Type Note Provider Name and Address Organization Details Recorded Time 08/30/2025 text/html ROS as noted in the [...] scan for her heart. ROSA HERMOSILLO MD [address] [place] [address], [place], [address], [place] - [facility] 08/30/2025 15:01:32 OBGyn Episode No OBEpisode recorded.
--- OUTSIDE RECORDS SUMMARY | 2025-09-28 15:01 | XMS_ITS | Clinical Summary ---
Author Organization [facility] Address [address] [facility] [address] [place] [address] Phone Care Team Providers Care Goring Cutter Name Role Phone Eleanor Rolon MD Primary [...] B-12) 1000 MCG tabletIndicatio ns:[place] [facility] [place] 100 mcg into the muscle every 30 (thirty) days. Indications: [place] [facility] [place] Social History Tobacco Use Types [...] (02/07/2024 11:58 AM EDT) HDL 43 mg/dL [facility] Comment: Interpretation <40 mg/dL: Low HDL cholesterol (major risk factor for CHD) Greater than or equal to 60 mg/dL: High HDL cholesterol ( negative risk factor for CHD) HDL - cholesterol is affected by a number of factors, e.g. smoking, excerise, hormones, sex and age. CHOLESTEROL 154 0 - 240 mg/dL [facility] TRIGLYCERIDES 94 30 - 160 mg/dL [facility] LDL 92 50 - 129 mg/dL [facility] Comment: LDL levels in terms of risk for coronary heart disease: <100 mg/dL: Optimal 100-129 mg/dL: Near or above optimal 130-159 mg/dL: Borderline high 160-189 mg/dL: High >190 mg/dL: Very High CARDIAC RISK RATIO 3.6 3.3 - 4.4 C [facility] Blood 02/07/2024 11:5 8 AM EDT 02/07/2024 12:06 PM EDT us Brittney ANAND LAB BLOOD BKR ORDERABLES Final Result [facility] [address] [place], [place] [id number] from Last 3 Months or Most Recently Relevant to Health Maintenance [place] [address] [place] [address] HMO O O O HMO O INSURANCE Care Teams Goring Cutter Relationship Specialty Start Date End Date Eleanor Rolon MD [address] [place] [address] [email or web address] PCP - General Internal Medicine 12/30/17 Additional Source Comments The information contained in this document represents components of the legal health record. It is not the complete legal health record.[facility]
--- OUTSIDE RECORDS SUMMARY | 2025-09-28 15:01 | XMS_ITS | Encounter Summary ---
Author Organization [facility] Address [address] [facility] [address] [place] [address] Phone Care Team Providers Care Technology Coach Name Role Phone Eleanor Rolon MD Primary Care Provider Encounter Details Date Type Department Care Team (Late st Contact Info) Description 12/30/2017 Procedure Pass [facility], Ct Scan - [address] [address] Social History Tobacco Use Types Packs/Day Years [...] documented as of this encounter Care Teams Technology Coach Relationship Specialty Start Date End Date Eleanor Rolon MD [address] [place] [phone] [email or web address] PCP - General Internal Medicine 12/30/17 documented as of this encounter Additional Source Comments The information contained in this document represents components of the legal health record. It is not the complete legal health record.[facility]
--- OUTSIDE RECORDS SUMMARY | 2025-09-28 15:01 | XMS_ITS | Encounter Summary ---
Author Organization [facility] Address [address] [facility] [address] [place] [address] Phone Care Team Providers Care Steam Locomotive Firer/Fireman Name Role Phone Eleanor Rolon MD Primary Care Provider Encounter Details Date Type Department Care Team (Late st Contact Info) Description 01/14/2018 Procedure Pass [facility], [address] [address] Social History Tobacco Use Types Packs/Day Years [...] documented as of this encounter Care Teams Steam Locomotive Firer/Fireman Relationship Specialty Start Date End Date Eleanor Rolon MD [address] [place] [address] [email or web address] PCP - General Internal Medicine 12/30/17 documented as of this encounter Additional Source Comments The information contained in this document represents components of the legal health record. It is not the complete legal health record.[facility]
--- OUTSIDE RECORDS SUMMARY | 2025-09-28 15:01 | XMS_ITS | Encounter Summary ---
Author Organization [facility] Address [address] [facility] [address] [place] [phone] Phone Care Team Providers Care Environmental Epidemiologist Name Role Phone Eleanor Rolon MD Primary Care Provider [phone] Reason for Referral * MRI/CAT Scan - Closed Specialty Diagnoses / Procedures Referred By Contac t Referred To Contact Radiology Diagnoses Lesion of left lobe of liver Abnormal findings on imaging test Procedures MRI Abdomen MRI PELVIS (GI/) Brittney James PA Phone: tel: fax: [email or web address] Referral ID Status Reason Start Date Expiration Date Visits Re quested Visits Authorized [id number] Closed 01/12/2018 04/12/2018 1 1 Encounter Details Date Type Department Care Team (Late st Contact Info) Description 01/14/2018 Ancillary Orders [facility] External Provider Virtual Department [address] [place] [address] Brittney James PA [address] [place] [address] [email or web address] Lesion of left lobe of liver; Abnormal [...] significant upper abdominal pathology is apparent. POS [id number] Edited by: Brandie Mao on 01/24/2018 6:05 [...] the rest of the liver on the joy-wa-zcsss chemical shift sequence. Finally, there is no [...] the rest of the liver on the [id number]-im-[id number] chemical shiftsequence. Finally, there is no abnormal [...] significant upper abdominal pathology is apparent. POS [id number] Edited by: Brandie Mao on 01/24/2018 6:05 [...] documented as of this encounter Care Teams Environmental Epidemiologist Relationship Specialty Start Date End Date Eleanor Rolon MD [address] [place] [phone] [email or web address] PCP - General Internal Medicine 12/30/17 documented as of this encounter Additional Source Comments The information contained in this document represents components of the legal health record. It is not the complete legal health record.[facility]
--- OUTSIDE RECORDS SUMMARY | 2025-09-28 15:02 | XMS_ITS | Encounter Summary ---
Author Organization [facility] Address [address] [facility] [address] [place] [address] Phone Care Team Providers Care Power Station Operator Name Role Phone Eleanor Rolon MD Primary Care Provider Encounter Details Date Type Department Care Team (Latest Contact Info) Description 04/16/2018 Transcribe Orders [facility] Phleb [facility] [address] [place] [address] Joy Rodríguez PA-C [address] [place] [address] [email or web address] Fatty liver (Primary [...] EDT) SODIUM 139 133 - 146 mmol/L [facility] POTASSIUM 4.2 3.3 - 5.1 mmol/L [facility] CHLORIDE 99 96 - 108 mmol/L [facility] CO2 27 21 - 35 mmol/L [facility] BUN 12 6 - 19 mg/dL [facility] CREATININE 0.60 0.5 - 1.5 mg/dL [facility] GLUCOSE 106(H) 70 - 99 mg/dL [facility] ALBUMIN 4.3 3.9 - 4.8 g/dL [facility] TOTAL PROTEIN 7.6 6.5 - 8.0 g/dL [facility] CALCIUM 9.6 8.4 - 10.3 mg/dL [facility] ALKALINE PHOSPHATASE 83 39 - 117 U/L [facility] TOTAL BILIRUBIN 0.6 0.0 - 1.2 mg/dL [facility] AST 21 0 - 37 U/L [facility] ALT 23 0 - 40 U/L [facility] GLOBULIN 3.3 1 - 4.8 g/dL [facility] EGFR 104 >59 mL/min/1.7 3m2 [facility] Comment:If patient is black, multiply result by 1.159. Estimated glomerular filtration rate calculated using the CKD-EPI equation. ANION GAP 17 10 - 20 mmol/L [facility] Blood 04/16/2018 10:1 8 AM EDT 04/16/2018 10:48 AM EDT us Joy Rodríguez PA-C LAB BLOOD BKR ORDERABLES Final Result [address] [address] * (ABNORMAL) CBC (04/16/2018 10:18 AM EDT) WBC 7.60 3.40 - 11.20 K/uL [facility] RBC 4.88(H) 3.80 - 4.80 M/uL [facility] HGB 15.0 12.0 - 15.0 g/dL [facility] HCT 43.1 36.0 - 46.0 % [facility] PLT 258 130 - 400 K/uL [facility] MCV 88.3 79.0 - 98.0 fL [facility] MCH 30.7 27.0 - 34.8 pg [facility] MCHC 34.8 31.5 - 36.0 g/dL [facility] RDW 12.1 10.8 - 14.6 % [facility] MPV 10.0 9.4 - 12.4 fl [facility] NRBC 0.00 /100 WBCs [facility] ABSOLUTE NRBC 0.00 K/uL [facility] Blood 04/16/2018 10:1 8 AM EDT 04/16/2018 10:48 AM EDT us Joy Rodríguez PA-C LAB BLOOD BKR ORDERABLES Final Result [facility] [address] [place] [address] documented in this encounter Visit Diagnoses Diagnosis [...] documented as of this encounter Care Teams Power Station Operator Relationship Specialty Start Date End Date Eleanor Rolon MD [address] [place] [address] [email or web address] PCP - General Internal Medicine 12/30/17 documented as of this encounter Additional Source Comments The information contained in this document represents components of the legal health record. It is not the complete legal health record.[facility]
--- OUTSIDE RECORDS SUMMARY | 2025-09-28 15:02 | XMS_ITS | Encounter Summary ---
Author Organization [facility] Address [address] [facility] [address] [place] [address] Phone Care Team Providers Care Credit Union Teller Name Role Phone Eleanor Rolon MD Primary Care Provider Encounter Details Date Type Department Care Team (Latest Contact Info) Description 03/30/2019 Transcribe Orders Virtual Department [address] [place] [address] Joy Rodríguez PA-C [address], [place] [place] [address] [email or web address] Fatty liver (Primary Dx); Liver cyst Social [...] documented as of this encounter Care Teams Credit Union Teller Relationship Specialty Start Date End Date Eleanor Rolon MD [address] [place] [address] [email or web address] PCP - General Internal Medicine 12/30/17 documented as of this encounter Additional Source Comments The information contained in this document represents components of the legal health record. It is not the complete legal health record.[facility]
--- OUTSIDE RECORDS SUMMARY | 2025-09-28 15:02 | XMS_ITS | Encounter Summary ---
Author Organization [facility] Address [address] [facility] [address] [place] [address] Phone Care Team Providers Care Stockroom Clerk Name Role Phone Eleanor Rolon MD Primary Care Provider [phone] Encounter Details Date Type Department Care Team (Late st Contact Info) Description 05/20/2019 Ancillary Orders [facility], X-Ray - [address] [address] Brittney James PA [address] [place] [address] [email or web address] Social History Tobacco Use Types Packs/Day [...] L3-L4 and L5-S1. Normal alignment. POS - [id number] Narrative 05/20/2019 6:01 PM EDT XR LUMBOSACRAL [...] at L3-L4 and L5-S1.Normal alignment. POS - [id number] us Brittney ANAND IMG XR SPINE Final Result * XR HIP 2 VW LEFT PLUS PELVIS (05/20/2019 4:18 PM EDT) Anatomical Region Laterality Modality Hip Left Radiographic Carmen ging 05/20/2019 5:56 PM EDT Impressions 05/20/2019 5:59 PM EDT Mild hip degenerative arthrosis. Sclerotic changes along the iliac sides of the sacroiliac joints, unchanged compared with 12/30/2012. POS - [id number] Narrative 05/20/2019 5:59 PM EDT EXAM: XR [...] sacroiliac joints,unchanged compared with 12/30/2012. POS - [id number] Brittney ANAND IMG XR PELVIS Final Result [...] documented as of this encounter Care Teams Stockroom Clerk Relationship Specialty Start Date End Date Eleanor Rolon MD [address] [place] [address] [email or web address] PCP - General Internal Medicine 12/30/17 documented as of this encounter Additional Source Comments The information contained in this document represents components of the legal health record. It is not the complete legal health record.[facility]
--- OUTSIDE RECORDS SUMMARY | 2025-09-28 15:02 | XMS_ITS | Encounter Summary ---
Author Organization [facility] Address [address] [facility] [address] [place] [address] Phone Care Team Providers Care Registered Nurse Renal Name Role Phone Eleanor Rolon MD Primary Care Provider [phone] Encounter Details Date Type Department Care Team (Latest Contact Info) Description 06/13/2021 Transcribe Orders Virtual Department 30 [place] [address] Brittney James PA [address] [place] [address] [email or web address] Right flank pain (Primary Dx); Leg mass, [...] documented as of this encounter Care Teams Registered Nurse Renal Relationship Specialty Start Date End Date Eleanor Rolon MD [address] [place] [address] [email or web address] PCP - General Internal Medicine 12/30/17 documented as of this encounter Additional Source Comments The information contained in this document represents components of the legal health record. It is not the complete legal health record.[facility]
--- OUTSIDE RECORDS SUMMARY | 2025-09-28 15:02 | XMS_ITS | Encounter Summary ---
Author Organization [facility] Address [address] [facility] [address] [place] [address] Phone Care Team Providers Care Vehicle Controls Engineer Name Role Phone Eleanor Rolon MD Primary Care Provider [phone] Encounter Details Date Type Department Care Team (Latest Contact Info) Description 06/18/2021 Transcribe Orders Virtual Department 30 [place] [address] Brittney James PA [address] [place] [address] [email or web address] [email or web address], unspecified fever cause (Primary Dx); Muscle [...] be available within 24 to 48 hrs. [facility] Symptomatic? YES [facility] Other (Nasal swab) 06/20/2021 5:00 PM EDT 06/20/2021 8:26 PM EDT us Brittnye ANAND LAB GENERAL ORDERABLES Final Re sult [facility] [address] [place] [address] [facility] [address] [place] [address] documented in this encounter Visit Diagnoses Diagnosis [...] documented as of this encounter Care Teams Vehicle Controls Engineer Relationship Specialty Start Date End Date Eleanor Rolon MD [address] [place] [address] [email or web address] PCP - General Internal Medicine 12/30/17 documented as of this encounter Additional Source Comments The information contained in this document represents components of the legal health record. It is not the complete legal health record.[facility]
--- OUTSIDE RECORDS SUMMARY | 2025-09-28 15:02 | XMS_ITS | Encounter Summary ---
Author Organization [facility] Address [address] [facility] [address] [place] [address] Phone Care Team Providers Care Family Resource Management Specialist Name Role Phone Eleanor Rolon MD Primary Care Provider [phone] Encounter Details Date Type Department Care Team (Latest Contact Info) Description 12/25/2020 Transcribe Orders Virtual Department 30 [place] [address] Brittney James PA [address] [place] [address] [email or web address], unspecified fever cause (Primary Dx); SOB [...] be available within 24 to 48 hrs. [facility] Symptomatic? YES [facility] 12/26/2020 7:40 AM EDT 12/26/2020 7:07 PM EDT us Brittney ANAND LAB GENERAL ORDERABLES Final Re sult [facility] [address] [place] [address] [facility] [address] [place] [address] documented in this encounter Visit Diagnoses Diagnosis [...] documented as of this encounter Care Teams Family Resource Management Specialist Relationship Specialty Start Date End Date Eleanor Rolon MD [address] [place] [phone] [email or web address] PCP - General Internal Medicine 12/30/17 documented as of this encounter Additional Source Comments The information contained in this document represents components of the legal health record. It is not the complete legal health record.[facility]
--- OUTSIDE RECORDS SUMMARY | 2025-09-28 15:02 | XMS_ITS | Encounter Summary ---
Author Organization [facility] Address [address] [facility] [address] [place] [address] Phone Care Team Providers Care Director Hematology Name Role Phone Eleanor Rolon MD Primary Care Provider [phone] Encounter Details Date Type Department Care Team (Latest Contact Info) Description 05/31/2020 Transcribe Orders Virtual Department [address] [place] [address] Brittney James PA [address] [place] [address] [email or web address] [place] on back (Primary Dx) Social History [...] as of this encounter Care Teams Director Hematology Relationship Specialty Start Date End Date Eleanor Rolon MD [address] [place] [address] [email or web address] PCP - General Internal Medicine 12/30/17 documented as of this encounter Additional Source Comments The information contained in this document represents components of the legal health record. It is not the complete legal health record.[facility]
--- OUTSIDE RECORDS SUMMARY | 2025-09-28 15:02 | XMS_ITS | Encounter Summary ---
Author Organization [facility] Address [address] [facility] [address] [place] [address] Phone Care Team Providers Care Welding Systems And Equipment Repairer Name Role Phone Eleanor Rolon MD Primary Care Provider Encounter Details Date Type Department Care Team (Late st Contact Info) Description 07/30/2019 Ancillary Orders [facility], X-Ray - [address] [address] Brittney James PA [address] [place] [address] [email or web address] Social History Tobacco Use Types Packs/Day [...] documented as of this encounter Care Teams Welding Systems And Equipment Repairer Relationship Specialty Start Date End Date Eleanor Rolon MD [address] [place] [address] [email or web address] PCP - General Internal Medicine 12/30/17 documented as of this encounter Additional Source Comments The information contained in this document represents components of the legal health record. It is not the complete legal health record.[facility]
--- OUTSIDE RECORDS SUMMARY | 2025-09-28 15:02 | XMS_ITS | Encounter Summary ---
Author Organization [facility] Address [address] [facility] [address] [place] [address] Phone Care Team Providers Care Paleologist Name Role Phone Eleanor Rolon MD Primary Care Provider Encounter Details Date Type Department Care Team (Late st Contact Info) Description 01/31/2022 Transcribe Orders Virtual Department [address] [place] [address] Eleanor Rolon MD [address] [place] [address] [email or web address] Encounter for laboratory testing for COVID-19 virus [...] be available within 24 to 48 hrs. [facility] Symptomatic? NO [facility] Other 02/01/2022 2:24 PM EDT 02/01/2022 5:42 PM EDT us Eleanor Rolon MD LAB GENERAL ORDERABLES Kimmy [email or web address] Result [facility] [address] [place] [address] [facility] [address] [place] [address] documented in this encounter Visit Diagnoses Diagnosis Encounter for laboratory testing for COVID-19 virus- Primary documented in this encounter Additional Health Concerns Infection Onset Date Last Indicated Resolved Time CoV-Exposed Comment:Recent close contact documented in the COVID-19 PCR/PRO order 01/31/2022 01/31/2022 02/11/2022 1:24 AM E DT CoV-Risk Comment:Per Ambulatory Triage Form 02/01/2022 02/01/202202/12 1:23 AM EDT documented as of this encounter Care Teams Paleologist Relationship Specialty Start Date End Date Eleanor Rolon MD [address] [place] [address] [email or web address] PCP - General Internal Medicine 12/30/17 documented as of this encounter Additional Source Comments The information contained in this document represents components of the legal health record. It is not the complete legal health record.[facility]
--- OUTSIDE RECORDS SUMMARY | 2025-09-28 15:02 | XMS_ITS | Encounter Summary ---
Author Organization [facility] Address [address] [facility] [address] [place] [address] Phone Care Team Providers Care Deburr Technician Name Role Phone Eleanor Rolon MD Primary Care Provider [phone] Encounter Details Date Type Department Care Team (Latest Contact Info) Description 02/18/2022 Transcribe Orders Virtual Department [address] [place] [address] Brittney James PA [address] [place] [address] [email or web address] Low back pain, unspecified back pain laterality, [...] disease at the lumbosacral junction. POS - [id number] Narrative 02/21/2022 12:38 PM EDT COMPARISON: 05/20/2019 [...] disc disease at the lumbosacraljunction. POS - [id number] Brittney ANAND IMG XR SPINE Final Result documented in this encounter Visit Diagnoses Diagnosis Low back pain, unspecified back pain laterality, unspecified chronicity, unspecified whether sciatica present- Primary Low back pain, unspecified back pain laterality, unspecified chronicity, unspecified whether sciatica present documented in this encounter Care Teams Deburr Technician Relationship Specialty Start Date End Date Eleanor Rolon MD [address] [place] [phone] ([email or web address]) [email or web address] PCP - General Internal Medicine 12/30/17 documented as of this encounter Additional Source Comments The information contained in this document represents components of the legal health record. It is not the complete legal health record.[facility]
--- OUTSIDE RECORDS SUMMARY | 2025-09-28 15:02 | XMS_ITS | Encounter Summary ---
Author Organization [facility] Address [address] [facility] [address] [place] [address] Phone Care Team Providers Care Waistline Joiner Overlock Name Role Phone Eleanor Rolon MD Primary Care Provider Encounter Details Date Type Department Care Team (Late st Contact Info) Description 06/16/2018 Procedure Pass [facility] Endoscopy Admitting Dept Virtual Department 30 [place] [address] Social History Tobacco Use Types Packs/Day Years [...] documented as of this encounter Care Teams Waistline Joiner Overlock Relationship Specialty Start Date End Date Eleanor Rolon MD [address] [place] [address] [email or web address] PCP - General Internal Medicine 12/30/17 documented as of this encounter Additional Source Comments The information contained in this document represents components of the legal health record. It is not the complete legal health record.[facility]
[2025-09-28 15:03] VITALS: BP 140/80; PULSE 65; TEMP 36.1; O2SAT 98; BMI 34.2
[2025-09-28 15:25] VITALS: BP 124/72
== END 2025-09-28 15:48 | disposition home or self-care (01) ==
LOC: HO.HMCH 14:58
DX: Z23 Encounter for immunization (principal)

== ENCOUNTER → 2025-09-28 14:57 | Outpatient (BNVA) | payer OTHER, SELFPAY | DX: Z23 Encounter for immunization (principal); R03.0 Elevated blood-pressure reading, without diagnosis of hypertension; R00.2 Palpitations; E03.9 Hypothyroidism, unspecified; E53.8 Deficiency of other specified B group vitamins; M85.80 Other specified disorders of bone density and structure, unspecified site; E55.9 Vitamin D deficiency, unspecified; K76.0 Fatty (change of) liver, not elsewhere classified; R07.89 Other chest pain; K11.20 Sialoadenitis, unspecified; M25.551 Pain in right hip; M25.552 Pain in left hip; L65.9 Nonscarring hair loss, unspecified; R22.2 Localized swelling, mass and lump, trunk; Z86.39 Personal history of other endocrine, nutritional and metabolic disease | CPT/HCPCS: 90471; 90714 ==